=== PATIENT | male | born 1960 | race American Indian/Alaskan Native ===

== ENCOUNTER 2018-01-05 10:42 | Inpatient (IN) | payer OTHER ==
[2018-01-05] MEDS ORDERED: ASPIRIN PO ONE (12:13)
[2018-01-05 12:37] LABS: Hemoglobin 11.8 gm/dl (11.8-15.2); Red Blood Count 3.99 M/mm3 (3.65-5.03)
[2018-01-05 12:38] LABS: Basophils # (Auto) 0.1 K/mm3 (0.0-0.1); Basophils % (Auto) 0.9 % (0.0-1.8); Eosinophils # (Auto) 0.1 K/mm3 (0.0-0.4); Eosinophils % (Auto) 1.1 % (0.0-4.3); Hematocrit 36.2 % (35.5-45.6); Lymphocytes # (Auto) 1.5 K/mm3 (1.2-5.4); Mean Corpuscular HGB Conc 33 % (32-34); Mean Corpuscular Hemoglobin 30 pg (28-32); Mean Corpuscular Volume 91 fl (84-94); Monocytes # (Auto) 0.6 K/mm3 (0.0-0.8); Monocytes % (Auto) 5.8 % (0.0-7.3); Platelet Count 340 K/mm3 (140-440); Red Cell Distribution Width 13.4 % (13.2-15.2)
[2018-01-05 12:49] LABS: BUN/Creatinine Ratio 10; Blood Urea Nitrogen 24 mg/dL (9-20); Calcium 8.4 mg/dL (8.4-10.2); Hemolysis Index 34
[2018-01-05] MEDS ORDERED: LASIX IV ONE (13:01)
--- NOTE | 2018-01-05 13:08 | Emergency Department Report ---
ED Shortness of Breath HPI - General Chief Complaint: Abdominal Pain Stated Complaint: HEART FLUID Time Seen by Provider: 01/05/18 12:52 Source: patient Mode of arrival: Ambulatory Limitations: No Limitations - History of Present Illness Initial Comments: Mr. Gregorio is a 57-year-old male presents with 3 months of abdominal distention and fluid overload. He has history of insulin-dependent diabetes, hypertension and cardiac disease. He explained that earlier this month he had a heart attack or diagnosed with a heart attack at [facility]. His primary physician referred him to Dr. Lei data systems manager. Today he was evaluated by data systems manager as a new patient. He then was referred to the ER. His main concern is that he is "so full of fluid". The swelling in his legs and abdomen improve overnight. However throughout the day the fluid quickly returns. Over the past month, he has noticed a quick thumping sensation in the middle of his chest. This sensation is intermittent but occurs often. MD Complaint: shortness of breath -: Gradual, month(s) (3) Severity: moderate Consistency: constant Improves With: rest Worsens With: exertion Known History Of: congestive heart failure Context: other (recent heart attack earlier this month) Associated Symptoms: abdominal pain (abdominal distention and discomfort) - Related Data Home Medications Medication Instructions Recorded Confirmed Last Taken Famotidine [Pepcid] 20 mg PO BID 01/05/18 01/05/18 Unknown Furosemide [Lasix TAB] 80 mg PO BID 01/05/18 01/05/18 Unknown Metoprolol [Lopressor TAB] 50 mg PO BID 01/05/18 01/05/18 Unknown cloNIDine [Catapres] 0.1 mg PO BID 01/05/18 01/05/18 Unknown glipiZIDE XL [Glucotrol Xl] 4 tab PO DAILY@1100 01/05/18 01/05/18 Unknown Allergies Allergy/AdvReac Type Severity Reaction Status Date / Time No Known Allergies Allergy Verified 11/01/13 07:35 ED Review of Systems ROS: Stated complaint: HEART FLUID Other details as noted in HPI Comment: All other systems reviewed and negative Constitutional: denies: fever, malaise Respiratory: SOB with exertion, SOB at rest. denies: cough Cardiovascular: denies: chest pain Gastrointestinal: abdominal pain. denies: nausea, vomiting ED Past Medical Hx - Past Medical History Previous Medical History?: Yes Hx Diabetes: Yes - Surgical History Past Surgical History?: No - Social History Smoking Status: Never Smoker - Medications Home Medications: Home Medications Medication Instructions Recorded Confirmed Last Taken Type Famotidine [Pepcid] 20 mg PO BID 01/05/18 01/05/18 Unknown History Furosemide [Lasix TAB] 80 mg PO BID 01/05/18 01/05/18 Unknown History Metoprolol [Lopressor TAB] 50 mg PO BID 01/05/18 01/05/18 Unknown History cloNIDine [Catapres] 0.1 mg PO BID 01/05/18 01/05/18 Unknown History glipiZIDE XL [Glucotrol Xl] 4 tab PO DAILY@1100 01/05/18 01/05/18 Unknown History ED Physical Exam - General Limitations: No Limitations General appearance: alert, in no apparent distress - Head Head exam: Present: atraumatic, normocephalic - Eye Eye exam: Present: normal appearance - ENT ENT exam: Present: mucous membranes moist - Neck Neck exam: Present: normal inspection. Absent: tenderness, meningismus - Respiratory Respiratory exam: Present: normal lung sounds bilaterally. Absent: respiratory distress, wheezes, rales, rhonchi - Cardiovascular Cardiovascular Exam: Present: regular rate, normal rhythm, normal heart sounds, JVD (at 90 degrees). Absent: systolic murmur, diastolic murmur, rubs, gallop - GI/Abdominal GI/Abdominal exam: Present: soft, distended (tense). Absent: tenderness, guarding, rebound - Extremities Exam Extremities exam: Present: other (2+ pitting edema from groin to feet bilaterally) - Back Exam Back exam: Present: normal inspection - Neurological Exam Neurological exam: Present: alert, oriented X3 - Psychiatric Psychiatric exam: Present: normal affect, normal mood - Skin Skin exam: Present: warm, dry, intact, normal color. Absent: rash ED Course Vital Signs 01/05/18 01/05/18 12:02 13:13 Temperature 98.4 F 97.9 F Pulse Rate 89 90 Respiratory 20 18 Rate Blood Pressure 167/101 Blood Pressure 207/118 [Right] O2 Sat by Pulse 100 99 Oximetry ED Medical Decision Making - Lab Data Result diagrams: 01/05/18 12:22 01/05/18 13:14 Laboratory Results - last 24 hr 01/05/18 01/05/18 12:19 12:22 WBC 11.0 RBC 3.99 Hgb 11.8 Hct 36.2 MCV 91 MCH 30 MCHC 33 RDW 13.4 Plt Count 340 Lymph % (Auto) 14.0 Bee % (Auto) 5.8 Eos % (Auto) 1.1 Baso % (Auto) 0.9 Lymph # 1.5 Bee # 0.6 Eos # 0.1 Baso # 0.1 Seg Neutrophils % 78.2 H Seg Neutrophils # 8.6 H Sodium 141 Potassium 5.5 H Chloride 103.9 Carbon Dioxide 29 Anion Gap 14 BUN 24 H Creatinine 2.3 H Estimated GFR 36 BUN/Creatinine Ratio 10 Glucose 410 H Calcium 8.4 Troponin T 0.090 H - EKG Data 01/05/18 13:09 EKG obtained 1058 NSR rate 85 bpm nl axis nl intervals No acute ischemic changes no ST elevation no signs of pericarditis anterior Q waves with Poor R wave progression - Medical Decision Making Mr. Gregorio presents with fluid overload presumably to CHF. Admitted to hospitalist with cardiology consultation. Concern for RIGO. Mildly elevated potassium. Will confirm with repeat lab. Insulin administered to address both hyperglycemia and hyperkalemia. Will need gentle diuresis. I have asked our ED area secretary to obtain outside hospital records from [facility]. Critical care attestation.: If time is entered above; I have spent that time in minutes in the direct care of this critically ill patient, excluding procedure time. ED Disposition Clinical Impression: Acute on chronic HFrEF (heart failure with reduced ejection fraction), CKD ( chronic kidney disease) Disposition: OP ADMIT IP TO THIS HOSP Is pt being admited?: Yes Does the pt Need Aspirin: No Condition: Stable
[2018-01-05] MEDS ORDERED: HumuLIN R IV ONE (13:14)
[2018-01-05] MEDS ORDERED: MORPHINE IV ONE (13:28)
[2018-01-05] MEDS ORDERED: NITRO-BID 2% TP ONE (13:28)
[2018-01-05 15:30] LABS: Alanine Aminotransferase 32 units/L (7-56); Albumin 1.9 g/dL (3.9-5)
[2018-01-05 15:31] LABS: Bilirubin,Direct < 0.2 mg/dL (0-0.2)
--- NOTE | 2018-01-05 16:01 | Consultation ---
History of Present Illness Consult date: 01/05/18 Consult reason: elevated troponin, shortness of breath History of present illness: The patient claims that he has been experiencing intermittent precordial chest pressure as well as exertional dyspnea and orthopnea for the past 1.5 months. He claims that he was admitted to [facility] twice since onset of symptoms. He claims that he was diagnosed with a weak heart muscle and heart failure. He also reports undergoing stress testing at [facility]. He presented today with worsening of symptoms to [facility] ER. Past History Past Medical History: diabetes, heart failure, hypertension, hyperlipidemia, renal failure (CKD), other (cardiomyopathy.) Past Surgical History: Other (Leg surgery) Social history: denies: smoking, alcohol abuse Family history: denies: CAD Medications and Allergies Allergies Allergy/AdvReac Type Severity Reaction Status Date / Time No Known Allergies Allergy Verified 11/01/13 07:35 Home Medications Medication Instructions Recorded Confirmed Last Taken Type Famotidine [Pepcid] 20 mg PO BID 01/05/18 01/05/18 Unknown History Furosemide [Lasix TAB] 80 mg PO BID 01/05/18 01/05/18 Unknown History Metoprolol [Lopressor TAB] 50 mg PO BID 01/05/18 01/05/18 Unknown History cloNIDine [Catapres] 0.1 mg PO BID 01/05/18 01/05/18 Unknown History glipiZIDE XL [Glucotrol Xl] 4 tab PO DAILY@1100 01/05/18 01/05/18 Unknown History Review of Systems Constitutional: no fever, no chills Ears, nose, mouth and throat: no ear pain, no ear discharge, no sore throat Cardiovascular: chest pain, orthopnea, dyspnea on exertion, no palpitations, no lightheadedness Respiratory: dyspnea on exertion, no cough, no hemoptysis Gastrointestinal: no abdominal pain, no nausea, no vomiting, no diarrhea, no constipation Genitourinary Male: no dysuria, no urinary frequency Rectal: no pain, no bleeding Musculoskeletal: no neck stiffness, no neck pain, no myalgias Integumentary: no rash, no pruritis Neurological: no weakness, no parathesias, no headaches Endocrine: no cold intolerance, no heat intolerance Hematologic/Lymphatic: no easy bruising, no easy bleeding Allergic/Immunologic: no urticaria, no wheezing Physical Examination Vital Signs Temp Pulse Resp BP Pulse Ox 98.4 F 89 20 167/101 100 01/05/18 12:02 01/05/18 12:02 01/05/18 12:02 01/05/18 12:02 01/05/18 12:02 General appearance: no acute distress HEENT: Positive: EOMI, Normocephaly, Mucus Membranes Moist Neck: Positive: neck supple, trachea midline Cardiac: Positive: Reg Rate and Rhythm, S1/S2 Lungs: Positive: Rhonchi Neuro: Positive: Grossly Intact Abdomen: Positive: Soft, Active Bowel Sounds. Negative: Tender Skin: Positive: Clear. Negative: Rash Musculoskeletal: Normal Range of Motion Extremities: Present: +1 Edema (bilateral leg edema) Results 01/05/18 12:22 01/05/18 13:14 Cardiac Enzymes 01/05/18 Range/Units 12:19 AST 44 H (5-40) units/L CBC 01/05/18 Range/Units 12:22 WBC 11.0 (4.5-11.0) K/mm3 RBC 3.99 (3.65-5.03) M/mm3 Hgb 11.8 (11.8-15.2) gm/dl Hct 36.2 (35.5-45.6) % Plt Count 340 (140-440) K/mm3 Lymph # 1.5 (1.2-5.4) K/mm3 Nance # 0.6 (0.0-0.8) K/mm3 Eos # 0.1 (0.0-0.4) K/mm3 Baso # 0.1 (0.0-0.1) K/mm3 Comprehensive Metabolic Panel 01/05/18 01/05/18 Range/Units 12:19 13:14 Sodium 141 (137-145) mmol/L Potassium 5.5 H 5.3 H (3.6-5.0) mmol/L Chloride 103.9 (98-107) mmol/L Carbon Dioxide 29 (22-30) mmol/L BUN 24 H (9-20) mg/dL Creatinine 2.3 H (0.8-1.5) mg/dL Glucose 410 H (75-100) mg/dL Calcium 8.4 (8.4-10.2) mg/dL Direct Bilirubin < 0.2 (0-0.2) mg/dL Indirect Bilirubin 0.0 mg/dL AST 44 H (5-40) units/L ALT 32 (7-56) units/L Alkaline Phosphatase 124 (35-129) units/L Total Protein 6.0 L (6.3-8.2) g/dL Albumin 1.9 L (3.9-5) g/dL - Imaging and Cardiology EKG: image reviewed EKG interpretations - Telemetry EKG Rhythm: Sinus Rhythm - EKG Sinus rhythms and dysrhythmias: sinus rhythm Assessment and Plan IV diuretics. Optimize antihypertensive regimen. Obtain echocardiogram.. Obtain recent records from [facility]. - Patient Problems (1) Acute on chronic HFrEF (heart failure with reduced ejection fraction) Current Visit: Yes Status: Acute (2) Elevated troponin Current Visit: Yes Status: Acute (3) Cardiomyopathy Current Visit: Yes Status: Chronic (4) CKD (chronic kidney disease) Current Visit: Yes Status: Acute (5) Uncontrolled hypertension Current Visit: Yes Status: Acute (6) Uncontrolled diabetes mellitus Current Visit: Yes Status: Acute Qualifiers: Diabetes mellitus type: type 2
[2018-01-05] MEDS ORDERED: LOPRESSOR ONE ×2 (16:23→16:43)
[2018-01-05] MEDS: LOPRESSOR PO SCH ×2 (16:43→23:29)
[2018-01-05] MEDS ORDERED: APRESOLINE PO STA (16:54)
[2018-01-05] MEDS ORDERED: NORVASC PO STA (16:54)
[2018-01-05] MEDS ORDERED: CATAPRES PO STA (16:54)
[2018-01-05 18:25] LABS: Chol/HDL Ratio 3.36 %; HDL Cholesterol 85 mg/dL (40-59); LDL Cholesterol,Direct 194 mg/dL (50-130)
--- NOTE | 2018-01-05 18:58 | XRay Report ---
FINAL REPORT PROCEDURE: XR CHEST 1V AP TECHNIQUE: A portable AP chest radiograph was obtained at 01/05/2018 17:57 (GMT) . HISTORY: Dyspnea. COMPARISON: No prior studies are available for comparison. FINDINGS: Heart: Mild cardiomegaly. Mediastinum/Vessels: Normal. Lungs/Pleural space: Moderate right lower lobe opacity and small to moderate right pleural effusion. Bony thorax: No acute osseous abnormality. Life support devices: None. IMPRESSION: Mild cardiomegaly. Moderate right lower lobe opacity and small to moderate pleural effusion. Consider atelectasis, cannot exclude pneumonia or even subtle underlying mass lesion. Consider followup PA and lateral chest radiograph to evaluate for resolution and consider chest CT if findings do not resolve.
[2018-01-05] MEDS ORDERED: CATAPRES PO SCH (22:00)
[2018-01-05] MEDS: BIDIL 20/37.5MG PO SCH (22:19)
[2018-01-05] MEDS ORDERED: MORPHINE IV PRN (22:46)
[2018-01-05] MEDS ORDERED: TYLENOL PO PRN (22:46)
[2018-01-05] MEDS ORDERED: ZOFRAN IV PRN (22:46)
[2018-01-05] MEDS ORDERED: SODIUM CHLORIDE FLUSH SYRINGE 10 ML IV PRN (22:46)
[2018-01-05] MEDS ORDERED: PERCOCET 5/325 PO PRN (22:46)
--- NOTE | 2018-01-05 22:46 | History and Physical Report ---
History of Present Illness Date of examination: 01/05/18 Date of admission: 01/05/18 14:39 Chief complaint: Cc CHest pain and SOB 1 week History of present illness: History of present illness: 57 y/o male c/o intermittent precordial chest pressure as well as exertional dyspnea and orthopnea for the past 6 weeks. He claims that he was admitted to [facility] twice since onset of symptoms. He claims that he was diagnosed with CHF.. He also reports undergoing stress testing at [facility]. He presented today with worsening of symptoms to [facility] ER. Past History Past Medical History: diabetes, heart failure, hypertension, hyperlipidemia, renal failure (CKD), other (cardiomyopathy.) Past Surgical History: Other (Leg surgery) Social history: denies: smoking, alcohol abuse Family history: denies: CAD Medications and Allergies Allergies Allergy/AdvReac Type Severity Reaction Status Date / Time No Known Allergies Allergy Verified 11/01/13 07:35 Home Medications Medication Instructions Recorded Confirmed Last Taken Type Famotidine [Pepcid] 20 mg PO BID 01/05/18 01/05/18 Unknown History Furosemide [Lasix TAB] 80 mg PO BID 01/05/18 01/05/18 Unknown History Metoprolol [Lopressor TAB] 50 mg PO BID 01/05/18 01/05/18 Unknown History cloNIDine [Catapres] 0.1 mg PO BID 01/05/18 01/05/18 Unknown History glipiZIDE XL [Glucotrol Xl] 4 tab PO DAILY@1100 01/05/18 01/05/18 Unknown History Review of Systems Constitutional: no fever, no chills Ears, nose, mouth and throat: no ear pain, no ear discharge, no sore throat Cardiovascular: chest pain, orthopnea, dyspnea on exertion, no palpitations, no lightheadedness Respiratory: dyspnea on exertion, no cough, no hemoptysis Gastrointestinal: no abdominal pain, no nausea, no vomiting, no diarrhea, no constipation Genitourinary Male: no dysuria, no urinary frequency Rectal: no pain, no bleeding Musculoskeletal: no neck stiffness, no neck pain, no myalgias Integumentary: no rash, no pruritis Neurological: no weakness, no parathesias, no headaches Endocrine: no cold intolerance, no heat intolerance Hematologic/Lymphatic: no easy bruising, no easy bleeding Allergic/Immunologic: no urticaria, no wheezing Past History Past Medical History: diabetes, heart failure, hypertension, hyperlipidemia, renal failure (CKD), other (cardiomyopathy.) Past Surgical History: Other (Leg surgery) Social history: denies: smoking, alcohol abuse Family history: denies: CAD Medications and Allergies Allergies Allergy/AdvReac Type Severity Reaction Status Date / Time No Known Allergies Allergy Verified 11/01/13 07:35 Home Medications Medication Instructions Recorded Confirmed Last Taken Type Famotidine [Pepcid] 20 mg PO BID 01/05/18 01/05/18 Unknown History Furosemide [Lasix TAB] 80 mg PO BID 01/05/18 01/05/18 Unknown History Metoprolol [Lopressor TAB] 50 mg PO BID 01/05/18 01/05/18 Unknown History cloNIDine [Catapres] 0.1 mg PO BID 01/05/18 01/05/18 Unknown History glipiZIDE XL [Glucotrol Xl] 4 tab PO DAILY@1100 01/05/18 01/05/18 Unknown History Active Meds: Active Medications Clonidine HCl (Catapres) 0.2 mg PO Q12HR [facility] Last Admin: 01/05/18 22:19 Dose: 0.2 mg Isosorbide Dinitrate/Hydralazine (Bidil 20/37.5mg) 1 each PO Q8HR [facility] Last Admin: 01/05/18 22:19 Dose: 1 each Metoprolol Tartrate (Lopressor) 50 mg PO Q6H [facility] Last Admin: 01/05/18 16:43 Dose: 50 mg Exam - Constitutional Vitals: Temp Pulse Resp BP Pulse Ox 98.2 F 80 11 L 159/90 95 01/05/18 18:58 01/05/18 21:07 01/05/18 20:30 01/05/18 20:30 01/05/18 20:30 General appearance: Present: mild distress, well-nourished - EENT Eyes: Present: PERRL ENT: hearing intact, clear oral mucosa - Neck Neck: Present: supple, normal ROM - Respiratory Respiratory effort: normal Respiratory: bilateral: CTA - Cardiovascular Heart rate: 86 Rhythm: regular Heart Sounds: Present: S1 & S2. Absent: rub, click - Extremities Extremities: no ischemia, pulses intact, pulses symmetrical, No edema Peripheral Pulses: within normal limits - Abdominal General gastrointestinal: Present: soft, non-tender, non-distended, normal bowel sounds Male genitourinary: Present: normal - Rectal Rectal Exam: deferred - Integumentary Integumentary: Present: clear, warm, dry - Musculoskeletal Musculoskeletal: gait normal, strength equal bilaterally - Psychiatric Psychiatric: appropriate mood/affect, intact judgment & insight - Neurologic Neurologic: CNII-XII intact, moves all extremities - Allied Health Allied health notes reviewed: nursing, case management Results - Labs CBC & Chem 7: 01/05/18 12:22 01/06/18 05:31 Labs: Laboratory Last Values WBC 11.0 K/mm3 (4.5-11.0) 01/05/18 12:22 RBC 3.99 M/mm3 (3.65-5.03) 01/05/18 12:22 Hgb 11.8 gm/dl (11.8-15.2) 01/05/18 12:22 Hct 36.2 % (35.5-45.6) 01/05/18 12:22 MCV 91 fl (84-94) 01/05/18 12:22 MCH 30 pg (28-32) 01/05/18 12:22 MCHC 33 % (32-34) 01/05/18 12:22 RDW 13.4 % (13.2-15.2) 01/05/18 12:22 Plt Count 340 K/mm3 (140-440) 01/05/18 12:22 Lymph % (Auto) 14.0 % (13.4-35.0) 01/05/18 12:22 Tift % (Auto) 5.8 % (0.0-7.3) 01/05/18 12:22 Eos % (Auto) 1.1 % (0.0-4.3) 01/05/18 12:22 Baso % (Auto) 0.9 % (0.0-1.8) 01/05/18 12:22 Lymph # 1.5 K/mm3 (1.2-5.4) 01/05/18 12:22 Tift # 0.6 K/mm3 (0.0-0.8) 01/05/18 12:22 Eos # 0.1 K/mm3 (0.0-0.4) 01/05/18 12:22 Baso # 0.1 K/mm3 (0.0-0.1) 01/05/18 12:22 Seg Neutrophils % 78.2 % (40.0-70.0) H 01/05/18 12:22 Seg Neutrophils # 8.6 K/mm3 (1.8-7.7) H 01/05/18 12:22 Sodium 141 mmol/L (137-145) 01/05/18 12:19 Potassium 5.3 mmol/L (3.6-5.0) H 01/05/18 13:14 Chloride 103.9 mmol/L (98-107) 01/05/18 12:19 Carbon Dioxide 29 mmol/L (22-30) 01/05/18 12:19 Anion Gap 14 mmol/L 01/05/18 12:19 BUN 24 mg/dL (9-20) H 01/05/18 12:19 Creatinine 2.3 mg/dL (0.8-1.5) H 01/05/18 12:19 Estimated GFR 36 ml/min 01/05/18 12:19 BUN/Creatinine Ratio 10 % 01/05/18 12:19 Glucose 410 mg/dL (75-100) H 01/05/18 12:19 POC Glucose 198 (70-105) H 01/05/18 15:42 Calcium 8.4 mg/dL (8.4-10.2) 01/05/18 12:19 Total Bilirubin < 0.20 mg/dL (0.1-1.2) 01/05/18 12:19 Direct Bilirubin < 0.2 mg/dL (0-0.2) 01/05/18 12:19 Indirect Bilirubin 0.0 mg/dL 01/05/18 12:19 AST 44 units/L (5-40) H 01/05/18 12:19 ALT 32 units/L (7-56) 01/05/18 12:19 Alkaline Phosphatase 124 units/L (35-129) 01/05/18 12:19 Troponin T 0.083 ng/mL (0.00-0.029) H 01/05/18 17:41 NT-Pro-B Natriuret Pep 5935 pg/mL (0-900) H 01/05/18 12:19 Total Protein 6.0 g/dL (6.3-8.2) L 01/05/18 12:19 Albumin 1.9 g/dL (3.9-5) L 01/05/18 12:19 Albumin/Globulin Ratio 0.5 % 01/05/18 12:19 Triglycerides 182 mg/dL (2-149) H 01/05/18 12:19 Cholesterol 286 mg/dL (50-199) H 01/05/18 12:19 LDL Cholesterol Direct 194 mg/dL (50-130) H 01/05/18 12:19 HDL Cholesterol 85 mg/dL (40-59) H 01/05/18 12:19 Cholesterol/HDL Ratio 3.36 % 01/05/18 12:19 Short CBC 01/05/18 Range/Units 12:22 WBC 11.0 (4.5-11.0) K/mm3 Hgb 11.8 (11.8-15.2) gm/dl Hct 36.2 (35.5-45.6) % Plt Count 340 (140-440) K/mm3 BMP 01/05/18 01/05/18 01/06/18 12:19 13:14 05:31 Sodium 141 147 H Potassium 5.5 H 5.3 H 4.4 Chloride 103.9 107.0 Carbon Dioxide 29 29 BUN 24 H 24 H Creatinine 2.3 H 2.4 H Glucose 410 H 199 H Calcium 8.4 8.3 L Cardiac Enzymes 01/05/18 01/05/18 01/05/18 Range/Units 12:19 14:53 17:41 Troponin T 0.090 H 0.091 H 0.083 H (0.00-0.029) ng/mL Liver Function 01/05/18 01/06/18 Range/Units 12:19 05:31 Total Bilirubin < 0.20 < 0.20 (0.1-1.2) mg/dL Direct Bilirubin < 0.2 (0-0.2) mg/dL AST 44 H 27 (5-40) units/L ALT 32 24 (7-56) units/L Alkaline Phosphatase 124 105 (35-129) units/L Albumin 1.9 L 1.8 L (3.9-5) g/dL - Imaging and Cardiology EKG: report reviewed ( old anterior infarct) Imaging and Cardiology: CXR IMPRESSION :1)Mild cardiomegaly. Moderate right lower lobe opacity and small to moderate pleural effusion. Consider atelectasis, cannot exclude pneumonia or even subtle underlying mass lesion. Consider followup PA and lateral chest radiograph to evaluate for resolution and consider chest CT if findings do not resolve. Assessment and Plan Advance Directives: Yes (Full code) VTE prophylaxis?: Chemical Plan of care discussed with patient/family: Yes 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) heart failure Plan to address problem: ECHO ordered Will try to get records from [facility] (2) Elevated troponin Current Visit: Yes Status: Acute Plan to address problem: Will defer to Cardiology reg w/u (3) CKD (chronic kidney disease) Current Visit: Yes Status: Chronic Qualifiers: Chronic kidney disease stage: stage 3 (moderate) Qualified Code(s): N18.3 - Chronic kidney disease, stage 3 (moderate) Plan to address problem: Nephrology consult (4) HTN (hypertension) Current Visit: Yes Status: Chronic Qualifiers: Hypertension type: essential hypertension Qualified Code(s): I10 - Essential (primary) hypertension Plan to address problem: CONT ANTIHYpertensives (5) IDDM (insulin dependent diabetes mellitus) Current Visit: Yes Status: Chronic Plan to address problem: COnt Home insulin and Adjust dosage upwards b/c A1c is high And coverage (6) HLD (hyperlipidemia) Current Visit: Yes Status: Chronic Qualifiers: Hyperlipidemia type: mixed hyperlipidemia Qualified Code(s): E78.2 - Mixed hyperlipidemia Plan to address problem: Cont statins (7) DVT prophylaxis Current Visit: Yes Status: Acute Plan to address problem: On Lovenox
[2018-01-05] MEDS ORDERED: AMBIEN PO ONE (23:20)
[2018-01-05] MEDS: HumaLOG SUB-Q SCH (23:30)
[2018-01-06] MEDS: LOPRESSOR PO SCH ×3 (05:41→23:11)
[2018-01-06] MEDS: BIDIL 20/37.5MG PO SCH ×3 (05:41→23:10)
[2018-01-06] MEDS: LASIX IV SCH ×2 (05:42→17:50)
[2018-01-06 07:18] LABS: Alanine Aminotransferase 24 units/L (7-56); Albumin 1.8 g/dL (3.9-5); BUN/Creatinine Ratio 10; Blood Urea Nitrogen 24 mg/dL (9-20); Calcium 8.3 mg/dL (8.4-10.2); Hemolysis Index 5
[2018-01-06] MEDS: CATAPRES PO SCH ×2 (09:33→23:10)
[2018-01-06] MEDS: HumaLOG SUB-Q SCH ×4 (09:33→22:50)
[2018-01-06] MEDS: K-DUR PO SCH (09:34)
[2018-01-06] MEDS: PEPCID PO SCH ×2 (09:34→23:11)
[2018-01-06] MEDS: SODIUM CHLORIDE FLUSH SYRINGE 10 ML IV SCH ×2 (09:35→23:12)
[2018-01-06] MEDS ORDERED: PEPCID PO SCH ×3 (10:00)
[2018-01-06] MEDS: GLUCOTROL XL PO SCH (11:31)
--- NOTE | 2018-01-06 12:33 | Progress Note ---
Assessment and Plan Assessment and plan: --Acute on chronic congestive heart failure; probably systolic dysfunction Unknown ejection fraction, follow echocardiogram, continue anti-failure medications Low-sodium diet, fluid restriction, cardiology following --Nonspecific elevation of troponins; probably secondary to acute exacerbation of CHF closely monitor, check recent medical records from outside hospital --Acute kidney injury; secondary to ATN Closely monitor renal function, avoid nephrotoxic medicines, nephrology evaluation if needed --Hypertension; moderate control, continue current antihypertensives When necessary medications --Severe malnutrition/hypoalbuminemia; nutrition supplements, supportive care Nutrition consult as needed --Dyslipidemia; continue lipid lowering medications, low-cholesterol diet --Type 2 diabetes mellitus; uncontrolled, A1c 9.8 Accu-Chek sliding scale coverage and ADA diet, oral hypoglycemics Consider long-acting insulin if needed --DVT prophylaxis; Lovenox We'll closely monitor the patient and adjust management as needed Plan of care is reviewed with the patient and his nurse History Interval history: Patient Seen and examined medical records reviewed Patient feels slightly better, no new complaints Vital signs reviewed No new events reported by the nursing Hospitalist Physical - Constitutional Vitals: Temp Pulse Resp BP Pulse Ox 98.2 F 75 11 L 156/91 95 01/05/18 18:58 01/06/18 09:35 01/05/18 20:30 01/06/18 09:35 01/05/18 20:30 General appearance: Present: no acute distress, well-nourished - EENT Eyes: Present: PERRL, EOM intact - Neck Neck: Present: supple, normal ROM - Respiratory Respiratory effort: normal Respiratory: bilateral: diminished, rales, negative: rhonchi, wheezing - Cardiovascular Rhythm: regular Heart Sounds: Present: S1 & S2 - Extremities Extremities: no ischemia, No edema - Abdominal General gastrointestinal: soft, non-tender, non-distended, normal bowel sounds - Integumentary Integumentary: Present: clear, warm - Psychiatric Psychiatric: appropriate mood/affect, cooperative - Neurologic Neurologic: CNII-XII intact, moves all extremities Results - Labs CBC & Chem 7: 01/05/18 12:22 01/06/18 05:31 Labs: Laboratory Last Values WBC 11.0 K/mm3 (4.5-11.0) 01/05/18 12:22 RBC 3.99 M/mm3 (3.65-5.03) 01/05/18 12:22 Hgb 11.8 gm/dl (11.8-15.2) 01/05/18 12:22 Hct 36.2 % (35.5-45.6) 01/05/18 12:22 MCV 91 fl (84-94) 01/05/18 12:22 MCH 30 pg (28-32) 01/05/18 12:22 MCHC 33 % (32-34) 01/05/18 12:22 RDW 13.4 % (13.2-15.2) 01/05/18 12:22 Plt Count 340 K/mm3 (140-440) 01/05/18 12:22 Lymph % (Auto) 14.0 % (13.4-35.0) 01/05/18 12:22 [place] % (Auto) 5.8 % (0.0-7.3) 01/05/18 12:22 Eos % (Auto) 1.1 % (0.0-4.3) 01/05/18 12:22 Baso % (Auto) 0.9 % (0.0-1.8) 01/05/18 12:22 Lymph # 1.5 K/mm3 (1.2-5.4) 01/05/18 12:22 [place] # 0.6 K/mm3 (0.0-0.8) 01/05/18 12:22 Eos # 0.1 K/mm3 (0.0-0.4) 01/05/18 12:22 Baso # 0.1 K/mm3 (0.0-0.1) 01/05/18 12:22 Seg Neutrophils % 78.2 % (40.0-70.0) H 01/05/18 12:22 Seg Neutrophils # 8.6 K/mm3 (1.8-7.7) H 01/05/18 12:22 Sodium 147 mmol/L (137-145) H 01/06/18 05:31 Potassium 4.4 mmol/L (3.6-5.0) 01/06/18 05:31 Chloride 107.0 mmol/L (98-107) 01/06/18 05:31 Carbon Dioxide 29 mmol/L (22-30) 01/06/18 05:31 Anion Gap 15 mmol/L 01/06/18 05:31 BUN 24 mg/dL (9-20) H 01/06/18 05:31 Creatinine 2.4 mg/dL (0.8-1.5) H 01/06/18 05:31 Estimated GFR 34 ml/min 01/06/18 05:31 BUN/Creatinine Ratio 10 % 01/06/18 05:31 Glucose 199 mg/dL (75-100) H 01/06/18 05:31 POC Glucose 233 (70-105) H 01/06/18 06:52 Hemoglobin A1c 9.8 % (4-6) H 01/05/18 23:19 Calcium 8.3 mg/dL (8.4-10.2) L 01/06/18 05:31 Total Bilirubin < 0.20 mg/dL (0.1-1.2) 01/06/18 05:31 Direct Bilirubin < 0.2 mg/dL (0-0.2) 01/05/18 12:19 Indirect Bilirubin 0.0 mg/dL 01/05/18 12:19 AST 27 units/L (5-40) 01/06/18 05:31 ALT 24 units/L (7-56) 01/06/18 05:31 Alkaline Phosphatase 105 units/L (35-129) 01/06/18 05:31 Troponin T 0.083 ng/mL (0.00-0.029) H 01/05/18 17:41 NT-Pro-B Natriuret Pep 5935 pg/mL (0-900) H 01/05/18 12:19 Total Protein 5.1 g/dL (6.3-8.2) L 01/06/18 05:31 Albumin 1.8 g/dL (3.9-5) L 01/06/18 05:31 Albumin/Globulin Ratio 0.5 % 01/06/18 05:31 Triglycerides 182 mg/dL (2-149) H 01/05/18 12:19 Cholesterol 286 mg/dL (50-199) H 01/05/18 12:19 LDL Cholesterol Direct 194 mg/dL (50-130) H 01/05/18 12:19 HDL Cholesterol 85 mg/dL (40-59) H 01/05/18 12:19 Cholesterol/HDL Ratio 3.36 % 01/05/18 12:19
--- NOTE | 2018-01-06 13:56 | Consultation ---
History of Present Illness - Reason for Consult Consult date: 01/06/18 acute renal failure, chronic renal failure, hyperkalemia, other (volume overload ) - History of Present Illness The patient is a 57 YO male with medical history significant for Obesity, DM-2 ( 15+ yrs), HTN (15+ yrs), HLD, Systolic CHF and CKD who came to the hospital with worsening sob and swelling of all 4 extremities. The symptoms started several weeks ago but gotten worse over the past few days. Associated symptoms include Orthopnea, PND and intermittent chest pressure. He claims that he was admitted at [facility] twice since onset of symptoms. For several years he was not taking treatment for DM and HTN. On admission his creatinine was 2.3 and K 5.5. In 2014 his creatinine was 1.4. He is currently not followed by any [employer]. Denies any urinary symptoms, NSIAD intake, recurrent UTI or kidney stone. Past History Past Medical History: diabetes, heart failure, hypertension, hyperlipidemia, renal failure (CKD), other (cardiomyopathy.) Past Surgical History: Other (Leg surgery) Social history: denies: smoking, alcohol abuse Family history: denies: CAD Medications and Allergies Allergies Allergy/AdvReac Type Severity Reaction Status Date / Time No Known Allergies Allergy Verified 11/01/13 07:35 Home Medications Medication Instructions Recorded Confirmed Last Taken Type Famotidine [Pepcid] 20 mg PO BID 01/05/18 01/05/18 Unknown History Furosemide [Lasix TAB] 80 mg PO BID 01/05/18 01/05/18 Unknown History Metoprolol [Lopressor TAB] 50 mg PO BID 01/05/18 01/05/18 Unknown History cloNIDine [Catapres] 0.1 mg PO BID 01/05/18 01/05/18 Unknown History glipiZIDE XL [Glucotrol Xl] 4 tab PO DAILY@1100 01/05/18 01/05/18 Unknown History Active Meds: Active Medications Acetaminophen (Tylenol) 650 mg PO Q4H PRN PRN Reason: Pain MILD(1-3)/Fever >100.5/GARCIA Clonidine HCl (Catapres) 0.1 mg PO BID [facility] Last Admin: 01/06/18 09:33 Dose: 0.1 mg Enoxaparin Sodium (Lovenox) 30 mg SUB-Q QHS [facility] Famotidine (Pepcid) 10 mg PO BID [facility] Last Admin: 01/06/18 09:34 Dose: 10 mg Furosemide (Lasix) 40 mg IV 0600,1800 [facility] Last Admin: 01/06/18 05:42 Dose: 40 mg Glipizide (Glucotrol Xl) 1 mg PO DAILY@1100 [facility] Last Admin: 01/06/18 11:31 Dose: 1 mg Insulin Human Lispro (Humalog) 0 unit SUB-Q ACHS [facility]; Protocol Last Admin: 01/06/18 09:33 Dose: 4 unit Isosorbide Dinitrate/Hydralazine (Bidil 20/37.5mg) 1 each PO Q8HR [facility] Last Admin: 01/06/18 05:41 Dose: 1 each Metoprolol Tartrate (Lopressor) 50 mg PO BID [facility] Last Admin: 01/06/18 09:35 Dose: 50 mg Morphine Sulfate (Morphine) 2 mg IV Q4H PRN PRN Reason: Pain, Moderate (4-6) Ondansetron HCl (Zofran) 4 mg IV Q8H PRN PRN Reason: Nausea And Vomiting Oxycodone/Acetaminophen (Percocet 5/325) 1 tab PO Q6H PRN PRN Reason: Pain, Moderate (4-6) Potassium Chloride (K-Dur) 20 meq PO QDAY [facility] Last Admin: 01/06/18 09:34 Dose: 20 meq Sodium Chloride (Sodium Chloride Flush Syringe 10 Ml) 10 ml IV BID [facility] Last Admin: 01/06/18 09:35 Dose: 10 ml Sodium Chloride (Sodium Chloride Flush Syringe 10 Ml) 10 ml IV PRN PRN PRN Reason: LINE FLUSH Review of Systems Constitutional: weight gain, no weight loss, no fever, no chills, no anorexia, no weakness Cardiovascular: chest pain, orthopnea, edema, shortness of breath, dyspnea on exertion, paroxysmal nocturnal dyspnea, high blood pressure, leg edema, decreased exercise tolerance, no palpitations, no syncope, no lightheadedness Respiratory: shortness of breath, dyspnea on exertion, no cough, no hemoptysis Gastrointestinal: no abdominal pain, no nausea, no vomiting, no diarrhea, no hematemesis, no melena, no jaundice Genitourinary Male: no dysuria, no hematuria Rectal: no bleeding Integumentary: no rash, no sores, no wounds, no jaundice Neurological: no weakness, no tingling, no seizures, no syncope, no tremors Psychiatric: no anxiety, no memory loss Exam - Vital Signs Vital signs: Vital Signs Pulse Ox 100 01/05/18 10:16 - General Appearance General appearance: well-developed, well-nourished, appears stated age, other ( not in distress) EENT: ATNC, PERRL, mucous membranes moist, hearing intact, vision intact Neck: Present: neck supple, trachea midline Respiratory: Clear to Ascultation Heart: regular, S1S2, no murmurs Gastrointestinal: Present: normoactive bowel sounds. Absent: tenderness Integumentary: no rash, warm and dry Neurologic: no focal deficit, no asterixis, alert and oriented x3 Musculoskeletal: Present: other (trace edema of all 4 extremities) Psychiatric: cooperative Results - Lab Results 01/05/18 12:22 01/06/18 05:31 Most recent lab results Calcium 8.3 mg/dL (8.4-10.2) L 01/06/18 05:31 - Image Kidney/bladder ultrasound: pending Assessment and Plan 1. Acute kidney injury: [place] superimposed on CKD in the setting of CHF exacerbation. Likely Cardio-renal syndrome. Urine studies and Renal US. Monitor renal function. CKD likely secondary to diabetic nephropathy. Suspect Nephrotic syndrome. 2. Electrolytes: Hyperkalemia, improved. Hypernatremia, monitor. 3. CHF exaerbation with volume overload: Followed by Cards. On Lasix. 4. DM-2.
--- NOTE | 2018-01-06 15:48 | Ultrasound Report ---
FINAL REPORT EXAM: US RENAL BILAT HISTORY: Acute renal failure. TECHNIQUE: Directed sonography of the retroperitoneum. PRIORS: None. FINDINGS: The right kidney measures 11.8 cm in longest dimension and the left kidney measures 11.8 cm in longest dimension. Renal cortical echotexture within normal limits. No intrarenal calculi, significant hydronephrosis or abnormal perinephric fluid collections. Visualized urinary bladder grossly unremarkable. Right pleural effusion incidentally noted. IMPRESSION: 1. No significant hydronephrosis. 2. Right pleural effusion.
--- NOTE | 2018-01-06 16:00 | Progress Note ---
Assessment and Plan Patient is still complaining about edema. However he appears to be diuresing reasonably well. Blood sugar is not well controlled. Hyperlipidemia is also a significant problem. Continue current management. 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) heart failure (2) Elevated troponin Current Visit: Yes Status: Acute (3) IDDM (insulin dependent diabetes mellitus) Current Visit: Yes Status: Acute (4) CKD (chronic kidney disease) Current Visit: Yes Status: Chronic Qualifiers: Chronic kidney disease stage: stage 3 (moderate) Qualified Code(s): N18.3 - Chronic kidney disease, stage 3 (moderate) (5) Cardiomyopathy Current Visit: Yes Status: Chronic (6) HLD (hyperlipidemia) Current Visit: Yes Status: Chronic Qualifiers: Hyperlipidemia type: mixed hyperlipidemia Qualified Code(s): E78.2 - Mixed hyperlipidemia (7) HTN (hypertension) Current Visit: Yes Status: Chronic Qualifiers: Hypertension type: essential hypertension Qualified Code(s): I10 - Essential (primary) hypertension Subjective Date of service: 01/06/18 Interval history: Patient still has some difficulty in breathing but it is doing better. He continues to complain about edema all over. Appears to be responding to dietary takes reasonably. Objective Vital Signs Temp Pulse Resp BP BP Pulse Ox 01/06/18 09:35 75 156/91 01/06/18 09:33 75 156/91 01/05/18 21:07 80 01/05/18 20:30 80 11 L 159/90 95 01/05/18 20:15 80 13 159/90 91 01/05/18 20:00 79 9 L 142/69 88 01/05/18 19:46 81 12 142/69 92 01/05/18 19:30 77 9 L 147/75 95 01/05/18 19:15 78 11 L 147/75 92 01/05/18 19:00 81 15 146/81 94 01/05/18 18:58 98.2 F 78 13 146/81 96 01/05/18 18:45 78 14 146/81 96 01/05/18 18:30 77 9 L 155/90 96 01/05/18 18:16 77 12 155/90 97 01/05/18 18:00 81 16 185/110 98 01/05/18 17:45 78 13 185/110 96 01/05/18 17:30 79 10 L 191/114 97 01/05/18 17:15 80 11 L 191/114 95 01/05/18 17:00 89 13 182/111 98 01/05/18 16:45 91 H 16 209/118 96 01/05/18 16:43 89 199/112 01/05/18 16:30 90 11 L 181/115 97 01/05/18 16:15 84 8 L 181/115 94 01/05/18 16:00 87 13 166/94 99 - Physical Examination HEENT: Positive: EOMI, Normocephaly, Mucus Membranes Moist Neck: Positive: neck supple, trachea midline Cardiac: Positive: Regular Rhythm Lungs: Positive: clear to auscultation Neuro: Positive: Grossly Intact Abdomen: Positive: Soft, Active Bowel Sounds. Negative: Tender Skin: Positive: Clear. Negative: Rash Musculoskeletal: Normal Range of Motion Extremities: Present: +1 Edema (bilateral leg edema) - Labs and Meds Cardiac Enzymes 01/06/18 Range/Units 05:31 AST 27 (5-40) units/L Lipids 01/05/18 Range/Units 12:19 Triglycerides 182 H (2-149) mg/dL Cholesterol 286 H (50-199) mg/dL HDL Cholesterol 85 H (40-59) mg/dL Cholesterol/HDL Ratio 3.36 % Comprehensive Metabolic Panel 01/06/18 Range/Units 05:31 Sodium 147 H (137-145) mmol/L Potassium 4.4 (3.6-5.0) mmol/L Chloride 107.0 (98-107) mmol/L Carbon Dioxide 29 (22-30) mmol/L BUN 24 H (9-20) mg/dL Creatinine 2.4 H (0.8-1.5) mg/dL Glucose 199 H (75-100) mg/dL Calcium 8.3 L (8.4-10.2) mg/dL AST 27 (5-40) units/L ALT 24 (7-56) units/L Alkaline Phosphatase 105 (35-129) units/L Total Protein 5.1 L (6.3-8.2) g/dL Albumin 1.8 L (3.9-5) g/dL - Imaging and Cardiology EKG: report reviewed ( old anterior infarct) - EKG Sinus rhythms and dysrhythmias: sinus rhythm
[2018-01-06] MEDS ORDERED: LOVENOX SUB-Q SCH (22:00)
[2018-01-07 00:48] LABS: Bilirubin,Urine NEG (Negative); Blood,Urine NEG (Negative); Color,Urine Straw (Yellow); Hyaline Casts,Urine 9 /LPF; Mucus,Urine FEW /HPF; Urobilinogen,Urine < 2.0 mg/dL (<2.0)
[2018-01-07 00:55] LABS: Creatinine,Urine 44.6 mg/dL (0.1-20.0)
[2018-01-07 00:56] LABS: Protein,Urine >500 mg/dL (Negative)
[2018-01-07 01:45] LABS: Protein/Creatinine Ratio,Urine 9.66
[2018-01-07 04:27] LABS: Basophils # (Auto) 0.1 K/mm3 (0.0-0.1); Basophils % (Auto) 0.7 % (0.0-1.8); Eosinophils # (Auto) 0.1 K/mm3 (0.0-0.4); Eosinophils % (Auto) 1.2 % (0.0-4.3); Hematocrit 31.5 % (35.5-45.6); Hemoglobin 10.4 gm/dl (11.8-15.2); Lymphocytes % (Auto) 20.7 % (13.4-35.0); Mean Corpuscular HGB Conc 33 % (32-34); Mean Corpuscular Hemoglobin 30 pg (28-32); Mean Corpuscular Volume 89 fl (84-94); Monocytes # (Auto) 0.6 K/mm3 (0.0-0.8); Monocytes % (Auto) 6.3 % (0.0-7.3); Platelet Count 303 K/mm3 (140-440); Red Blood Count 3.53 M/mm3 (3.65-5.03)
[2018-01-07 04:42] LABS: Calcium 8.3 mg/dL (8.4-10.2)
[2018-01-07] MEDS: BIDIL 20/37.5MG PO SCH ×3 (06:35→21:53)
[2018-01-07] MEDS: LASIX IV SCH ×2 (06:35→17:38)
--- NOTE | 2018-01-07 10:04 | Progress Note ---
Assessment and Plan 1. Acute kidney injury: RIGO superimposed on CKD in the setting of CHF exacerbation. Likely Cardio-renal syndrome. Likely he is at his baseline renal function. Monitor renal function. 2. Nephrotic syndrome. Likely secondary to diabetic nephropathy. Will order Antibodies. 3. Electrolytes: Hyperkalemia, kayexalate ordered. Hypernatremia, improved. 4. CHF exacerbation with volume overload: Followed by Cards. On Lasix. 5. DM-2. Subjective Date of service: 01/07/18 Interval history: Patient is feeling better. Objective - Vital Signs Vital signs: Vital Signs - 12hr 01/07/18 01/07/18 01/07/18 03:28 08:00 08:39 Temperature 98.7 F 98.0 F Pulse Rate 83 76 Respiratory 20 Rate Blood Pressure 149/80 Blood Pressure 146/81 [Right] O2 Sat by Pulse 95 Oximetry 01/07/18 08:40 Temperature Pulse Rate 78 Respiratory Rate Blood Pressure Blood Pressure [Right] O2 Sat by Pulse 98 Oximetry - General Appearance General appearance: well-developed, well-nourished, appears stated age, obese, other (not in distress) EENT: ATNC, PERRL, hearing intact, vision intact Neck: supple Respiratory: Present: Clear to Ascultation Cardiology: regular, S1S2, no murmurs Gastrointestinal: normoactive bowel sounds, no tenderness Integumentary: no rash, warm and dry Neurologic: no focal deficit, no asterixis, alert and oriented x3 Musculoskeletal: other (no edema) Psychiatric: cooperative - Lab 01/07/18 03:58 01/07/18 03:58 Most recent lab results Calcium 8.3 mg/dL (8.4-10.2) L 01/07/18 03:58 Phosphorus 3.90 mg/dL (2.5-4.5) 01/07/18 03:58 Magnesium 2.00 mg/dL (1.7-2.3) 01/07/18 03:58 Urine Creatinine 44.6 mg/dL (0.1-20.0) H 01/06/18 23:00 Urine Sodium 105 mmol/L 01/06/18 23:00 Urine Total Protein 431 mg/dL (5-11.8) H 01/06/18 23:00
[2018-01-07] MEDS ORDERED: KIONEX PO ONE (10:05)
[2018-01-07] MEDS: K-DUR PO SCH (10:07)
[2018-01-07] MEDS: GLUCOTROL XL PO SCH (10:07)
[2018-01-07] MEDS: PEPCID PO SCH ×2 (10:07→21:55)
[2018-01-07] MEDS: CATAPRES PO SCH ×2 (10:08→21:54)
[2018-01-07] MEDS: SODIUM CHLORIDE FLUSH SYRINGE 10 ML IV SCH ×2 (10:09→21:55)
[2018-01-07] MEDS: LOPRESSOR PO SCH ×2 (10:09→21:55)
[2018-01-07] MEDS: HumaLOG SUB-Q SCH ×4 (10:10→21:22)
[2018-01-07] MEDS: LOVENOX SUB-Q SCH (12:02)
--- NOTE | 2018-01-07 14:26 | Progress Note ---
Assessment and Plan Patient is doing better today. I have reviewed the echocardiogram that shows good systolic function and left ventricular hypertrophy. Continue current management. Discussed with Dr. Mcgovern. 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) heart failure (2) Elevated troponin Current Visit: Yes Status: Acute (3) IDDM (insulin dependent diabetes mellitus) Current Visit: Yes Status: Acute (4) CKD (chronic kidney disease) Current Visit: Yes Status: Chronic Qualifiers: Chronic kidney disease stage: stage 3 (moderate) Qualified Code(s): N18.3 - Chronic kidney disease, stage 3 (moderate) (5) Cardiomyopathy Current Visit: Yes Status: Chronic (6) HLD (hyperlipidemia) Current Visit: Yes Status: Chronic Qualifiers: Hyperlipidemia type: mixed hyperlipidemia Qualified Code(s): E78.2 - Mixed hyperlipidemia (7) HTN (hypertension) Current Visit: Yes Status: Chronic Qualifiers: Hypertension type: essential hypertension Qualified Code(s): I10 - Essential (primary) hypertension Subjective Date of service: 01/07/18 Interval history: Patient feels better today. During the night he pulled his monitor and he was apparently somewhat agitated. He is doing better and he is quite cooperative. Denies chest pain difficulty in breathing or palpitations. He claims that the edema is improving also and he is diuresing well. Objective Vital Signs Temp Pulse Resp BP BP Pulse Ox 01/07/18 13:26 78 149/78 01/07/18 11:49 77 18 149/78 92 01/07/18 11:00 98.0 F 01/07/18 10:09 76 149/80 01/07/18 10:08 76 149/80 01/07/18 08:40 78 98 01/07/18 08:39 76 20 149/80 95 01/07/18 08:00 98.0 F 01/07/18 03:28 98.7 F 83 146/81 01/06/18 20:57 98.7 F 83 20 156/80 96 01/06/18 20:33 75 01/06/18 17:51 75 177/92 01/06/18 16:23 98.3 F 75 18 177/92 97 - Physical Examination General: Appears Well HEENT: Positive: EOMI, Normocephaly, Mucus Membranes Moist Neck: Positive: neck supple, trachea midline Cardiac: Positive: Regular Rate Lungs: Positive: clear to auscultation Neuro: Positive: Grossly Intact Abdomen: Positive: Soft, Active Bowel Sounds. Negative: Tender Skin: Positive: Clear. Negative: Rash Musculoskeletal: Normal Range of Motion Extremities: Present: +1 Edema (bilateral leg edema) - Labs and Meds CBC 01/07/18 Range/Units 03:58 WBC 9.9 (4.5-11.0) K/mm3 RBC 3.53 L (3.65-5.03) M/mm3 Hgb 10.4 L (11.8-15.2) gm/dl Hct 31.5 L (35.5-45.6) % Plt Count 303 (140-440) K/mm3 Lymph # 2.0 (1.2-5.4) K/mm3 [place] # 0.6 (0.0-0.8) K/mm3 Eos # 0.1 (0.0-0.4) K/mm3 Baso # 0.1 (0.0-0.1) K/mm3 Comprehensive Metabolic Panel 01/07/18 Range/Units 03:58 Sodium 137 D (137-145) mmol/L Potassium 5.2 H (3.6-5.0) mmol/L Chloride 100.8 (98-107) mmol/L Carbon Dioxide 30 (22-30) mmol/L BUN 26 H (9-20) mg/dL Creatinine 2.3 H (0.8-1.5) mg/dL Glucose 341 H (75-100) mg/dL Calcium 8.3 L (8.4-10.2) mg/dL - Imaging and Cardiology EKG: report reviewed ( old anterior infarct) - EKG Sinus rhythms and dysrhythmias: sinus rhythm
--- NOTE | 2018-01-07 16:39 | Progress Note ---
Assessment and Plan Assessment and plan: --Nonspecific elevation of troponins; probably secondary to acute exacerbation of CHF closely monitor, Cardiology evaluation, continue current management --Acute on chronic diastolic congestive heart failure; EF 55-60% , continue anti-failure medications Low-sodium diet, fluid restriction, cardiology following --Acute kidney injury; secondary to ATN Very minimal improvement, avoid nephrotoxic medicines, nephrology evaluation if needed --Hypertension; moderate control, continue current antihypertensives When necessary medications --Severe malnutrition/hypoalbuminemia; albumin 1.8 nutrition supplements, supportive care, Nutrition consult as needed --Dyslipidemia; continue lipid lowering medications, low-cholesterol diet --Type 2 diabetes mellitus; uncontrolled, A1c 9.8 Accu-Chek sliding scale coverage and ADA diet, oral hypoglycemics Consider long-acting insulin if needed --DVT prophylaxis; Lovenox We'll closely monitor the patient and adjust management as needed Plan of care is reviewed with the patient and his nurse History Interval history: Since seen and examined medical records reviewed Feels slightly better no new complaints Saturating well on room air Vital signs reviewed Hospitalist Physical - Constitutional Vitals: Temp Pulse Resp BP Pulse Ox 98.0 F 78 18 149/78 92 01/07/18 11:00 01/07/18 13:26 01/07/18 11:49 01/07/18 13:26 01/07/18 11:49 General appearance: Present: no acute distress, well-nourished - EENT Eyes: Present: PERRL, EOM intact - Neck Neck: Present: supple, normal ROM - Respiratory Respiratory effort: normal Respiratory: right: diminished, bilateral: rales, negative: rhonchi, wheezing - Cardiovascular Rhythm: regular Heart Sounds: Present: S1 & S2 - Extremities Extremities: no ischemia, No edema - Abdominal General gastrointestinal: soft, non-tender, non-distended, normal bowel sounds - Integumentary Integumentary: Present: clear, warm - Psychiatric Psychiatric: appropriate mood/affect, cooperative - Neurologic Neurologic: CNII-XII intact, moves all extremities Results - Labs CBC & Chem 7: 01/07/18 03:58 01/07/18 03:58 Labs: Laboratory Last Values WBC 9.9 K/mm3 (4.5-11.0) 01/07/18 03:58 RBC 3.53 M/mm3 (3.65-5.03) L 01/07/18 03:58 Hgb 10.4 gm/dl (11.8-15.2) L 01/07/18 03:58 Hct 31.5 % (35.5-45.6) L 01/07/18 03:58 MCV 89 fl (84-94) 01/07/18 03:58 MCH 30 pg (28-32) 01/07/18 03:58 MCHC 33 % (32-34) 01/07/18 03:58 RDW 13.0 % (13.2-15.2) L 01/07/18 03:58 Plt Count 303 K/mm3 (140-440) 01/07/18 03:58 Lymph % (Auto) 20.7 % (13.4-35.0) 01/07/18 03:58 [place] % (Auto) 6.3 % (0.0-7.3) 01/07/18 03:58 Eos % (Auto) 1.2 % (0.0-4.3) 01/07/18 03:58 Baso % (Auto) 0.7 % (0.0-1.8) 01/07/18 03:58 Lymph # 2.0 K/mm3 (1.2-5.4) 01/07/18 03:58 [place] # 0.6 K/mm3 (0.0-0.8) 01/07/18 03:58 Eos # 0.1 K/mm3 (0.0-0.4) 01/07/18 03:58 Baso # 0.1 K/mm3 (0.0-0.1) 01/07/18 03:58 Seg Neutrophils % 71.1 % (40.0-70.0) H 01/07/18 03:58 Seg Neutrophils # 7.0 K/mm3 (1.8-7.7) 01/07/18 03:58 Sodium 137 mmol/L (137-145) D 01/07/18 03:58 Potassium 5.2 mmol/L (3.6-5.0) H 01/07/18 03:58 Chloride 100.8 mmol/L (98-107) 01/07/18 03:58 Carbon Dioxide 30 mmol/L (22-30) 01/07/18 03:58 Anion Gap 11 mmol/L 01/07/18 03:58 BUN 26 mg/dL (9-20) H 01/07/18 03:58 Creatinine 2.3 mg/dL (0.8-1.5) H 01/07/18 03:58 Estimated GFR 36 ml/min 01/07/18 03:58 BUN/Creatinine Ratio 11 % 01/07/18 03:58 Glucose 341 mg/dL (75-100) H 01/07/18 03:58 POC Glucose 285 (70-105) H 01/07/18 11:47 Hemoglobin A1c 9.8 % (4-6) H 01/05/18 23:19 Calcium 8.3 mg/dL (8.4-10.2) L 01/07/18 03:58 Phosphorus 3.90 mg/dL (2.5-4.5) 01/07/18 03:58 Magnesium 2.00 mg/dL (1.7-2.3) 01/07/18 03:58 Total Bilirubin < 0.20 mg/dL (0.1-1.2) 01/06/18 05:31 Direct Bilirubin < 0.2 mg/dL (0-0.2) 01/05/18 12:19 Indirect Bilirubin 0.0 mg/dL 01/05/18 12:19 AST 27 units/L (5-40) 01/06/18 05:31 ALT 24 units/L (7-56) 01/06/18 05:31 Alkaline Phosphatase 105 units/L (35-129) 01/06/18 05:31 Troponin T 0.083 ng/mL (0.00-0.029) H 01/05/18 17:41 NT-Pro-B Natriuret Pep 5935 pg/mL (0-900) H 01/05/18 12:19 Total Protein 5.1 g/dL (6.3-8.2) L 01/06/18 05:31 Albumin 1.8 g/dL (3.9-5) L 01/06/18 05:31 Albumin/Globulin Ratio 0.5 % 01/06/18 05:31 Triglycerides 182 mg/dL (2-149) H 01/05/18 12:19 Cholesterol 286 mg/dL (50-199) H 01/05/18 12:19 LDL Cholesterol Direct 194 mg/dL (50-130) H 01/05/18 12:19 HDL Cholesterol 85 mg/dL (40-59) H 01/05/18 12:19 Cholesterol/HDL Ratio 3.36 % 01/05/18 12:19 Urine Color Straw (Yellow) 01/06/18 23:00 Urine Turbidity Clear (Clear) 01/06/18 23:00 Urine pH 8.0 (5.0-7.0) H 01/06/18 23:00 Ur Specific [place] 1.008 (1.003-1.030) 01/06/18 23:00 Urine Protein >500 mg/dL (Negative) 01/06/18 23:00 Urine Glucose (UA) >=500 mg/dL (Negative) 01/06/18 23:00 Urine Ketones Neg mg/dL (Negative) 01/06/18 23:00 Urine Blood Neg (Negative) 01/06/18 23:00 Urine Nitrite Neg (Negative) 01/06/18 23:00 Urine Bilirubin Neg (Negative) 01/06/18 23:00 Urine Urobilinogen < 2.0 mg/dL (<2.0) 01/06/18 23:00 Ur Leukocyte Esterase Neg (Negative) 01/06/18 23:00 Urine WBC (Auto) 1.0 /HPF (0.0-6.0) 01/06/18 23:00 Urine RBC (Auto) 7.0 /HPF (0.0-6.0) 01/06/18 23:00 Hyaline Casts 9 /LPF 01/06/18 23:00 Urine Mucus Few /HPF 01/06/18 23:00 Urine Creatinine 44.6 mg/dL (0.1-20.0) H 01/06/18 23:00 Protein/Creatinin Ratio 9.66 01/06/18 23:00 Urine Sodium 105 mmol/L 01/06/18 23:00 Urine Total Protein 431 mg/dL (5-11.8) H 01/06/18 23:00
[2018-01-07] MEDS ORDERED: LOVENOX SUB-Q SCH (22:00)
[2018-01-08] MEDS: BIDIL 20/37.5MG PO SCH ×2 (05:34→14:18)
[2018-01-08] MEDS: LASIX IV SCH (05:34)
[2018-01-08] MEDS: HumaLOG SUB-Q SCH ×2 (07:56→12:24)
--- NOTE | 2018-01-08 10:38 | Progress Note ---
Subjective Date of service: 01/08/18 Objective - Vital Signs Vital signs: Vital Signs - 12hr 01/07/18 01/08/18 01/08/18 23:38 05:25 08:00 Temperature 98.4 F 98.1 F 98.2 F Pulse Rate 76 74 73 Respiratory 18 18 20 Rate Blood Pressure 171/89 Blood Pressure 146/75 162/85 [Right] O2 Sat by Pulse 94 100 95 Oximetry 01/08/18 08:08 Temperature Pulse Rate 72 Respiratory Rate Blood Pressure Blood Pressure [Right] O2 Sat by Pulse 98 Oximetry - Lab 01/07/18 03:58 01/08/18 06:29 Most recent lab results Calcium 8.0 mg/dL (8.4-10.2) L 01/08/18 06:29 Phosphorus 3.90 mg/dL (2.5-4.5) 01/07/18 03:58 Magnesium 2.00 mg/dL (1.7-2.3) 01/07/18 03:58 Urine Creatinine 44.6 mg/dL (0.1-20.0) H 01/06/18 23:00 Urine Sodium 105 mmol/L 01/06/18 23:00 Urine Total Protein 431 mg/dL (5-11.8) H 01/06/18 23:00
[2018-01-08] MEDS: LOPRESSOR PO SCH (10:55)
[2018-01-08] MEDS: CATAPRES PO SCH (10:55)
[2018-01-08] MEDS: PEPCID PO SCH (10:55)
[2018-01-08] MEDS: LOVENOX SUB-Q SCH (10:55)
[2018-01-08] MEDS: GLUCOTROL XL PO SCH (10:55)
[2018-01-08] MEDS: SODIUM CHLORIDE FLUSH SYRINGE 10 ML IV SCH (10:56)
--- NOTE | 2018-01-08 12:54 | Progress Note ---
Assessment and Plan Patient is doing better today. I have reviewed the echocardiogram that shows good systolic function and left ventricular hypertrophy. Increase activity. Patient is advised to be on a strict low-sodium diet. Continue current management. 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) heart failure (2) Elevated troponin Current Visit: Yes Status: Acute (3) IDDM (insulin dependent diabetes mellitus) Current Visit: Yes Status: Acute (4) CKD (chronic kidney disease) Current Visit: Yes Status: Chronic Qualifiers: Chronic kidney disease stage: stage 3 (moderate) Qualified Code(s): N18.3 - Chronic kidney disease, stage 3 (moderate) (5) Cardiomyopathy Current Visit: Yes Status: Chronic (6) HLD (hyperlipidemia) Current Visit: Yes Status: Chronic Qualifiers: Hyperlipidemia type: mixed hyperlipidemia Qualified Code(s): E78.2 - Mixed hyperlipidemia (7) HTN (hypertension) Current Visit: Yes Status: Chronic Qualifiers: Hypertension type: essential hypertension Qualified Code(s): I10 - Essential (primary) hypertension Subjective Date of service: 01/08/18 Interval history: Patient is doing better. Overall he is in a better mood and has no significant cardiac symptoms. Monitor shows sinus rhythm at a rate of 75 bpm. Objective Vital Signs Temp Pulse Resp BP BP Pulse Ox 01/08/18 08:08 72 98 01/08/18 08:00 98.2 F 73 20 162/85 95 01/08/18 07:31 74 01/08/18 05:25 98.1 F 74 18 171/89 100 01/07/18 23:38 98.4 F 76 18 146/75 94 01/07/18 20:28 75 01/07/18 19:52 98.1 F 75 18 157/95 94 01/07/18 16:45 77 18 166/85 98 01/07/18 16:00 97.3 F L 01/07/18 13:26 78 149/78 - Physical Examination General: Appears Well HEENT: Positive: EOMI, Normocephaly, Mucus Membranes Moist Neck: Positive: neck supple, trachea midline Cardiac: Positive: Regular Rhythm Neuro: Positive: Grossly Intact Abdomen: Positive: Soft, Active Bowel Sounds. Negative: Tender Skin: Positive: Clear. Negative: Rash Musculoskeletal: Normal Range of Motion Extremities: Present: +1 Edema (bilateral leg edema) - Labs and Meds Comprehensive Metabolic Panel 01/08/18 Range/Units 06:29 Sodium 139 (137-145) mmol/L Potassium 4.5 (3.6-5.0) mmol/L Chloride 100.5 (98-107) mmol/L Carbon Dioxide 32 H (22-30) mmol/L BUN 24 H (9-20) mg/dL Creatinine 2.2 H (0.8-1.5) mg/dL Glucose 329 H (75-100) mg/dL Calcium 8.0 L (8.4-10.2) mg/dL - Imaging and Cardiology EKG: report reviewed ( old anterior infarct) - EKG Sinus rhythms and dysrhythmias: sinus rhythm
[2018-01-08 14:19] VITALS: BP 153/87
--- NOTE | 2018-01-08 14:25 | Discharge Summary ---
Providers - Providers Date of Admission: 01/05/18 14:39 Date of discharge: 01/08/18 Attending physician: JAMAL POOL 01/05/18 Consult to Case Management [CONS] Routine Services Needed at Discharge: Home Health Services Notified:: case management 01/05/18 14:38 Consult to Physician [CONS] Stat Comment: Lisbeth SAUNDERS NOTIFIED Consulting Provider: MEGAN BARROSO Physician Instructions: Reason For Exam: CHF, CAD 01/05/18 22:50 Consult to Physician [CONS] Routine Comment: Consulting Provider: JOSE TRAORE Physician Instructions: Reason For Exam: RIGO 01/06/18 07:47 Consult to Physician [CONS] Routine Comment: Consulting Provider: JOSE TRAORE Physician Instructions: Reason For Exam: CKD Primary care physician: LEARNING SUPPORT AIDE Hospitalization Condition: Stable Disposition: DC-01 TO HOME OR SELFCARE Time spent for discharge: 32 min Core Measure Documentation - Palliative Care Palliative Care/ Comfort Measures: Not Applicable - Core Measures Any of the following diagnoses?: none Exam - Constitutional Vitals: Temp Pulse Resp BP Pulse Ox 98.2 F 72 20 162/85 98 01/08/18 08:00 01/08/18 08:08 01/08/18 08:00 01/08/18 08:00 01/08/18 08:08 General appearance: Present: no acute distress, well-nourished - EENT Eyes: Present: PERRL, EOM intact - Neck Neck: Present: supple, normal ROM - Respiratory Respiratory effort: normal Respiratory: right: diminished, negative: rales, rhonchi, wheezing - Cardiovascular Rhythm: regular Heart Sounds: Present: S1 & S2 - Extremities Extremities: no ischemia, No edema - Abdominal General gastrointestinal: Present: soft, non-tender, non-distended, normal bowel sounds - Integumentary Integumentary: Present: clear, warm - Musculoskeletal Musculoskeletal: strength equal bilaterally - Psychiatric Psychiatric: appropriate mood/affect, cooperative - Neurologic Neurologic: CNII-XII intact, moves all extremities Plan Activity: no restrictions Diet: low salt, diabetic Additional Instructions: Advised to see private pulmonary [lung doctor] in one week. Strongly advised to comply with medications Follow up with: PRIMARY CARE, [Primary Care Provider] - 3-5 Days CORBY ADHIKARI MD [Staff Physician] - 7 Days JOSE TRAORE MD [Staff Physician] - 7 Days Prescriptions: Furosemide [Lasix TAB] 40 mg PO BID #60 tablet Isosorb Dinit/Hydralazine [Bidil 20/37.5MG] 1 each PO Q8HR #90 tablet
== END 2018-01-08 16:00 | disposition home or self-care (01) | DRG 291 ==
LOC: ED 10:42 → 4A 14:39
PROVIDERS: ADMIT Internal Medicine; ATTEND Internal Medicine
DX: I13.0 Hypertensive heart and chronic kidney disease with heart failure and stage 1 through stage 4 chronic kidney disease, or unspecified chronic kidney disease (principal); N17.0 Acute kidney failure with tubular necrosis; E43 Unspecified severe protein-calorie malnutrition; I50.43 Acute on chronic combined systolic (congestive) and diastolic (congestive) heart failure; E87.0 Hyperosmolality and hypernatremia; I42.9 Cardiomyopathy, unspecified; E11.22 Type 2 diabetes mellitus with diabetic chronic kidney disease; Z79.899 Other long term (current) drug therapy; N18.3 Chronic kidney disease, stage 3 (moderate); E78.2 Mixed hyperlipidemia; E87.5 Hyperkalemia; E66.9 Obesity, unspecified; Z68.28 Body mass index [BMI] 28.0-28.9, adult
CPT/HCPCS: 36415; 71045; 76770; 80048; 80053; 80061; 80074; 81001; 82570; 82962; 83036; 83735; 83880; 83970; 84100; 84132; 84156; 84300; 84484; 85025; 86021; 86038; 86160; 93005; 93010; 93306; 96374; 96375; J1650; J1815; J1940; J2270

== ENCOUNTER 2018-01-27 08:12 | Inpatient (IN) | payer OTHER ==
[2018-01-27] MEDS ORDERED: ASPIRIN PO ONE (08:43)
[2018-01-27] MEDS ORDERED: BABY ASPIRIN ONE (08:48)
[2018-01-27 10:10] LABS: Basophils # (Auto) 0.1 K/mm3 (0.0-0.1); Eosinophils # (Auto) 0.1 K/mm3 (0.0-0.4); Eosinophils % (Auto) 1.3 % (0.0-4.3); Hematocrit 38.7 % (35.5-45.6); Hemoglobin 12.5 gm/dl (11.8-15.2); Lymphocytes # (Auto) 1.9 K/mm3 (1.2-5.4); Mean Corpuscular HGB Conc 32 % (32-34); Mean Corpuscular Hemoglobin 29 pg (28-32); Mean Corpuscular Volume 90 fl (84-94); Monocytes # (Auto) 0.6 K/mm3 (0.0-0.8); Monocytes % (Auto) 5.7 % (0.0-7.3); Platelet Count 306 K/mm3 (140-440); Red Blood Count 4.29 M/mm3 (3.65-5.03); Red Cell Distribution Width 13.5 % (13.2-15.2)
[2018-01-27 10:19] LABS: INR 0.78 (0.87-1.13); Partial Thromboplastin Time 25.2 Sec. (24.2-36.6)
[2018-01-27 10:28] LABS: Calcium 8.7 mg/dL (8.4-10.2)
[2018-01-27 11:02] LABS: Chol/HDL Ratio 3.82 %
[2018-01-27] MEDS ORDERED: LASIX IV ONE (12:01)
[2018-01-27] MEDS ORDERED: NITROSTAT SL PRN (12:01)
--- NOTE | 2018-01-27 12:05 | Emergency Department Report ---
ED Chest Pain HPI - General Chief Complaint: Chest Pain Stated Complaint: FLUID/PAIN Time Seen by Provider: 01/27/18 11:35 Source: patient Mode of arrival: Ambulatory Limitations: No Limitations - History of Present Illness Initial Comments: Patient is a 57-year-old -[place] male with a past medical history of diastolic heart failure who was recently admitted to the hospital for fluid overload and chest pain. Patient states he has for most part been taking his Lasix as prescribed. He states he is only missed 1 or 2 doses in the last several weeks. Patient Lasix 40 mg twice a day. Patient states the last 2 days she's had increased shortness of breath with orthopnea as well as bilateral lower extremity swelling. Patient states he also has chest pressure has been constant for the past several days. Patient states symptoms are worse with exertion. Patient denies any fevers chills nausea vomiting diarrhea at this time. - Related Data Home Medications Medication Instructions Recorded Confirmed Last Taken Famotidine [Pepcid] 20 mg PO BID 01/05/18 01/05/18 Unknown Metoprolol [Lopressor TAB] 50 mg PO BID 01/05/18 01/05/18 Unknown cloNIDine [Catapres] 0.1 mg PO BID 01/05/18 01/05/18 Unknown glipiZIDE XL [Glucotrol Xl] 4 tab PO BID 01/05/18 01/08/18 Unknown Insulin NPH Hum/Reg Insulin Hm 10 units SQ BID 01/08/18 01/08/18 01/04/18 08:00 Previous Rx's Medication Instructions Recorded Last Taken Type Furosemide [Lasix TAB] 40 mg PO BID #60 tablet 01/08/18 Unknown Rx Isosorb Dinit/Hydralazine [Bidil 1 each PO Q8HR #90 tablet 01/08/18 Unknown Rx 20/37.5MG] Allergies Allergy/AdvReac Type Severity Reaction Status Date / Time No Known Allergies Allergy Verified 11/01/13 07:35 Heart Score - HEART Score History: Moderately suspicious EKG: Non-specific Age: 45-65 Risk factors: 1-2 risk factors Troponin: 1-3x normal limit HEART Score: 5 ED Review of Systems ROS: Stated complaint: FLUID/PAIN Other details as noted in HPI Comment: All other systems reviewed and negative ED Past Medical Hx - Past Medical History Hx Hypertension: Yes Hx Congestive Heart Failure: Yes Hx Diabetes: Yes - Surgical History Past Surgical History?: No - Social History Smoking Status: Former Smoker Substance Use Type: None - Medications Home Medications: Home Medications Medication Instructions Recorded Confirmed Last Taken Type Famotidine [Pepcid] 20 mg PO BID 01/05/18 01/05/18 Unknown History Metoprolol [Lopressor TAB] 50 mg PO BID 01/05/18 01/05/18 Unknown History cloNIDine [Catapres] 0.1 mg PO BID 01/05/18 01/05/18 Unknown History glipiZIDE XL [Glucotrol Xl] 4 tab PO BID 01/05/18 01/08/18 Unknown History Furosemide [Lasix TAB] 40 mg PO BID #60 tablet 01/08/18 Unknown Rx Insulin NPH Hum/Reg Insulin Hm 10 units SQ BID 01/08/18 01/08/18 01/04/18 08:00 History Isosorb Dinit/Hydralazine [Bidil 1 each PO Q8HR #90 tablet 01/08/18 Unknown Rx 20/37.5MG] ED Physical Exam - General Limitations: No Limitations General appearance: alert, in no apparent distress - Head Head exam: Present: atraumatic, normocephalic - Eye Eye exam: Present: normal appearance - ENT ENT exam: Present: mucous membranes moist - Neck Neck exam: Present: normal inspection - Respiratory Respiratory exam: Present: normal lung sounds bilaterally, rales (bilateral base , mild). Absent: respiratory distress, wheezes, rhonchi - Cardiovascular Cardiovascular Exam: Present: regular rate, normal rhythm. Absent: systolic murmur, diastolic murmur, rubs, gallop - GI/Abdominal GI/Abdominal exam: Present: soft, normal bowel sounds - Rectal Rectal exam: Present: deferred - Extremities Exam Extremities exam: Present: normal inspection, other (2+ bilateral lower extremity edema) - Back Exam Back exam: Present: normal inspection - Neurological Exam Neurological exam: Present: alert, oriented X3 - Psychiatric Psychiatric exam: Present: normal affect, normal mood - Skin Skin exam: Present: warm, dry, intact, normal color. Absent: rash ED Course Vital Signs 01/27/18 01/27/18 01/27/18 08:35 12:15 12:40 Temperature 98.2 F Pulse Rate 89 87 Respiratory 22 18 18 Rate Blood Pressure 174/106 Blood Pressure 194/106 [Left] O2 Sat by Pulse 98 91 91 Oximetry DHRUV score - Dhruv Score Age > 65: (0) No Aspirin use within the Past 7 Days: (1) Yes 3 or more CAD Risk Factors: (1) Yes 2 or more Angina events in past 24 hrs: (1) Yes Known CAD with more than 50% Stenosis: (0) No Elevated Cardiac Markers: (0) No ST Deviation Greater than 0.5mm: (0) No DHRUV Score: 3 ED Medical Decision Making - Lab Data Result diagrams: 01/27/18 09:42 01/27/18 09:42 Labs 01/27/18 01/27/18 01/27/18 08:40 09:42 09:42 WBC 11.2 H RBC 4.29 Hgb 12.5 Hct 38.7 MCV 90 MCH 29 MCHC 32 RDW 13.5 Plt Count 306 Lymph % (Auto) 17.0 [place] % (Auto) 5.7 Eos % (Auto) 1.3 Baso % (Auto) 1.0 Lymph # 1.9 [place] # 0.6 Eos # 0.1 Baso # 0.1 Seg Neutrophils % 75.0 H Seg Neutrophils # 8.4 H PT 11.3 L INR 0.78 L APTT 25.2 Sodium Potassium Chloride Carbon Dioxide Anion Gap BUN Creatinine Estimated GFR BUN/Creatinine Ratio Glucose POC Glucose 213 H Calcium Troponin T NT-Pro-B Natriuret Pep Triglycerides Cholesterol LDL Cholesterol Direct HDL Cholesterol Cholesterol/HDL Ratio 01/27/18 09:42 WBC RBC Hgb Hct MCV MCH MCHC RDW Plt Count Lymph % (Auto) [place] % (Auto) Eos % (Auto) Baso % (Auto) Lymph # [place] # Eos # Baso # Seg Neutrophils % Seg Neutrophils # PT INR APTT Sodium 137 Potassium 4.4 Chloride 100.9 Carbon Dioxide 28 Anion Gap 13 BUN 22 H Creatinine 2.1 H Estimated GFR 40 BUN/Creatinine Ratio 10 Glucose 215 H POC Glucose Calcium 8.7 Troponin T 0.073 H NT-Pro-B Natriuret Pep 5652 H Triglycerides 308 H Cholesterol 298 H LDL Cholesterol Direct 210 H HDL Cholesterol 78 H Cholesterol/HDL Ratio 3.82 - EKG Data -: EKG Interpreted by Me - EKG Data 01/27/18 12:04 EKG shows sinus rhythm rate 81 normal axis normal intervals other no ST segment elevations or depressions. Patient has occasional PVC. Patient does have Q waves in V1. - Radiology Data Patient: HARVEY VARGAS MR#: [id number] : 1960 Acct:[id number] Age/Sex: 57 / M ADM Date: 01/27/18 Loc: ED Attending Dr: Ordering Physician: FEROZ BUSH MD Date of Service: 01/27/18 Procedure(s): XR chest routine 2V Accession Number(s): [id number] cc: FEROZ BUSH MD Fluoro Time In Minutes: FINAL REPORT EXAM: XR CHEST ROUTINE 2V HISTORY: chest pain TECHNIQUE: 2 view examination of the chest PRIORS: 01/05/2018 FINDINGS: Right pleural effusion slightly smaller. Adjacent density again may reflect atelectasis and/or pneumonitis in the right lower lobe. Left lung remains clear. No pneumothorax or left pleural effusion. Normal cardiac silhouette size without vascular congestion. No acute displaced fracture. IMPRESSION: Moderate right pleural effusion is slightly smaller. Adjacent right lower lobe density may again reflect slight atelectasis and/or pneumonitis Transcribed By: BAL Dictated By: ISAAC PALACIOS MD Electronically Authenticated By: ISAAC PALACIOS MD Signed Date/Time: 01/27/18 1225 - Medical Decision Making Patient a 57-year-old male who has a history of diastolic heart failure who is presenting with chest pain shortness of breath and orthopnea. Patient states that he is only missed several doses of his Lasix in the past several weeks. Patient blood pressures elevated and the patient has 3+ edema in his legs as well as very mild Rales bilateral bases. Patient was given 80 Lasix and after an hour of the patient still has not made urine although his renal function is within normal limits. Patient given nitroglycerin for chest pain which has helped the patient is chest pain but he states the pain went from a 8 out of 10 to a 3 out of 10. Patient is still not chest pain-free. Patient be admitted to the hospitalist service for further management. Critical Care Time: Yes (30) Critical care attestation.: If time is entered above; I have spent that time in minutes in the direct care of this critically ill patient, excluding procedure time. ED Disposition Clinical Impression: Uncontrolled hypertension, Elevated troponin Cardiomyopathy Qualifiers: Cardiomyopathy type: other Qualified Code(s): I42.8 - Other cardiomyopathies Acute exacerbation of CHF (congestive heart failure) Qualifiers: Heart failure type: diastolic Qualified Code(s): I50.33 - Acute on chronic diastolic (congestive) heart failure Disposition: OP ADMIT IP TO THIS HOSP Is pt being admited?: Yes Does the pt Need Aspirin: No Condition: Poor Instructions: Hypertension (ED) [facility] - [facility]5 Days Time of Disposition: 13:13
--- NOTE | 2018-01-27 12:26 | XRay Report ---
FINAL REPORT EXAM: XR CHEST ROUTINE 2V HISTORY: chest pain TECHNIQUE: 2 view examination of the chest PRIORS: 01/05/2018 FINDINGS: Right pleural effusion slightly smaller. Adjacent density again may reflect atelectasis and/or pneumonitis in the right lower lobe. Left lung remains clear. No pneumothorax or left pleural effusion. Normal cardiac silhouette size without vascular congestion. No acute displaced fracture. IMPRESSION: Moderate right pleural effusion is slightly smaller. Adjacent right lower lobe density may again reflect slight atelectasis and/or pneumonitis
[2018-01-27] MEDS ORDERED: CATAPRES PO ONE (13:03)
[2018-01-27] MEDS ORDERED: NITRO-BID 2% TP ONE (13:04)
--- NOTE | 2018-01-27 17:22 | Consultation ---
Medications and Allergies Allergies Allergy/AdvReac Type Severity Reaction Status Date / Time No Known Allergies Allergy Verified 11/01/13 07:35 Home Medications Medication Instructions Recorded Confirmed Last Taken Type Famotidine [Pepcid] 20 mg PO BID 01/05/18 01/05/18 Unknown History Metoprolol [Lopressor TAB] 50 mg PO BID 01/05/18 01/05/18 Unknown History cloNIDine [Catapres] 0.1 mg PO BID 01/05/18 01/05/18 Unknown History glipiZIDE XL [Glucotrol Xl] 4 tab PO BID 01/05/18 01/08/18 Unknown History Furosemide [Lasix TAB] 40 mg PO BID #60 tablet 01/08/18 Unknown Rx Insulin NPH Hum/Reg Insulin Hm 10 units SQ BID 01/08/18 01/08/18 01/04/18 08:00 History Isosorb Dinit/Hydralazine [Bidil 1 each PO Q8HR #90 tablet 01/08/18 Unknown Rx 20/37.5MG] Active Meds: Active Medications Nitroglycerin (Nitrostat) 0.4 mg SL .Q5MIN PRN PRN Reason: Chest Pain Exam - Constitutional Vitals: Temp Pulse Resp BP Pulse Ox 98.2 F 97 H 18 193/96 91 01/27/18 08:35 01/27/18 14:13 01/27/18 12:40 01/27/18 14:13 01/27/18 12:40 Results - Labs CBC & Chem 7: 01/27/18 09:42 01/27/18 09:42 Labs: Abnormal lab results 01/27/18 01/27/18 01/27/18 Range/Units 08:40 09:42 09:42 WBC 11.2 H (4.5-11.0) K/mm3 Seg Neutrophils % 75.0 H (40.0-70.0) % Seg Neutrophils # 8.4 H (1.8-7.7) K/mm3 PT 11.3 L (12.2-14.9) Sec. INR 0.78 L (0.87-1.13) D-Dimer (0-234) ng/mlDDU BUN (9-20) mg/dL Creatinine (0.8-1.5) mg/dL Glucose (75-100) mg/dL POC Glucose 213 H (70-105) Troponin T (0.00-0.029) ng/mL NT-Pro-B Natriuret Pep (0-900) pg/mL Triglycerides (2-149) mg/dL Cholesterol (50-199) mg/dL LDL Cholesterol Direct (50-130) mg/dL HDL Cholesterol (40-59) mg/dL 01/27/18 01/27/18 01/27/18 Range/Units 09:42 13:33 13:33 WBC (4.5-11.0) K/mm3 Seg Neutrophils % (40.0-70.0) % Seg Neutrophils # (1.8-7.7) K/mm3 PT (12.2-14.9) Sec. INR (0.87-1.13) D-Dimer 1796.74 H (0-234) ng/mlDDU BUN 22 H (9-20) mg/dL Creatinine 2.1 H (0.8-1.5) mg/dL Glucose 215 H (75-100) mg/dL POC Glucose (70-105) Troponin T 0.073 H 0.064 H (0.00-0.029) ng/mL NT-Pro-B Natriuret Pep 5652 H (0-900) pg/mL Triglycerides 308 H (2-149) mg/dL Cholesterol 298 H (50-199) mg/dL LDL Cholesterol Direct 210 H (50-130) mg/dL HDL Cholesterol 78 H (40-59) mg/dL 01/27/18 Range/Units 14:57 WBC (4.5-11.0) K/mm3 Seg Neutrophils % (40.0-70.0) % Seg Neutrophils # (1.8-7.7) K/mm3 PT (12.2-14.9) Sec. INR (0.87-1.13) D-Dimer (0-234) ng/mlDDU BUN (9-20) mg/dL Creatinine (0.8-1.5) mg/dL Glucose (75-100) mg/dL POC Glucose (70-105) Troponin T 0.059 H (0.00-0.029) ng/mL NT-Pro-B Natriuret Pep (0-900) pg/mL Triglycerides (2-149) mg/dL Cholesterol (50-199) mg/dL LDL Cholesterol Direct (50-130) mg/dL HDL Cholesterol (40-59) mg/dL
[2018-01-27] MEDS ORDERED: ZOFRAN IV PRN (17:25)
[2018-01-27] MEDS ORDERED: TYLENOL PO PRN (17:25)
[2018-01-27] MEDS ORDERED: PROVENTIL IH PRN (17:25)
[2018-01-27] MEDS ORDERED: SODIUM CHLORIDE FLUSH SYRINGE 10 ML IV PRN ×2 (17:25→17:51)
--- NOTE | 2018-01-27 17:45 | History and Physical Report ---
History of Present Illness Date of examination: 01/27/18 Chief complaint: My chest hurts, and i have not been taking my medicine History of present illness: 57 YO Male with CHF, HTN DM presents to ED for evaluation. Pt states that he has experienced pain in his chest over the past 3 days. Pt states that pain is 4/10, constant, substernal, nonradiating, worsened with exertion, not relieved with rest, associated with shortness of breath, bilateral leg swelling, Orthopnea/PND, Decreased exercise tolerance over the past 3 days with worsening symptoms over the past 2 days. Pt acknowledges medication and dietary noncompliance. Pt denies fever, chills, palpitations, Syncope, Trauma, Productive Cough, dizziness, hemoptysis, skin rash, prolonged travel/immobility , individual/family history of DVT/PE, Pt transported to [facility] by family. Pt seen and evaluated in ED and found to have evidence of ACS as well as Systolic CHF. Pt admitted to telemetry. Cardiology team consulted in ED. Past History Past Medical History: diabetes, heart failure, hypertension Past Surgical History: No surgical history, Other (reviewed) Social history: , lives with family. denies: smoking, alcohol abuse, prescription drug abuse Family history: diabetes, hypertension Medications and Allergies Allergies Allergy/AdvReac Type Severity Reaction Status Date / Time No Known Allergies Allergy Verified 11/01/13 07:35 Home Medications Medication Instructions Recorded Confirmed Last Taken Type Famotidine [Pepcid] 20 mg PO BID 01/05/18 01/05/18 Unknown History Metoprolol [Lopressor TAB] 50 mg PO BID 01/05/18 01/05/18 Unknown History cloNIDine [Catapres] 0.1 mg PO BID 01/05/18 01/05/18 Unknown History glipiZIDE XL [Glucotrol Xl] 4 tab PO BID 01/05/18 01/08/18 Unknown History Furosemide [Lasix TAB] 40 mg PO BID #60 tablet 01/08/18 Unknown Rx Insulin NPH Hum/Reg Insulin Hm 10 units SQ BID 01/08/18 01/08/18 01/04/18 08:00 History Isosorb Dinit/Hydralazine [Bidil 1 each PO Q8HR #90 tablet 01/08/18 Unknown Rx 20/37.5MG] Active Meds: Active Medications Acetaminophen (Tylenol) 650 mg PO Q4H PRN PRN Reason: Pain MILD(1-3)/Fever >100.5/GARCIA Albuterol (Proventil) 2.5 mg IH Q4HRT PRN PRN Reason: Shortness Of Breath Hydralazine HCl (Apresoline) 10 mg IV ONCE ONE Stop: 01/27/18 18:01 Sodium Chloride (Nacl 0.45%) 500 mls @ 50 mls/hr IV DIRECT RADHA Nitroglycerin (Nitrostat) 0.4 mg SL .Q5MIN PRN PRN Reason: Chest Pain Ondansetron HCl (Zofran) 4 mg IV Q8H PRN PRN Reason: Nausea And Vomiting Sodium Chloride (Sodium Chloride Flush Syringe 10 Ml) 10 ml IV BID RADHA Sodium Chloride (Sodium Chloride Flush Syringe 10 Ml) 10 ml IV PRN PRN PRN Reason: LINE FLUSH Review of Systems Constitutional: weakness, no weight loss, no weight gain, no fever, no chills Ears, nose, mouth and throat: no ear pain, no ear discharge, no tinnitis, no decreased hearing, no nose pain, no nasal congestion Cardiovascular: chest pain, orthopnea, edema, shortness of breath, dyspnea on exertion, paroxysmal nocturnal dyspnea, decreased exercise tolerance Respiratory: no cough, no cough with sputum, no excessive sputum Gastrointestinal: no abdominal pain, no nausea, no vomiting, no diarrhea, no constipation Genitourinary Male: no hematuria, no flank pain, no discharge, no urinary frequency, no urinary hesitancy Rectal: no pain, no incontinence, no bleeding Musculoskeletal: no neck stiffness, no neck pain, no shooting arm pain, no arm numbness/tingling, no low back pain, no shooting leg pain Integumentary: no rash, no pruritis, no redness, no sores, no wounds Neurological: no transient paralysis, no paralysis, no weakness, no parathesias , no numbness, no tingling, no seizures Psychiatric: no anxiety, no memory loss, no change in sleep habits, no sleep disturbances, no insomnia, no hypersomnia, no change in appetite Endocrine: no cold intolerance, no heat intolerance, no polyphagia, no excessive thirst, no polydipsia, no polyuria, no nocturia Hematologic/Lymphatic: no easy bruising, no easy bleeding, no lymphadenopathy, no lymphedema Allergic/Immunologic: no urticaria, no allergic rhinitis, no wheezing, no persistent infections, no anaphylaxis, no angioedema Exam - Constitutional Vitals: Temp Pulse Resp BP Pulse Ox 98.2 F 97 H 18 193/96 91 01/27/18 08:35 01/27/18 14:13 01/27/18 12:40 01/27/18 14:13 01/27/18 12:40 General appearance: Present: mild distress - EENT Eyes: Present: PERRL ENT: hearing intact, clear oral mucosa - Neck Neck: Present: supple, normal ROM - Respiratory Respiratory effort: normal Respiratory: bilateral: diminished - Cardiovascular Heart Sounds: Present: S1 & S2. Absent: rub, click - Extremities Extremities: pulses symmetrical, No edema Extremity abnormal: edema Peripheral Pulses: within normal limits - Abdominal General gastrointestinal: Present: soft, non-tender, non-distended, normal bowel sounds Male genitourinary: Present: normal - Integumentary Integumentary: Present: clear, warm, dry - Musculoskeletal Musculoskeletal: gait normal, strength equal bilaterally - Psychiatric Psychiatric: appropriate mood/affect, intact judgment & insight - Neurologic Neurologic: CNII-XII intact, moves all extremities Results - Labs CBC & Chem 7: 01/27/18 09:42 01/27/18 09:42 Labs: Abnormal lab results 01/27/18 01/27/18 01/27/18 Range/Units 08:40 09:42 09:42 WBC 11.2 H (4.5-11.0) K/mm3 Seg Neutrophils % 75.0 H (40.0-70.0) % Seg Neutrophils # 8.4 H (1.8-7.7) K/mm3 PT 11.3 L (12.2-14.9) Sec. INR 0.78 L (0.87-1.13) D-Dimer (0-234) ng/mlDDU BUN (9-20) mg/dL Creatinine (0.8-1.5) mg/dL Glucose (75-100) mg/dL POC Glucose 213 H (70-105) Troponin T (0.00-0.029) ng/mL NT-Pro-B Natriuret Pep (0-900) pg/mL Triglycerides (2-149) mg/dL Cholesterol (50-199) mg/dL LDL Cholesterol Direct (50-130) mg/dL HDL Cholesterol (40-59) mg/dL 01/27/18 01/27/18 01/27/18 Range/Units 09:42 13:33 13:33 WBC (4.5-11.0) K/mm3 Seg Neutrophils % (40.0-70.0) % Seg Neutrophils # (1.8-7.7) K/mm3 PT (12.2-14.9) Sec. INR (0.87-1.13) D-Dimer 1796.74 H (0-234) ng/mlDDU BUN 22 H (9-20) mg/dL Creatinine 2.1 H (0.8-1.5) mg/dL Glucose 215 H (75-100) mg/dL POC Glucose (70-105) Troponin T 0.073 H 0.064 H (0.00-0.029) ng/mL NT-Pro-B Natriuret Pep 5652 H (0-900) pg/mL Triglycerides 308 H (2-149) mg/dL Cholesterol 298 H (50-199) mg/dL LDL Cholesterol Direct 210 H (50-130) mg/dL HDL Cholesterol 78 H (40-59) mg/dL 01/27/18 Range/Units 14:57 WBC (4.5-11.0) K/mm3 Seg Neutrophils % (40.0-70.0) % Seg Neutrophils # (1.8-7.7) K/mm3 PT (12.2-14.9) Sec. INR (0.87-1.13) D-Dimer (0-234) ng/mlDDU BUN (9-20) mg/dL Creatinine (0.8-1.5) mg/dL Glucose (75-100) mg/dL POC Glucose (70-105) Troponin T 0.059 H (0.00-0.029) ng/mL NT-Pro-B Natriuret Pep (0-900) pg/mL Triglycerides (2-149) mg/dL Cholesterol (50-199) mg/dL LDL Cholesterol Direct (50-130) mg/dL HDL Cholesterol (40-59) mg/dL Assessment and Plan - Patient Problems (1) ACS (acute coronary syndrome) Current Visit: Yes Status: Acute Plan to address problem: Admit to telemetry, serial cardiac enzymes, ekg, telemetry, cardiology consulted in ED, morphine, supplemental oxygen, nitro, aspirin. (2) CHF (congestive heart failure) Current Visit: Yes Status: Acute Qualifiers: Heart failure type: systolic Heart failure chronicity: acute on chronic Qualified Code(s): I50.23 - Acute on chronic systolic (congestive) heart failure Plan to address problem: Admit to telemetry, cardiology consulted in ED, Review echo from 12/23, strict I/ O, daily weight, monitor uop q shift, bnp, d dimer, VQ scan, supplemental oxygen , pulse oximetry. (3) ARF (acute renal failure) with tubular necrosis Current Visit: Yes Status: Acute Plan to address problem: IVF resuscitation therapy, repeat bmp, (4) Diabetes Current Visit: Yes Status: Acute Plan to address problem: ADA diet, insulin, accu check (5) HTN (hypertension) Current Visit: No Status: Chronic Qualifiers: Hypertension type: essential hypertension Qualified Code(s): I10 - Essential (primary) hypertension Plan to address problem: Monitor bp q shift, Iv hydralazine prn, (6) DVT prophylaxis Current Visit: Yes Status: Acute Plan to address problem: SCD to ble while in bed.
[2018-01-27] MEDS ORDERED: BABY ASPIRIN PO STA (17:51)
[2018-01-27] MEDS ORDERED: APRESOLINE IV ONE (18:00)
[2018-01-27] MEDS ORDERED: NACL 0.45% 500 ML IV SCH (18:00)
--- NOTE | 2018-01-27 19:59 | Nuclear Medicine Report ---
FINAL REPORT PROCEDURE: NM LUNG SCAN PERF/VENT TECHNIQUE: 5.0 mCi Tc-99m MAA was injected IV for pulmonary perfusion imaging in multiple projections. 13.23 mCi xenon 133 gas was inhaled for pulmonary ventilation imaging in multiple projections.. CPT 60542 HISTORY: dypsnea COMPARISON: Prior chest x-ray 01/27/2018 FINDINGS: On the LPO projection there is a large defect obscuring the right lung. I suspect this is artifact as it is not confirmed on any of the other images. Small to moderate size subsegmental defect visualized in the posterior segment of the right upper lobe. No other defects are identified. The ventilation scan shows normal wash-in and washout phases. There appears to be minimal trapping in the right lung base. IMPRESSION: Low probability for pulmonary embolus.
[2018-01-27] MEDS ORDERED: NACL 0.45% 1000 ML 1,000 ML IV ONE (20:50)
[2018-01-27] MEDS ORDERED: NACL 0.45% 1000 ML 1,000 ML IV SCH (21:00)
[2018-01-27] MEDS ORDERED: D50W (25GM) Syringe IV PRN (21:19)
[2018-01-27] MEDS: LASIX PO SCH ×2 (22:00→22:27)
[2018-01-27] MEDS: LASIX IV SCH (22:00)
[2018-01-27] MEDS ORDERED: SODIUM CHLORIDE FLUSH SYRINGE 10 ML IV SCH (22:00)
[2018-01-27] MEDS: PEPCID PO SCH (22:01)
[2018-01-27] MEDS: LOPRESSOR PO SCH (22:01)
[2018-01-27] MEDS: LANTUS SUB-Q SCH (22:02)
[2018-01-28] MEDS: APRESOLINE IV PRN ×2 (00:50→08:40)
[2018-01-28] MEDS: HumaLOG SUB-Q SCH ×5 (00:51→21:14)
[2018-01-28] MEDS: LASIX IV SCH (05:47)
[2018-01-28] MEDS: LASIX PO SCH ×2 (05:48→17:17)
[2018-01-28] MEDS: LOPRESSOR PO SCH ×2 (10:37→21:14)
[2018-01-28] MEDS: NORVASC PO SCH (10:37)
[2018-01-28] MEDS: PEPCID PO SCH (10:37)
--- NOTE | 2018-01-28 14:01 | Consultation ---
CARDIOLOGY CONSULTATION HISTORY OF PRESENT ILLNESS: The patient is a 57-year-old -Greek gentleman who presented to the Emergency Room on 01/27/2018 with complaints of shortness of breath and leg swelling. He was discharged from the hospital a few weeks ago. He says 3 days after he went home he started having increasing leg swelling and increasing shortness of breath. He could not walk much and could not sleep well. He has constant chest pressure. Hence, he presented to the Emergency Room. He says he is taking his medications regularly. The patient was evaluated in the Emergency Room. LABORATORY DATA: Showed BUN of 22, creatinine of 2.1 with potassium of 4.4, hemoglobin of 12.5 g/dL. EKG showed sinus rhythm. Otherwise, nonspecific ST-T changes with occasional PVCs noted. DIAGNOSTIC DATA: Chest x-ray showed moderate sized pleural effusion on the right edges, and right lower lobe density may again reflect slight atelectasis or pneumonitis. Because of his significant symptoms, he was admitted to the telemetry unit. He says he is with IV Lasix. He is diuresing well. He is feeling much better at this point. SOCIAL HISTORY: Denies any history of smoking or alcohol use or drug abuse. PAST MEDICAL HISTORY: Significant for history of diabetes mellitus, essential hypertension and diastolic heart failure. ALLERGIES: None known. MEDICATIONS: At home included clonidine 0.1 mg b.i.d., furosemide 40 mg b.i.d., insulin in addition to BiDil 20/37.5 every 8 hours. REVIEW OF SYSTEMS: His symptoms started a few days after discharge. According to him, increasing leg swelling, shortness of breath, not much of chest pain. Also, he could not sleep well. No coughing, no fever, no chills, no urinary symptoms. No change in the bowel habits. He has leg swelling, but no skin rash. No unusual headaches. No visual symptoms. PHYSICAL EXAMINATION: GENERAL: The patient appears to be comfortable sitting. HEENT: Conjunctivae pink. Sclerae anicteric. NECK: Supple. Markedly elevated JVD noted. HEART: Regular, probable S4 and S3 noted. LUNGS: Decreased breath sounds noted. Few crepitations. ABDOMEN: Benign. EXTREMITIES: Without edema at this point. NEUROLOGIC: Grossly intact. FINAL IMPRESSION: The patient's troponin T was found to be mildly elevated up to 0.059. It is to be noted the patient was discharged from the hospital only recently on 01/10/2018. The patient had echocardiogram done on 01/05/2018, which showed ejection fraction of 55-60% with no significant valvular heart disease. [id number] concentric left ventricular hypertrophy was observed. Left atrium is mildly enlarged. The patient had a perfusion lung imaging study done during this admission, which was found to be low probability for pulmonary embolus. The patient was seen by Dr. López for his chronic kidney disease during last admission. The patient at this time was found to have acute on chronic diastolic heart failure. The patient has underlying hypertension of more than 15 years along with diabetes more than 15 years. The patient has mildly elevated troponins, may be related to his underlying chronic kidney disease. Agree with present medication, namely diuresis. The patient appears to be responding well to diuresis. Continue the same. Thank you very much Dr. Santino Barnes for kindly letting us participate in outpatient care. JOB# [id number] AVERY/ROBERTA
--- NOTE | 2018-01-28 14:38 | Progress Note ---
Assessment and Plan Assessment and plan: --Acute on chronic diastolic congestive heart failure; EF 55-60% Continue current anti-failure medications, cardiology following --Positive cardiac troponins; patient has no chest pain, probably secondary to acute exacerbation of CHF Cardiology following, continue medical management --Acute kidney injury, secondary to ATN; Closely monitor renal function, avoid nephrotoxins, consult nephrology if needed --Type 2 diabetes mellitus; Accu-Chek sliding scale score EGD diet and insulin , adjust dose as needed --Hypertension; moderate control Continue current antihypertensives and when necessary medications --Elevated D dimers; VQ scan negative for PE, check lower extremity venous Doppler to rule out DVT --DVT prophylaxis; Lovenox Closely monitor the patient and adadjust the management as needed Cardiology consult and recommendations noted and appreciated Possible discharge in 1-2 days if stable Plan of care reviewed with the patient and his nurse History Interval history: Patient seen and examined medical records reviewed No new events reported by nursing Admitted with worsening shortness of breath and acute on chronic diastolic dysfunction Feels slightly better Denies chest pain or shortness of breath Vital signs reviewed Hospitalist Physical - Constitutional Vitals: Temp Pulse Resp BP Pulse Ox 97.8 F 80 18 176/101 93 01/28/18 08:35 01/28/18 08:35 01/28/18 08:35 01/28/18 08:35 01/28/18 08:35 General appearance: Present: no acute distress, well-nourished - EENT Eyes: Present: PERRL, EOM intact - Neck Neck: Present: supple, normal ROM - Respiratory Respiratory effort: normal Respiratory: bilateral: diminished, rales, negative: rhonchi, wheezing - Cardiovascular Rhythm: regular Heart Sounds: Present: S1 & S2 - Extremities Extremities: no ischemia Extremity abnormal: edema - Abdominal General gastrointestinal: soft, non-tender, non-distended, normal bowel sounds - Integumentary Integumentary: Present: clear, warm - Psychiatric Psychiatric: appropriate mood/affect, cooperative - Neurologic Neurologic: CNII-XII intact, moves all extremities Results - Labs CBC & Chem 7: 01/27/18 09:42 01/27/18 09:42 Labs: Laboratory Last Values WBC 11.2 K/mm3 (4.5-11.0) H 01/27/18 09:42 RBC 4.29 M/mm3 (3.65-5.03) 01/27/18 09:42 Hgb 12.5 gm/dl (11.8-15.2) 01/27/18 09:42 Hct 38.7 % (35.5-45.6) 01/27/18 09:42 MCV 90 fl (84-94) 01/27/18 09:42 MCH 29 pg (28-32) 01/27/18 09:42 MCHC 32 % (32-34) 01/27/18 09:42 RDW 13.5 % (13.2-15.2) 01/27/18 09:42 Plt Count 306 K/mm3 (140-440) 01/27/18 09:42 Lymph % (Auto) 17.0 % (13.4-35.0) 01/27/18 09:42 [place] % (Auto) 5.7 % (0.0-7.3) 01/27/18 09:42 Eos % (Auto) 1.3 % (0.0-4.3) 01/27/18 09:42 Baso % (Auto) 1.0 % (0.0-1.8) 01/27/18 09:42 Lymph # 1.9 K/mm3 (1.2-5.4) 01/27/18 09:42 [place] # 0.6 K/mm3 (0.0-0.8) 01/27/18 09:42 Eos # 0.1 K/mm3 (0.0-0.4) 01/27/18 09:42 Baso # 0.1 K/mm3 (0.0-0.1) 01/27/18 09:42 Seg Neutrophils % 75.0 % (40.0-70.0) H 01/27/18 09:42 Seg Neutrophils # 8.4 K/mm3 (1.8-7.7) H 01/27/18 09:42 PT 11.3 Sec. (12.2-14.9) L 01/27/18 09:42 INR 0.78 (0.87-1.13) L 01/27/18 09:42 APTT 25.2 Sec. (24.2-36.6) 01/27/18 09:42 D-Dimer 1796.74 ng/mlDDU (0-234) H 01/27/18 13:33 Sodium 137 mmol/L (137-145) 01/27/18 09:42 Potassium 4.4 mmol/L (3.6-5.0) 01/27/18 09:42 Chloride 100.9 mmol/L (98-107) 01/27/18 09:42 Carbon Dioxide 28 mmol/L (22-30) 01/27/18 09:42 Anion Gap 13 mmol/L 01/27/18 09:42 BUN 22 mg/dL (9-20) H 01/27/18 09:42 Creatinine 2.1 mg/dL (0.8-1.5) H 01/27/18 09:42 Estimated GFR 40 ml/min 01/27/18 09:42 BUN/Creatinine Ratio 10 % 01/27/18 09:42 Glucose 215 mg/dL (75-100) H 01/27/18 09:42 POC Glucose 89 (70-105) 01/28/18 05:43 Calcium 8.7 mg/dL (8.4-10.2) 01/27/18 09:42 Troponin T 0.077 ng/mL (0.00-0.029) H 01/28/18 00:16 NT-Pro-B Natriuret Pep 5652 pg/mL (0-900) H 01/27/18 09:42 Triglycerides 308 mg/dL (2-149) H 01/27/18 09:42 Cholesterol 298 mg/dL (50-199) H 01/27/18 09:42 LDL Cholesterol Direct 210 mg/dL (50-130) H 01/27/18 09:42 HDL Cholesterol 78 mg/dL (40-59) H 01/27/18 09:42 Cholesterol/HDL Ratio 3.82 % 01/27/18 09:42
[2018-01-28] MEDS: PERCOCET 5/325 PO PRN (17:17)
[2018-01-28] MEDS: LANTUS SUB-Q SCH (21:13)
[2018-01-29] MEDS: PERCOCET 5/325 PO PRN ×3 (00:56→17:12)
[2018-01-29] MEDS: LASIX PO SCH (05:41)
[2018-01-29 06:05] LABS: Basophils # (Auto) 0.1 K/mm3 (0.0-0.1); Basophils % (Auto) 0.7 % (0.0-1.8); Eosinophils # (Auto) 0.2 K/mm3 (0.0-0.4); Eosinophils % (Auto) 1.9 % (0.0-4.3); Hemoglobin 10.9 gm/dl (11.8-15.2); Lymphocytes # (Auto) 2.3 K/mm3 (1.2-5.4); Lymphocytes % (Auto) 23.9 % (13.4-35.0); Mean Corpuscular HGB Conc 32 % (32-34); Mean Corpuscular Hemoglobin 29 pg (28-32); Mean Corpuscular Volume 90 fl (84-94); Monocytes # (Auto) 0.7 K/mm3 (0.0-0.8); Monocytes % (Auto) 7.4 % (0.0-7.3); Platelet Count 287 K/mm3 (140-440); Red Blood Count 3.78 M/mm3 (3.65-5.03); Red Cell Distribution Width 13.2 % (13.2-15.2)
[2018-01-29] MEDS: HumaLOG SUB-Q SCH ×5 (06:31→21:15)
[2018-01-29 06:39] LABS: Calcium 8.2 mg/dL (8.4-10.2)
[2018-01-29] MEDS ORDERED: LOPRESSOR PO SCH (09:21)
[2018-01-29] MEDS: PEPCID PO SCH (10:35)
[2018-01-29] MEDS: APRESOLINE PO SCH ×3 (10:35→21:15)
[2018-01-29] MEDS: NORVASC PO SCH (10:35)
[2018-01-29] MEDS: LOPRESSOR PO SCH ×2 (10:35→21:15)
--- NOTE | 2018-01-29 11:48 | Progress Note ---
Assessment and Plan Assessment and plan: --Acute on chronic diastolic congestive heart failure; EF 55-60% Symptoms slightly improved , continue anti-failure medications, Possible discharge home tomorrow if stable, cardiology following --Positive cardiac troponins; patient has no chest pain, probably secondary to acute exacerbation of CHF Cardiology evaluated, continue medical management --Acute kidney injury, secondary to ATN; worsening renal function avoid nephrotoxins, reduce Lasix dose to daily ,consult nephrology if needed --Type 2 diabetes mellitus; Accu-Chek sliding scale score EGD diet and insulin , adjust dose as needed --Hypertension; moderate control Continue current antihypertensives and when necessary medications --Elevated D dimers; VQ scan negative for PE, check lower extremity venous Doppler to rule out DVT --DVT prophylaxis; Lovenox Closely monitor the patient and adadjust the management as needed Cardiology consult and recommendations noted and appreciated Increase ambulation as tolerated Possible discharge home tomorrow if stable History Interval history: Seen and examined medical records reviewed Feels slightly better no new complaints Lower extremity edema slight improvement Alert awake oriented 3 Vital signs reviewed Hospitalist Physical - Constitutional Vitals: Temp Pulse Resp BP Pulse Ox 98.2 F 81 20 171/98 96 01/29/18 08:35 01/29/18 08:35 01/29/18 10:00 01/29/18 08:35 01/29/18 08:35 General appearance: Present: no acute distress, well-nourished - EENT Eyes: Present: PERRL, EOM intact - Neck Neck: Present: supple, normal ROM - Respiratory Respiratory effort: normal Respiratory: bilateral: diminished, rales, negative: rhonchi, wheezing - Cardiovascular Rhythm: regular Heart Sounds: Present: S1 & S2 - Extremities Extremities: no ischemia Extremity abnormal: edema - Abdominal General gastrointestinal: soft, non-tender, non-distended, normal bowel sounds - Integumentary Integumentary: Present: clear, warm - Psychiatric Psychiatric: appropriate mood/affect, cooperative - Neurologic Neurologic: CNII-XII intact, moves all extremities Results - Labs CBC & Chem 7: 01/29/18 05:19 01/29/18 05:19 Labs: Laboratory Last Values WBC 9.6 K/mm3 (4.5-11.0) 01/29/18 05:19 RBC 3.78 M/mm3 (3.65-5.03) 01/29/18 05:19 Hgb 10.9 gm/dl (11.8-15.2) L 01/29/18 05:19 Hct 34.0 % (35.5-45.6) L 01/29/18 05:19 MCV 90 fl (84-94) 01/29/18 05:19 MCH 29 pg (28-32) 01/29/18 05:19 MCHC 32 % (32-34) 01/29/18 05:19 RDW 13.2 % (13.2-15.2) 01/29/18 05:19 Plt Count 287 K/mm3 (140-440) 01/29/18 05:19 Lymph % (Auto) 23.9 % (13.4-35.0) 01/29/18 05:19 [place] % (Auto) 7.4 % (0.0-7.3) H 01/29/18 05:19 Eos % (Auto) 1.9 % (0.0-4.3) 01/29/18 05:19 Baso % (Auto) 0.7 % (0.0-1.8) 01/29/18 05:19 Lymph # 2.3 K/mm3 (1.2-5.4) 01/29/18 05:19 [place] # 0.7 K/mm3 (0.0-0.8) 01/29/18 05:19 Eos # 0.2 K/mm3 (0.0-0.4) 01/29/18 05:19 Baso # 0.1 K/mm3 (0.0-0.1) 01/29/18 05:19 Seg Neutrophils % 66.1 % (40.0-70.0) 01/29/18 05:19 Seg Neutrophils # 6.3 K/mm3 (1.8-7.7) 01/29/18 05:19 PT 11.3 Sec. (12.2-14.9) L 01/27/18 09:42 INR 0.78 (0.87-1.13) L 01/27/18 09:42 APTT 25.2 Sec. (24.2-36.6) 01/27/18 09:42 D-Dimer 1796.74 ng/mlDDU (0-234) H 01/27/18 13:33 Sodium 143 mmol/L (137-145) 01/29/18 05:19 Potassium 4.0 mmol/L (3.6-5.0) 01/29/18 05:19 Chloride 103.4 mmol/L (98-107) 01/29/18 05:19 Carbon Dioxide 31 mmol/L (22-30) H 01/29/18 05:19 Anion Gap 13 mmol/L 01/29/18 05:19 BUN 23 mg/dL (9-20) H 01/29/18 05:19 Creatinine 2.3 mg/dL (0.8-1.5) H 01/29/18 05:19 Estimated GFR 36 ml/min 01/29/18 05:19 BUN/Creatinine Ratio 10 % 01/29/18 05:19 Glucose 140 mg/dL (75-100) H 01/29/18 05:19 POC Glucose 138 (70-105) H 01/29/18 06:17 Calcium 8.2 mg/dL (8.4-10.2) L 01/29/18 05:19 Troponin T 0.077 ng/mL (0.00-0.029) H 01/28/18 00:16 NT-Pro-B Natriuret Pep 5652 pg/mL (0-900) H 01/27/18 09:42 Triglycerides 308 mg/dL (2-149) H 01/27/18 09:42 Cholesterol 298 mg/dL (50-199) H 01/27/18 09:42 LDL Cholesterol Direct 210 mg/dL (50-130) H 01/27/18 09:42 HDL Cholesterol 78 mg/dL (40-59) H 01/27/18 09:42 Cholesterol/HDL Ratio 3.82 % 01/27/18 09:42
--- NOTE | 2018-01-29 11:53 | Progress Note ---
Assessment and Plan Optimize anti-hypertensive regimen - increase lopressor to 100mg BID and initiate hydralazine. The patient has been seen in conjunction with Dr. Parks who agrees with the assessment and plan of care. - Patient Problems (1) Heart failure with preserved ejection fraction Current Visit: Yes Status: Acute (2) HTN (hypertension) Current Visit: Yes Status: Chronic Qualifiers: Hypertension type: essential hypertension Qualified Code(s): I10 - Essential (primary) hypertension (3) Diabetes Current Visit: Yes Status: Chronic (4) CKD (chronic kidney disease) Current Visit: Yes Status: Chronic Qualifiers: Chronic kidney disease stage: stage 3 (moderate) Qualified Code(s): N18.3 - Chronic kidney disease, stage 3 (moderate) (5) Elevated troponin Current Visit: Yes Status: Acute (6) NSVT (nonsustained ventricular tachycardia) Current Visit: Yes Status: Acute Subjective Date of service: 01/29/18 Principal diagnosis: HF Interval history: pt sitting up in chair, states he is feeling better. tele reviewed - 5 beat NSVT noted overnight, pt asymptomatic. Objective Last Vital Signs Temp 98.2 F 01/29/18 08:35 Pulse 81 01/29/18 08:35 Resp 20 01/29/18 10:00 BP 171/98 01/29/18 08:35 Pulse Ox 96 01/29/18 08:35 - Physical Examination General: No Apparent Distress HEENT: Positive: PERRL, Normocephaly, Mucus Membranes Moist Neck: Positive: neck supple, trachea midline Cardiac: Positive: Reg Rate and Rhythm, S1/S2 Neuro: Positive: Grossly Intact Abdomen: Positive: Soft. Negative: Tender Skin: Positive: Clear. Negative: Rash, Wound Musculoskeletal: No Pain Extremities: Present: edema (trace BLE) - Labs and Meds CBC 01/29/18 Range/Units 05:19 WBC 9.6 (4.5-11.0) K/mm3 RBC 3.78 (3.65-5.03) M/mm3 Hgb 10.9 L (11.8-15.2) gm/dl Hct 34.0 L (35.5-45.6) % Plt Count 287 (140-440) K/mm3 Lymph # 2.3 (1.2-5.4) K/mm3 [place] # 0.7 (0.0-0.8) K/mm3 Eos # 0.2 (0.0-0.4) K/mm3 Baso # 0.1 (0.0-0.1) K/mm3 Comprehensive Metabolic Panel 01/29/18 Range/Units 05:19 Sodium 143 (137-145) mmol/L Potassium 4.0 (3.6-5.0) mmol/L Chloride 103.4 (98-107) mmol/L Carbon Dioxide 31 H (22-30) mmol/L BUN 23 H (9-20) mg/dL Creatinine 2.3 H (0.8-1.5) mg/dL Glucose 140 H (75-100) mg/dL Calcium 8.2 L (8.4-10.2) mg/dL - Imaging and Cardiology EKG: report reviewed, image reviewed Echo: report reviewed (12/2017: EF 55-60%, mod to severe LVH) - Telemetry EKG Rhythm: Sinus Rhythm
[2018-01-29] MEDS: APRESOLINE IV PRN (13:05)
[2018-01-29] MEDS: LANTUS SUB-Q SCH (21:16)
[2018-01-30] MEDS: APRESOLINE PO SCH ×3 (05:10→13:26)
[2018-01-30] MEDS: PERCOCET 5/325 PO PRN (05:24)
[2018-01-30] MEDS ORDERED: APRESOLINE PO SCH (09:23)
[2018-01-30] MEDS ORDERED: LASIX PO SCH (10:00)
[2018-01-30] MEDS: HumaLOG SUB-Q SCH ×2 (10:01→12:38)
[2018-01-30] MEDS: NORVASC PO SCH (10:02)
[2018-01-30] MEDS: LOPRESSOR PO SCH (10:02)
[2018-01-30] MEDS: PEPCID PO SCH (10:02)
--- NOTE | 2018-01-30 11:47 | Progress Note ---
Assessment and Plan Optimize anti-hypertensive regimen - increase hydralazine. Currently stable cardiac status. Nothing further to add from cardiac perspective at this time. Will sign off. Recommend pt follow up in our office with Dr. Villegas within 3-5 days of hospital discharge ([phone]). The patient has been seen in conjunction with Dr. Parks who agrees with the assessment and plan of care. - Patient Problems (1) Heart failure with preserved ejection fraction Current Visit: Yes Status: Acute (2) HTN (hypertension) Current Visit: Yes Status: Chronic Qualifiers: Hypertension type: essential hypertension Qualified Code(s): I10 - Essential (primary) hypertension (3) Diabetes Current Visit: Yes Status: Chronic (4) CKD (chronic kidney disease) Current Visit: Yes Status: Chronic Qualifiers: Chronic kidney disease stage: stage 3 (moderate) Qualified Code(s): N18.3 - Chronic kidney disease, stage 3 (moderate) (5) Elevated troponin Current Visit: Yes Status: Acute (6) NSVT (nonsustained ventricular tachycardia) Current Visit: Yes Status: Acute Subjective Date of service: 01/30/18 Principal diagnosis: HF Interval history: pt resting in bed, no current cardiac complaints. c/o ifeanyi-umbilical abdominal pain, nausea and vomiting overnight. tele reviewed - SR overnight. Objective Last Vital Signs Temp 97.3 F L 01/30/18 05:14 Pulse 74 01/30/18 10:00 Resp 18 01/30/18 05:14 BP 188/93 01/30/18 05:14 Pulse Ox 98 01/30/18 08:12 - Physical Examination General: No Apparent Distress HEENT: Positive: PERRL, Normocephaly, Mucus Membranes Moist Neck: Positive: neck supple, trachea midline Cardiac: Positive: Reg Rate and Rhythm, S1/S2 Lungs: Positive: clear to auscultation Neuro: Positive: Grossly Intact Abdomen: Positive: Soft. Negative: Tender Skin: Positive: Clear. Negative: Rash, Wound Musculoskeletal: No Pain Extremities: Absent: edema - Imaging and Cardiology EKG: report reviewed, image reviewed Echo: report reviewed (12/2017: EF 55-60%, mod to severe LVH) - Telemetry EKG Rhythm: Sinus Rhythm
[2018-01-30 12:06] VITALS: BP 150/123
--- NOTE | 2018-01-30 14:03 | Discharge Summary ---
Providers - Providers Date of Admission: 01/27/18 17:25 Date of discharge: 01/30/18 Attending physician: JAMAL POOL 01/27/18 Consult to Cardiac Rehabilitation [CONS] Routine Reason For Exam: Phase I 01/27/18 17:25 Consult to Physician [CONS] Routine Comment: A/S NOTIFIED 175 Consulting Provider: FREDI RIDDLE Physician Instructions: Reason For Exam: chf/acs Hospitalization Condition: Fair Disposition: DC-01 TO HOME OR SELFCARE Time spent for discharge: 32 min Core Measure Documentation - Palliative Care Palliative Care/ Comfort Measures: Not Applicable - Core Measures Any of the following diagnoses?: none Exam - Constitutional Vitals: Temp Pulse Resp BP Pulse Ox 98.6 F 72 18 150/123 97 01/30/18 11:58 01/30/18 11:58 01/30/18 11:58 01/30/18 11:58 01/30/18 11:58 General appearance: Present: no acute distress, well-nourished - EENT Eyes: Present: PERRL, EOM intact - Neck Neck: Present: supple, normal ROM - Respiratory Respiratory effort: normal Respiratory: bilateral: diminished, negative: rales, rhonchi, wheezing - Cardiovascular Rhythm: regular Heart Sounds: Present: S1 & S2 - Extremities Extremities: no ischemia Extremity abnormal: edema - Abdominal General gastrointestinal: Present: soft, non-tender, non-distended, normal bowel sounds - Integumentary Integumentary: Present: clear, warm - Musculoskeletal Musculoskeletal: strength equal bilaterally - Psychiatric Psychiatric: appropriate mood/affect, cooperative - Neurologic Neurologic: CNII-XII intact, moves all extremities Plan Activity: no restrictions Diet: low salt Additional Instructions: Strongly advised to comply with medications and diet. If you have chest pain or shortness of breath, contact M.D. or go to the emergency room Follow up with: DR BARROSO,[facility] [Other] - 3-5 Days DREW PHAM MD [Staff Physician] - 3 Days Prescriptions: hydrALAZINE [Apresoline TAB] 100 mg PO Q8HR #90 tab Insulin Glargine [Lantus VIAL] 20 units SUB-Q QHS 30 Days #30 units Metoprolol [Lopressor TAB] 100 mg PO BID #60 tablet
== END 2018-01-30 16:18 | disposition home or self-care (01) | DRG 682 ==
LOC: ED 08:12 → 4A 17:25
PROVIDERS: ADMIT Internal Medicine; ATTEND Internal Medicine
DX: N17.0 Acute kidney failure with tubular necrosis (principal); I50.43 Acute on chronic combined systolic (congestive) and diastolic (congestive) heart failure; I13.0 Hypertensive heart and chronic kidney disease with heart failure and stage 1 through stage 4 chronic kidney disease, or unspecified chronic kidney disease; I42.8 Other cardiomyopathies; I47.2 Ventricular tachycardia; N18.3 Chronic kidney disease, stage 3 (moderate); E11.22 Type 2 diabetes mellitus with diabetic chronic kidney disease; Z82.49 Family history of ischemic heart disease and other diseases of the circulatory system; Z83.3 Family history of diabetes mellitus; Z79.4 Long term (current) use of insulin; Z79.899 Other long term (current) drug therapy
CPT/HCPCS: 36415; 71046; 78582; 80048; 80061; 82962; 83880; 84484; 85025; 85379; 85610; 85730; 93005; 93010; A9540; A9558; J0360; J1815; J1940

== ENCOUNTER 2018-02-23 19:00 | Inpatient (IN) | payer OTHER ==
--- NOTE | 2018-02-23 19:41 | Emergency Department Report ---
HPI - General Chief Complaint: Dyspnea/Respdistress Time Seen by Provider: 02/23/18 19:30 - HPI HPI: 57-year-old -[place] male presents to the emergency department via EMS from home with complaint of shortness of breath that has been going on since last night. He also complains of swelling to the legs and arms, with the right leg worse than the left. He has a past medical history of insulin-dependent diabetes, CHF, hypertension, chronic kidney disease without dialysis. He has a primary care physician who is "across the street" but he cannot currently remember her name. He has not taken anything for his symptoms prior to presentation. No recent travel or sick contacts at home. ED Past Medical Hx - Past Medical History Previous Medical History?: Yes Hx Hypertension: Yes Hx Congestive Heart Failure: Yes Hx Diabetes: Yes - Surgical History Past Surgical History?: Yes Additional Surgical History: 5 Right toes removed surgically in March 2017 - Social History Smoking Status: Former Smoker Substance Use Type: None, Prescribed - Medications Home Medications: Home Medications Medication Instructions Recorded Confirmed Last Taken Type Famotidine [Pepcid] 20 mg PO BID 01/05/18 02/23/18 02/23/18 10:00 History Furosemide [Lasix TAB] 40 mg PO BID #60 tablet 01/08/18 02/23/18 02/23/18 10:00 Rx amLODIPine [Norvasc] 10 mg PO DAILY 01/27/18 02/23/18 02/23/18 10:00 History hydrALAZINE [Apresoline TAB] 100 mg PO Q8HR 01/27/18 02/23/18 02/23/18 10:00 History Insulin Glargine [Lantus VIAL] 20 units SUB-Q QHS 30 Days #30 01/30/18 02/23/18 02/22/18 Rx units Metoprolol [Lopressor TAB] 100 mg PO BID #60 tablet 01/30/18 02/23/18 02/23/18 10:00 Rx ED Review of Systems ROS: Stated complaint: SHORTNESS OF BREATH Other details as noted in HPI Comment: All other systems reviewed and negative Constitutional: denies: chills, fever Eyes: denies: eye pain, eye discharge, vision change ENT: denies: ear pain, throat pain Respiratory: shortness of breath. denies: cough Cardiovascular: edema. denies: chest pain Gastrointestinal: denies: abdominal pain, nausea, diarrhea Genitourinary: denies: urgency, dysuria Musculoskeletal: denies: back pain, joint swelling, arthralgia Skin: denies: rash, lesions Neurological: denies: headache, weakness, paresthesias Physical Exam - Physical Exam Vital Signs: Vital Signs 02/23/18 19:25 Temperature 97.9 F Pulse Rate 98 H Respiratory 21 Rate Blood Pressure 177/91 Blood Pressure 177/91 [Left] O2 Sat by Pulse 98 Oximetry Physical Exam: GENERAL: The patient is well-developed well-nourished. HEENT: Normocephalic. Atraumatic. Patient has moist mucous membranes. EYES: Extraocular motions are intact. Pupils are equal and reactive to light bilaterally. NECK: Supple. Trachea is midline. CHEST/LUNGS: Coarse breath sounds with the chest. No tachypnea or accessory muscle use. There is no respiratory distress noted. HEART/CARDIOVASCULAR: Regular. There is no tachycardia. There is no gallop rub or murmur. ABDOMEN: Abdomen is soft, nontender. Patient has normal bowel sounds. There is no abdominal distention. SKIN: There is some bilateral lower extremity swelling with right greater than left. NEURO: The patient is awake, alert, and oriented. The patient is cooperative. The patient has no focal neurologic deficits. The patient has normal speech. MUSCULOSKELETAL: There is no tenderness or deformity. There is no limitation range of motion. There is no evidence of acute injury. ED Course Vital Signs 02/23/18 19:25 Temperature 97.9 F Pulse Rate 98 H Respiratory 21 Rate Blood Pressure 177/91 Blood Pressure 177/91 [Left] O2 Sat by Pulse 98 Oximetry ED Medical Decision Making - Lab Data Result diagrams: 02/23/18 20:05 02/23/18 20:04 - EKG Data -: EKG Interpreted by Me EKG shows normal: sinus rhythm, axis, intervals, QRS complexes, ST-T waves Rate: normal - EKG Data When compared to previous EKG there are: previous EKG unavailable Interpretation: normal EKG - Radiology Data Radiology results: report reviewed, image reviewed interpreted by me: Chest x-ray does not show any obvious pneumonia, focal consolidation or pneumothorax. Questionable small right basilar pleural effusion. PROCEDURE: NM LUNG SCAN PERF/VENT TECHNIQUE: 3.54 mCi Tc-99m MAA was injected IV for pulmonary perfusion imaging in multiple projections. 14.75 mCi Tc-99m DTPA aerosol was inhaled for pulmonary ventilation imaging in multiple projections. Injection site: RIGHT antecubital fossa. CPT 94067 REGULATORY GUIDELINES: The patient was released based upon guidelines established in [place] State Regulations for Protection Against Radiation, Chapter 6050-49-44-35, Release of Individuals Containing Radioactive Drugs or Implants. HISTORY: SOB, elevated dimer COMPARISON: Chest x-ray 02/23/2018 FINDINGS: Perfusion: No defects . Ventilation: No defects . IMPRESSION: Normal Examination Transcribed By: CO Dictated By: JAMIN EMERSON MD Electronically Authenticated By: JAMIN EMERSON MD Signed Date/Time: 02/23/18 0978 - Medical Decision Making Patient presents with the complaint of breast with worsening shortness of breath and some lower extremity swelling, right greater than left. Patient is a history of chronic kidney disease but the last time he was here it was a creatinine of 2.3 and now it is up to 3.4. The patient has an elevated BNP level and d-dimer. Chest x-ray shows a small right basilar pleural effusion. A VQ scan was done that does not show any signs of any pulmonary embolism. He was given some Lasix to assist in diuresis. Vital signs stable throughout his ED course. The patient will be admitted for further evaluation and probable cardiology and nephrology consultation. The patient was accepted for admission by the hospitalist, Dr. Vásquez. - Differential Diagnosis CHF, pneumonia, PE Critical Care Time: No Critical care attestation.: If time is entered above; I have spent that time in minutes in the direct care of this critically ill patient, excluding procedure time. ED Disposition Clinical Impression: Acute exacerbation of CHF (congestive heart failure) Qualifiers: Heart failure type: diastolic Qualified Code(s): I50.33 - Acute on chronic diastolic (congestive) heart failure Acute on chronic renal failure Qualifiers: Acute renal failure type: unspecified Chronic kidney disease stage: unspecified stage Qualified Code(s): N17.9 - Acute kidney failure, unspecified; N18.9 - Chronic kidney disease, unspecified Dyspnea Qualifiers: Dyspnea type: shortness of breath Qualified Code(s): R06.02 - Shortness of breath; R06.00 - Dyspnea, unspecified; R06.01 - Orthopnea Hypertension Qualifiers: Hypertension type: essential hypertension Qualified Code(s): I10 - Essential ( primary) hypertension Disposition: OP ADMIT IP TO THIS HOSP Is pt being admited?: Yes Condition: Fair Time of Disposition: 00:55
[2018-02-23 20:27] LABS: Basophils # (Auto) 0.1 K/mm3 (0.0-0.1); Basophils % (Auto) 0.9 % (0.0-1.8); Eosinophils # (Auto) 0.1 K/mm3 (0.0-0.4); Eosinophils % (Auto) 1.2 % (0.0-4.3); Hemoglobin 10.6 gm/dl (11.8-15.2); Lymphocytes # (Auto) 1.8 K/mm3 (1.2-5.4); Lymphocytes % (Auto) 15.4 % (13.4-35.0); Mean Corpuscular HGB Conc 34 % (32-34); Mean Corpuscular Hemoglobin 30 pg (28-32); Mean Corpuscular Volume 88 fl (84-94); Monocytes # (Auto) 0.8 K/mm3 (0.0-0.8); Monocytes % (Auto) 7.5 % (0.0-7.3); Platelet Count 292 K/mm3 (140-440); Red Blood Count 3.53 M/mm3 (3.65-5.03); Red Cell Distribution Width 13.9 % (13.2-15.2)
[2018-02-23 20:38] LABS: INR 0.78 (0.87-1.13)
[2018-02-23 21:00] LABS: Calcium 7.9 mg/dL (8.4-10.2)
[2018-02-23] MEDS ORDERED: LASIX IV ONE (21:08)
[2018-02-23] MEDS ORDERED: DUONEB *Not for PRN Use IH ONE (21:08)
[2018-02-23] MEDS ORDERED: PERCOCET 5/325 PO ONE (21:38)
[2018-02-23] MEDS ORDERED: HumuLIN R IV ONE (21:58)
--- NOTE | 2018-02-23 22:47 | XRay Report ---
FINAL REPORT EXAM: XR CHEST ROUTINE 2V HISTORY: Shortness of breath TECHNIQUE: Frontal and lateral chest x-ray. PRIORS: 27 January 2018. FINDINGS: Cardiac and mediastinal silhouette within normal limits. Lungs again show small right pleural effusion mildly increased from comparison, and probable right basilar atelectasis. No focal consolidation, apparent left pleural effusion or pneumothorax. Bony thorax grossly unremarkable. IMPRESSION: 1. Small right pleural effusion mildly increased in the interval, and probable right basilar atelectasis.
--- NOTE | 2018-02-23 23:18 | Nuclear Medicine Report ---
FINAL REPORT PROCEDURE: NM LUNG SCAN PERF/VENT TECHNIQUE: 3.54 mCi Tc-99m MAA was injected IV for pulmonary perfusion imaging in multiple projections. 14.75 mCi Tc-99m DTPA aerosol was inhaled for pulmonary ventilation imaging in multiple projections. Injection site: RIGHT antecubital fossa. CPT 23609 REGULATORY GUIDELINES: The patient was released based upon guidelines established in [place] State Regulations for Protection Against Radiation, Chapter 1199-06-14-35, Release of Individuals Containing Radioactive Drugs or Implants. HISTORY: SOB, elevated dimer COMPARISON: Chest x-ray 02/23/2018 FINDINGS: Perfusion: No defects . Ventilation: No defects . IMPRESSION: Normal Examination
--- NOTE | 2018-02-23 23:55 | History and Physical Report ---
History of Present Illness Date of examination: 02/23/18 History of present illness: 57-year-old man with a history of hypertension, diabetes, CHF, chronic kidney disease comes emergency room with complaints of shortness of breath, PND, orthopnea and increasing lower extremity edema. He stated that he is compliant with his medication, states his Lasix is just not working anymore Review of systems Constitutional: no weight loss, chills, fever Ears, eyes, nose, mouth and throat: no nasal congestion, no nasal discharge, no sinus pressure, no vision change, no red eye. Neck: No neck pain or rigidity. Cardiovascular: no chest pain, palpitations Respiratory: no cough Gastrointestinal: no abdominal pain hematochezia Genitourinary : no frequency , no hematuria Musculoskeletal: no joint swelling or muscle ache Integumentary: no rash, no pruritis Neurological: no parathesias, no numbness, no focal weakness Endocrine: no cold or heat intolerance, no polyuria or polydipsia Hematologic/Lymphatic: no easy bruising, no easy bleeding, no gland swelling Allergic/Immunologic: no urticaria, no angioedema. PAST MEDICAL HISTORY: hypertension, diabetes, CHF, chronic kidney disease PAST SURGICAL HISTORY: Hernia repair, CABG SOCIAL HISTORY: No alcohol, no drugs, tobacco FAMILY HISTORY: Hypertension Medications and Allergies Allergies Allergy/AdvReac Type Severity Reaction Status Date / Time No Known Allergies Allergy Verified 11/01/13 07:35 Home Medications Medication Instructions Recorded Confirmed Last Taken Type Famotidine [Pepcid] 20 mg PO BID 01/05/18 02/23/18 02/23/18 10:00 History Furosemide [Lasix TAB] 40 mg PO BID #60 tablet 01/08/18 02/23/18 02/23/18 10:00 Rx amLODIPine [Norvasc] 10 mg PO DAILY 01/27/18 02/23/18 02/23/18 10:00 History hydrALAZINE [Apresoline TAB] 100 mg PO Q8HR 01/27/18 02/23/18 02/23/18 10:00 History Insulin Glargine [Lantus VIAL] 20 units SUB-Q QHS 30 Days #30 01/30/18 02/23/18 02/22/18 Rx units Metoprolol [Lopressor TAB] 100 mg PO BID #60 tablet 01/30/18 02/23/18 02/23/18 10:00 Rx Exam - Physical Exam Narrative exam: Gen. appearance: Patient lying in bed, no apparent distress HEENT: Normocephalic, atraumatic, pupils equally round and reactive to light, extraocular movement intact, and no sclericterus,. No JVD or thyromegaly or nodule,neck supple, no carotid bruit ,mucous membranes moist, no exudate or erythema Heart: S1, S2, regular rate and rhythm Lungs: Crackles bilaterally, breathing comfortable Abdomen: Positive bowel sounds, non-tender, nondistended, no organomegaly Extremity: Right is always leg larger than left, + edema, no cyanosis, clubbing Skin: no rash, dry, warm Neuro: Oriented 3, cranial nerves II-12 intact, speech is fluent, motor and sensory intact - Constitutional Vitals: Temp Pulse Resp BP Pulse Ox 97.9 F 94 H 14 129/78 100 02/23/18 19:25 02/23/18 23:30 02/23/18 23:30 02/23/18 23:30 02/23/18 23:30 Results - Labs CBC & Chem 7: 02/23/18 20:05 02/23/18 20:04 Labs: Abnormal lab results 02/23/18 02/23/18 02/23/18 Range/Units 20:04 20:04 20:05 WBC 11.4 H (4.5-11.0) K/mm3 RBC 3.53 L (3.65-5.03) M/mm3 Hgb 10.6 L (11.8-15.2) gm/dl Hct 31.0 L (35.5-45.6) % [place] % (Auto) 7.5 H (0.0-7.3) % Seg Neutrophils % 75.0 H (40.0-70.0) % Seg Neutrophils # 8.5 H (1.8-7.7) K/mm3 PT 11.3 L (12.2-14.9) Sec. INR 0.78 L (0.87-1.13) APTT 23.0 L (24.2-36.6) Sec. D-Dimer 2918.32 H (0-234) ng/mlDDU BUN 26 H (9-20) mg/dL Creatinine 3.4 H (0.8-1.5) mg/dL Glucose 369 H (75-100) mg/dL POC Glucose (70-105) Calcium 7.9 L (8.4-10.2) mg/dL NT-Pro-B Natriuret Pep (0-900) pg/mL 02/23/18 02/23/18 Range/Units 20:05 22:04 WBC (4.5-11.0) K/mm3 RBC (3.65-5.03) M/mm3 Hgb (11.8-15.2) gm/dl Hct (35.5-45.6) % [place] % (Auto) (0.0-7.3) % Seg Neutrophils % (40.0-70.0) % Seg Neutrophils # (1.8-7.7) K/mm3 PT (12.2-14.9) Sec. INR (0.87-1.13) APTT (24.2-36.6) Sec. D-Dimer (0-234) ng/mlDDU BUN (9-20) mg/dL Creatinine (0.8-1.5) mg/dL Glucose (75-100) mg/dL POC Glucose 354 H (70-105) Calcium (8.4-10.2) mg/dL NT-Pro-B Natriuret Pep 5322 H (0-900) pg/mL - Imaging and Cardiology EKG: image reviewed Chest x-ray: report reviewed Assessment and Plan v/q reviewed Assessment CHF exacerbation, acute on chronic diastolic Acute on chronic renal failure Elevated troponin Diabetes Hypertension Plan Admit to medicine Diurese with IV Lasix Continue beta rafael, aspirin No JACE inhibitor secondary to worsening renal failure Consult cardiology, renal Check cardiac enzymes, echo, fingersticks, initiated insulin sliding scale DVT prophylaxis
[2018-02-24] MEDS ORDERED: ZOFRAN IV PRN (00:35)
[2018-02-24] MEDS ORDERED: SODIUM CHLORIDE FLUSH SYRINGE 10 ML IV PRN (00:35)
[2018-02-24] MEDS ORDERED: TYLENOL PO PRN (00:35)
[2018-02-24] MEDS ORDERED: D50W (25GM) Syringe IV PRN (00:41)
[2018-02-24] MEDS ORDERED: APRESOLINE IV PRN (00:42)
[2018-02-24 02:51] LABS: Creatine Kinase MB 6.6 ng/mL (0.0-4.0)
[2018-02-24 04:46] LABS: Chol/HDL Ratio 3.5 %
[2018-02-24 06:06] LABS: Creatine Kinase MB 5.6 ng/mL (0.0-4.0)
[2018-02-24] MEDS: LASIX IV SCH ×2 (06:57→17:43)
--- NOTE | 2018-02-24 09:51 | Consultation ---
History of Present Illness Consult date: 02/24/18 Requesting physician: CARLOS DOUGLAS Consult reason: congestive heart failure History of present illness: This is a 57-year-old gentleman with history of hypertension diabetes cholesterol peripheral vascular disease with right partial foot amputation 2016 and chronic renal insufficiencies had multiple admissions for volume overload especially the last 3 months. Patient states compliance with diet and fluid intake and medications states after his last discharge felt well for about a week but had fluid in his legs again. Patient states he has shortness of breath with exertion with palpitations but denies any chest pain denies any syncope. Denies any fever or chills Past History Past Medical History: diabetes, hypertension, hyperlipidemia, PVD Past Surgical History: Other (right partial foot amputation) Social history: denies: smoking, alcohol abuse, prescription drug abuse Family history: denies: no significant family history Medications and Allergies Allergies Allergy/AdvReac Type Severity Reaction Status Date / Time No Known Allergies Allergy Verified 11/01/13 07:35 Home Medications Medication Instructions Recorded Confirmed Last Taken Type Famotidine [Pepcid] 20 mg PO BID 01/05/18 02/23/18 02/23/18 10:00 History Furosemide [Lasix TAB] 40 mg PO BID #60 tablet 01/08/18 02/23/18 02/23/18 10:00 Rx amLODIPine [Norvasc] 10 mg PO DAILY 01/27/18 02/23/18 02/23/18 10:00 History hydrALAZINE [Apresoline TAB] 100 mg PO Q8HR 01/27/18 02/23/18 02/23/18 10:00 History Insulin Glargine [Lantus VIAL] 20 units SUB-Q QHS 30 Days #30 01/30/18 02/23/18 02/22/18 Rx units Metoprolol [Lopressor TAB] 100 mg PO BID #60 tablet 01/30/18 02/23/18 02/23/18 10:00 Rx Active Meds: Active Medications Acetaminophen (Tylenol) 650 mg PO Q4H PRN PRN Reason: Pain MILD(1-3)/Fever >100.5/GARCIA Amlodipine Besylate (Norvasc) 10 mg PO DAILY [facility]HA Aspirin (Aspirin) 325 mg PO QDAY [facility] Dextrose (D50w (25gm) Syringe) 50 ml IV PRN PRN PRN Reason: Hypoglycemia Enoxaparin Sodium (Lovenox) 30 mg SUB-Q QDAY [facility] Famotidine (Pepcid) 20 mg PO QAM [facility] Furosemide (Lasix) 40 mg IV BID@0600,1800 [facility] Last Admin: 02/24/18 06:57 Dose: 40 mg Hydralazine HCl (Apresoline) 5 mg IV Q6H PRN PRN Reason: Hypertension Insulin Human Lispro (Humalog) 0 unit SUB-Q ACHS [facility]; Protocol Metoprolol Tartrate (Lopressor) 100 mg PO BID [facility] Ondansetron HCl (Zofran) 4 mg IV Q8H PRN PRN Reason: Nausea And Vomiting Oxycodone/Acetaminophen (Percocet 5/325) 1 tab PO Q6H PRN PRN Reason: Pain, Moderate (4-6) Sodium Chloride (Sodium Chloride Flush Syringe 10 Ml) 10 ml IV BID RADHA Sodium Chloride (Sodium Chloride Flush Syringe 10 Ml) 10 ml IV PRN PRN PRN Reason: LINE FLUSH Review of Systems All systems: negative (as per the HPI) Physical Examination Vital Signs Temp Pulse Resp BP Pulse Ox 97.9 F 98 H 21 177/91 98 02/23/18 19:25 02/23/18 19:25 02/23/18 19:25 02/23/18 19:25 02/23/18 19:25 General appearance: no acute distress, well-nourished HEENT: Positive: PERRL, Mucus Membranes Moist Neck: Positive: neck supple, trachea midline Cardiac: Positive: Reg Rate and Rhythm, S1/S2. Negative: Audible Murmur Lungs: Positive: clear to auscultation, Normal Breath Sounds Neuro: Positive: Grossly Intact Abdomen: Positive: Soft, Active Bowel Sounds. Negative: Tender, Distended Male genitourinary: Positive: normal Skin: Positive: Clear Incision: Cardiac Cath Site Musculoskeletal: No Pain, Normal Range of Motion Extremities: Present: normal, edema, +1 Edema (right leg left leg mild with right foot partial amputation) Results 02/23/18 20:05 02/23/18 20:04 Cardiac Enzymes 02/24/18 02/24/18 Range/Units 02:21 05:29 CK-MB (CK-2) 6.6 H 5.6 H (0.0-4.0) ng/mL Coagulation 10/19/18 Range/Units 20:04 PT 11.3 L (12.2-14.9) Sec. INR 0.78 L (0.87-1.13) APTT 23.0 L (24.2-36.6) Sec. Lipids 02/24/18 Range/Units 02:21 Triglycerides 107 (2-149) mg/dL Cholesterol 189 (50-199) mg/dL HDL Cholesterol 54 (40-59) mg/dL Cholesterol/HDL Ratio 3.50 % CBC 02/23/18 Range/Units 20:05 WBC 11.4 H (4.5-11.0) K/mm3 RBC 3.53 L (3.65-5.03) M/mm3 Hgb 10.6 L (11.8-15.2) gm/dl Hct 31.0 L (35.5-45.6) % Plt Count 292 (140-440) K/mm3 Lymph # 1.8 (1.2-5.4) K/mm3 [place] # 0.8 (0.0-0.8) K/mm3 Eos # 0.1 (0.0-0.4) K/mm3 Baso # 0.1 (0.0-0.1) K/mm3 Comprehensive Metabolic Panel 02/23/18 Range/Units 20:04 Sodium 138 (137-145) mmol/L Potassium 4.8 (3.6-5.0) mmol/L Chloride 103.4 (98-107) mmol/L Carbon Dioxide 25 (22-30) mmol/L BUN 26 H (9-20) mg/dL Creatinine 3.4 H (0.8-1.5) mg/dL Glucose 369 H (75-100) mg/dL Calcium 7.9 L (8.4-10.2) mg/dL - Imaging and Cardiology Echo: report reviewed (12/2017 normal LV function mild LVH. Relaxation pattern no significant regurgitations) EKG interpretations - Telemetry EKG Rhythm: Sinus Rhythm (nsr non specific st-t) Assessment and Plan nstemi type 2 acute dhf acute on chronic renal failure htn pad dm chol rec: start iv heparin, cont asa, check am trop and followup echo and cont lopressor, no eliana or arb secondary renal failure, added imdur,
[2018-02-24] MEDS ORDERED: HEPARIN 10,000 UNITS/10 ML IV ONE (09:53)
[2018-02-24] MEDS ORDERED: COREG PO SCH (10:00)
[2018-02-24] MEDS ORDERED: LOVENOX SUB-Q SCH (10:00)
[2018-02-24 10:02] LABS: Albumin 1.8 g/dL (3.9-5); Calcium 7.8 mg/dL (8.4-10.2)
[2018-02-24 10:36] LABS: Hematocrit 30.8 % (35.5-45.6); Hemoglobin 10.3 gm/dl (11.8-15.2)
[2018-02-24 10:44] LABS: INR 0.82 (0.87-1.13)
[2018-02-24 10:45] LABS: Partial Thromboplastin Time 25.1 Sec. (24.2-36.6)
[2018-02-24] MEDS: ASPIRIN PO SCH (11:10)
[2018-02-24] MEDS: HumaLOG SUB-Q SCH ×4 (11:10→22:54)
[2018-02-24] MEDS: PEPCID PO SCH (11:11)
[2018-02-24] MEDS: IMDUR PO SCH (11:11)
[2018-02-24] MEDS: LOPRESSOR PO SCH ×2 (11:11→22:53)
[2018-02-24] MEDS: NORVASC PO SCH (11:11)
[2018-02-24] MEDS: SODIUM CHLORIDE FLUSH SYRINGE 10 ML IV SCH ×2 (11:12→23:53)
[2018-02-24] MEDS: PERCOCET 5/325 PO PRN ×2 (11:16→17:48)
--- NOTE | 2018-02-24 12:18 | Consultation ---
History of Present Illness - Reason for Consult Consult date: 02/24/18 acute renal failure, chronic renal failure - History of Present Illness The patient is a 57 YO male with medical history significant for Obesity, DM-2 ( 15+ yrs), HTN (15+ yrs), HLD, Systolic CHF and CKD stage 3 who presented to the hospital with worsening sob and swelling of all 4 extremities. The symptoms were worse for the past few days and associated with Orthopnea and PND. Patient denies any cp, dizziness, cough, hemoptysis, N, V, D, fever, chills, dysuria, hematuria, jaundice, weakness or syncope. On admission his creatinine was 3.4. Patient admitted with CHF exacerbation and Acute kidney injury. Past History Past Medical History: diabetes, hypertension, hyperlipidemia, PVD Past Surgical History: Other (right partial foot amputation) Social history: denies: smoking, alcohol abuse, prescription drug abuse Family history: denies: no significant family history Medications and Allergies Allergies Allergy/AdvReac Type Severity Reaction Status Date / Time No Known Allergies Allergy Verified 11/01/13 07:35 Home Medications Medication Instructions Recorded Confirmed Last Taken Type Famotidine [Pepcid] 20 mg PO BID 01/05/18 02/23/18 02/23/18 10:00 History Furosemide [Lasix TAB] 40 mg PO BID #60 tablet 01/08/18 02/23/18 02/23/18 10:00 Rx amLODIPine [Norvasc] 10 mg PO DAILY 01/27/18 02/23/18 02/23/18 10:00 History hydrALAZINE [Apresoline TAB] 100 mg PO Q8HR 01/27/18 02/23/18 02/23/18 10:00 History Insulin Glargine [Lantus VIAL] 20 units SUB-Q QHS 30 Days #30 01/30/18 02/23/18 02/22/18 Rx units Metoprolol [Lopressor TAB] 100 mg PO BID #60 tablet 01/30/18 02/23/18 02/23/18 10:00 Rx Active Meds: Active Medications Acetaminophen (Tylenol) 650 mg PO Q4H PRN PRN Reason: Pain MILD(1-3)/Fever >100.5/GARCIA Amlodipine Besylate (Norvasc) 10 mg PO DAILY RADHA Last Admin: 02/24/18 11:11 Dose: 10 mg Aspirin (Aspirin) 325 mg PO QDAY [facility] Last Admin: 02/24/18 11:10 Dose: 325 mg Dextrose (D50w (25gm) Syringe) 50 ml IV PRN PRN PRN Reason: Hypoglycemia Famotidine (Pepcid) 20 mg PO QAM [facility] Last Admin: 02/24/18 11:11 Dose: 20 mg Furosemide (Lasix) 40 mg IV BID@0600,1800 [facility] Last Admin: 02/24/18 06:57 Dose: 40 mg Hydralazine HCl (Apresoline) 5 mg IV Q6H PRN PRN Reason: Hypertension Heparin Sodium/Sodium Chloride (Heparin/ 0.45% Nacl-25,000 Unit/500 Ml) 25,000 unit in 500 mls @ 29 mls/hr IV TITR [facility]; Protocol Insulin Human Lispro (Humalog) 0 unit SUB-Q ACHS [facility]; Protocol Last Admin: 02/24/18 11:10 Dose: 4 unit Isosorbide Mononitrate (Imdur) 30 mg PO QDAY [facility] Last Admin: 02/24/18 11:11 Dose: 30 mg Metoprolol Tartrate (Lopressor) 100 mg PO BID [facility] Last Admin: 02/24/18 11:11 Dose: 100 mg Ondansetron HCl (Zofran) 4 mg IV Q8H PRN PRN Reason: Nausea And Vomiting Oxycodone/Acetaminophen (Percocet 5/325) 1 tab PO Q6H PRN PRN Reason: Pain, Moderate (4-6) Last Admin: 02/24/18 11:16 Dose: 1 tab Sodium Chloride (Sodium Chloride Flush Syringe 10 Ml) 10 ml IV BID [facility] Last Admin: 02/24/18 11:12 Dose: 10 ml Sodium Chloride (Sodium Chloride Flush Syringe 10 Ml) 10 ml IV PRN PRN PRN Reason: LINE FLUSH Review of Systems Constitutional: weight gain, no weight loss, no fever, no chills, no anorexia, no weakness Cardiovascular: orthopnea, edema, shortness of breath, high blood pressure, leg edema, no chest pain, no palpitations, no syncope, no lightheadedness Respiratory: shortness of breath, dyspnea on exertion, no cough, no hemoptysis Gastrointestinal: no abdominal pain, no nausea, no vomiting, no diarrhea Genitourinary Male: no dysuria, no hematuria Musculoskeletal: no gait dysfunction Integumentary: no rash, no wounds, no jaundice Neurological: no paralysis, no weakness, no seizures, no syncope, no convulsions , no change in mentation, no confusion Psychiatric: no memory loss Endocrine: weight change, high blood sugars Hematologic/Lymphatic: no easy bleeding Exam - Vital Signs Vital signs: Vital Signs Temp Pulse Resp BP Pulse Ox 97.9 F 98 H 21 177/91 98 02/23/18 19:25 02/23/18 19:25 02/23/18 19:25 02/23/18 19:25 02/23/18 19:25 - General Appearance General appearance: well-developed, well-nourished, appears stated age, obese, other (in distress) EENT: ATNC, PERRL, hearing intact, vision intact Neck: Present: neck supple, trachea midline Respiratory: Clear to Ascultation Heart: regular, S1S2, no murmurs Gastrointestinal: Present: normoactive bowel sounds. Absent: tenderness, distended Integumentary: no rash, warm and dry Neurologic: no focal deficit, no asterixis, alert and oriented x3 Musculoskeletal: Present: other (trace edema of all 4 extremities) Psychiatric: cooperative Results - Lab Results 02/24/18 10:18 02/24/18 09:32 Most recent lab results Calcium 7.8 mg/dL (8.4-10.2) L 02/24/18 09:32 - Image Kidney/bladder ultrasound: pending Assessment and Plan 1. Acute kidney injury: RIGO superimposed on CKD stage 3 in the setting of CHF exacerbation. Urine studies and Renal US. Monitor renal function. Prognosis is guarded. 2. CHF exacerbation. 3. NSTEMI. 4. Rhabdomyolysis. 5. DM-2
[2018-02-24] MEDS ORDERED: HEPARIN 10,000 UNITS/10 ML ONE (12:30)
[2018-02-24] MEDS: HEPARIN/ 0.45% NACL-25,000 UNIT/500 ML 25,000 UNIT/500 ML BAG IV SCH (12:39)
[2018-02-24 14:30] LABS: Creatinine,Urine 65.5 mg/dL (0.1-20.0)
[2018-02-24 14:32] LABS: Bacteria,Urine 1+ /HPF (Negative); Bilirubin,Urine NEG (Negative); Blood,Urine SM (Negative); Color,Urine Yellow (Yellow); Mucus,Urine FEW /HPF; Urobilinogen,Urine < 2.0 mg/dL (<2.0)
[2018-02-24 14:34] LABS: Protein,Urine >500 mg/dL (Negative)
--- NOTE | 2018-02-24 15:17 | Progress Note ---
Assessment and Plan Assessment and plan: Acute on chronic diastolic HF -On CHF protocol -Echo done on 01/05/18 showed EF of 55-60% Elevated troponin -Probably secondary to demand ischemia -Cardiology following Acute on CKD stage III -Slightly improving, will monitor -Nephrology following Uncontrolled hypertension -BP improved, will monitor DM2 with hyperglycemia -Lantus added, will monitor RT LE edema -Venous doppler ultrasound to assess for DVT Elevated d-dimer -VQ scan negative Disposition: For discharge when medically stable History Interval history: Patient complaining of abdominal distention Hospitalist Physical - Constitutional Vitals: Temp Pulse Resp BP Pulse Ox 98.2 F 71 18 136/92 99 02/24/18 12:24 02/24/18 12:24 02/24/18 12:24 02/24/18 12:24 02/24/18 12:24 General appearance: Present: no acute distress, well-nourished - EENT Eyes: Present: PERRL, EOM intact ENT: hearing intact, clear oral mucosa - Neck Neck: Present: supple - Respiratory Respiratory effort: normal Respiratory: bilateral: diminished (bibasilar) - Cardiovascular Rhythm: regular Heart Sounds: Present: S1 & S2 - Extremities Extremity abnormal: edema (RT LE) - Abdominal General gastrointestinal: soft, non-tender, distended, normal bowel sounds - Neurologic Neurologic: CNII-XII intact Results - Labs CBC & Chem 7: 02/24/18 10:18 02/24/18 09:32 Labs: Laboratory Last Values WBC 11.4 K/mm3 (4.5-11.0) H 02/23/18 20:05 RBC 3.53 M/mm3 (3.65-5.03) L 02/23/18 20:05 Hgb 10.3 gm/dl (11.8-15.2) L 02/24/18 10:18 Hct 30.8 % (35.5-45.6) L 02/24/18 10:18 MCV 88 fl (84-94) 02/23/18 20:05 MCH 30 pg (28-32) 02/23/18 20:05 MCHC 34 % (32-34) 02/23/18 20:05 RDW 13.9 % (13.2-15.2) 02/23/18 20:05 Plt Count 311 K/mm3 (140-440) 02/24/18 10:18 Lymph % (Auto) 15.4 % (13.4-35.0) 02/23/18 20:05 [place] % (Auto) 7.5 % (0.0-7.3) H 02/23/18 20:05 Eos % (Auto) 1.2 % (0.0-4.3) 02/23/18 20:05 Baso % (Auto) 0.9 % (0.0-1.8) 02/23/18 20:05 Lymph # 1.8 K/mm3 (1.2-5.4) 02/23/18 20:05 Weld # 0.8 K/mm3 (0.0-0.8) 02/23/18 20:05 Eos # 0.1 K/mm3 (0.0-0.4) 02/23/18 20:05 Baso # 0.1 K/mm3 (0.0-0.1) 02/23/18 20:05 Seg Neutrophils % 75.0 % (40.0-70.0) H 02/23/18 20:05 Seg Neutrophils # 8.5 K/mm3 (1.8-7.7) H 02/23/18 20:05 PT 11.8 Sec. (12.2-14.9) L 02/24/18 10:18 INR 0.82 (0.87-1.13) L 02/24/18 10:18 APTT 25.1 Sec. (24.2-36.6) 02/24/18 10:18 D-Dimer 2918.32 ng/mlDDU (0-234) H 02/23/18 20:04 Sodium 140 mmol/L (137-145) 02/24/18 09:32 Potassium 4.4 mmol/L (3.6-5.0) 02/24/18 09:32 Chloride 103.7 mmol/L (98-107) 02/24/18 09:32 Carbon Dioxide 27 mmol/L (22-30) 02/24/18 09:32 Anion Gap 14 mmol/L 02/24/18 09:32 BUN 26 mg/dL (9-20) H 02/24/18 09:32 Creatinine 3.1 mg/dL (0.8-1.5) H 02/24/18 09:32 Estimated GFR 25 ml/min 02/24/18 09:32 BUN/Creatinine Ratio 8 % 02/24/18 09:32 Glucose 296 mg/dL (75-100) H 02/24/18 09:32 POC Glucose 301 (70-105) H 02/24/18 12:25 Calcium 7.8 mg/dL (8.4-10.2) L 02/24/18 09:32 Total Bilirubin 0.20 mg/dL (0.1-1.2) 02/24/18 09:32 AST 99 units/L (5-40) H 02/24/18 09:32 ALT 49 units/L (7-56) 02/24/18 09:32 Alkaline Phosphatase 98 units/L (35-129) 02/24/18 09:32 Total Creatine Kinase 4030 units/L (55-170) H 02/24/18 05:29 CK-MB (CK-2) 5.6 ng/mL (0.0-4.0) H 02/24/18 05:29 CK-MB (CK-2) Rel Index 0.1 (0-4) 02/24/18 05:29 Troponin T 0.088 ng/mL (0.00-0.029) H 02/24/18 05:29 NT-Pro-B Natriuret Pep 5322 pg/mL (0-900) H 02/23/18 20:05 Total Protein 5.3 g/dL (6.3-8.2) L 02/24/18 09:32 Albumin 1.8 g/dL (3.9-5) L 02/24/18 09:32 Albumin/Globulin Ratio 0.5 % 02/24/18 09:32 Triglycerides 107 mg/dL (2-149) 02/24/18 02:21 Cholesterol 189 mg/dL (50-199) 02/24/18 02:21 LDL Cholesterol Direct 130 mg/dL (50-130) 02/24/18 02:21 HDL Cholesterol 54 mg/dL (40-59) 02/24/18 02:21 Cholesterol/HDL Ratio 3.50 % 02/24/18 02:21 Urine Color Yellow (Yellow) 02/24/18 Unknown Urine Turbidity Clear (Clear) 02/24/18 Unknown Urine pH 6.0 (5.0-7.0) 02/24/18 Unknown Ur Specific [place] 1.010 (1.003-1.030) 02/24/18 Unknown Urine Protein >500 mg/dL (Negative) 02/24/18 Unknown Urine Glucose (UA) >=500 mg/dL (Negative) 02/24/18 Unknown Urine Ketones Neg mg/dL (Negative) 02/24/18 Unknown Urine Blood Sm (Negative) 02/24/18 Unknown Urine Nitrite Neg (Negative) 02/24/18 Unknown Urine Bilirubin Neg (Negative) 02/24/18 Unknown Urine Urobilinogen < 2.0 mg/dL (<2.0) 02/24/18 Unknown Ur Leukocyte Esterase Neg (Negative) 02/24/18 Unknown Urine WBC (Auto) 2.0 /HPF (0.0-6.0) 02/24/18 Unknown Urine RBC (Auto) 6.0 /HPF (0.0-6.0) 02/24/18 Unknown U Epithel Cells (Auto) < 1.0 /HPF (0-13.0) 02/24/18 Unknown Urine Bacteria (Auto) 1+ /HPF (Negative) 02/24/18 Unknown Urine Mucus Few /HPF 02/24/18 Unknown Urine Creatinine 65.5 mg/dL (0.1-20.0) H 02/24/18 Unknown Urine Sodium 75 mmol/L 02/24/18 Unknown
[2018-02-24] MEDS ORDERED: LANTUS SUB-Q SCH (22:00)
[2018-02-25] MEDS: LASIX IV SCH ×2 (05:42→19:42)
[2018-02-25] MEDS: HumaLOG SUB-Q SCH ×4 (08:00→22:45)
--- NOTE | 2018-02-25 10:20 | Progress Note ---
Assessment and Plan nstemi type 2 acute dhf acute on chronic renal failure htn pad dm chol rec: heparin for 48 hours, lexiscan in am , echo resultsl reviewed, add hydralzine 50mg tid for bp and lv function and cont lopressor and statin and norvasc Subjective Date of service: 02/25/18 Principal diagnosis: sob and nstemi Interval history: pt states swelling is better and sob is better Objective Vital Signs Temp Pulse Resp BP Pulse Ox 02/25/18 09:17 97.3 F L 67 17 169/96 100 02/25/18 04:13 97.6 F 78 16 182/88 98 02/25/18 01:03 75 100 02/24/18 23:14 95 02/24/18 23:08 97.9 F 18 173/98 02/24/18 22:53 73 160/93 02/24/18 19:59 75 02/24/18 19:34 18 148/80 02/24/18 19:32 72 17 97 02/24/18 17:18 97.9 F 73 18 160/93 99 02/24/18 12:24 98.2 F 71 18 136/92 99 - Physical Examination HEENT: Positive: PERRL, Mucus Membranes Moist Neck: Positive: neck supple, trachea midline Cardiac: Positive: Reg Rate and Rhythm Lungs: Positive: clear to auscultation Neuro: Positive: Grossly Intact Abdomen: Positive: Soft, Active Bowel Sounds. Negative: Tender, Distended Skin: Positive: Clear Incision: Cardiac Cath Site Musculoskeletal: No Pain, Normal Range of Motion Extremities: Present: normal, edema, Other (right foot partial amputation.) - Labs and Meds Coagulation 02/24/18 Range/Units 10:18 PT 11.8 L (12.2-14.9) Sec. INR 0.82 L (0.87-1.13) APTT 25.1 (24.2-36.6) Sec. CBC 02/24/18 Range/Units 10:18 Hgb 10.3 L (11.8-15.2) gm/dl Hct 30.8 L (35.5-45.6) % Plt Count 311 (140-440) K/mm3 - Imaging and Cardiology EKG: image reviewed Echo: report reviewed (12/2017 normal LV function mild LVH. Relaxation pattern no significant regurgitations), other (02/24/2018 ef 45-50% small pericardial effusion) - Telemetry EKG Rhythm: Sinus Rhythm
[2018-02-25] MEDS: HEPARIN/ 0.45% NACL-25,000 UNIT/500 ML 25,000 UNIT/500 ML BAG IV SCH (10:30)
--- NOTE | 2018-02-25 10:35 | Progress Note ---
Assessment and Plan 1. Acute kidney injury: RIGO superimposed on CKD stage 3 in the setting of CHF exacerbation. Renal function is gradually improving. Monitor renal function. Prognosis is guarded. 2. CHF exacerbation: Volume status is improving. 3. NSTEMI. 4. Rhabdomyolysis: Improving. 5. DM-2 Subjective Date of service: 02/25/18 Principal diagnosis: sob and nstemi Interval history: Patient is doing ok. Objective - Vital Signs Vital signs: Vital Signs - 12hr 02/24/18 02/24/18 02/24/18 22:53 23:08 23:14 Temperature 97.9 F Pulse Rate 73 Respiratory 18 Rate Blood Pressure 160/93 173/98 O2 Sat by Pulse 95 Oximetry 02/25/18 02/25/18 02/25/18 01:03 04:13 09:17 Temperature 97.6 F 97.3 F L Pulse Rate 75 78 67 Respiratory 16 17 Rate Blood Pressure 182/88 169/96 O2 Sat by Pulse 100 98 100 Oximetry - General Appearance General appearance: well-developed, well-nourished, appears stated age, obese, other (not in distress) EENT: ATNC, PERRL, hearing intact, vision intact Neck: supple Respiratory: Present: Clear to Ascultation Cardiology: regular, S1S2, no murmurs Gastrointestinal: normoactive bowel sounds, no tenderness, no distended Integumentary: no rash, warm and dry Neurologic: no focal deficit, no asterixis, alert and oriented x3 Musculoskeletal: other (no edema) Psychiatric: cooperative - Lab 02/26/18 05:15 02/26/18 05:15 Most recent lab results Calcium 7.8 mg/dL (8.4-10.2) L 02/24/18 09:32 Urine Creatinine 65.5 mg/dL (0.1-20.0) H 02/24/18 Unknown Urine Sodium 75 mmol/L 02/24/18 Unknown
--- NOTE | 2018-02-25 11:01 | Progress Note ---
Assessment and Plan Assessment and plan: Acute on chronic diastolic HF -Improving on CHF protocol -Echo done on 01/05/18 showed EF of 55-60% NSTEMI type 2 -On ACS protocol with heparin drip -For stress test in am -Cardiology following Acute on CKD stage III -Slightly improving, will monitor -Renal ultrasound report pending -Nephrology following Uncontrolled hypertension -oral hydralazine added -Continue metoprolol and Norvasc -Adjust meds as needed DM2 with hypoglycemia -Lantus dose decreased -Monitor blood glucose and adjust insulin as needed RT LE edema -Venous doppler ultrasound to assess for DVT Elevated d-dimer -VQ scan negative PAD -Arterial Doppler uss report pending HLD -On statin Disposition: For discharge when medically stable and cleared by cardiology. History Interval history: Patient reports left upper extremity swelling and low blood glucose this morning Hospitalist Physical - Constitutional Vitals: Temp Pulse Resp BP Pulse Ox 97.3 F L 67 17 169/96 97 02/25/18 09:17 02/25/18 09:17 02/25/18 09:17 02/25/18 09:17 02/25/18 10:41 General appearance: Present: no acute distress, well-nourished - EENT Eyes: Present: PERRL ENT: hearing intact, clear oral mucosa - Neck Neck: Present: supple, normal ROM - Cardiovascular Rhythm: regular Heart Sounds: Present: S1 & S2 - Extremities Extremity abnormal: edema (right lower extremity improving. Swelling in the left upper extremity noted) - Abdominal General gastrointestinal: soft, non-tender, normal bowel sounds - Neurologic Neurologic: CNII-XII intact Results - Labs CBC & Chem 7: 02/24/18 10:18 02/24/18 09:32 Labs: Laboratory Last Values WBC 11.4 K/mm3 (4.5-11.0) H 02/23/18 20:05 RBC 3.53 M/mm3 (3.65-5.03) L 02/23/18 20:05 Hgb 10.3 gm/dl (11.8-15.2) L 02/24/18 10:18 Hct 30.8 % (35.5-45.6) L 02/24/18 10:18 MCV 88 fl (84-94) 02/23/18 20:05 MCH 30 pg (28-32) 02/23/18 20:05 MCHC 34 % (32-34) 02/23/18 20:05 RDW 13.9 % (13.2-15.2) 02/23/18 20:05 Plt Count 311 K/mm3 (140-440) 02/24/18 10:18 Lymph % (Auto) 15.4 % (13.4-35.0) 02/23/18 20:05 [place] % (Auto) 7.5 % (0.0-7.3) H 02/23/18 20:05 Eos % (Auto) 1.2 % (0.0-4.3) 02/23/18 20:05 Baso % (Auto) 0.9 % (0.0-1.8) 02/23/18 20:05 Lymph # 1.8 K/mm3 (1.2-5.4) 02/23/18 20:05 [place] # 0.8 K/mm3 (0.0-0.8) 02/23/18 20:05 Eos # 0.1 K/mm3 (0.0-0.4) 02/23/18 20:05 Baso # 0.1 K/mm3 (0.0-0.1) 02/23/18 20:05 Seg Neutrophils % 75.0 % (40.0-70.0) H 02/23/18 20:05 Seg Neutrophils # 8.5 K/mm3 (1.8-7.7) H 02/23/18 20:05 PT 11.8 Sec. (12.2-14.9) L 02/24/18:18 INR 0.82 (0.87-1.13) L 02/24/18 10:18 APTT 25.1 Sec. (24.2-36.6) 02/24/18 10:18 D-Dimer 2918.32 ng/mlDDU (0-234) H 02/23/18 20:04 Heparin Anti-Xa Level 0.16 U.I./ml (0.3-0.7) L 02/24/18 19:28 Sodium 140 mmol/L (137-145) 02/24/18 09:32 Potassium 4.4 mmol/L (3.6-5.0) 02/24/18 09:32 Chloride 103.7 mmol/L (98-107) 02/24/18 09:32 Carbon Dioxide 27 mmol/L (22-30) 02/24/18 09:32 Anion Gap 14 mmol/L 02/24/18 09:32 BUN 26 mg/dL (9-20) H 02/24/18 09:32 Creatinine 3.1 mg/dL (0.8-1.5) H 02/24/18 09:32 Estimated GFR 25 ml/min 02/24/18 09:32 BUN/Creatinine Ratio 8 % 02/24/18 09:32 Glucose 296 mg/dL (75-100) H 02/24/18 09:32 POC Glucose 100 (70-105) 02/25/18 04:18 Calcium 7.8 mg/dL (8.4-10.2) L 02/24/18 09:32 Total Bilirubin 0.20 mg/dL (0.1-1.2) 02/24/18 09:32 AST 99 units/L (5-40) H 02/24/18 09:32 ALT 49 units/L (7-56) 02/24/18 09:32 Alkaline Phosphatase 98 units/L (35-129) 02/24/18 09:32 Total Creatine Kinase 4030 units/L (55-170) H 02/24/18 05:29 CK-MB (CK-2) 5.6 ng/mL (0.0-4.0) H 02/24/18 05:29 CK-MB (CK-2) Rel Index 0.1 (0-4) 02/24/18 05:29 Troponin T 0.088 ng/mL (0.00-0.029) H 02/24/18 05:29 NT-Pro-B Natriuret Pep 5322 pg/mL (0-900) H 02/23/18 20:05 Total Protein 5.3 g/dL (6.3-8.2) L 02/24/18 09:32 Albumin 1.8 g/dL (3.9-5) L 02/24/18 09:32 Albumin/Globulin Ratio 0.5 % 02/24/18 09:32 Triglycerides 107 mg/dL (2-149) 02/24/18 02:21 Cholesterol 189 mg/dL (50-199) 02/24/18 02:21 LDL Cholesterol Direct 130 mg/dL (50-130) 02/24/18 02:21 HDL Cholesterol 54 mg/dL (40-59) 02/24/18 02:21 Cholesterol/HDL Ratio 3.50 % 02/24/18 02:21 Urine Color Yellow (Yellow) 02/24/18 Unknown Urine Turbidity Clear (Clear) 02/24/18 Unknown Urine pH 6.0 (5.0-7.0) 02/24/18 Unknown Ur Specific [place] 1.010 (1.003-1.030) 02/24/18 Unknown Urine Protein >500 mg/dL (Negative) 02/24/18 Unknown Urine Glucose (UA) >=500 mg/dL (Negative) 02/24/18 Unknown Urine Ketones Neg mg/dL (Negative) 02/24/18 Unknown Urine Blood Sm (Negative) 02/24/18 Unknown Urine Nitrite Neg (Negative) 02/24/18 Unknown Urine Bilirubin Neg (Negative) 02/24/18 Unknown Urine Urobilinogen < 2.0 mg/dL (<2.0) 02/24/18 Unknown Ur Leukocyte Esterase Neg (Negative) 02/24/18 Unknown Urine WBC (Auto) 2.0 /HPF (0.0-6.0) 02/24/18 Unknown Urine RBC (Auto) 6.0 /HPF (0.0-6.0) 02/24/18 Unknown U Epithel Cells (Auto) < 1.0 /HPF (0-13.0) 02/24/18 Unknown Urine Bacteria (Auto) 1+ /HPF (Negative) 02/24/18 Unknown Urine Mucus Few /HPF 02/24/18 Unknown Urine Creatinine 65.5 mg/dL (0.1-20.0) H 02/24/18 Unknown Urine Sodium 75 mmol/L 02/24/18 Unknown
[2018-02-25 11:23] LABS: Basophils # (Auto) 0.1 K/mm3 (0.0-0.1); Basophils % (Auto) 0.8 % (0.0-1.8); Eosinophils # (Auto) 0.1 K/mm3 (0.0-0.4); Eosinophils % (Auto) 1.1 % (0.0-4.3); Hematocrit 31.2 % (35.5-45.6); Hemoglobin 10.3 gm/dl (11.8-15.2); Lymphocytes # (Auto) 1.3 K/mm3 (1.2-5.4); Lymphocytes % (Auto) 15.3 % (13.4-35.0); Mean Corpuscular HGB Conc 33 % (32-34); Mean Corpuscular Hemoglobin 29 pg (28-32); Mean Corpuscular Volume 87 fl (84-94); Monocytes # (Auto) 0.4 K/mm3 (0.0-0.8); Monocytes % (Auto) 4.4 % (0.0-7.3); Platelet Count 315 K/mm3 (140-440); Red Blood Count 3.58 M/mm3 (3.65-5.03); Red Cell Distribution Width 13.7 % (13.2-15.2)
[2018-02-25 11:33] LABS: Creatine Kinase MB 4.9 ng/mL (0.0-4.0)
[2018-02-25 11:34] LABS: Calcium 8.1 mg/dL (8.4-10.2)
[2018-02-25] MEDS: NORVASC PO SCH (11:46)
[2018-02-25] MEDS: ASPIRIN PO SCH (11:47)
[2018-02-25] MEDS: PEPCID PO SCH (11:47)
[2018-02-25] MEDS: IMDUR PO SCH (11:48)
[2018-02-25] MEDS: PERCOCET 5/325 PO PRN (11:48)
[2018-02-25] MEDS: LOPRESSOR PO SCH ×2 (11:48→22:45)
[2018-02-25] MEDS: SODIUM CHLORIDE FLUSH SYRINGE 10 ML IV SCH ×2 (11:50→22:45)
--- NOTE | 2018-02-25 14:59 | Ultrasound Report ---
FINAL REPORT EXAM: US RENAL BILAT HISTORY: Acute renal failure. TECHNIQUE: Longitudinal and transverse grayscale sonographic images of the bilateral kidneys were performed Comparison: 01/06/2018 FINDINGS: The right kidney measures 12.3 centimeters. The left kidney measures 11.2 centimeters. Bilateral renal cortical thickness is preserved. Both kidneys are however echogenic with high relatively hypoechoic pyramids. No evidence for hydronephrosis. The left kidney has a patchy echotexture. These findings are similar to the previous in January. There is trace free fluid adjacent to the inferior tip right lobe liver. IMPRESSION: Normal size kidneys with diffusely echogenic but normal thickness renal cortices suggestive of acute medical renal disease. No hydronephrosis. Small amount of free fluid adjacent to the inferior tip right lobe liver. Urinary bladder is moderately distended.
[2018-02-25] MEDS: APRESOLINE PO SCH ×2 (15:34→22:45)
[2018-02-25] MEDS: LANTUS SUB-Q SCH (22:45)
[2018-02-26] MEDS: HEPARIN/ 0.45% NACL-25,000 UNIT/500 ML 25,000 UNIT/500 ML BAG IV SCH (02:38)
[2018-02-26] MEDS: LASIX IV SCH ×2 (06:20→18:28)
[2018-02-26] MEDS: APRESOLINE PO SCH ×3 (06:37→21:58)
[2018-02-26 06:43] LABS: Hematocrit 31.5 % (35.5-45.6); Hemoglobin 10.2 gm/dl (11.8-15.2)
[2018-02-26 07:03] LABS: Calcium 7.7 mg/dL (8.4-10.2)
--- NOTE | 2018-02-26 07:09 | Progress Note ---
Assessment and Plan 1. Acute kidney injury: RIGO superimposed on CKD stage 3 in the setting of CHF exacerbation. Renal function is gradually improving. Monitor renal function. Prognosis is guarded. 2. CHF exacerbation: Volume status is improving. 3. NSTEMI. 4. Rhabdomyolysis: Improving. 5. DM-2 Subjective Date of service: 02/26/18 Principal diagnosis: sob and nstemi Interval history: Patient is doing ok. Objective - Vital Signs Vital signs: Vital Signs - 12hr 02/25/18 02/25/18 02/26/18 19:47 22:45 00:21 Temperature 97.9 F 98.4 F Pulse Rate 78 78 78 Respiratory 17 18 Rate Blood Pressure 159/96 159/96 142/88 O2 Sat by Pulse 100 99 Oximetry 02/26/18 02/26/18 02/26/18 02:00 04:18 06:37 Temperature 98.3 F Pulse Rate 75 92 H 82 Respiratory 17 Rate Blood Pressure 166/98 166/98 O2 Sat by Pulse 94 Oximetry - General Appearance General appearance: well-developed, well-nourished, appears stated age, other ( not in distress) EENT: ATNC, PERRL, mucous membranes moist, hearing intact, vision intact Respiratory: Present: Clear to Ascultation Cardiology: S1S2, no murmurs Gastrointestinal: normoactive bowel sounds, no tenderness Integumentary: no rash, warm and dry Neurologic: no focal deficit, no asterixis, alert and oriented x3 Musculoskeletal: other (no edema) - Lab 02/26/18 05:15 02/26/18 05:15 Most recent lab results Calcium 7.7 mg/dL (8.4-10.2) L 02/26/18 05:15 Urine Creatinine 65.5 mg/dL (0.1-20.0) H 02/24/18 Unknown Urine Sodium 75 mmol/L 02/24/18 Unknown
[2018-02-26] MEDS: HumaLOG SUB-Q SCH ×4 (08:05→22:02)
--- NOTE | 2018-02-26 10:26 | Progress Note ---
Assessment and Plan Assessment and plan: 57-year-old man with a history of hypertension, diabetes, CHF, chronic kidney disease comes emergency room with complaints of shortness of breath, PND, orthopnea and increasing lower extremity edema. He stated that he is compliant with his medication, states his Lasix is just not working anymore Acute on chronic diastolic HF -Improving on CHF protocol -Echo done on 01/05/18 showed EF of 55-60% NSTEMI type 2 -Patient underwent stress test which was unremarkable. We'll discontinue heparin drip at this time. Continue medical management as directed by cardiology -Cardiology following Acute on CKD stage III -Slightly improving, will monitor -Renal ultrasound report noted with moderate distended urinary bladder. We'll do a postvoid scan. We'll also start patient on a trial of tamsulosin -Nephrology following Urinary hesitancy Likely underlying in prostate hypertrophy. Recommend outpatient urology follow- up. The patient on tamsulosin Uncontrolled hypertension -oral hydralazine added -Continue metoprolol and Norvasc -Adjust meds as needed DM2 with hypoglycemia -Lantus dose decreased -Monitor blood glucose and adjust insulin as needed RT LE edema -Venous doppler ultrasound to assess for DVT Elevated d-dimer -VQ scan negative PAD -Arterial Doppler uss report pending HLD -On statin Disposition: Discarded discharge in a.m. if remains stable and urinary hesitancy improves History Interval history: Patient seen and examined resting comfortably Still with mild respiratory distress currently on oxygen therapy. Still complains of abdominal pain. But this has improved since a.m. Hospitalist Physical - Physical exam Narrative exam: VITAL SIGNS: Reviewed. GENERAL: The patient appeared well nourished and normally developed. Vital signs as documented. HEAD: No signs of head trauma. EYES: Pupils are equal. Extraocular motions intact. EARS: Hearing grossly intact. MOUTH: Oropharynx is normal. NECK: No adenopathy, no JVD. CHEST: Chest with clear breath sounds bilaterally. No wheezes, rales, or rhonchi. CARDIAC: Regular rate and rhythm. S1 and S2, without murmurs, gallops, or rubs. VASCULAR: Trace Edema. Peripheral pulses normal and equal in all extremities. ABDOMEN: Soft, distended up from the suprapubic area up to navel.. No sign of distention. No rebound or guarding, and no masses palpated. Bowel Sounds normal. MUSCULOSKELETAL: Good range of motion of all major joints. Extremities without clubbing, cyanosis or edema. NEUROLOGIC EXAM: Alert and oriented x 3. No focal sensory or strength deficits. Speech normal. Follows commands. PSYCHIATRIC: Mood normal. SKIN: No rash or lesions. - Constitutional Vitals: Temp Pulse Resp BP Pulse Ox 98.4 F 76 20 197/103 97 02/26/18 08:46 02/26/18 08:46 02/26/18 08:46 02/26/18 08:46 02/26/18 08:46 General appearance: Present: no acute distress, well-nourished Results - Labs CBC & Chem 7: 02/26/18 05:15 02/26/18 05:15 Labs: Laboratory Last Values WBC 8.7 K/mm3 (4.5-11.0) 02/25/18 10:05 RBC 3.58 M/mm3 (3.65-5.03) L 02/25/18 10:05 Hgb 10.2 gm/dl (11.8-15.2) L 02/26/18 05:15 Hct 31.5 % (35.5-45.6) L 02/26/18 05:15 MCV 87 fl (84-94) 02/25/18 10:05 MCH 29 pg (28-32) 02/25/18 10:05 MCHC 33 % (32-34) 02/25/18 10:05 RDW 13.7 % (13.2-15.2) 02/25/18 10:05 Plt Count 322 K/mm3 (140-440) 02/26/18 05:15 Lymph % (Auto) 15.3 % (13.4-35.0) 02/25/18 10:05 [place] % (Auto) 4.4 % (0.0-7.3) 02/25/18 10:05 Eos % (Auto) 1.1 % (0.0-4.3) 02/25/18 10:05 Baso % (Auto) 0.8 % (0.0-1.8) 02/25/18 10:05 Lymph # 1.3 K/mm3 (1.2-5.4) 02/25/18 10:05 Burke # 0.4 K/mm3 (0.0-0.8) 02/25/18 10:05 Eos # 0.1 K/mm3 (0.0-0.4) 02/25/18 10:05 Baso # 0.1 K/mm3 (0.0-0.1) 02/25/18 10:05 Seg Neutrophils % 78.4 % (40.0-70.0) H 02/25/18 10:05 Seg Neutrophils # 6.8 K/mm3 (1.8-7.7) 02/25/18 10:05 PT 11.8 Sec. (12.2-14.9) L 02/24/18 10:18 INR 0.82 (0.87-1.13) L 02/24/18 10:18 APTT 25.1 Sec. (24.2-36.6) 02/24/18 10:18 D-Dimer 2918.32 ng/mlDDU (0-234) H 02/23/18 20:04 Heparin Anti-Xa Level 0.70 U.I./ml (0.3-0.7) 02/25/18 20:04 Sodium 135 mmol/L (137-145) L 02/26/18 05:15 Potassium 3.9 mmol/L (3.6-5.0) 02/26/18 05:15 Chloride 97.9 mmol/L (98-107) L 02/26/18 05:15 Carbon Dioxide 29 mmol/L (22-30) 02/26/18 05:15 Anion Gap 12 mmol/L 02/26/18 05:15 BUN 25 mg/dL (9-20) H 02/26/18 05:15 Creatinine 2.6 mg/dL (0.8-1.5) H 02/26/18 05:15 Estimated GFR 31 ml/min 02/26/18 05:15 BUN/Creatinine Ratio 10 % 02/26/18 05:15 Glucose 227 mg/dL (75-100) H 02/26/18 05:15 POC Glucose 232 (70-105) H 02/26/18 06:27 Calcium 7.7 mg/dL (8.4-10.2) L 02/26/18 05:15 Total Bilirubin 0.20 mg/dL (0.1-1.2) 02/24/18 09:32 AST 99 units/L (5-40) H 02/24/18 09:32 ALT 49 units/L (7-56) 02/24/18 09:32 Alkaline Phosphatase 98 units/L (35-129) 02/24/18 09:32 Total Creatine Kinase 1003 units/L (55-170) H 02/26/18 05:15 CK-MB (CK-2) 4.9 ng/mL (0.0-4.0) H 02/25/18 10:05 CK-MB (CK-2) Rel Index 0.2 (0-4) 02/25/18 10:05 Troponin T 0.070 ng/mL (0.00-0.029) H D 02/25/18 10:05 NT-Pro-B Natriuret Pep 5322 pg/mL (0-900) H 02/23/18 20:05 Total Protein 5.3 g/dL (6.3-8.2) L 02/24/18 09:32 Albumin 1.8 g/dL (3.9-5) L 02/24/18 09:32 Albumin/Globulin Ratio 0.5 % 02/24/18 09:32 Triglycerides 107 mg/dL (2-149) 02/24/18 02:21 Cholesterol 189 mg/dL (50-199) 02/24/18 02:21 LDL Cholesterol Direct 130 mg/dL (50-130) 02/24/18 02:21 HDL Cholesterol 54 mg/dL (40-59) 02/24/18 02:21 Cholesterol/HDL Ratio 3.50 % 02/24/18 02:21 Urine Color Yellow (Yellow) 02/24/18 Unknown Urine Turbidity Clear (Clear) 02/24/18 Unknown Urine pH 6.0 (5.0-7.0) 02/24/18 Unknown Ur Specific [place] 1.010 (1.003-1.030) 02/24/18 Unknown Urine Protein >500 mg/dL (Negative) 02/24/18 Unknown Urine Glucose (UA) >=500 mg/dL (Negative) 02/24/18 Unknown Urine Ketones Neg mg/dL (Negative) 02/24/18 Unknown Urine Blood Sm (Negative) 02/24/18 Unknown Urine Nitrite Neg (Negative) 02/24/18 Unknown Urine Bilirubin Neg (Negative) 02/24/18 Unknown Urine Urobilinogen < 2.0 mg/dL (<2.0) 02/24/18 Unknown Ur Leukocyte Esterase Neg (Negative) 02/24/18 Unknown Urine WBC (Auto) 2.0 /HPF (0.0-6.0) 02/24/18 Unknown Urine RBC (Auto) 6.0 /HPF (0.0-6.0) 02/24/18 Unknown U Epithel Cells (Auto) < 1.0 /HPF (0-13.0) 02/24/18 Unknown Urine Bacteria (Auto) 1+ /HPF (Negative) 02/24/18 Unknown Urine Mucus Few /HPF 02/24/18 Unknown Urine Creatinine 65.5 mg/dL (0.1-20.0) H 02/24/18 Unknown Urine Sodium 75 mmol/L 02/24/18 Unknown
[2018-02-26] MEDS ORDERED: LEXISCAN IV ONE ×2 (10:38)
--- NOTE | 2018-02-26 11:42 | Progress Note ---
Assessment and Plan Assessment: nstemi type 2 acute dhf acute on chronic renal failure htn pad s/p partial right foot amputation in 2017 dm chol Plan: Proceed with lexiscan MPI stress test. Await findings. The patient has been seen in conjunction with Dr. Lei who agrees with the assessment and plan of care. Subjective Date of service: 02/26/18 Principal diagnosis: sob and nstemi Interval history: for stress test today. BPs elevated. Objective Last Vital Signs Temp 98.4 F 02/26/18 08:46 Pulse 76 02/26/18 08:46 Resp 20 02/26/18 08:46 BP 197/103 02/26/18 08:46 Pulse Ox 97 02/26/18 08:46 - Physical Examination General: No Apparent Distress HEENT: Positive: PERRL, Mucus Membranes Moist Neck: Positive: neck supple, trachea midline Cardiac: Positive: Reg Rate and Rhythm, S1/S2 Lungs: Positive: Decreased Breath Sounds Neuro: Positive: Grossly Intact Abdomen: Positive: Soft, Active Bowel Sounds. Negative: Tender, Distended Skin: Positive: Clear Incision: Cardiac Cath Site Musculoskeletal: No Pain, Normal Range of Motion Extremities: Present: normal, edema, Other (right foot partial amputation.) - Labs and Meds CBC 02/26/18 Range/Units 05:15 Hgb 10.2 L (11.8-15.2) gm/dl Hct 31.5 L (35.5-45.6) % Plt Count 322 (140-440) K/mm3 Comprehensive Metabolic Panel 02/26/18 Range/Units 05:15 Sodium 135 L (137-145) mmol/L Potassium 3.9 (3.6-5.0) mmol/L Chloride 97.9 L (98-107) mmol/L Carbon Dioxide 29 (22-30) mmol/L BUN 25 H (9-20) mg/dL Creatinine 2.6 H (0.8-1.5) mg/dL Glucose 227 H (75-100) mg/dL Calcium 7.7 L (8.4-10.2) mg/dL - Imaging and Cardiology EKG: image reviewed Echo: report reviewed (12/2017 normal LV function mild LVH. Relaxation pattern no significant regurgitations), other (02/24/2018 ef 45-50% small pericardial effusion)
[2018-02-26] MEDS: LOPRESSOR PO SCH ×2 (13:43→22:00)
[2018-02-26] MEDS: PERCOCET 5/325 PO PRN (13:44)
[2018-02-26] MEDS: IMDUR PO SCH (13:44)
[2018-02-26] MEDS: ASPIRIN PO SCH (13:44)
[2018-02-26] MEDS: NORVASC PO SCH (13:44)
[2018-02-26] MEDS: PEPCID PO SCH (13:51)
[2018-02-26] MEDS: SODIUM CHLORIDE FLUSH SYRINGE 10 ML IV SCH ×2 (14:04→22:00)
[2018-02-26] MEDS: FLOMAX PO SCH ×2 (17:33→18:28)
[2018-02-26] MEDS: LANTUS SUB-Q SCH (22:02)
[2018-02-27] MEDS: PERCOCET 5/325 PO PRN (00:05)
--- NOTE | 2018-02-27 00:34 | Ultrasound Report ---
FINAL REPORT EXAM: US BLADDER RESIDUAL HISTORY: urinary bladder obstruction TECHNIQUE: Limited imaging was obtained of the bladder. FINDINGS: Bladder is normal in wall thickness. Pre and postvoiding volumes are 104 cc and 8.5 cc respectively. The surrounding soft tissues reveal ascites along the right-sided pleural effusion. IMPRESSION: 8.5 cc postvoid bladder residual. No evidence of bladder neoplasm. Ascites. Right-sided pleural effusion.
--- NOTE | 2018-02-27 01:30 | Treadmill Report ---
MYOCARDIAL PERFUSION IMAGING STUDIES Resting images revealed homogeneous radioisotope activity throughout the myocardium. On post-Lexiscan scan, there was increased gut uptake making the count less in the inferior wall. On gated scan, systolic ejection fraction was 46%. There is no segmental motion abnormality noted. IMPRESSION: 1. This test is negative for reversible ischemia. 2. Mildly depressed left ventricular systolic function with ejection fraction of 46%. [facility]# [id number] LEAH/NTS
[2018-02-27 05:41] LABS: Hematocrit 29.1 % (35.5-45.6); Hemoglobin 9.6 gm/dl (11.8-15.2); Mean Corpuscular HGB Conc 33 % (32-34); Mean Corpuscular Hemoglobin 29 pg (28-32); Mean Corpuscular Volume 88 fl (84-94); Platelet Count 300 K/mm3 (140-440); Red Blood Count 3.31 M/mm3 (3.65-5.03); Red Cell Distribution Width 13.5 % (13.2-15.2)
[2018-02-27 06:03] LABS: Calcium 7.8 mg/dL (8.4-10.2)
[2018-02-27] MEDS: LASIX IV SCH (06:04)
[2018-02-27] MEDS: APRESOLINE PO SCH (06:04)
[2018-02-27] MEDS: HumaLOG SUB-Q SCH (08:21)
--- NOTE | 2018-02-27 08:58 | Progress Note ---
Assessment and Plan 1. Acute kidney injury: RIGO superimposed on CKD stage 3 in the setting of CHF exacerbation. Renal function is better. Monitor renal function. Prognosis is guarded. 2. CHF exacerbation: Volume status is better. Limit salt and fluid intake. 3. NSTEMI. 4. Rhabdomyolysis: Improving. 5. DM-2. F/u with me in 2 weeks. Subjective Date of service: 02/27/18 Principal diagnosis: sob and nstemi Interval history: Patient is doing ok. Objective - Vital Signs Vital signs: Vital Signs - 12hr 02/26/18 02/26/18 02/26/18 21:58 22:00 23:58 Temperature 98.1 F Pulse Rate 75 75 72 Respiratory 20 Rate Blood Pressure 151/94 151/94 127/70 O2 Sat by Pulse 99 Oximetry 02/27/18 02/27/18 02/27/18 04:12 06:04 08:11 Temperature 97.8 F 98.5 F Pulse Rate 75 73 74 Respiratory 20 20 Rate Blood Pressure 146/83 146/83 158/80 O2 Sat by Pulse 98 99 Oximetry - General Appearance General appearance: well-developed, well-nourished, appears stated age, other ( not in distress) EENT: ATNC, PERRL, hearing intact, vision intact Neck: supple Respiratory: Present: Clear to Ascultation Cardiology: regular, S1S2, no murmurs Gastrointestinal: normoactive bowel sounds, no tenderness Integumentary: no rash, warm and dry Neurologic: no focal deficit, no asterixis, alert and oriented x3 Musculoskeletal: other (no edema) Psychiatric: cooperative - Lab 02/27/18 04:39 02/27/18 04:39 Most recent lab results Calcium 7.8 mg/dL (8.4-10.2) L 02/27/18 04:39 Urine Creatinine 65.5 mg/dL (0.1-20.0) H 02/24/18 Unknown Urine Sodium 75 mmol/L 02/24/18 Unknown
[2018-02-27] MEDS: ASPIRIN PO SCH (09:50)
[2018-02-27] MEDS: NORVASC PO SCH (09:50)
[2018-02-27] MEDS: PEPCID PO SCH (09:50)
[2018-02-27] MEDS: IMDUR PO SCH (09:50)
[2018-02-27] MEDS: FLOMAX PO SCH (09:50)
[2018-02-27] MEDS: LOPRESSOR PO SCH (09:53)
--- NOTE | 2018-02-27 10:26 | Discharge Summary ---
Providers - Providers Date of Admission: 02/23/18 23:55 Attending physician: LALA MORILLO MD 02/24/18 00:35 Consult to Physician [CONS] Routine Comment: Consulting Provider: STEPHANIE OROSCO Physician Instructions: Reason For Exam: chf Consult to Physician [CONS] Routine Comment: Consulting Provider: MARGE HENAO Physician Instructions: Reason For Exam: arf on chr Primary care physician: LEAN SIX SIGMA BLACK BELT Hospitalization Reason for admission: chf Condition: Stable Hospital course: 57-year-old man with a history of hypertension, diabetes, CHF, chronic kidney disease comes emergency room with complaints of shortness of breath, PND, orthopnea and increasing lower extremity edema. He stated that he is compliant with his medication, states his Lasix is just not working anymore. Patient was diagnsosed with NSTEMI type 2, underwent stress test which was negative, seen by cardiology with management of BP. Also was seen by Neprhology, his renal function showed improvement towards his baseline with recommendation to continue outpatient follow with cardiology and nephrology. Also recommended Urology follow up outpatient,. He was started on flomax with a pre and post void showing 104cc and 8.5cc respectively. -Echo done on 01/05/18 showed EF of 55-60% Discharge Diagnosis Acute on chronic diastolic HF NSTEMI type 2 Acute on CKD stage III Urinary hesitancy Uncontrolled hypertension DM2 with hypoglycemia RT LE edema Elevated d-dimer PAD HLD Pad s/p partial right foot amputation in 2017 Disposition: DC-01 TO HOME OR SELFCARE Time spent for discharge: 35 mins Core Measure Documentation - Palliative Care Palliative Care/ Comfort Measures: Not Applicable - Core Measures Any of the following diagnoses?: none - VTE Discharge Requirements Deep Vein Thrombosis/Pulmonary Embolism Present on Admission: No Exam - Physical Exam Narrative exam: VITAL SIGNS: Reviewed. GENERAL: The patient appeared well nourished and normally developed. Vital signs as documented. HEAD: No signs of head trauma. EYES: Pupils are equal. Extraocular motions intact. EARS: Hearing grossly intact. MOUTH: Oropharynx is normal. NECK: No adenopathy, no JVD. CHEST: Chest with clear breath sounds bilaterally. No wheezes, rales, or rhonchi. CARDIAC: Regular rate and rhythm. S1 and S2, without murmurs, gallops, or rubs. VASCULAR: Trace Edema. Peripheral pulses normal and equal in all extremities. ABDOMEN: Soft,non distended. No sign of distention. No rebound or guarding , and no masses palpated. Bowel Sounds normal. MUSCULOSKELETAL: Good range of motion of all major joints. Extremities without clubbing, cyanosis or edema. NEUROLOGIC EXAM: Alert and oriented x 3. No focal sensory or strength deficits. Speech normal. Follows commands. PSYCHIATRIC: Mood normal. SKIN: No rash or lesions. - Constitutional Vitals: Temp Pulse Resp BP Pulse Ox 98.5 F 74 20 158/80 99 02/27/18 08:11 02/27/18 08:11 02/27/18 08:11 02/27/18 08:11 02/27/18 08:11 Plan Activity: advance as tolerated, fall precautions Diet: low salt Special Instructions: record daily BP diary, other (1500cc/day fluid restriction ) Follow up with: PRIMARY CARE, [Primary Care Provider] - 3-5 Days MANUELA LEONARD MD [Staff Physician] - 7 Days MARGE HENAO MD [Staff Physician] - 7 Days Prescriptions: AtorvaSTATin [Lipitor] 40 mg PO QHS #60 tablet Aspirin [Aspirin BABY CHEW TAB] 81 mg PO QDAY #30 tab.chew Furosemide [Lasix TAB] 40 mg PO DAILY #30 tablet hydrALAZINE [Apresoline TAB] 50 mg PO Q8HR #90 tablet ISOSORBIDE MONOnitrate [Imdur ER] 30 mg PO QDAY #30 tablet
--- NOTE | 2018-02-27 11:19 | Progress Note ---
Assessment and Plan Assessment: nstemi type 2 acute dhf acute on chronic renal failure htn pad s/p partial right foot amputation in 2017 dm chol Plan: s/p lexiscan MPI stress test yesterday which was negative for ischemia, EF 46%. Currently stable cardiac status. Pt may discharge home from cardiology standpoint. Recommend pt follow up in our office with Dr. Lei within 3-5 days of hospital discharge ([phone]). The patient has been seen in conjunction with Dr. Lei who agrees with the assessment and plan of care. Subjective Date of service: 02/27/18 Principal diagnosis: sob and nstemi Interval history: pt resting comfortably in bed, no current complaints. states he feels ready to discharge home. Objective Last Vital Signs Temp 98.5 F 02/27/18 08:11 Pulse 74 02/27/18 08:11 Resp 20 02/27/18 08:11 BP 158/80 02/27/18 08:11 Pulse Ox 99 02/27/18 08:11 - Physical Examination General: No Apparent Distress HEENT: Positive: PERRL, Mucus Membranes Moist Neck: Positive: neck supple, trachea midline Cardiac: Positive: Reg Rate and Rhythm, S1/S2 Lungs: Positive: clear to auscultation Neuro: Positive: Grossly Intact Abdomen: Positive: Soft, Active Bowel Sounds. Negative: Tender, Distended Skin: Positive: Clear Incision: Cardiac Cath Site Musculoskeletal: No Pain, Normal Range of Motion Extremities: Present: normal, edema, Other (right foot partial amputation.) - Labs and Meds CBC 02/27/18 Range/Units 04:39 WBC 8.6 (4.5-11.0) K/mm3 RBC 3.31 L (3.65-5.03) M/mm3 Hgb 9.6 L (11.8-15.2) gm/dl Hct 29.1 L (35.5-45.6) % Plt Count 300 (140-440) K/mm3 Comprehensive Metabolic Panel 02/27/18 Range/Units 04:39 Sodium 138 (137-145) mmol/L Potassium 4.3 (3.6-5.0) mmol/L Chloride 100.4 (98-107) mmol/L Carbon Dioxide 30 (22-30) mmol/L BUN 29 H (9-20) mg/dL Creatinine 2.7 H (0.8-1.5) mg/dL Glucose 176 H (75-100) mg/dL Calcium 7.8 L (8.4-10.2) mg/dL - Imaging and Cardiology EKG: image reviewed Echo: report reviewed (12/2017 normal LV function mild LVH. Relaxation pattern no significant regurgitations), other (02/24/2018 ef 45-50% small pericardial effusion)
[2018-02-27 11:52] VITALS: BP 116/71
--- NOTE | 2018-02-27 14:28 | Vascular Lab Report ---
Right Lower Extremity Venous Duplex Study: Reason for Exam: Pain and swelling of the right lower extremity. Comments on the Right: All veins visualized are freely compressible without evidence of internal echogenicity. Flow is spontaneous and phasic throughout. No evidence of acute or chronic thrombus is seen in any of the vessels visualized. A soft tissue change in the right knee area is consistent with a Donald's cyst. Comments on the Left: A limited duplex study was done of the proximal veins of the left lower extremity. All veins visualized are freely compressible without evidence of internal echogenicity. Flow is spontaneous and phasic throughout. No evidence of acute or chronic thrombus is seen in any of the vessels visualized. Impression: No evidence of acute or chronic deep venous thrombosis in the right lower extremity. A soft tissue change in the right knee area is consistent with a Donald's cyst.
== END 2018-02-27 15:00 | disposition home or self-care (01) | DRG 280 ==
LOC: ED 19:00 → 4A 23:55
PROVIDERS: ADMIT Internal Medicine; ATTEND Internal Medicine
DX: I21.A1 Myocardial infarction type 2 (principal); I50.43 Acute on chronic combined systolic (congestive) and diastolic (congestive) heart failure; N17.9 Acute kidney failure, unspecified; I13.0 Hypertensive heart and chronic kidney disease with heart failure and stage 1 through stage 4 chronic kidney disease, or unspecified chronic kidney disease; M62.82 Rhabdomyolysis; E11.51 Type 2 diabetes mellitus with diabetic peripheral angiopathy without gangrene; E11.22 Type 2 diabetes mellitus with diabetic chronic kidney disease; Z89.431 Acquired absence of right foot; N18.3 Chronic kidney disease, stage 3 (moderate); R39.11 Hesitancy of micturition; E78.5 Hyperlipidemia, unspecified; E11.65 Type 2 diabetes mellitus with hyperglycemia; E66.9 Obesity, unspecified; Z68.27 Body mass index [BMI] 27.0-27.9, adult; Z79.4 Long term (current) use of insulin; Z79.899 Other long term (current) drug therapy; Z95.1 Presence of aortocoronary bypass graft; Z82.49 Family history of ischemic heart disease and other diseases of the circulatory system
CPT/HCPCS: 36415; 71046; 76770; 76857; 78452; 78582; 80048; 80053; 80061; 81001; 82550; 82553; 82570; 82962; 83880; 84300; 84484; 85014; 85018; 85025; 85027; 85049; 85379; 85520; 85610; 85730; 93005; 93010; 93017; 93306; 94640; 96374; 96375; A9270-GY; A9502; A9540; A9558; J1644; J1815; J1940; J2785

== ENCOUNTER 2018-04-30 17:13 | Inpatient (IN) | payer OTHER ==
[2018-04-30] MEDS ORDERED: TYLENOL PO ONE (17:46)
--- NOTE | 2018-04-30 17:48 | Emergency Department Report ---
ED General Adult HPI - General Chief complaint: Dyspnea/Respdistress Stated complaint: CHEST PAIN/TABATHA Time Seen by Provider: 04/30/18 17:33 Source: patient, family, EMS (ems notes not available at time of chart dictation), RN notes reviewed, old records reviewed Mode of arrival: Stretcher Limitations: Physical Limitation - History of Present Illness Initial comments: This is a 57-year-old gentleman. I have evaluated the patient in the past. The patient follows at the [facility], and he follows with cardiology, Dr. 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 Past medical history includes congestive heart failure, ejection fraction 50- 55%, renal insufficiency, partial right foot and crepitation, diabetes, high cholesterol, peripheral vascular disease, right-sided pleural effusion. The patient presents to the ER with a complaint of shortness of breath, orthopnea, "I can't sleep." He reports unintentional weight gain of 3-4 pounds, and abdominal distention and fluid overload in his belly and in his lower extremities. The symptoms are similar to his prior presentation. He denies chest pain, fevers, chills, nausea, vomiting. Shortness of breath is constant, worsens with physical exertion. Decreases with rest. Decreases when laying on 3-4 pillows. He endorses new onset 3-4 pillow orthopnea. -: Gradual Consistency: other Improves with: other Worsens with: other Associated Symptoms: cough, loss of appetite, malaise, shortness of breath, weakness. denies: confusion, chest pain, diaphoresis, fever/chills, headaches, nausea/vomiting, rash, seizure, syncope - Related Data Previous Rx's Medication Instructions Recorded Last Taken Type Insulin Glargine [Lantus VIAL] 20 units SUB-Q QHS 30 Days #30 01/30/18 02/22/18 Rx units Aspirin [Aspirin BABY CHEW TAB] 81 mg PO QDAY #30 tab.chew 04/17/18 Unknown Rx AtorvaSTATin [Lipitor] 40 mg PO QHS #60 tablet 04/17/18 Unknown Rx Famotidine [Pepcid] 20 mg PO BID #60 tablet 04/17/18 Unknown Rx Furosemide [Lasix TAB] 40 mg PO BID #60 tablet 04/17/18 Unknown Rx ISOSORBIDE MONOnitrate [Imdur ER] 60 mg PO QDAY #30 tablet 04/17/18 Unknown Rx Metoprolol [Lopressor TAB] 100 mg PO BID #60 tablet 04/17/18 Unknown Rx amLODIPine [Norvasc] 10 mg PO DAILY #30 tablet 04/17/18 Unknown Rx hydrALAZINE [Apresoline TAB] 100 mg PO Q8HR #90 tab 04/17/18 Unknown Rx oxyCODONE /ACETAMINOPHEN [Percocet 1 tab PO Q6H PRN #12 tablet 04/17/18 Unknown Rx 5/325 mg] Allergies Allergy/AdvReac Type Severity Reaction Status Date / Time No Known Allergies Allergy Verified 11/01/13 07:35 ED Review of Systems ROS: Stated complaint: CHEST PAIN/TABATHA Other details as noted in HPI Constitutional: malaise, weakness Eyes: denies: eye discharge ENT: congestion Respiratory: shortness of breath, SOB with exertion, SOB at rest Cardiovascular: edema. denies: chest pain Gastrointestinal: other (abdominal distention). denies: nausea, vomiting Genitourinary: frequency. denies: dysuria Musculoskeletal: arthralgia, myalgia Skin: denies: lesions Neurological: weakness Psychiatric: anxiety ED Past Medical Hx - Past Medical History Previous Medical History?: Yes Hx Hypertension: Yes (2017) Hx Heart Attack/AMI: Yes (2018) Hx Congestive Heart Failure: Yes Hx Diabetes: Yes Hx Asthma: No Hx COPD: No - Surgical History Past Surgical History?: Yes Additional Surgical History: 5 Right toes removed surgically in March 2017 - Social History Smoking Status: Unknown if ever smoked Substance Use Type: None - Medications Home Medications: Home Medications Medication Instructions Recorded Confirmed Last Taken Type Insulin Glargine [Lantus VIAL] 20 units SUB-Q QHS 30 Days #30 01/30/18 04/12/18 02/22/18 Rx units Aspirin [Aspirin BABY CHEW TAB] 81 mg PO QDAY #30 tab.chew 04/17/18 Unknown Rx AtorvaSTATin [Lipitor] 40 mg PO QHS #60 tablet 04/17/18 Unknown Rx Famotidine [Pepcid] 20 mg PO BID #60 tablet 04/17/18 Unknown Rx Furosemide [Lasix TAB] 40 mg PO BID #60 tablet 04/17/18 Unknown Rx ISOSORBIDE MONOnitrate [Imdur ER] 60 mg PO QDAY #30 tablet 04/17/18 Unknown Rx Metoprolol [Lopressor TAB] 100 mg PO BID #60 tablet 04/17/18 Unknown Rx amLODIPine [Norvasc] 10 mg PO DAILY #30 tablet 04/17/18 Unknown Rx hydrALAZINE [Apresoline TAB] 100 mg PO Q8HR #90 tab 04/17/18 Unknown Rx oxyCODONE /ACETAMINOPHEN [Percocet 1 tab PO Q6H PRN #12 tablet 04/17/18 Unknown Rx 5/325 mg] ED Physical Exam - General Limitations: Physical Limitation General appearance: alert, in no apparent distress, in distress - Head Head exam: Present: atraumatic, normocephalic - Eye Eye exam: Present: normal appearance, EOMI. Absent: nystagmus - ENT ENT exam: Present: normal exam, normal orophraynx, mucous membranes moist, normal external ear exam - Neck Neck exam: Present: normal inspection, full ROM. Absent: tenderness, meningismus - Respiratory Respiratory exam: Present: respiratory distress, decreased breath sounds, other (normal breath sounds in the left hemithorax. Decreased breath sounds in the right hemithorax). Absent: wheezes, rales, rhonchi - Cardiovascular Cardiovascular Exam: Present: regular rate, normal rhythm, normal heart sounds. Absent: bradycardia, tachycardia, irregular rhythm, systolic murmur, diastolic murmur, rubs, gallop - GI/Abdominal GI/Abdominal exam: Present: soft, distended, other (abdominal distention, positive fluid wave noted). Absent: tenderness, guarding, rebound, rigid, pulsatile mass - Rectal Rectal exam: Present: deferred - Extremities Exam Extremities exam: Present: normal inspection, full ROM, pedal edema, other (right lower extremity distant history right transmetatarsal amputation.). Absent: tenderness, calf tenderness - Back Exam Back exam: Present: normal inspection, full ROM. Absent: tenderness, CVA tenderness (R), paraspinal tenderness, vertebral tenderness - Neurological Exam Neurological exam: Present: alert, other (Extraocular movements intact. Tongue midline. No facial droop. Facial sensation intact to light touch in the V1, V 2, V3 distribution bilaterally. 5 and 5 strength in 4 extremities.. Sensation is intact to light touch in 4 extremities.). Absent: motor sensory deficit - Psychiatric Psychiatric exam: Present: anxious - Skin Skin exam: Present: warm, dry, intact, normal color. Absent: rash ED Course Vital Signs 04/30/18 04/30/18 04/30/18 17:18 17:24 17:30 Temperature 99.6 F Pulse Rate 84 82 84 Respiratory 18 16 20 Rate Blood Pressure 144/81 144/81 O2 Sat by Pulse 95 96 94 Oximetry 04/30/18 04/30/18 04/30/18 17:46 18:00 18:16 Temperature Pulse Rate 82 82 82 Respiratory 20 18 13 Rate Blood Pressure 140/112 137/84 137/84 O2 Sat by Pulse 98 92 98 Oximetry 04/30/18 04/30/18 04/30/18 18:30 18:45 18:46 Temperature 99 F Pulse Rate 80 80 Respiratory 23 18 Rate Blood Pressure 145/76 145/76 O2 Sat by Pulse 93 96 Oximetry 04/30/18 19:00 Temperature Pulse Rate 82 Respiratory 11 L Rate Blood Pressure 148/74 O2 Sat by Pulse 94 Oximetry - Reevaluation(s) Reevaluation #1: 04/30/18 18:41 Differential diagnosis, including but not limited to: Cardio renal syndrome, congestive heart failure, fluid overload, pneumonia, pericarditis, card iomyopathy Assessment and plan: 57-year-old gentleman with abdominal distention, shortness of breath, orthopnea, decreased breath sounds in the right hemithorax, x-ray of the chest suggest recurrent pleural effusion. We will treat the patient supportively and symptomatically, had a low-grade temperature, but refuses rectal temp. Screening laboratory studies pending. Plan to admit the patient for presumed fluid overload, recurrent symptomatic right-sided pleural effusion. Saturating at 95% on a nasal cannula. Discussed admission with patient and family, are amenable to this. Reevaluation #2: 04/30/18 20:11 Dr Ley to admit ED Medical Decision Making - Lab Data Result diagrams: 04/30/18 18:02 04/30/18 18:02 Vital Signs 04/30/18 17:24 Temperature 99.6 F Pulse Rate 82 Respiratory 16 Rate Blood Pressure 144/81 O2 Sat by Pulse 96 Oximetry Lab Results 04/30/18 04/30/18 04/30/18 Range/Units 18:02 18:02 18:02 WBC 9.5 (4.5-11.0) K/mm3 RBC 3.49 L (3.65-5.03) M/mm3 Hgb 9.9 L (11.8-15.2) gm/dl Hct 31.1 L (35.5-45.6) % MCV 89 (84-94) fl MCH 28 (28-32) pg MCHC 32 (32-34) % RDW 14.5 (13.2-15.2) % Plt Count 262 (140-440) K/mm3 Lymph % (Auto) 10.8 L (13.4-35.0) % Perkins % (Auto) 7.6 H (0.0-7.3) % Eos % (Auto) 1.2 (0.0-4.3) % Baso % (Auto) 0.9 (0.0-1.8) % Lymph # 1.0 L (1.2-5.4) K/mm3 Perkins # 0.7 (0.0-0.8) K/mm3 Eos # 0.1 (0.0-0.4) K/mm3 Baso # 0.1 (0.0-0.1) K/mm3 Seg Neutrophils % 79.5 H (40.0-70.0) % Seg Neutrophils # 7.6 (1.8-7.7) K/mm3 PT 12.7 (12.2-14.9) Sec. INR 0.91 (0.87-1.13) APTT 24.6 (24.2-36.6) Sec. Sodium 144 (137-145) mmol/L Potassium 4.3 (3.6-5.0) mmol/L Chloride 107.0 (98-107) mmol/L Carbon Dioxide 28 (22-30) mmol/L Anion Gap 13 mmol/L BUN 33 H (9-20) mg/dL Creatinine 3.8 H (0.8-1.5) mg/dL Estimated GFR 20 ml/min BUN/Creatinine Ratio 9 % Glucose 185 H (75-100) mg/dL Calcium 8.2 L (8.4-10.2) mg/dL NT-Pro-B Natriuret Pep (0-900) pg/mL 04/30/18 Range/Units 18:02 WBC (4.5-11.0) K/mm3 RBC (3.65-5.03) M/mm3 Hgb (11.8-15.2) gm/dl Hct (35.5-45.6) % MCV (84-94) fl MCH (28-32) pg MCHC (32-34) % RDW (13.2-15.2) % Plt Count (140-440) K/mm3 Lymph % (Auto) (13.4-35.0) % Perkins % (Auto) (0.0-7.3) % Eos % (Auto) (0.0-4.3) % Baso % (Auto) (0.0-1.8) % Lymph # (1.2-5.4) K/mm3 Perkins # (0.0-0.8) K/mm3 Eos # (0.0-0.4) K/mm3 Baso # (0.0-0.1) K/mm3 Seg Neutrophils % (40.0-70.0) % Seg Neutrophils # (1.8-7.7) K/mm3 PT (12.2-14.9) Sec. INR (0.87-1.13) APTT (24.2-36.6) Sec. Sodium (137-145) mmol/L Potassium (3.6-5.0) mmol/L Chloride (98-107) mmol/L Carbon Dioxide (22-30) mmol/L Anion Gap mmol/L BUN (9-20) mg/dL Creatinine (0.8-1.5) mg/dL Estimated GFR ml/min BUN/Creatinine Ratio % Glucose (75-100) mg/dL Calcium (8.4-10.2) mg/dL NT-Pro-B Natriuret Pep 30421 H (0-900) pg/mL - EKG Data -: EKG Interpreted by Me - EKG Data 04/30/18 18:42 EKG shows normal sinus, 82 bpm, normal axis, normal intervals, left ventricular hypertrophy, poor R wave progression, abnormal EKG, mostly unchanged from prior from April 2018, with the exception of more prominent QRS complexes in the lateral leads. - Radiology Data Radiology results: pending, image reviewed interpreted by me: X-ray of the chest suggests large right-sided pleural effusion. Critical care attestation.: If time is entered above; I have spent that time in minutes in the direct care of this critically ill patient, excluding procedure time. ED Disposition Clinical Impression: Cardiorenal syndrome with renal failure, Pleural effusion Disposition: OP ADMIT IP TO THIS HOSP Is pt being admited?: Yes Does the pt Need Aspirin: Yes Condition: Fair Referrals: PRIMARY CARE, [Primary Care Provider] - 3-5 Days
[2018-04-30 18:25] LABS: Basophils # (Auto) 0.1 K/mm3 (0.0-0.1); Basophils % (Auto) 0.9 % (0.0-1.8); Eosinophils # (Auto) 0.1 K/mm3 (0.0-0.4); Eosinophils % (Auto) 1.2 % (0.0-4.3); Hematocrit 31.1 % (35.5-45.6); Hemoglobin 9.9 gm/dl (11.8-15.2); Lymphocytes % (Auto) 10.8 % (13.4-35.0); Mean Corpuscular HGB Conc 32 % (32-34); Mean Corpuscular Hemoglobin 28 pg (28-32); Mean Corpuscular Volume 89 fl (84-94); Monocytes # (Auto) 0.7 K/mm3 (0.0-0.8); Monocytes % (Auto) 7.6 % (0.0-7.3); Platelet Count 262 K/mm3 (140-440); Red Blood Count 3.49 M/mm3 (3.65-5.03); Red Cell Distribution Width 14.5 % (13.2-15.2)
[2018-04-30 18:36] LABS: INR 0.91 (0.87-1.13)
[2018-04-30 18:37] LABS: Partial Thromboplastin Time 24.6 Sec. (24.2-36.6)
--- NOTE | 2018-04-30 18:39 | XRay Report ---
FINAL REPORT EXAM: XR CHEST 1V AP HISTORY: dyspnea TECHNIQUE: Chest portable upright PRIORS: Comparison is April 17, 2018 FINDINGS: There is increased confluent opacity within the right lower lobe distribution. Right hemidiaphragm is partially obscured. Cardiac and mediastinal contours are unchanged. Pulmonary vasculature is unremar kable. IMPRESSION: Worsening right lower lobe infiltrate/effusion
[2018-04-30 18:41] LABS: Calcium 8.2 mg/dL (8.4-10.2)
[2018-04-30 18:42] LABS: Alanine Aminotransferase 28 units/L (7-56); Albumin 2.2 g/dL (3.9-5)
[2018-04-30] MEDS ORDERED: BABY ASPIRIN PO ONE (18:43)
[2018-04-30] MEDS ORDERED: LASIX 100 MG in NACL 0.9% 50 ML IV ONE (18:43)
[2018-04-30 18:44] LABS: Bilirubin,Direct < 0.2 mg/dL (0-0.2)
[2018-04-30] MEDS ORDERED: ROCEPHIN/NS 1 GM/50 ML 1 GM/50 ML BAG IV ONE (18:45)
[2018-04-30] MEDS ORDERED: ZITHROMAX PO ONE (18:45)
[2018-04-30] MEDS ORDERED: SUBLIMAZE IV ONE (18:55)
[2018-04-30 19:11] LABS: Chol/HDL Ratio 3.5 %
[2018-04-30] MEDS ORDERED: ROCEPHIN IM ONE (20:27)
[2018-04-30] MEDS ORDERED: NACL 0.9% 100 ML ONE (20:29)
[2018-04-30] MEDS ORDERED: PROVENTIL IH PRN (22:10)
[2018-04-30] MEDS ORDERED: ZOFRAN IV PRN (22:10)
[2018-04-30] MEDS ORDERED: D50W (25GM) Syringe IV PRN (22:10)
--- NOTE | 2018-04-30 22:33 | History and Physical Report ---
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 Pt states that he has not been able to get rid of his symptoms. He states that he is in and out of the hospital because of constant lower extremities swelling and SOB due to fluid accumulation and his chest. Pt reports constant trip to the bathroom for urination due to daily lasix. Pt reports severe dyspnea and inability to ambulates at time due to lower extremities swelling, pt states that the symptoms relieved sometimes with lasix, but the lasix works mostly at night time and he is unable to remain in bed and get enough sleep. He denies chest pain, denies fevers, denies chills, denies nausea, denies vomiting. Shortness of breath is constant, worsens with physical exertion. Decreases with rest. Pt is admitted for further evaluation of his CHF, was counselled about fluid and salt restriction and weight monitoring. Past History Past Medical History: CAD, diabetes, hypertension, hyperlipidemia Medications and Allergies Allergies Allergy/AdvReac Type Severity Reaction Status Date / Time No Known Allergies Allergy Verified 11/01/13 07:35 Home Medications Medication Instructions Recorded Confirmed Last Taken Type Insulin Glargine [Lantus VIAL] 20 units SUB-Q QHS 30 Days #30 01/30/18 04/12/18 02/22/18 Rx units Aspirin [Aspirin BABY CHEW TAB] 81 mg PO QDAY #30 tab.chew 04/17/18 Unknown Rx AtorvaSTATin [Lipitor] 40 mg PO QHS #60 tablet 04/17/18 Unknown Rx Famotidine [Pepcid] 20 mg PO BID #60 tablet 04/17/18 Unknown Rx Furosemide [Lasix TAB] 40 mg PO BID #60 tablet 04/17/18 Unknown Rx ISOSORBIDE MONOnitrate [Imdur ER] 60 mg PO QDAY #30 tablet 04/17/18 Unknown Rx Metoprolol [Lopressor TAB] 100 mg PO BID #60 tablet 04/17/18 Unknown Rx amLODIPine [Norvasc] 10 mg PO DAILY #30 tablet 04/17/18 Unknown Rx hydrALAZINE [Apresoline TAB] 100 mg PO Q8HR #90 tab 04/17/18 Unknown Rx oxyCODONE /ACETAMINOPHEN [Percocet 1 tab PO Q6H PRN #12 tablet 04/17/18 Unknown Rx 5/325 mg] Active Meds: Active Medications Albuterol (Proventil) 2.5 mg IH Q4HRT PRN PRN Reason: Shortness Of Breath Alprazolam (Xanax) 0.125 mg PO Q8H PRN PRN Reason: Agitation Aspirin (Aspirin) 325 mg PO QDAY RADHA Dextrose (D50w (25gm) Syringe) 50 ml IV PRN PRN PRN Reason: Hypoglycemia Famotidine (Pepcid) 10 mg IV BID RADHA Furosemide (Lasix) 40 mg IV QDAY RADHA Insulin Human Regular (Humulin R) 0 units SUB-Q ACHS RADHA; Protocol Lisinopril (Zestril) 2.5 mg PO BID RADHA Metoprolol Tartrate (Lopressor) 25 mg PO BID RADHA Morphine Sulfate (Morphine) 2 mg IV Q4H PRN PRN Reason: Pain, Moderate (4-6) Ondansetron HCl (Zofran) 4 mg IV Q8H PRN PRN Reason: Nausea And Vomiting Sodium Chloride (Sodium Chloride Flush Syringe 10 Ml) 10 ml IV BID RADHA Sodium Chloride (Sodium Chloride Flush Syringe 10 Ml) 10 ml IV PRN PRN PRN Reason: LINE FLUSH Review of Systems Cardiovascular: orthopnea, shortness of breath, dyspnea on exertion, leg edema Respiratory: dyspnea on exertion Musculoskeletal: limitation of motion Integumentary: darkening of skin, dryness Neurological: head injury Psychiatric: anxiety Exam - Constitutional Vitals: Temp Pulse Resp BP Pulse Ox 97.9 F 77 16 143/81 100 04/30/18 22:04 04/30/18 22:04 04/30/18 22:04 04/30/18 22:04 04/30/18 22:04 General appearance: Present: mild distress - EENT Eyes: Present: PERRL, EOM intact ENT: hearing intact - Neck Neck: Present: supple - Respiratory Respiratory effort: accessory muscle use - Extremities Extremity abnormal: other (trace edema) - Abdominal General gastrointestinal: Present: deferred - Rectal Rectal Exam: deferred - Integumentary Integumentary: Present: clear, warm, dry - Musculoskeletal Musculoskeletal: strength equal bilaterally - Psychiatric Psychiatric: appropriate mood/affect, intact judgment & insight Results - Labs CBC & Chem 7: 04/30/18 18:02 12 02:25 Labs: Laboratory Last Values WBC 9.5 K/mm3 (4.5-11.0) 04/30/18 18: RBC 3.49 M/mm3 (3.65-5.03) L 04/30/18 18:02 Hgb 9.9 gm/dl (11.8-15.2) L 04/30/18 18: Hct 31.1 % (35.5-45.6) L 04/30/18 18: MCV 89 fl (84-94) 04/30/18 18: MCH 28 pg (28-32) 04/30/18 18: MCHC 32 % (32-34) 04/30/18 18: RDW 14.5 % (13.2-15.2) 04/30/18 18:02 Plt Count 262 K/mm3 (140-440) 04/30/18 18:02 Lymph % (Auto) 10.8 % (13.4-35.0) L 04/30/18 18:02 Andrew % (Auto) 7.6 % (0.0-7.3) H 04/30/18 18:02 Eos % (Auto) 1.2 % (0.0-4.3) 04/30/18 18: Baso % (Auto) 0.9 % (0.0-1.8) 04/30/18 18:02 Lymph # 1.0 K/mm3 (1.2-5.4) L 04/30/18 18:02 Andrew # 0.7 K/mm3 (0.0-0.8) 04/30/18 18: Eos # 0.1 K/mm3 (0.0-0.4) 04/30/18 18:02 Baso # 0.1 K/mm3 (0.0-0.1) 04/30/18 18: Seg Neutrophils % 79.5 % (40.0-70.0) H 04/30/18 18:02 Seg Neutrophils # 7.6 K/mm3 (1.8-7.7) 04/30/18 18:02 PT 12.7 Sec. (12.2-14.9) 04/30/18 18:02 INR 0.91 (0.87-1.13) 04/30/18 18:02 APTT 24.6 Sec. (24.2-36.6) 04/30/18 18:02 Sodium 144 mmol/L (137-145) 04/30/18 18:02 Potassium 4.3 mmol/L (3.6-5.0) 04/30/18 18:02 Chloride 107.0 mmol/L (98-107) 04/30/18 18:02 Carbon Dioxide 28 mmol/L (22-30) 04/30/18 18:02 Anion Gap 13 mmol/L 04/30/18 18:02 BUN 33 mg/dL (9-20) H 04/30/18 18:02 Creatinine 3.8 mg/dL (0.8-1.5) H 04/30/18 18:02 Estimated GFR 20 ml/min 04/30/18 18:02 BUN/Creatinine Ratio 9 % 04/30/18 18:02 Glucose 185 mg/dL (75-100) H 04/30/18 18:02 POC Glucose 115 (70-105) H 04/30/18 20:34 Calcium 8.2 mg/dL (8.4-10.2) L 04/30/18 18:02 Magnesium 1.90 mg/dL (1.7-2.3) 04/30/18 18:02 Total Bilirubin 0.20 mg/dL (0.1-1.2) 04/30/18 18:02 Direct Bilirubin < 0.2 mg/dL (0-0.2) 04/30/18 18:02 Indirect Bilirubin 0.0 mg/dL 04/30/18 18:02 AST 35 units/L (5-40) 04/30/18 18:02 ALT 28 units/L (7-56) 04/30/18 18:02 Alkaline Phosphatase 100 units/L (35-129) 04/30/18 18:02 Total Creatine Kinase 676 units/L (55-170) H 04/30/18 18:02 Troponin T 0.112 ng/mL (0.00-0.029) H* 04/30/18 19:18 NT-Pro-B Natriuret Pep 86977 pg/mL (0-900) H 04/30/18 18:02 Total Protein 5.3 g/dL (6.3-8.2) L 04/30/18 18:02 Albumin 2.2 g/dL (3.9-5) L 04/30/18 18:02 Albumin/Globulin Ratio 0.7 % 04/30/18 18:02 Triglycerides 165 mg/dL (2-149) H 04/30/18 18:02 Cholesterol 168 mg/dL (50-199) 04/30/18 18:02 LDL Cholesterol Direct 100 mg/dL (50-130) 04/30/18 18:02 HDL Cholesterol 48 mg/dL (40-59) 04/30/18 18:02 Cholesterol/HDL Ratio 3.50 % 04/30/18 18:02 Assessment and Plan Assessment and plan: 1. CHF with acute exacerbation (50-55%,) 2. Acute dyspnea/orthopnea 3. recurrent right pleura effusion 4. 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 Partial right foot/toes amputation 6. DM type 2 7. Hypertension 8. Hyperlipidemia 9. PVD / s/p right foot/toes amputation Plan Pt is admitted to [facility] O2 to keep sat >92% Cardiology consult for CHF exacerbation Fluid restriction Daily weight Resume home meds Glycemic management per Medium dose sliding scare Advance Directives: Yes VTE prophylaxis?: Chemical Plan of care discussed with patient/family: Yes
[2018-04-30] MEDS ORDERED: PEPCID IV SCH (23:00)
[2018-04-30] MEDS: SODIUM CHLORIDE FLUSH SYRINGE 10 ML IV PRN (23:45)
[2018-05-01 03:47] LABS: Calcium 8.3 mg/dL (8.4-10.2)
[2018-05-01] MEDS: APRESOLINE PO SCH ×3 (05:54→22:40)
[2018-05-01] MEDS: HumuLIN R SUB-Q SCH ×4 (07:47→22:43)
[2018-05-01] MEDS: LASIX PO SCH ×2 (09:12→22:42)
[2018-05-01] MEDS: NORVASC PO SCH (09:13)
[2018-05-01] MEDS: IMDUR PO SCH (09:13)
[2018-05-01] MEDS: BABY ASPIRIN PO SCH (09:13)
[2018-05-01] MEDS: PEPCID PO SCH ×2 (09:13→22:53)
[2018-05-01] MEDS: LOPRESSOR PO SCH ×2 (09:13→22:41)
[2018-05-01] MEDS: SODIUM CHLORIDE FLUSH SYRINGE 10 ML IV SCH ×2 (09:14→22:46)
[2018-05-01] MEDS: XANAX PO PRN ×2 (09:51→22:38)
[2018-05-01] MEDS: PERCOCET 5/325 PO PRN ×2 (09:51→22:38)
[2018-05-01] MEDS ORDERED: LASIX IV SCH (10:00)
[2018-05-01] MEDS ORDERED: ASPIRIN PO SCH (10:00)
[2018-05-01] MEDS ORDERED: ZESTRIL PO SCH (10:00)
[2018-05-01] MEDS ORDERED: LOPRESSOR PO SCH (10:00)
[2018-05-01] MEDS ORDERED: PEPCID PO SCH (10:00)
--- NOTE | 2018-05-01 10:49 | Progress Note ---
Assessment and Plan / Acute hypoxic respiratory failure - chris from right pleural effusion, will order thoracentesis / Acute on chronic Diastolic CHF exacerbation - Patient is on IV Lasix, strict I/O - Continue beta rafael - Cardiology consulted /Elevated troponin - chronically elevated - will follow cardiology recommendation - conr aspirin, statin for now / Right recurrent Pleural effusion - order thoracentesis /HLD (hyperlipidemia) - Continue statin / Hypertension - Cont antihypertensives / IDDM (insulin dependent diabetes mellitus) - Uncontrolled, adjust his insulin regimen -ADA diet, Accu-Chek /RIGO on CKD - Nephrology consult - Creatinine is 3.2 DVT prophylaxis - on heparin Disposition; continue inpatient care Brief History: The pt is a 57 YO male with a past medical history of HFpEF, CKD, HTN, DM, HLP, PAD s/p partial right foot amputation in 2017 who presented with complaints of SOB, CLEMENTS, orthopnea, PND, abdominal swelling and BLE swelling. Radiological data: CXR: Worsening right lower lobe infiltrate/effusion Hospitalist Physical exam: GENERAL: well-developed and well-nourished lying on bed appeared to be in no discomfort. HEENT: Normocephalic. Atraumatic. No conjunctival congestion or icterus. Patient has moist mucous membranes. NECK: Supple. Trachea midline. CHEST/LUNGS: Clear to auscultated bilaterally, breathing nonlabored. No wheezes crackles or rhonchi. HEART/CARDIOVASCULAR: Regular in rate and rhythm. S1 and S2 positive. ABDOMEN: Abdomen is soft, nontender. Patient has normal bowel sounds. SKIN: There is no rash. Warm and dry. NEURO: No focal motor deficit. Follows command. MUSCULOSKELETAL: No joint effusion or tenderness. EXTRIMITY: No edema, no cyanosis or clubbing. PSYCH: Cooperative. Subjective Date of service: 05/01/18 Interval history: Patient seen and examined. Medical records and medication list reviewed. No acute event overnight noted by the RN. Patient complains of difficulty breathing. Patient is tolerating diet. Discussed plan of care at bedside with patient. Objective - Constitutional Vitals: Vital Signs - 12hr 05/01/18 05/01/18 02:52 05:45 Temperature 98.9 F 97.9 F Pulse Rate 79 81 Respiratory 20 16 Rate Blood Pressure 150/75 158/79 O2 Sat by Pulse 97 97 Oximetry - Labs CBC & Chem 7: 04/30/18 18:02 05/01/18 02:25 Labs: Abnormal lab results 04/30/18 04/30/18 04/30/18 Range/Units 18:02 18:02 18:02 RBC 3.49 L (3.65-5.03) M/mm3 Hgb 9.9 L (11.8-15.2) gm/dl Hct 31.1 L (35.5-45.6) % Lymph % (Auto) 10.8 L (13.4-35.0) % Lassen % (Auto) 7.6 H (0.0-7.3) % Lymph # 1.0 L (1.2-5.4) K/mm3 Seg Neutrophils % 79.5 H (40.0-70.0) % BUN 33 H (9-20) mg/dL Creatinine 3.8 H (0.8-1.5) mg/dL Glucose 185 H (75-100) mg/dL POC Glucose (70-105) Calcium 8.2 L (8.4-10.2) mg/dL Total Creatine Kinase 676 H (55-170) units/L Troponin T 0.114 H* (0.00-0.029) ng/mL NT-Pro-B Natriuret Pep 40934 H (0-900) pg/mL Total Protein 5.3 L (6.3-8.2) g/dL Albumin 2.2 L (3.9-5) g/dL Triglycerides 165 H (2-149) mg/dL 04/30/18 04/30/18 04/30/18 Range/Units 19:18 20:34 23:23 RBC (3.65-5.03) M/mm3 Hgb (11.8-15.2) gm/dl Hct (35.5-45.6) % Lymph % (Auto) (13.4-35.0) % Lassen % (Auto) (0.0-7.3) % Lymph # (1.2-5.4) K/mm3 Seg Neutrophils % (40.0-70.0) % BUN (9-20) mg/dL Creatinine (0.8-1.5) mg/dL Glucose (75-100) mg/dL POC Glucose 115 H 106 H (70-105) Calcium (8.4-10.2) mg/dL Total Creatine Kinase (55-170) units/L Troponin T 0.112 H* (0.00-0.029) ng/mL NT-Pro-B Natriuret Pep (0-900) pg/mL Total Protein (6.3-8.2) g/dL Albumin (3.9-5) g/dL Triglycerides (2-149) mg/dL 04/30/18 05/01/18 05/01/18 Range/Units 23:29 02:25 07:42 RBC (3.65-5.03) M/mm3 Hgb (11.8-15.2) gm/dl Hct (35.5-45.6) % Lymph % (Auto) (13.4-35.0) % Lassen % (Auto) (0.0-7.3) % Lymph # (1.2-5.4) K/mm3 Seg Neutrophils % (40.0-70.0) % BUN 33 H (9-20) mg/dL Creatinine 3.3 H (0.8-1.5) mg/dL Glucose 106 H (75-100) mg/dL POC Glucose 142 H (70-105) Calcium 8.3 L (8.4-10.2) mg/dL Total Creatine Kinase (55-170) units/L Troponin T 0.121 H* (0.00-0.029) ng/mL NT-Pro-B Natriuret Pep (0-900) pg/mL Total Protein (6.3-8.2) g/dL Albumin (3.9-5) g/dL Triglycerides (2-149) mg/dL
--- NOTE | 2018-05-01 11:09 | Consultation ---
History of Present Illness - Reason for Consult Consult date: 05/01/18 acute renal failure, chronic renal failure - History of Present Illness The patient is a 57 YO male with history significant for Obesity, DM-2 (15+ yrs), HTN (15+ yrs), HLD, Diastolic CHF, CKD stage 4 and PAD s/p right TMA who presented to the ER with sob, orthopnea and swelling of all 4 extremities. Patient had multiple similar admissions in the past and recently he was discharged from the hospital on 04/17/2018. The symptoms are worse for the past few days. He also reports increase in the abd girth and inability to ambulates due to lower extremities swelling. Patient denies any cp, dizziness, cough, hemoptysis, N, V, D, fever, chills, hematuria, jaundice, weakness or syncope. On admission his creatinine was 3.8. Patient admitted with CHF exacerbation and Acute kidney injury. Nephrology was consulted for further evaluation. Past History Past Medical History: CAD, diabetes, hypertension, hyperlipidemia Medications and Allergies Allergies Allergy/AdvReac Type Severity Reaction Status Date / Time No Known Allergies Allergy Verified 11/01/13 07:35 Home Medications Medication Instructions Recorded Confirmed Last Taken Type Insulin Glargine [Lantus VIAL] 20 units SUB-Q QHS 30 Days #30 01/30/18 05/01/18 04/30/18 Rx units Aspirin [Aspirin BABY CHEW TAB] 81 mg PO QDAY #30 tab.chew 04/17/18 05/01/18 04/30/18 Rx AtorvaSTATin [Lipitor] 40 mg PO QHS #60 tablet 04/17/18 05/01/18 04/30/18 Rx Famotidine [Pepcid] 20 mg PO BID #60 tablet 04/17/18 05/01/18 04/30/18 Rx Furosemide [Lasix TAB] 40 mg PO BID #60 tablet 04/17/18 05/01/18 04/30/18 Rx ISOSORBIDE MONOnitrate [Imdur ER] 60 mg PO QDAY #30 tablet 04/17/18 05/01/18 04/30/18 Rx Metoprolol [Lopressor TAB] 100 mg PO BID #60 tablet 04/17/18 05/01/18 04/30/18 Rx amLODIPine [Norvasc] 10 mg PO DAILY #30 tablet 12/03/2505/01/18 04/30/18 Rx hydrALAZINE [Apresoline TAB] 100 mg PO Q8HR #90 tab 04/17/18 05/01/18 04/30/18 Rx oxyCODONE /ACETAMINOPHEN [Percocet 1 tab PO Q6H PRN #12 tablet 04/17/18 05/01/18 04/30/18 Rx 5/325 mg] Active Meds: Active Medications Albuterol (Proventil) 2.5 mg IH Q4HRT PRN PRN Reason: Shortness Of Breath Alprazolam (Xanax) 0.125 mg PO Q8H PRN PRN Reason: Agitation Last Admin: 05/01/18 09:51 Dose: 0.125 mg Documented by: Amlodipine Besylate (Norvasc) 10 mg PO DAILY [facility] Last Admin: 05/01/18 09:13 Dose: 10 mg Documented by: Aspirin (Baby Aspirin) 81 mg PO QDAY [facility] Last Admin: 05/01/18 09:13 Dose: 81 mg Documented by: Atorvastatin Calcium (Lipitor) 40 mg PO QHS [facility] Dextrose (D50w (25gm) Syringe) 50 ml IV PRN PRN PRN Reason: Hypoglycemia Famotidine (Pepcid) 10 mg PO BID [facility] Last Admin: 05/01/18 09:13 Dose: 10 mg Documented by: Furosemide (Lasix) 40 mg PO BID [facility] Last Admin: 05/01/18 09:12 Dose: 40 mg Documented by: Heparin Sodium (Porcine) (Heparin) 5,000 unit SUB-Q Q12HR [facility] Hydralazine HCl (Apresoline) 100 mg PO Q8HR [facility] Last Admin: 05/01/18 05:54 Dose: 100 mg Documented by: Insulin Glargine (Lantus) 20 units SUB-Q QHS [facility] Insulin Human Regular (Humulin R) 0 units SUB-Q [facility]; Protocol Last Admin: 05/01/18 07:47 Dose: Not Given Documented by: Isosorbide Mononitrate (Imdur) 60 mg PO QDAY [facility] Last Admin: 05/01/18 09:13 Dose: 60 mg Documented by: Lisinopril (Zestril) 2.5 mg PO BID [facility] Last Admin: 05/01/18 09:11 Dose: 2.5 mg Documented by: Metoprolol Tartrate (Lopressor) 100 mg PO BID [facility] Last Admin: 05/01/18 09:13 Dose: 100 mg Documented by: Morphine Sulfate (Morphine) 2 mg IV Q4H PRN PRN Reason: Pain, Moderate (4-6) Ondansetron HCl (Zofran) 4 mg IV Q8H PRN PRN Reason: Nausea And Vomiting Oxycodone/Acetaminophen (Percocet 5/325) 1 tab PO Q6H PRN PRN Reason: Pain, Moderate (4-6) Last Admin: 05/01/18 09:51 Dose: 1 tab Documented by: Sodium Chloride (Sodium Chloride Flush Syringe 10 Ml) 10 ml IV BID [facility] Last Admin: 05/01/18 09:14 Dose: 10 ml Documented by: Sodium Chloride (Sodium Chloride Flush Syringe 10 Ml) 10 ml IV PRN PRN PRN Reason: LINE FLUSH Last Admin: 04/30/18 23:45 Dose: 10 ml Documented by: Review of Systems Constitutional: weight gain, no weight loss, no fever, no chills, no anorexia, no fatigue, no weakness, no poor appetite Cardiovascular: orthopnea, edema, shortness of breath, dyspnea on exertion, paroxysmal nocturnal dyspnea, high blood pressure, leg edema, decreased exercise tolerance, no chest pain, no palpitations, no rapid/irregular heart beat, no syncope, no lightheadedness Respiratory: shortness of breath, dyspnea on exertion, no cough, no home oxygen Gastrointestinal: no abdominal pain, no nausea, no vomiting, no diarrhea, no melena Genitourinary Male: no dysuria, no hematuria Rectal: no bleeding Musculoskeletal: prior amputations Integumentary: no rash, no redness, no sores, no wounds, no jaundice Neurological: no seizures, no convulsions, no aphasia, no change in speech, no change in mentation, no confusion, no memory loss, no sensory deficit, no double vision, no loss of vision Endocrine: polyuria (nocturnal), excessive sweating (related to eating), high blood sugars Exam - Vital Signs Vital signs: Vital Signs Pulse Resp Pulse Ox 84 18 95 04/30/18 17:18 04/30/18 17:18 04/30/18 17:18 - General Appearance General appearance: well-developed, well-nourished, appears stated age, other (not in distress) EENT: ATNC, PERRL, mucous membranes moist, hearing intact, vision intact Neck: Present: neck supple, trachea midline Respiratory: Rales Heart: regular, S1S2, no murmurs Gastrointestinal: Present: normoactive bowel sounds. Absent: tenderness, distended Integumentary: no rash, warm and dry Neurologic: no focal deficit, no asterixis, alert and oriented x3 Musculoskeletal: Present: other (trace edema of all 4 extremities, righ TMA) Psychiatric: cooperative Results - Lab Results 04/30/18 18:02 05/01/18 02:25 Most recent lab results Calcium 8.3 mg/dL (8.4-10.2) L 05/01/18 02:25 Magnesium 1.90 mg/dL (1.7-2.3) 04/30/18 18:02 Assessment and Plan 1. Acute kidney injury: RIGO superimposed on CKD stage 4 in the setting of CHF exacerbation. Urine studies. Monitor renal function. Renal prognosis is guarded. 2. FEN: Volume overload, improving. Continue Lasix. counseled limit fluid and salt intake. Questionable compliance. 3. CHF exacerbation. 4. DM-2 5. Proteinuria: Diabetic nephropathy.
--- NOTE | 2018-05-01 12:57 | Consultation ---
History of Present Illness Consult date: 05/01/18 Past History Past Medical History: CAD, diabetes, hypertension, hyperlipidemia Medications and Allergies Allergies Allergy/AdvReac Type Severity Reaction Status Date / Time No Known Allergies Allergy Verified 11/01/13 07:35 Home Medications Medication Instructions Recorded Confirmed Last Taken Type Insulin Glargine [Lantus VIAL] 20 units SUB-Q QHS 30 Days #30 01/30/18 05/01/18 04/30/18 Rx units Aspirin [Aspirin BABY CHEW TAB] 81 mg PO QDAY #30 tab.chew 04/17/18 05/01/18 04/30/18 Rx AtorvaSTATin [Lipitor] 40 mg PO QHS #60 tablet 04/17/18 05/01/18 04/30/18 Rx Famotidine [Pepcid] 20 mg PO BID #60 tablet 04/17/18 05/01/18 04/30/18 Rx Furosemide [Lasix TAB] 40 mg PO BID #60 tablet 04/17/18 05/01/18 04/30/18 Rx ISOSORBIDE MONOnitrate [Imdur ER] 60 mg PO QDAY #30 tablet 04/17/18 05/01/18 04/30/18 Rx Metoprolol [Lopressor TAB] 100 mg PO BID #60 tablet 04/17/18 05/01/18 04/30/18 Rx amLODIPine [Norvasc] 10 mg PO DAILY #30 tablet 04/17/18 05/01/18 04/30/18 Rx hydrALAZINE [Apresoline TAB] 100 mg PO Q8HR #90 tab 04/17/18 05/01/18 04/30/18 Rx oxyCODONE /ACETAMINOPHEN [Percocet 1 tab PO Q6H PRN #12 tablet 04/17/18 05/01/18 04/30/18 Rx 5/325 mg] Active Meds: Active Medications Albuterol (Proventil) 2.5 mg IH Q4HRT PRN PRN Reason: Shortness Of Breath Alprazolam (Xanax) 0.125 mg PO Q8H PRN PRN Reason: Agitation Last Admin: 05/01/18 09:51 Dose: 0.125 mg Documented by: Amlodipine Besylate (Norvasc) 10 mg PO DAILY [facility] Last Admin: 05/01/18 09:13 Dose: 10 mg Documented by: Aspirin (Baby Aspirin) 81 mg PO QDAY [facility] Last Admin: 05/01/18 09:13 Dose: 81 mg Documented by: Atorvastatin Calcium (Lipitor) 40 mg PO QHS [facility] Dextrose (D50w (25gm) Syringe) 50 ml IV PRN PRN PRN Reason: Hypoglycemia Famotidine (Pepcid) 10 mg PO BID [facility] Last Admin: 05/01/18 09:13 Dose: 10 mg Documented by: Furosemide (Lasix) 40 mg PO BID [facility] Last Admin: 05/01/18 09:12 Dose: 40 mg Documented by: Heparin Sodium (Porcine) (Heparin) 5,000 unit SUB-Q Q12HR [facility] Hydralazine HCl (Apresoline) 100 mg PO Q8HR [facility] Last Admin: 05/01/18 05:54 Dose: 100 mg Documented by: Insulin Glargine (Lantus) 20 units SUB-Q QHS [facility] Insulin Human Regular (Humulin R) 0 units SUB-Q ACHS [facility]; Protocol Last Admin: 05/01/18 12:44 Dose: 2 units Documented by: Isosorbide Mononitrate (Imdur) 60 mg PO QDAY [facility] Last Admin: 05/01/18 09:13 Dose: 60 mg Documented by: Lisinopril (Zestril) 2.5 mg PO BID [facility] Last Admin: 05/01/18 09:11 Dose: 2.5 mg Documented by: Lisinopril (Zestril) 10 mg PO QDAY [facility] Metoprolol Tartrate (Lopressor) 100 mg PO BID [facility] Last Admin: 05/01/18 09:13 Dose: 100 mg Documented by: Morphine Sulfate (Morphine) 2 mg IV Q4H PRN PRN Reason: Pain, Moderate (4-6) Ondansetron HCl (Zofran) 4 mg IV Q8H PRN PRN Reason: Nausea And Vomiting Oxycodone/Acetaminophen (Percocet 5/325) 1 tab PO Q6H PRN PRN Reason: Pain, Moderate (4-6) Last Admin: 05/01/18 09:51 Dose: 1 tab Documented by: Sodium Chloride (Sodium Chloride Flush Syringe 10 Ml) 10 ml IV BID [facility] Last Admin: 05/01/18 09:14 Dose: 10 ml Documented by: Sodium Chloride (Sodium Chloride Flush Syringe 10 Ml) 10 ml IV PRN PRN PRN Reason: LINE FLUSH Last Admin: 04/30/18 23:45 Dose: 10 ml Documented by: Physical Examination Vital Signs Pulse Resp Pulse Ox 84 18 95 04/30/18 17:18 04/30/18 17:18 04/30/18 17:18 Results 04/30/18 18:02 05/01/18 02:25 Cardiac Enzymes 04/30/18 Range/Units 18:02 AST 35 (5-40) units/L Coagulation 04/30/18 Range/Units 18:02 PT 12.7 (12.2-14.9) Sec. INR 0.91 (0.87-1.13) APTT 24.6 (24.2-36.6) Sec. Lipids 04/30/18 Range/Units 18:02 Triglycerides 165 H (2-149) mg/dL Cholesterol 168 (50-199) mg/dL HDL Cholesterol 48 (40-59) mg/dL Cholesterol/HDL Ratio 3.50 % CBC 04/30/18 Range/Units 18:02 WBC 9.5 (4.5-11.0) K/mm3 RBC 3.49 L (3.65-5.03) M/mm3 Hgb 9.9 L (11.8-15.2) gm/dl Hct 31.1 L (35.5-45.6) % Plt Count 262 (140-440) K/mm3 Lymph # 1.0 L (1.2-5.4) K/mm3 Walsh # 0.7 (0.0-0.8) K/mm3 Eos # 0.1 (0.0-0.4) K/mm3 Baso # 0.1 (0.0-0.1) K/mm3 Comprehensive Metabolic Panel 04/30/18 04/30/18 05/01/18 Range/Units 18:02 18:02 02:25 Sodium 144 141 (137-145) mmol/L Potassium 4.3 3.8 (3.6-5.0) mmol/L Chloride 107.0 103.7 (98-107) mmol/L Carbon Dioxide 28 27 (22-30) mmol/L BUN 33 H 33 H (9-20) mg/dL Creatinine 3.8 H 3.3 H (0.8-1.5) mg/dL Glucose 185 H 106 H (75-100) mg/dL Calcium 8.2 L 8.3 L (8.4-10.2) mg/dL Direct Bilirubin < 0.2 (0-0.2) mg/dL Indirect Bilirubin 0.0 mg/dL AST 35 (5-40) units/L ALT 28 (7-56) units/L Alkaline Phosphatase 100 (35-129) units/L Total Protein 5.3 L (6.3-8.2) g/dL Albumin 2.2 L (3.9-5) g/dL Assessment and Plan Detailed Cardiology consult dictated.
--- NOTE | 2018-05-01 13:37 | Consultation ---
REFERRING PHYSICIAN: Dr. Teresa Zuñiga, hospitalist. HISTORY OF PRESENT ILLNESS: The patient is a 57-year-old pleasant, gentleman with history of multiple medical problems -- hypertension, hyperlipidemia, type 2 diabetes mellitus, chronic kidney disease, chronic diastolic heart failure, who was admitted with progressive shortness of breath 2 days before admission. He also gives history of paroxysmal nocturnal dyspnea and orthopnea. He is being treated with intravenous diuretics and other maintenance medications including beta blockers. The patient gives history of palpitations occasionally. He is anemic with a hemoglobin of 9.9. Troponins were mildly increased (0.112 and 0.121), which is most likely secondary to chronic kidney disease and chronic congestive heart failure. Acute myocardial infarction is unlikely. Clinically, he feels better. PAST MEDICAL HISTORY: History of multiple medical problems as described above. He had a Lexiscan stress nuclear scan on 02/23/2018, which did not reveal any perfusion abnormality; however, LVEF was mildly decreased to 46%. Echocardiogram done at that time revealed mild concentric left ventricular hypertrophy, LVEF around 50-55%, grade 1 diastolic left ventricular dysfunction, mild tricuspid regurgitation with upper normal right-sided pressures and small pericardial effusion. The patient also gives history of right foot partial amputation during 03/2017. Apparently, he stepped on a nail and foot got infected and ended up with an amputation. SOCIAL HISTORY: Not a smoker, not an alcoholic, no history of drug abuse. FAMILY HISTORY: Negative for premature coronary artery disease. REVIEW OF SYSTEMS: CARDIOVASCULAR: As described in the history. METABOLISM AND ENDOCRINOLOGY: As described in the history. BONE AND JOINTS: As described in the history. RENAL: As described in the history. HEMATOPOIETIC SYSTEM: As described in the history. Review of rest of the 10 systems is negative. MEDICATIONS: Albuterol inhalation p.r.n., amlodipine 10 mg p.o. daily, aspirin 81 mg p.o. daily, atorvastatin 40 mg p.o. daily, Pepcid 10 mg p.o. b.i.d., Lasix 40 mg p.o. b.i.d., heparin 5000 units subq q. 12 hours, hydralazine 100 mg p.o. 3 times daily, insulin, Imdur 60 mg p.o. daily, lisinopril 2.5 mg p.o. b.i.d., and metoprolol 100 mg p.o. b.i.d. The patient also received IV ceftriaxone and p.o. Zithromax 500 mg in the Emergency Room. PHYSICAL EXAMINATION: GENERAL: A 57-year-old pleasant gentleman. VITAL SIGNS: He is afebrile, pulse 81 per minute regular, blood pressure 158/79 mmHg, and respirations 18 per minute. NEUROLOGIC: He is alert and oriented x 3. HEENT: Pallor of the mucous membranes present. HEART: Point of maximum impulse shifted slightly laterally and is forcible in nature, no palpable thrills. Auscultation of heart reveals S1, S2 heard. S2 is loud, S4 is heard. No S3. No murmur or rub is appreciated. EXTREMITIES: Peripheral pulses felt. The right foot status post partial amputation. No edema. LUNGS: Bilateral air entry, decreased over the right base. No bronchial breathing, no wheezing. ABDOMEN: Soft and benign. No organomegaly. SKIN: As described above. BONE: Bone and joint as described above. LABORATORY DATA: Troponins as described in the history. ProBNP increased to 10,705. WBC, platelet count within normal limits. Hemoglobin and hematocrit were 9.9 and 31.1 respectively. Potassium 3.8. Initial creatinine was 3.8, which has come down to 3.3. RADIOLOGICAL DATA: Chest x-ray, worsening right lower lobe infiltrate versus effusion. DIAGNOSTIC DATA: EKG, normal sinus rhythm, left ventricular hypertrophy and J-point elevation in V2-V4. No significant changes when compared to the previous EKG of 04/12/2018. The patient has had a pleural effusion and a right thoracentesis on 04/16/2018. ASSESSMENT AND PLAN: 1. Acute on chronic diastolic heart failure, complicated by chronic kidney disease and anemia. 2. Chronic kidney disease. 3. History of multiple medical problems -- hypertension, hyperlipidemia and type 2 diabetes mellitus. 4. Increased troponins, most likely secondary to chronic kidney disease and congestive heart failure -- acute myocardial infarction is unlikely. 5. History of pleural effusion and right thoracentesis a few weeks ago. RECOMMENDATIONS: 1. To continue current management including IV diuretics. 2. Salt and fluid restriction. 3. We will discontinue lisinopril 2.[address] him on 10 mg p.o. daily for better control of his blood pressure. Thanking you again, we will follow. Yours Sincerely, JOB# [id number] [facility]
[2018-05-01 19:03] LABS: Bilirubin,Urine NEG (Negative); Blood,Urine NEG (Negative); Color,Urine Yellow (Yellow); Urobilinogen,Urine < 2.0 mg/dL (<2.0)
[2018-05-01 19:04] LABS: Protein,Urine >500 mg/dL (Negative)
[2018-05-01 19:05] LABS: Creatinine,Urine 84.6 mg/dL (0.1-20.0)
[2018-05-01 19:56] LABS: Protein/Creatinine Ratio,Urine 10.31
[2018-05-01] MEDS: LANTUS SUB-Q SCH (22:44)
[2018-05-01] MEDS: HEPARIN SUB-Q SCH (22:45)
[2018-05-02 06:13] LABS: Calcium 7.8 mg/dL (8.4-10.2)
[2018-05-02] MEDS: APRESOLINE PO SCH ×3 (06:14→22:52)
--- NOTE | 2018-05-02 08:47 | Progress Note ---
Assessment and Plan 1. Acute kidney injury: RIGO superimposed on CKD stage 4 in the setting of CHF exacerbation. Creatinine level is better around his baseline. Monitor renal function. 2. FEN: Volume overload, improving. Continue Lasix. Counseled limit fluid and salt intake. 3. CHF exacerbation. 4. DM-2 5. Proteinuria: Diabetic nephropathy. Subjective Date of service: 05/02/18 Interval history: Patient is feeling better. Objective - Vital Signs Vital signs: Vital Signs - 12hr 05/01/18 05/01/18 05/01/18 22:00 22:15 22:41 Temperature 98.1 F Pulse Rate 78 77 Pulse Rate [ 78 Left Radial] Respiratory 16 16 Rate Blood Pressure 165/89 146/86 Blood Pressure [Right] O2 Sat by Pulse 95 95 Oximetry 05/02/18 05/02/18 05/02/18 05:54 06:16 08:31 Temperature 98.1 F Pulse Rate 70 70 Pulse Rate [ Left Radial] Respiratory 16 Rate Blood Pressure 147/80 Blood Pressure 139/72 [Right] O2 Sat by Pulse 94 94 Oximetry - General Appearance General appearance: well-developed, well-nourished, appears stated age, other (not in distress) EENT: ATNC, PERRL, mucous membranes moist, hearing intact, vision intact Neck: supple Respiratory: Present: Clear to Ascultation Cardiology: regular, S1S2, no murmurs Gastrointestinal: normoactive bowel sounds, no tenderness, no distended Integumentary: no rash, warm and dry Neurologic: no focal deficit, no asterixis, alert and oriented x3 Musculoskeletal: other (no edema) - Lab 04/30/18 18:02 05/02/18 05:18 Most recent lab results Calcium 7.8 mg/dL (8.4-10.2) L 05/02/18 05:18 Magnesium 1.90 mg/dL (1.7-2.3) 04/30/18 18:02 Urine Creatinine 84.6 mg/dL (0.1-20.0) H 05/01/18 18:21 Urine Sodium 64 mmol/L 05/01/18 18:21 Urine Total Protein 872 mg/dL (5-11.8) H 05/01/18 18:21 Medications & Allergies - Medications Allergies/Adverse Reactions: Allergies No Known Allergies Allergy (Verified 11/01/13 07:35) Home Medications: Home Medications Medication Instructions Recorded Confirmed Last Taken Type Insulin Glargine [Lantus VIAL] 20 units SUB-Q QHS 30 Days #30 01/30/18 05/01/18 04/30/18 Rx units Aspirin [Aspirin BABY CHEW TAB] 81 mg PO QDAY #30 tab.chew 04/17/18 05/01/18 04/30/18 Rx AtorvaSTATin [Lipitor] 40 mg PO QHS #60 tablet 04/17/18 05/01/18 04/30/18 Rx Famotidine [Pepcid] 20 mg PO BID #60 tablet 04/17/18 05/01/18 04/30/18 Rx Furosemide [Lasix TAB] 40 mg PO BID #60 tablet 04/17/18 05/01/18 04/30/18 Rx ISOSORBIDE MONOnitrate [Imdur ER] 60 mg PO QDAY #30 tablet 04/17/18 05/01/18 04/30/18 Rx Metoprolol [Lopressor TAB] 100 mg PO BID #60 tablet 04/17/18 05/01/18 04/30/18 Rx amLODIPine [Norvasc] 10 mg PO DAILY #30 tablet 04/17/18 05/01/18 04/30/18 Rx hydrALAZINE [Apresoline TAB] 100 mg PO Q8HR #90 tab 04/17/18 05/01/18 04/30/18 Rx oxyCODONE /ACETAMINOPHEN [Percocet 1 tab PO Q6H PRN #12 tablet 04/17/18 05/01/18 04/30/18 Rx 5/325 mg] Active Medications: Generic Name Dose Route Start Last Admin Trade Name Freq PRN Reason Stop Dose Admin Albuterol 2.5 mg 04/30/18 22:10 Proventil IH Q4HRT PRN Shortness Of Breath Alprazolam 0.125 mg 04/30/18 22:10 05/01/18 22:38 Xanax PO 0.125 mg Q8H PRN Administration Agitation Amlodipine Besylate 10 mg 05/01/18 10:00 05/01/18 09:13 Norvasc PO 10 mg DAILY [facility] Administration Aspirin 81 mg 05/01/18 10:00 05/01/18 09:13 Baby Aspirin PO 81 mg QDAY [facility] Administration Atorvastatin Calcium 80 mg 05/01/18 22:00 05/01/18 22:43 Lipitor PO 80 mg QHS [facility] Administration Dextrose 50 ml 04/30/18 22:10 D50w (25gm) Syringe IV PRN PRN Hypoglycemia Famotidine 10 mg 05/01/18 10:00 05/01/18 22:53 Pepcid PO 10 mg BID [facility] Administration Furosemide 40 mg 05/01/18 10:00 05/01/18 22:42 Lasix PO 40 mg BID [facility] Administration Heparin Sodium (Porcine) 5,000 unit 05/01/18 22:00 05/01/18 22:45 Heparin SUB-Q 5,000 unit Q12HR [facility] Administration Hydralazine HCl 100 mg 05/01/18 06:00 05/02/18 06:14 Apresoline PO 100 mg Q8HR [facility] Administration Insulin Glargine 20 units 05/01/18 22:00 05/01/18 22:44 Lantus SUB-Q 20 units QHS [facility] Administration Insulin Human Regular 0 units 05/01/18 07:30 05/01/18 22:43 Humulin R SUB-Q 3 units ACHS [facility] Administration Protocol Isosorbide Mononitrate 60 mg 05/01/18 10:00 05/01/18 09:13 Imdur PO 60 mg QDAY [facility] Administration Lisinopril 2.5 mg 05/01/18 10:00 05/01/18 09:11 Zestril PO 2.5 mg BID [facility] Administration Lisinopril 10 mg 05/02/18 10:00 Zestril PO QDAY [facility] Metoprolol Tartrate 100 mg 05/01/18 10:00 05/01/18 22:41 Lopressor PO 100 mg BID [facility] Administration Morphine Sulfate 2 mg 04/30/18 22:10 Morphine IV Q4H PRN Pain, Moderate (4-6) Ondansetron HCl 4 mg 04/30/18 22:10 Zofran IV Q8H PRN Nausea And Vomiting Oxycodone/Acetaminophen 1 tab 05/01/18 02:03 05/01/18 22:38 Percocet 5/325 PO 1 tab Q6H PRN Administration Pain, Moderate (4-6) Sodium Chloride 10 ml 05/01/18 10:00 05/01/18 22:46 Sodium Chloride Flush Syringe 10 Ml IV 10 ml BID [facility] Administration Sodium Chloride 10 ml 04/30/18 22:10 04/30/18 23:45 Sodium Chloride Flush Syringe 10 Ml IV 10 ml PRN PRN Administration LINE FLUSH
[2018-05-02] MEDS: HumuLIN R SUB-Q SCH ×4 (09:54→22:49)
[2018-05-02] MEDS: ZESTRIL PO SCH (10:37)
[2018-05-02] MEDS: LASIX PO SCH ×2 (10:38→22:53)
[2018-05-02] MEDS: LOPRESSOR PO SCH ×2 (10:39→22:51)
[2018-05-02] MEDS: BABY ASPIRIN PO SCH (10:39)
[2018-05-02] MEDS: PEPCID PO SCH ×2 (10:39→22:51)
[2018-05-02] MEDS: IMDUR PO SCH (10:39)
[2018-05-02] MEDS: HEPARIN SUB-Q SCH ×2 (10:42→22:52)
[2018-05-02] MEDS: NORVASC PO SCH (10:42)
[2018-05-02] MEDS: SODIUM CHLORIDE FLUSH SYRINGE 10 ML IV SCH ×2 (10:43→22:54)
--- NOTE | 2018-05-02 10:50 | Progress Note ---
Assessment and Plan Cont diuresis as renal indices permit. For possible thoracentesis. The patient has been seen in conjunction with Dr. MARITA Blake who agrees with the assessment and plan of care. - Patient Problems (1) Acute heart failure with preserved ejection fraction Current Visit: Yes Status: Acute (2) Pleural effusion Current Visit: Yes Status: Acute (3) Acute kidney injury superimposed on chronic kidney disease Current Visit: Yes Status: Acute (4) Elevated troponin Current Visit: Yes Status: Acute (5) Hypertension Current Visit: Yes Status: Chronic Qualifiers: Hypertension type: essential hypertension Qualified Code(s): I10 - Essential (primary) hypertension (6) IDDM (insulin dependent diabetes mellitus) Current Visit: Yes Status: Chronic (7) HLD (hyperlipidemia) Current Visit: Yes Status: Chronic Qualifiers: Hyperlipidemia type: mixed hyperlipidemia Qualified Code(s): E78.2 - Mixed hyperlipidemia (8) PVD (peripheral vascular disease) Current Visit: Yes Status: Chronic Subjective Date of service: 05/02/18 Principal diagnosis: HF Interval history: pt resting in bed, SOB improving. Objective Last Vital Signs Temp 98.1 F 05/02/18 05:54 Pulse 70 05/02/18 10:42 Resp 16 05/02/18 05:54 BP 147/80 05/02/18 10:42 Pulse Ox 94 05/02/18 08:31 - Physical Examination General: No Apparent Distress HEENT: Positive: PERRL, Normocephaly, Mucus Membranes Moist Neck: Positive: neck supple, trachea midline Cardiac: Positive: Reg Rate and Rhythm, S1/S2 Lungs: Positive: Decreased Breath Sounds Neuro: Positive: Grossly Intact Abdomen: Positive: Soft. Negative: Tender Extremities: Absent: edema - Labs and Meds Comprehensive Metabolic Panel 05/02/18 Range/Units 05:18 Sodium 144 (137-145) mmol/L Potassium 3.9 (3.6-5.0) mmol/L Chloride 106.0 (98-107) mmol/L Carbon Dioxide 28 (22-30) mmol/L BUN 33 H (9-20) mg/dL Creatinine 3.4 H (0.8-1.5) mg/dL Glucose 180 H (75-100) mg/dL Calcium 7.8 L (8.4-10.2) mg/dL
[2018-05-02] MEDS: PERCOCET 5/325 PO PRN (14:16)
--- NOTE | 2018-05-02 15:47 | Progress Note ---
Assessment and Plan / Acute hypoxic respiratory failure - likley from right pleural effusion, For thoracentesis Pulmonology consult / Acute on chronic Diastolic CHF exacerbation - Patient is on IV Lasix, strict I/O - Continue beta rafael, ACEI - Cardiology consulted /Elevated troponin - chronically elevated - will follow cardiology recommendation - conr aspirin, statin for now / Right recurrent Pleural effusion - order thoracentesis /HLD (hyperlipidemia) - Continue statin / Hypertension - Cont antihypertensives / IDDM (insulin dependent diabetes mellitus) - Uncontrolled, - SSI -ADA diet, Accu-Chek /RIGO on CKD - Nephrology consult - Creatinine is 3.2 DVT prophylaxis - on heparin Disposition: continue present MX and inpatient care Subjective Date of service: 05/02/18 Principal diagnosis: acute on chronic diastolic HF, acute respr failure, recurrent Rt Pl. Effus Interval history: Labile embedded. Shallow breath. Denies any chest pain. Objective - Exam Narrative Exam: Constitutional: Well-nourished well-developed. In no distress Head: Normocephalic atraumatic Eyes: Pupils are equal round and reactive to light Nose: No enlarged turbinates, no septal deviation. Mouth: Moist mucous membranes. Neck: Supple no thyromegaly. No bruit. No JVD Heart: Regular rate and rhythm, S1-S2 normal. No rubs murmurs or gallop Lungs: Decreased breath sounds bilaterally. Few rales or rhonchi Abdomen: Soft, nontender. Bowel sound are present. Extremities: No edema, no cyanosis, no clubbing. Neuro: Alert oriented Oriented x3. No focal sensory or motor deficit. Skin: No rashes or hyperpigmented spots Musculoskeletal system: No joint pain or swelling Hematological: No petechia or subcutanous hemorrhages. Immunological: No multiple septic spots on the skin Lymphatic: No generalized lymphadenopathy Psychiatry: Euthymic. Calm. - Constitutional Vitals: Vital Signs - 12hr 05/02/18 05/02/18 05/02/18 05:54 06:16 08:31 Temperature 98.1 F Pulse Rate 70 70 Respiratory 16 Rate Blood Pressure 147/80 Blood Pressure 139/72 [Right] O2 Sat by Pulse 94 94 Oximetry 05/02/18 05/02/18 05/02/18 10:37 10:39 10:42 Temperature Pulse Rate 70 70 70 Respiratory Rate Blood Pressure 147/80 147/80 147/80 Blood Pressure [Right] O2 Sat by Pulse Oximetry 05/02/18 11:22 Temperature 98.5 F Pulse Rate 73 Respiratory 18 Rate Blood Pressure 140/73 Blood Pressure [Right] O2 Sat by Pulse 95 Oximetry - Labs CBC & Chem 7: 04/30/18 18:02 05/02/18 05:18 Labs: Abnormal lab results 05/01/18 05/01/18 05/01/18 Range/Units 16:40 18:21 21:05 BUN (9-20) mg/dL Creatinine (0.8-1.5) mg/dL Glucose (75-100) mg/dL POC Glucose 197 H 270 H (70-105) Calcium (8.4-10.2) mg/dL Urine Creatinine 84.6 H (0.1-20.0) mg/dL Urine Total Protein 872 H (5-11.8) mg/dL 05/02/18 05/02/18 05/02/18 Range/Units 05:18 05:49 07:31 BUN 33 H (9-20) mg/dL Creatinine 3.4 H (0.8-1.5) mg/dL Glucose 180 H (75-100) mg/dL POC Glucose 169 H 118 H (70-105) Calcium 7.8 L (8.4-10.2) mg/dL Urine Creatinine (0.1-20.0) mg/dL Urine Total Protein (5-11.8) mg/dL 05/02/18 Range/Units 11:06 BUN (9-20) mg/dL Creatinine (0.8-1.5) mg/dL Glucose (75-100) mg/dL POC Glucose 257 H (70-105) Calcium (8.4-10.2) mg/dL Urine Creatinine (0.1-20.0) mg/dL Urine Total Protein (5-11.8) mg/dL
[2018-05-02] MEDS: LANTUS SUB-Q SCH (22:50)
[2018-05-02] MEDS: MORPHINE IV PRN (23:04)
[2018-05-03] MEDS: APRESOLINE PO SCH ×3 (06:15→21:49)
[2018-05-03 06:37] LABS: Alanine Aminotransferase 26 units/L (7-56); BUN/Creatinine Ratio 12; Blood Urea Nitrogen 36 mg/dL (9-20); Calcium 8.1 mg/dL (8.4-10.2); Hemolysis Index 3
[2018-05-03] MEDS: HumuLIN R SUB-Q SCH ×4 (08:00→22:48)
--- NOTE | 2018-05-03 08:07 | Progress Note ---
Assessment and Plan 1. Acute kidney injury: RIGO superimposed on CKD stage 4 in the setting of CHF exacerbation. Creatinine level is better, around his baseline. Monitor renal function. 2. FEN: Volume overload, improving. Continue Lasix. Counseled to limit fluid and salt intake. 3. CHF exacerbation. 4. DM-2 5. Proteinuria: Diabetic nephropathy. Subjective Date of service: 05/03/18 Principal diagnosis: acute on chronic diastolic HF, acute respr failure, recurrent Rt Pl. Effus Interval history: Patient is feeling better. Objective - Vital Signs Vital signs: Vital Signs - 12hr 05/02/18 05/03/18 05/03/18 22:51 01:37 04:57 Temperature 97.8 F 98.3 F Pulse Rate 76 70 Respiratory 20 20 Rate Blood Pressure 152/88 143/83 O2 Sat by Pulse 94 95 95 Oximetry - General Appearance General appearance: well-developed, well-nourished, appears stated age, other (not in distress) EENT: ATNC, PERRL, mucous membranes moist, hearing intact, vision intact Neck: supple Respiratory: Present: Clear to Ascultation Cardiology: regular, S1S2, no murmurs Gastrointestinal: normoactive bowel sounds, no tenderness, no distended Integumentary: no rash, warm and dry Neurologic: no focal deficit, no asterixis, alert and oriented x3 Musculoskeletal: other (no edema) Psychiatric: cooperative - Lab 04/30/18 18:02 05/03/18 05:46 Most recent lab results Calcium 8.1 mg/dL (8.4-10.2) L 05/03/18 05:46 Magnesium 1.90 mg/dL (1.7-2.3) 04/30/18 18:02 Urine Creatinine 84.6 mg/dL (0.1-20.0) H 05/01/18 18:21 Urine Sodium 64 mmol/L 05/01/18 18:21 Urine Total Protein 872 mg/dL (5-11.8) H 05/01/18 18:21 Medications & Allergies - Medications Allergies/Adverse Reactions: Allergies No Known Allergies Allergy (Verified 11/01/13 07:35) Home Medications: Home Medications Medication Instructions Recorded Confirmed Last Taken Type Insulin Glargine [Lantus VIAL] 20 units SUB-Q QHS 30 Days #30 01/30/18 05/01/1804/30/18 Rx units Aspirin [Aspirin BABY CHEW TAB] 81 mg PO QDAY #30 tab.chew 04/17/18 05/01/18 04/30/18 Rx AtorvaSTATin [Lipitor] 40 mg PO QHS #60 tablet 04/17/18 05/01/18 04/30/18 Rx Famotidine [Pepcid] 20 mg PO BID #60 tablet 04/17/18 05/01/18 04/30/18 Rx Furosemide [Lasix TAB] 40 mg PO BID #60 tablet 04/17/18 05/01/18 04/30/18 Rx ISOSORBIDE MONOnitrate [Imdur ER] 60 mg PO QDAY #30 tablet 04/17/18 05/01/18 04/30/18 Rx Metoprolol [Lopressor TAB] 100 mg PO BID #60 tablet 04/17/18 05/01/18 04/30/18 R x amLODIPine [Norvasc] 10 mg PO DAILY #30 tablet 04/17/18 05/01/18 04/30/18 Rx hydrALAZINE [Apresoline TAB] 100 mg PO Q8HR #90 tab 04/17/18 05/01/18 04/30/18 Rx oxyCODONE /ACETAMINOPHEN [Percocet 1 tab PO Q6H PRN #12 tablet 04/17/18 05/01/18 04/30/18 Rx 5/325 mg] Active Medications: Generic Name Dose Route Start Last Admin Trade Name Freq PRN Reason Stop Dose Admin Albuterol 2.5 mg 04/30/18 22:10 Proventil IH Q4HRT PRN Shortness Of Breath Alprazolam 0.125 mg 04/30/18 22:10 05/01/18 22:38 Xanax PO 0.125 mg Q8H PRN Administration Agitation Amlodipine Besylate 10 mg 05/01/18 10:00 05/02/18 10:42 Norvasc PO 10 mg DAILY RADHA Administration Aspirin 81 mg 05/01/18 10:00 05/02/18 10:39 Baby Aspirin PO 81 mg QDAY RADHA Administration Atorvastatin Calcium 80 mg 05/01/18 22:00 05/02/18 22:51 Lipitor PO 80 mg QHS RADHA Administration Dextrose 50 ml 04/30/18 22:10 D50w (25gm) Syringe IV PRN PRN Hypoglycemia Famotidine 10 mg 05/01/18 10:00 05/02/18 22:51 Pepcid PO 10 mg BID RADHA Administration Furosemide 40 mg 05/01/18 10:00 05/02/18 22:53 Lasix PO 40 mg BID RADHA Administration Heparin Sodium (Porcine) 5,000 unit 05/01/18 22:00 05/02/18 22:52 Heparin SUB-Q 5,000 unit Q12HR RADHA Administration Hydralazine HCl 100 mg 05/01/18 06:00 05/03/18 06:15 Apresoline PO 100 mg Q8HR RADHA Administration Insulin Glargine 20 units 05/01/18 22:00 05/02/18 22:50 Lantus SUB-Q 20 units QHS RADHA Administration Insulin Human Regular 0 units 05/01/18 07:30 05/02/18 22:49 Humulin R SUB-Q 1 units ACHS RADHA Administration Protocol Isosorbide Mononitrate 60 mg 05/01/18 10:00 05/02/18 10:39 Imdur PO 60 mg QDAY RADHA Administration Lisinopril 2.5 mg 05/01/18 10:00 05/01/18 09:11 Zestril PO 2.5 mg BID RADHA Administration Lisinopril 10 mg 05/02/18 10:00 05/02/18 10:37 Zestril PO 10 mg QDAY RADHA Administration Metoprolol Tartrate 100 mg 05/01/18 10:00 05/02/18 22:51 Lopressor PO 100 mg BID RADHA Administration Morphine Sulfate 2 mg 04/30/18 22:10 05/02/18 23:04 Morphine IV 2 mg Q4H PRN Administration Pain, Moderate (4-6) Ondansetron HCl 4 mg 04/30/18 22:10 Zofran IV Q8H PRN Nausea And Vomiting Oxycodone/Acetaminophen 1 tab 05/01/18 02:03 05/02/18 14:16 Percocet 5/325 PO 1 tab Q6H PRN Administration Pain, Moderate (4-6) Sodium Chloride 10 ml 05/01/18 10:00 05/02/18 22:54 Sodium Chloride Flush Syringe 10 Ml IV 10 ml BID RADHA Administration Sodium Chloride 10 ml 04/30/18 22:10 04/30/18 23:45 Sodium Chloride Flush Syringe 10 Ml IV 10 ml PRN PRN Administration LINE FLUSH
--- NOTE | 2018-05-03 09:09 | XRay Report ---
AP CHEST: HISTORY: Short of breath, pleural effusion No significant change is appreciated in the small to medium right pleural effusion and infiltrate at the right lung base. The right upper lobe and left lung remain generally clear. Heart size and pulmonary vascularity appear borderline and unchanged. IMPRESSION: No significant change since 04/30/18.
--- NOTE | 2018-05-03 09:54 | Progress Note ---
Assessment and Plan F/u CXR. Cont diuresis as renal indices permit. Await pulmonary consultation. For possible thoracentesis. The patient has been seen in conjunction with Dr. MARITA Blake who agrees with the assessment and plan of care. - Patient Problems (1) Acute heart failure with preserved ejection fraction Current Visit: Yes Status: Acute (2) Pleural effusion Current Visit: Yes Status: Acute (3) Acute kidney injury superimposed on chronic kidney disease Current Visit: Yes Status: Acute (4) Elevated troponin Current Visit: Yes Status: Acute (5) Hypertension Current Visit: Yes Status: Chronic Qualifiers: Hypertension type: essential hypertension Qualified Code(s): I10 - Essential (primary) hypertension (6) IDDM (insulin dependent diabetes mellitus) Current Visit: Yes Status: Chronic (7) HLD (hyperlipidemia) Current Visit: Yes Status: Chronic Qualifiers: Hyperlipidemia type: mixed hyperlipidemia Qualified Code(s): E78.2 - Mixed hyperlipidemia (8) PVD (peripheral vascular disease) Current Visit: Yes Status: Chronic Subjective Date of service: 05/03/18 Principal diagnosis: acute on chronic diastolic HF, acute respr failure, recurrent Rt Pl. Effus Interval history: pt resting in bed, SOB improving. Objective Last Vital Signs Temp 98.3 F 05/03/18 04:57 Pulse 70 05/03/18 04:57 Resp 20 05/03/18 04:57 BP 143/83 05/03/18 04:57 Pulse Ox 95 05/03/18 04:57 - Physical Examination General: No Apparent Distress HEENT: Positive: PERRL, Normocephaly, Mucus Membranes Moist Neck: Positive: neck supple, trachea midline Cardiac: Positive: Reg Rate and Rhythm, S1/S2 Lungs: Positive: Decreased Breath Sounds Neuro: Positive: Grossly Intact Abdomen: Positive: Soft. Negative: Tender Extremities: Absent: edema - Labs and Meds Cardiac Enzymes 05/03/18 Range/Units 05:46 AST 33 (5-40) units/L Comprehensive Metabolic Panel 05/03/18 Range/Units 05:46 Sodium 142 (137-145) mmol/L Potassium 3.7 (3.6-5.0) mmol/L Chloride 105.3 (98-107) mmol/L Carbon Dioxide 28 (22-30) mmol/L BUN 36 H (9-20) mg/dL Creatinine 3.1 H (0.8-1.5) mg/dL Glucose 79 (75-100) mg/dL Calcium 8.1 L (8.4-10.2) mg/dL AST 33 (5-40) units/L ALT 26 (7-56) units/L Alkaline Phosphatase 83 (35-129) units/L Total Protein 5.0 L (6.3-8.2) g/dL Albumin 2.0 L (3.9-5) g/dL
[2018-05-03] MEDS: PEPCID PO SCH ×2 (10:19→21:49)
[2018-05-03] MEDS: ZESTRIL PO SCH (10:20)
[2018-05-03] MEDS: NORVASC PO SCH (10:20)
[2018-05-03] MEDS: LASIX PO SCH ×2 (10:20→21:50)
[2018-05-03] MEDS: IMDUR PO SCH (10:20)
[2018-05-03] MEDS: BABY ASPIRIN PO SCH (10:20)
[2018-05-03] MEDS: LOPRESSOR PO SCH ×2 (10:20→21:49)
[2018-05-03] MEDS: SODIUM CHLORIDE FLUSH SYRINGE 10 ML IV SCH ×2 (10:21→21:49)
[2018-05-03] MEDS: HEPARIN SUB-Q SCH ×2 (10:21→21:50)
--- NOTE | 2018-05-03 14:44 | Consultation ---
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 Pt states that he has not been able to get rid of his symptoms. He states that he is in and out of the hospital because of constant lower extremities swelling and SOB due to fluid accumulation and his chest. Pt reports constant trip to the bathroom for urination due to daily lasix. Pt reports severe dyspnea and inability to ambulates at time due to lower extremities swelling, pt states that the symptoms relieved sometimes with lasix, but the lasix works mostly at night time and he is unable to remain in bed and get enough sleep. He denies chest pain, denies fevers, denies chills, denies nausea, denies vomiting. Shortness of breath is constant, worsens with physical exertion. Decreases with rest. Pt is admitted for further evaluation of his CHF. A right pleural effusion was seen on CXR and I have been consulted for management. Patient was seen and examined. Vitals, labs, medications, chart and imaging reviewed. He quit smoking but does have a 40 year pack history. He does use marijuana on a daily basis. States he has lost 30lbs of weight in the last 3 months.He denies any hemoptysis, no night sweats Past History Past Medical History: CAD, diabetes, hypertension, hyperlipidemia Medications and Allergies Allergies Allergy/AdvReac Type Severity Reaction Status Date / Time No Known Allergies Allergy Verified 11/01/13 07:35 Home Medications Medication Instructions Recorded Confirmed Last Taken Type Insulin Glargine [Lantus VIAL] 20 units SUB-Q QHS 30 Days #30 01/30/18 05/01/18 04/30/18 Rx units Aspirin [Aspirin BABY CHEW TAB] 81 mg PO QDAY #30 tab.chew 04/17/18 05/01/18 04/30/18 Rx AtorvaSTATin [Lipitor] 40 mg PO QHS #60 tablet 04/17/18 05/01/18 04/30/18 Rx Famotidine [Pepcid] 20 mg PO BID #60 tablet 04/17/18 05/01/18 04/30/18 Rx Furosemide [Lasix TAB] 40 mg PO BID #60 tablet 04/17/18 05/01/18 04/30/18 Rx ISOSORBIDE MONOnitrate [Imdur ER] 60 mg PO QDAY #30 tablet 04/17/18 05/01/18 04/30/18 Rx Metoprolol [Lopressor TAB] 100 mg PO BID #60 tablet 04/17/18 05/01/18 04/30/18 Rx amLODIPine [Norvasc] 10 mg PO DAILY #30 tablet 04/17/18 05/01/18 04/30/18 Rx hydrALAZINE [Apresoline TAB] 100 mg PO Q8HR #90 tab 04/17/18 05/01/18 04/30/18 Rx oxyCODONE /ACETAMINOPHEN [Percocet 1 tab PO Q6H PRN #12 tablet 04/17/18 05/01/18 04/30/18 Rx 5/325 mg] Active Meds: Active Medications Albuterol (Proventil) 2.5 mg IH Q4HRT PRN PRN Reason: Shortness Of Breath Alprazolam (Xanax) 0.125 mg PO Q8H PRN PRN Reason: Agitation Last Admin: 05/01/18 22:38 Dose: 0.125 mg Documented by: Amlodipine Besylate (Norvasc) 10 mg PO DAILY [facility] Last Admin: 05/03/18 10:20 Dose: 10 mg Documented by: Aspirin (Baby Aspirin) 81 mg PO QDAY [facility] Last Admin: 05/03/18 10:20 Dose: 81 mg Documented by: Atorvastatin Calcium (Lipitor) 80 mg PO QHS [facility] Last Admin: 05/02/18 22:51 Dose: 80 mg Documented by: Dextrose (D50w (25gm) Syringe) 50 ml IV PRN PRN PRN Reason: Hypoglycemia Famotidine (Pepcid) 10 mg PO BID [facility] Last Admin: 05/03/18 10:19 Dose: 10 mg Documented by: Furosemide (Lasix) 40 mg PO BID [facility] Last Admin: 05/03/18 10:20 Dose: 40 mg Documented by: Heparin Sodium (Porcine) (Heparin) 5,000 unit SUB-Q Q12HR [facility] Last Admin: 05/03/18 10:21 Dose: 5,000 unit Documented by: Hydralazine HCl (Apresoline) 100 mg PO Q8HR [facility] Last Admin: 05/03/18 06:15 Dose: 100 mg Documented by: Insulin Glargine (Lantus) 20 units SUB-Q QHS [facility] Last Admin: 05/02/18 22:50 Dose: 20 units Documented by: Insulin Human Regular (Humulin R) 0 units SUB-Q ACHS [facility]; Protocol Last Admin: 05/03/18 12:31 Dose: Not Given Documented by: Isosorbide Mononitrate (Imdur) 60 mg PO QDAY [facility] Last Admin: 05/03/18 10:20 Dose: 60 mg Documented by: Lisinopril (Zestril) 2.5 mg PO BID [facility] Last Admin: 05/01/18 09:11 Dose: 2.5 mg Documented by: Lisinopril (Zestril) 10 mg PO QDAY [facility] Last Admin: 05/03/18 10:20 Dose: 10 mg Documented by: Metoprolol Tartrate (Lopressor) 100 mg PO BID [facility] Last Admin: 05/03/18 10:20 Dose: 100 mg Documented by: Morphine Sulfate (Morphine) 2 mg IV Q4H PRN PRN Reason: Pain, Moderate (4-6) Last Admin: 05/02/18 23:04 Dose: 2 mg Documented by: Ondansetron HCl (Zofran) 4 mg IV Q8H PRN PRN Reason: Nausea And Vomiting Oxycodone/Acetaminophen (Percocet 5/325) 1 tab PO Q6H PRN PRN Reason: Pain, Moderate (4-6) Last Admin: 05/02/18 14:16 Dose: 1 tab Documented by: Sodium Chloride (Sodium Chloride Flush Syringe 10 Ml) 10 ml IV BID [facility] Last Admin: 05/03/18 10:21 Dose: 10 ml Documented by: Sodium Chloride (Sodium Chloride Flush Syringe 10 Ml) 10 ml IV PRN PRN PRN Reason: LINE FLUSH Last Admin: 04/30/18 23:45 Dose: 10 ml Documented by: Review of Systems Constitutional: weight loss, weakness, no fever, no chills, no sweats, no night sweats Cardiovascular: orthopnea, shortness of breath, dyspnea on exertion, paroxysmal nocturnal dyspnea, no chest pain, no palpitations, no rapid/irregular heart beat, no edema, no syncope, no lightheadedness Respiratory: shortness of breath, dyspnea on exertion, no cough, no cough with sputum, no excessive sputum, no hemoptysis, no wheezing, no pleurisy, no pain on inspiration Gastrointestinal: no abdominal pain, no nausea, no vomiting, no diarrhea, no constipation, no coffee ground emesis Neurological: no paralysis, no weakness, no parathesias, no tingling, no seizures, no tremors, no ataxia Physical Examination Vital signs: Vital Signs Pulse Resp Pulse Ox 84 18 95 04/30/18 17:18 04/30/18 17:18 04/30/18 17:18 GENERAL: well-developed and chronically ill looking lying on bed appeared to be in no discomfort. HEENT: Normocephalic. Atraumatic. No conjunctival congestion or icterus. Patient has moist mucous membranes. NECK: Supple. Trachea midline. CHEST/LUNGS: Decreased AE right lung field, posteriorly. No wheeze, no crackles, no rhonchi HEART/CARDIOVASCULAR: Regular in rate and rhythm. S1 and S2 positive. ABDOMEN: Abdomen is protuberant, non tender. Patient has normal bowel sounds. SKIN: There is no rash. Warm and dry. NEURO: No focal motor deficit. Follows commands. MUSCULOSKELETAL: No joint effusion or tenderness, s/p amputation trans- metartarsal right lower extremity Right forearm appears swollen PSYCH: Cooperative. Results - Laboratory Findings CBC and BMP: 04/30/18 18:02 05/03/18 05:46 PT/INR, D-dimer PT 12.7 Sec. (12.2-14.9) 04/30/18 18:02 INR 0.91 (0.87-1.13) 04/30/18 18:02 Abnormal lab findings: Abnormal Labs 04/30/18 04/30/18 04/30/18 18:02 18:02 18:02 RBC 3.49 L Hgb 9.9 L Hct 31.1 L Lymph % (Auto) 10.8 L [place] % (Auto) 7.6 H Lymph # 1.0 L Seg Neutrophils % 79.5 H BUN 33 H Creatinine 3.8 H Glucose 185 H POC Glucose Calcium 8.2 L Total Creatine Kinase 676 H Troponin T 0.114 H* NT-Pro-B Natriuret Pep 39042 H Total Protein 5.3 L Albumin 2.2 L Triglycerides 165 H Urine Creatinine Urine Total Protein 04/30/18 04/30/18 04/30/18 19:18 20:34 23:23 RBC Hgb Hct Lymph % (Auto) [place] % (Auto) Lymph # Seg Neutrophils % BUN Creatinine Glucose POC Glucose 115 H 106 H Calcium Total Creatine Kinase Troponin T 0.112 H* NT-Pro-B Natriuret Pep Total Protein Albumin Triglycerides Urine Creatinine Urine Total Protein 04/30/18 05/01/18 05/01/18 23:29 02:25 07:42 RBC Hgb Hct Lymph % (Auto) [place] % (Auto) Lymph # Seg Neutrophils % BUN 33 H Creatinine 3.3 H Glucose 106 H POC Glucose 142 H Calcium 8.3 L Total Creatine Kinase Troponin T 0.121 H* NT-Pro-B Natriuret Pep Total Protein Albumin Triglycerides Urine Creatinine Urine Total Protein 05/01/18 05/01/18 05/01/18 11:38 16:40 18:21 RBC Hgb Hct Lymph % (Auto) [place] % (Auto) Lymph # Seg Neutrophils % BUN Creatinine Glucose POC Glucose 225 H 197 H Calcium Total Creatine Kinase Troponin T NT-Pro-B Natriuret Pep Total Protein Albumin Triglycerides Urine Creatinine 84.6 H Urine Total Protein 872 H 05/01/18 05/02/18 05/02/18 21:05 05:18 05:49 RBC Hgb Hct Lymph % (Auto) [place] % (Auto) Lymph # Seg Neutrophils % BUN 33 H Creatinine 3.4 H Glucose 180 H POC Glucose 270 H 169 H Calcium 7.8 L Total Creatine Kinase Troponin T NT-Pro-B Natriuret Pep Total Protein Albumin Triglycerides Urine Creatinine Urine Total Protein 05/02/18 05/02/18 05/02/18 07:31 11:06 16:17 RBC Hgb Hct Lymph % (Auto) [place] % (Auto) Lymph # Seg Neutrophils % BUN Creatinine Glucose POC Glucose 118 H 257 H 164 H Calcium Total Creatine Kinase Troponin T NT-Pro-B Natriuret Pep Total Protein Albumin Triglycerides Urine Creatinine Urine Total Protein 05/02/18 05/02/18 05/03/18 21:07 22:43 05:46 RBC Hgb Hct Lymph % (Auto) [place] % (Auto) Lymph # Seg Neutrophils % BUN 36 H Creatinine 3.1 H Glucose POC Glucose 149 H 157 H Calcium 8.1 L Total Creatine Kinase Troponin T NT-Pro-B Natriuret Pep Total Protein 5.0 L Albumin 2.0 L Triglycerides Urine Creatinine Urine Total Protein 05/03/18 11:22 RBC Hgb Hct Lymph % (Auto) [place] % (Auto) Lymph # Seg Neutrophils % BUN Creatinine Glucose POC Glucose 143 H Calcium Total Creatine Kinase Troponin T NT-Pro-B Natriuret Pep Total Protein Albumin Triglycerides Urine Creatinine Urine Total Protein - Diagnostic Findings Chest x-ray: image reviewed (Right pleural effusion) Assessment and Plan 1. Recurrent right pleura effusion 2. Acute dyspnea/orthopnea 3. h/o Tobacco abuse disorder 40py history 4. CHF with acute exacerbation (50-55%,) 5. 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 DM type 2 7. Hypertension 8. Hyperlipidemia 9. PVD / s/p right foot/toes amputation - Supplemental oxygen as needed to keep O2 sats>90% -Diagnostic and therapeutic thoracentesis -Pleural fluid analysis including cytology. With his 40 year pack history, weight loss and recurrent pleural effusion evaluate for possible malignancy. Need for CT chest, without contrast to evaluate lung parenchyma post thoracentesis -Optimize heart failure therapies -VTE prophylaxis, hold for procedure Thank you for the consult. Discussed care plan extensively with the patient and answered all his questions at the bedside
--- NOTE | 2018-05-03 15:31 | Progress Note ---
Assessment and Plan Assessment and plan: --Acute hypoxic respiratory failure:Pulmonology following arnelley from right pleural effusion, , CT-guided thoracentesis tomorrow --Acute on chronic Diastolic CHF exacerbation Continue antiseizure medication, cardiology following --Chronic Elevated troponin; Continue current cardiac medications --HLD (hyperlipidemia); on statin --Hypertension; well controlled continue antihypertensives and when necessary medications --IDDM (insulin dependent diabetes mellitus); Uncontrolled/SSI/ADA diet/insulin --RIGO on CKD; nephrology following Creatinine trending down, avoid nephrotoxins --DVT prophylaxis :continue heparin Follow thoracentesis and fluid analysis Possible discharge in 1-2 days if stable History Interval history: Assessment seen and examined medical records reviewed No new events reported by the nursing Patient feels better Chest x-ray consistent with right pleural effusion Pulmonary following Scheduled for thoracentesis Hospitalist Physical - Constitutional Vitals: Temp Pulse Resp BP Pulse Ox 98.6 F 74 20 141/67 92 05/03/18 11:19 05/03/18 11:19 05/03/18 11:19 05/03/18 11:18 05/03/18 11:19 General appearance: Present: mild distress, well-nourished - EENT Eyes: Present: PERRL, EOM intact - Neck Neck: Present: supple, normal ROM - Respiratory Respiratory effort: normal Respiratory: bilateral: diminished (right more than left), rales, negative: rhonchi, wheezing - Cardiovascular Rhythm: regular Heart Sounds: Present: S1 & S2 - Extremities Extremities: no ischemia, No edema - Abdominal General gastrointestinal: soft, non-tender, non-distended, normal bowel sounds - Integumentary Integumentary: Present: clear, warm - Psychiatric Psychiatric: appropriate mood/affect, cooperative - Neurologic Neurologic: CNII-XII intact, moves all extremities Results - Labs CBC & Chem 7: 04/30/18 18:02 05/03/18 05:46 Labs: Laboratory Last Values WBC 9.5 K/mm3 (4.5-11.0) 04/30/18 18:02 RBC 3.49 M/mm3 (3.65-5.03) L 04/30/18 18:02 Hgb 9.9 gm/dl (11.8-15.2) L 04/30/18 18:02 Hct 31.1 % (35.5-45.6) L 04/30/18 18:02 MCV 89 fl (84-94) 04/30/18 18:02 MCH 28 pg (28-32) 04/30/18 18:02 MCHC 32 % (32-34) 04/30/18 18:02 RDW 14.5 % (13.2-15.2) 04/30/18 18:02 Plt Count 262 K/mm3 (140-440) 04/30/18 18:02 Lymph % (Auto) 10.8 % (13.4-35.0) L 04/30/18 18:02 [place] % (Auto) 7.6 % (0.0-7.3) H 04/30/18 18:02 Eos % (Auto) 1.2 % (0.0-4.3) 04/30/18 18:02 Baso % (Auto) 0.9 % (0.0-1.8) 04/30/18 18:02 Lymph # 1.0 K/mm3 (1.2-5.4) L 04/30/18 18:02 [place] # 0.7 K/mm3 (0.0-0.8) 04/30/18 18:02 Eos # 0.1 K/mm3 (0.0-0.4) 04/30/18 18:02 Baso # 0.1 K/mm3 (0.0-0.1) 04/30/18 18:02 Seg Neutrophils % 79.5 % (40.0-70.0) H 04/30/18 18:02 Seg Neutrophils # 7.6 K/mm3 (1.8-7.7) 04/30/18 18:02 PT 12.7 Sec. (12.2-14.9) 04/30/18 18:02 INR 0.91 (0.87-1.13) 04/30/18 18:02 APTT 24.6 Sec. (24.2-36.6) 04/30/18 18:02 Sodium 142 mmol/L (137-145) 05/03/18 05:46 Potassium 3.7 mmol/L (3.6-5.0) 05/03/18 05:46 Chloride 105.3 mmol/L (98-107) 05/03/18 05:46 Carbon Dioxide 28 mmol/L (22-30) 05/03/18 05:46 Anion Gap 12 mmol/L 05/03/18 05:46 BUN 36 mg/dL (9-20) H 05/03/18 05:46 Creatinine 3.1 mg/dL (0.8-1.5) H 05/03/18 05:46 Estimated GFR 25 ml/min 05/03/18 05:46 BUN/Creatinine Ratio 12 % 05/03/18 05:46 Glucose 79 mg/dL (75-100) 05/03/18 05:46 POC Glucose 143 (70-105) H 05/03/18 11:22 Calcium 8.1 mg/dL (8.4-10.2) L 05/03/18 05:46 Magnesium 1.90 mg/dL (1.7-2.3) 04/30/18 18:02 Total Bilirubin < 0.20 mg/dL (0.1-1.2) 05/03/18 05:46 Direct Bilirubin < 0.2 mg/dL (0-0.2) 04/30/18 18:02 Indirect Bilirubin 0.0 mg/dL 04/30/18 18:02 AST 33 units/L (5-40) 05/03/18 05:46 ALT 26 units/L (7-56) 05/03/18 05:46 Alkaline Phosphatase 83 units/L (35-129) 05/03/18 05:46 Total Creatine Kinase 676 units/L (55-170) H 04/30/18 18:02 Troponin T 0.121 ng/mL (0.00-0.029) H* 04/30/18 23:29 NT-Pro-B Natriuret Pep 95029 pg/mL (0-900) H 04/30/18 18:02 Total Protein 5.0 g/dL (6.3-8.2) L 05/03/18 05:46 Albumin 2.0 g/dL (3.9-5) L 05/03/18 05:46 Albumin/Globulin Ratio 0.7 % 05/03/18 05:46 Triglycerides 165 mg/dL (2-149) H 04/30/18 18:02 Cholesterol 168 mg/dL (50-199) 04/30/18 18:02 LDL Cholesterol Direct 100 mg/dL (50-130) 04/30/18 18:02 HDL Cholesterol 48 mg/dL (40-59) 04/30/18 18:02 Cholesterol/HDL Ratio 3.50 % 04/30/18 18:02 Urine Color Yellow (Yellow) 05/01/18 18:21 Urine Turbidity Clear (Clear) 05/01/18 18:21 Urine pH 7.0 (5.0-7.0) 05/01/18 18:21 Ur Specific [place] 1.015 (1.003-1.030) 05/01/18 18:21 Urine Protein >500 mg/dL (Negative) 05/01/18 18:21 Urine Glucose (UA) 150 mg/dL (Negative) 05/01/18 18:21 Urine Ketones Neg mg/dL (Negative) 05/01/18 18:21 Urine Blood Neg (Negative) 05/01/18 18:21 Urine Nitrite Neg (Negative) 05/01/18 18:21 Urine Bilirubin Neg (Negative) 05/01/18 18:21 Urine Urobilinogen < 2.0 mg/dL (<2.0) 05/01/18 18:21 Ur Leukocyte Esterase Neg (Negative) 05/01/18 18:21 Urine WBC (Auto) 2.0 /HPF (0.0-6.0) 05/01/18 18:21 Urine RBC (Auto) 5.0 /HPF (0.0-6.0) 05/01/18 18:21 Urine Creatinine 84.6 mg/dL (0.1-20.0) H 05/01/18 18:21 Protein/Creatinin Ratio 10.31 05/01/18 18:21 Urine Sodium 64 mmol/L 05/01/18 18:21 Urine Total Protein 872 mg/dL (5-11.8) H 05/01/18 18:21 Nutrition/Malnutrition Assess - Dietary Evaluation Nutrition/Malnutrition Findings: Nutrition Notes Start: 05/01/18 12:33 Freq: Status: Active Protocol: Document 05/01/18 12:33 RM (Rec: 05/01/18 12:34 RM [id number]) Nutrition Notes 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 Pt already familiar with diet. Nutrition Intervention Revisit per MD consult or patient Sign Off request:
[2018-05-03] MEDS: MORPHINE IV PRN (22:19)
[2018-05-03] MEDS: LANTUS SUB-Q SCH (22:20)
[2018-05-03] MEDS: SODIUM CHLORIDE FLUSH SYRINGE 10 ML IV PRN (22:21)
[2018-05-04 05:38] LABS: Alanine Aminotransferase 22 units/L (7-56); Albumin 1.8 g/dL (3.9-5); BUN/Creatinine Ratio 10; Blood Urea Nitrogen 33 mg/dL (9-20); Hemolysis Index 6
[2018-05-04] MEDS: APRESOLINE PO SCH ×3 (05:43→23:40)
--- NOTE | 2018-05-04 06:04 | Progress Note ---
Assessment and Plan 1. Recurrent right pleura effusion 2. Acute dyspnea/orthopnea 3. h/o Tobacco abuse disorder 40py history 4. CHF with acute exacerbation (50-55%,) 5. 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 DM type 2 7. Hypertension 8. Hyperlipidemia 9. PVD / s/p right foot/toes amputation - Supplemental oxygen as needed to keep O2 sats>90% -Diagnostic and therapeutic thoracentesis -Pleural fluid analysis including cytology. With his 40 year pack history, weight loss and recurrent pleural effusion evaluate for possible malignancy. Need for CT chest, without contrast to evaluate lung parenchyma post thoracentesis -Optimize heart failure therapies -VTE prophylaxis, hold for procedure Thank you for the consult. Discussed care plan extensively with the patient and answered all his questions at the bedside Subjective Date of service: 05/04/18 Principal diagnosis: acute on chronic diastolic HF, acute respr failure, recurrent Rt Pl. Effus Objective Vital Signs - 12hr 05/03/18 05/03/18 05/03/18 21:49 21:52 23:34 Temperature 98.6 F Pulse Rate 73 76 Respiratory 18 Rate Blood Pressure 168/95 155/77 O2 Sat by Pulse 95 91 Oximetry 05/04/18 05:28 Temperature 98.6 F Pulse Rate 74 Respiratory 18 Rate Blood Pressure 153/76 O2 Sat by Pulse 89 Oximetry CBC and BMP: 04/30/18 18:02 05/04/18 04:50 ABG, PT/INR, D-dimer: PT/INR, D-dimer PT 12.7 Sec. (12.2-14.9) 04/30/18 18:02 INR 0.91 (0.87-1.13) 04/30/18 18:02 Abnormal lab findings: Abnormal Labs 04/30/18 04/30/18 04/30/18 18:02 18:02 18:02 RBC 3.49 L Hgb 9.9 L Hct 31.1 L Lymph % (Auto) 10.8 L [place] % (Auto) 7.6 H Lymph # 1.0 L Seg Neutrophils % 79.5 H Chloride BUN 33 H Creatinine 3.8 H Glucose 185 H POC Glucose Calcium 8.2 L Total Creatine Kinase 676 H Troponin T 0.114 H* NT-Pro-B Natriuret Pep 41838 H Total Protein 5.3 L Albumin 2.2 L Triglycerides 165 H Urine Creatinine Urine Total Protein 12/24/18 12/24/18 12/24/18 19:18 20:34 23:23 RBC Hgb Hct Lymph % (Auto) [place] % (Auto) Lymph # Seg Neutrophils % Chloride BUN Creatinine Glucose POC Glucose 115 H 106 H Calcium Total Creatine Kinase Troponin T 0.112 H* NT-Pro-B Natriuret Pep Total Protein Albumin Triglycerides Urine Creatinine Urine Total Protein 04/30/18 05/01/18 05/01/18 23:29 02:25 07:42 RBC Hgb Hct Lymph % (Auto) [place] % (Auto) Lymph # Seg Neutrophils % Chloride BUN 33 H Creatinine 3.3 H Glucose 106 H POC Glucose 142 H Calcium 8.3 L Total Creatine Kinase Troponin T 0.121 H* NT-Pro-B Natriuret Pep Total Protein Albumin Triglycerides Urine Creatinine Urine Total Protein 05/01/18 05/01/18 05/01/18 11:38 16:40 18:21 RBC Hgb Hct Lymph % (Auto) [place] % (Auto) Lymph # Seg Neutrophils % Chloride BUN Creatinine Glucose POC Glucose 225 H 197 H Calcium Total Creatine Kinase Troponin T NT-Pro-B Natriuret Pep Total Protein Albumin Triglycerides Urine Creatinine 84.6 H Urine Total Protein 872 H 05/01/18 05/02/18 05/02/18 21:05 05:18 05:49 RBC Hgb Hct Lymph % (Auto) [place] % (Auto) Lymph # Seg Neutrophils % Chloride BUN 33 H Creatinine 3.4 H Glucose 180 H POC Glucose 270 H 169 H Calcium 7.8 L Total Creatine Kinase Troponin T NT-Pro-B Natriuret Pep Total Protein Albumin Triglycerides Urine Creatinine Urine Total Protein 05/02/18 05/02/18 05/02/18 07:31 11:06 16:17 RBC Hgb Hct Lymph % (Auto) [place] % (Auto) Lymph # Seg Neutrophils % Chloride BUN Creatinine Glucose POC Glucose 118 H 257 H 164 H Calcium Total Creatine Kinase Troponin T NT-Pro-B Natriuret Pep Total Protein Albumin Triglycerides Urine Creatinine Urine Total Protein 05/02/18 05/02/18 05/03/18 21:07 22:43 05:46 RBC Hgb Hct Lymph % (Auto) [place] % (Auto) Lymph # Seg Neutrophils % Chloride BUN 36 H Creatinine 3.1 H Glucose POC Glucose 149 H 157 H Calcium 8.1 L Total Creatine Kinase Troponin T NT-Pro-B Natriuret Pep Total Protein 5.0 L Albumin 2.0 L Triglycerides Urine Creatinine Urine Total Protein 05/03/18 05/03/18 05/04/18 11:22 20:49 04:50 RBC Hgb Hct Lymph % (Auto) [place] % (Auto) Lymph # Seg Neutrophils % Chloride 107.4 H BUN 33 H Creatinine 3.3 H Glucose POC Glucose 143 H 147 H Calcium 8.0 L Total Creatine Kinase Troponin T NT-Pro-B Natriuret Pep Total Protein 5.3 L Albumin 1.8 L Triglycerides Urine Creatinine Urine Total Protein
--- NOTE | 2018-05-04 08:11 | Progress Note ---
Assessment and Plan 1. Acute kidney injury: RIGO superimposed on CKD stage 4 in the setting of CHF exacerbation. Creatinine level is better, around his baseline. Monitor renal function. 2. FEN: Volume overload, improving. Continue Lasix. Counseled to limit fluid and salt intake. 3. CHF exacerbation. 4. DM-2 5. Proteinuria: Diabetic nephropathy. 6. Pleural effusion: Thoracentesis. Subjective Date of service: 05/04/18 Principal diagnosis: acute on chronic diastolic HF, acute respr failure, recurrent Rt Pl. Effus Interval history: Patient is feeling better. Objective - Vital Signs Vital signs: Vital Signs - 12hr 05/03/18 05/03/18 05/03/18 21:49 21:52 23:34 Temperature 98.6 F Pulse Rate 73 76 Respiratory 18 Rate Blood Pressure 168/95 155/77 Blood Pressure [Right] O2 Sat by Pulse 95 91 Oximetry 05/04/18 05/04/18 05:00 05:28 Temperature 98.6 F Pulse Rate 73 74 Respiratory 18 Rate Blood Pressure 153/76 Blood Pressure 147/75 [Right] O2 Sat by Pulse 89 Oximetry - General Appearance General appearance: well-developed, well-nourished, appears stated age, other (not in distress) EENT: ATNC, PERRL, mucous membranes moist, hearing intact, vision intact Neck: supple Respiratory: Present: Clear to Ascultation Cardiology: regular, S1S2, no murmurs Gastrointestinal: normoactive bowel sounds, no tenderness, no distended Integumentary: no rash, warm and dry Neurologic: no focal deficit, no asterixis, alert and oriented x3 Musculoskeletal: other (trace edema noted) Psychiatric: cooperative - Lab 04/30/18 18:02 05/04/18 04:50 Most recent lab results Calcium 8.0 mg/dL (8.4-10.2) L 05/04/18 04:50 Magnesium 1.90 mg/dL (1.7-2.3) 04/30/18 18:02 Urine Creatinine 84.6 mg/dL (0.1-20.0) H 05/01/18 18:21 Urine Sodium 64 mmol/L 05/01/18 18:21 Urine Total Protein 872 mg/dL (5-11.8) H 05/01/18 18:21 Medications & Allergies - Medications Allergies/Adverse Reactions: Allergies No Known Allergies Allergy (Verified 11/01/13 07:35) Home Medications: Home Medications Medication Instructions Recorded Confirmed Last Taken Type Insulin Glargine [Lantus VIAL] 20 units SUB-Q QHS 30 Days #30 01/30/18 05/01/18 04/30/18 Rx units Aspirin [Aspirin BABY CHEW TAB] 81 mg PO QDAY #30 tab.chew 04/17/18 05/01/18 04/30/18 Rx AtorvaSTATin [Lipitor] 40 mg PO QHS #60 tablet 04/17/18 05/01/18 04/30/18 Rx Famotidine [Pepcid] 20 mg PO BID #60 tablet 04/17/18 05/01/18 04/30/18 Rx Furosemide [Lasix TAB] 40 mg PO BID #60 tablet 04/17/18 05/01/18 04/30/18 Rx ISOSORBIDE MONOnitrate [Imdur ER] 60 mg PO QDAY #30 tablet 04/17/18 05/01/18 04/30/18 Rx Metoprolol [Lopressor TAB] 100 mg PO BID #60 tablet 04/17/18 05/01/18 04/30/18 Rx amLODIPine [Norvasc] 10 mg PO DAILY #30 tablet 04/17/18 05/01/18 04/30/18 Rx hydrALAZINE [Apresoline TAB] 100 mg PO Q8HR #90 tab 04/17/18 05/01/18 04/30/18 Rx oxyCODONE /ACETAMINOPHEN [Percocet 1 tab PO Q6H PRN #12 tablet 04/17/18 05/01/18 04/30/18 Rx 5/325 mg] Active Medications: Generic Name Dose Route Start Last Admin Trade Name Freq PRN Reason Stop Dose Admin Albuterol 2.5 mg 04/30/18 22:10 Proventil IH Q4HRT PRN Shortness Of Breath Alprazolam 0.125 mg 04/30/18 22:10 05/01/18 22:38 Xanax PO 0.125 mg Q8H PRN Administration Agitation Amlodipine Besylate 10 mg 05/01/18 10:00 05/03/18 10:20 Norvasc PO 10 mg DAILY RADHA Administration Aspirin 81 mg 05/01/18 10:00 05/03/18 10:20 Baby Aspirin PO 81 mg QDAY RADHA Administration Atorvastatin Calcium 80 mg 05/01/18 22:00 05/03/18 21:49 Lipitor PO 80 mg QHS [facility] Administration Dextrose 50 ml 04/30/18 22:10 D50w (25gm) Syringe IV PRN PRN Hypoglycemia Famotidine 10 mg 05/01/18 10:00 05/03/18 21:49 Pepcid PO 10 mg BID RADHA Administration Furosemide 40 mg 05/01/18 10:00 05/03/18 21:50 Lasix PO 40 mg BID RADHA Administration Heparin Sodium (Porcine) 5,000 unit 05/01/18 22:00 05/03/18 21:50 Heparin SUB-Q 5,000 unit Q12HR RADHA Administration Hydralazine HCl 100 mg 05/01/18 06:00 05/04/18 05:43 Apresoline PO 100 mg Q8HR RADHA Administration Insulin Glargine 20 units 05/01/18 22:00 05/03/18 22:20 Lantus SUB-Q 20 units QHS [facility] Administration Insulin Human Regular 0 units 05/01/18 07:30 05/03/18 22:48 Humulin R SUB-Q Not Given ACHS [facility] Protocol Isosorbide Mononitrate 60 mg 05/01/18 10:00 05/03/18 10:20 Imdur PO 60 mg QDAY [facility] Administration Lisinopril 2.5 mg 05/01/18 10:00 05/01/18 09:11 Zestril PO 2.5 mg BID RADHA Administration Lisinopril 10 mg 05/02/18 10:00 05/03/18 10:20 Zestril PO 10 mg QDAY [facility] Administration Metoprolol Tartrate 100 mg 05/01/18 10:00 05/03/18 21:49 Lopressor PO 100 mg BID [facility] Administration Morphine Sulfate 2 mg 04/30/18 22:10 05/03/18 22:19 Morphine IV 2 mg Q4H PRN Administration Pain, Moderate (4-6) Ondansetron HCl 4 mg 04/30/18 22:10 Zofran IV Q8H PRN Nausea And Vomiting Oxycodone/Acetaminophen 1 tab 05/01/18 02:03 05/02/18 14:16 Percocet 5/325 PO 1 tab Q6H PRN Administration Pain, Moderate (4-6) Sodium Chloride 10 ml 05/01/18 10:00 05/03/18 21:49 Sodium Chloride Flush Syringe 10 Ml IV 10 ml BID RADHA Administration Sodium Chloride 10 ml 04/30/18 22:10 05/03/18 22:21 Sodium Chloride Flush Syringe 10 Ml IV 10 ml PRN PRN Administration LINE FLUSH
[2018-05-04] MEDS: HumuLIN R SUB-Q SCH ×4 (08:55→23:35)
[2018-05-04] MEDS ORDERED: XYLOCAINE 1% 20 mL ONE (09:51)
--- NOTE | 2018-05-04 10:20 | Progress Note ---
Assessment and Plan Assessment and plan: --Acute hypoxic respiratory failure:Pulmonology following chris from right pleural effusion, , CT-guided thoracentesis today --Acute on chronic Diastolic CHF exacerbation Continue antiseizure medication, cardiology following --Chronic Elevated troponin; Continue current cardiac medications --HLD (hyperlipidemia); on statin --Hypertension; well controlled continue antihypertensives and when necessary medications --IDDM (insulin dependent diabetes mellitus); Uncontrolled/SSI/ADA diet/insulin --RIGO on CKD; nephrology following Creatinine trending down, avoid nephrotoxins --DVT prophylaxis :continue heparin Follow thoracentesis and fluid analysis Possible discharge in 1-2 days if stable History Interval history: Patient seen and examined medical records reviewed Schedule for thoracentesis today Mild shortness of breath Vital signs noted Hospitalist Physical - Constitutional Vitals: Temp Pulse Resp BP Pulse Ox 98.6 F 74 18 153/76 89 05/04/18 05:28 05/04/18 05:28 05/04/18 05:28 05/04/18 05:28 05/04/18 05:28 General appearance: Present: mild distress, well-nourished - EENT Eyes: Present: PERRL, EOM intact - Neck Neck: Present: supple, normal ROM - Respiratory Respiratory effort: normal Respiratory: bilateral: diminished (right more than left), rales, negative: rhonchi, wheezing - Cardiovascular Rhythm: regular Heart Sounds: Present: S1 & S2 - Extremities Extremities: no ischemia, No edema Peripheral Pulses: within normal limits - Abdominal General gastrointestinal: soft, non-tender, non-distended, normal bowel sounds - Integumentary Integumentary: Present: clear, warm - Psychiatric Psychiatric: appropriate mood/affect, cooperative - Neurologic Neurologic: CNII-XII intact, moves all extremities Results - Labs CBC & Chem 7: 04/30/18 18:02 05/04/18 04:50 Labs: Laboratory Last Values WBC 9.5 K/mm3 (4.5-11.0) 04/30/18 18:02 RBC 3.49 M/mm3 (3.65-5.03) L 04/30/18 18:02 Hgb 9.9 gm/dl (11.8-15.2) L 04/30/18 18:02 Hct 31.1 % (35.5-45.6) L 04/30/18 18:02 MCV 89 fl (84-94) 04/30/18 18:02 MCH 28 pg (28-32) 04/30/18 18:02 MCHC 32 % (32-34) 04/30/18 18:02 RDW 14.5 % (13.2-15.2) 04/30/18 18:02 Plt Count 262 K/mm3 (140-440) 04/30/18 18:02 Lymph % (Auto) 10.8 % (13.4-35.0) L 04/30/18 18:02 [place] % (Auto) 7.6 % (0.0-7.3) H 04/30/18 18:02 Eos % (Auto) 1.2 % (0.0-4.3) 04/30/18 18:02 Baso % (Auto) 0.9 % (0.0-1.8) 04/30/18 18:02 Lymph # 1.0 K/mm3 (1.2-5.4) L 04/30/18 18:02 [place] # 0.7 K/mm3 (0.0-0.8) 04/30/18 18:02 Eos # 0.1 K/mm3 (0.0-0.4) 04/30/18 18:02 Baso # 0.1 K/mm3 (0.0-0.1) 04/30/18 18:02 Seg Neutrophils % 79.5 % (40.0-70.0) H 04/30/18 18:02 Seg Neutrophils # 7.6 K/mm3 (1.8-7.7) 04/30/18 18:02 PT 12.7 Sec. (12.2-14.9) 04/30/18 18:02 INR 0.91 (0.87-1.13) 04/30/18 18:02 APTT 24.6 Sec. (24.2-36.6) 04/30/18 18:02 Sodium 145 mmol/L (137-145) 05/04/18 04:50 Potassium 4.0 mmol/L (3.6-5.0) 05/04/18 04:50 Chloride 107.4 mmol/L (98-107) H 05/04/18 04:50 Carbon Dioxide 30 mmol/L (22-30) 05/04/18 04:50 Anion Gap 12 mmol/L 05/04/18 04:50 BUN 33 mg/dL (9-20) H 05/04/18 04:50 Creatinine 3.3 mg/dL (0.8-1.5) H 05/04/18 04:50 Estimated GFR 24 ml/min 05/04/18 04:50 BUN/Creatinine Ratio 10 % 05/04/18 04:50 Glucose 86 mg/dL (75-100) 05/04/18 04:50 POC Glucose 79 (70-105) 05/04/18 07:44 Calcium 8.0 mg/dL (8.4-10.2) L 05/04/18 04:50 Magnesium 1.90 mg/dL (1.7-2.3) 04/30/18 18:02 Total Bilirubin < 0.20 mg/dL (0.1-1.2) 05/04/18 04:50 Direct Bilirubin < 0.2 mg/dL (0-0.2) 04/30/18 18:02 Indirect Bilirubin 0.0 mg/dL 04/30/18 18:02 AST 34 units/L (5-40) 05/04/18 04:50 ALT 22 units/L (7-56) 05/04/18 04:50 Alkaline Phosphatase 81 units/L (35-129) 05/04/18 04:50 Total Creatine Kinase 676 units/L (55-170) H 04/30/18 18:02 Troponin T 0.121 ng/mL (0.00-0.029) H* 04/30/18 23:29 NT-Pro-B Natriuret Pep 41368 pg/mL (0-900) H 04/30/18 18:02 Total Protein 5.3 g/dL (6.3-8.2) L 05/04/18 04:50 Albumin 1.8 g/dL (3.9-5) L 05/04/18 04:50 Albumin/Globulin Ratio 0.5 % 05/04/18 04:50 Triglycerides 165 mg/dL (2-149) H 04/30/18 18:02 Cholesterol 168 mg/dL (50-199) 04/30/18 18:02 LDL Cholesterol Direct 100 mg/dL (50-130) 04/30/18 18:02 HDL Cholesterol 48 mg/dL (40-59) 04/30/18 18:02 Cholesterol/HDL Ratio 3.50 % 04/30/18 18:02 Urine Color Yellow (Yellow) 05/01/18 18:21 Urine Turbidity Clear (Clear) 05/01/18 18:21 Urine pH 7.0 (5.0-7.0) 05/01/18 18:21 Ur Specific [place] 1.015 (1.003-1.030) 05/01/18 18:21 Urine Protein >500 mg/dL (Negative) 05/01/18 18:21 Urine Glucose (UA) 150 mg/dL (Negative) 05/01/18 18:21 Urine Ketones Neg mg/dL (Negative) 05/01/18 18:21 Urine Blood Neg (Negative) 05/01/18 18:21 Urine Nitrite Neg (Negative) 05/01/18 18:21 Urine Bilirubin Neg (Negative) 05/01/18 18:21 Urine Urobilinogen < 2.0 mg/dL (<2.0) 05/01/18 18:21 Ur Leukocyte Esterase Neg (Negative) 05/01/18 18:21 Urine WBC (Auto) 2.0 /HPF (0.0-6.0) 05/01/18 18:21 Urine RBC (Auto) 5.0 /HPF (0.0-6.0) 05/01/18 18:21 Urine Creatinine 84.6 mg/dL (0.1-20.0) H 05/01/18 18:21 Protein/Creatinin Ratio 10.31 05/01/18 18:21 Urine Sodium 64 mmol/L 05/01/18 18:21 Urine Total Protein 872 mg/dL (5-11.8) H 05/01/18 18:21 Nutrition/Malnutrition Assess - Dietary Evaluation Nutrition/Malnutrition Findings: Nutrition Notes Start: 05/01/18 12:33 Freq: Status: Active Protocol: Document 05/01/18 12:33 RM (Rec: 05/01/18 12:34 RM [id number]) 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 Pt already familiar with diet. Nutrition Intervention Revisit per MD consult or patient Sign Off request:
--- NOTE | 2018-05-04 10:40 | Procedure Note ---
Date of procedure: 05/04/18 Pre-op diagnosis: pleural effusion Post-op diagnosis: same Procedure: US thoracentesis Findings: mod to large pleural fluid Anesthesia: local Surgeon: CAROLYN LEWIS Estimated blood loss: none Pathology: list (120cc) Specimen disposition: to lab Condition: stable Disposition: floor
--- NOTE | 2018-05-04 11:25 | Ultrasound Report ---
ULTRASOUND THORACENTESIS History: Right pleural effusion Description of procedure: Informed consent was obtained. Sterile technique was utilized. 1% lidocaine for skin anesthesia. Using ultrasound guidance, a 5 [place] centesis needle was advanced into the right pleural space. There was spontaneous return of clear fluid. 1.6 L of fluid was aspirated. 120 cc of fluid was sent to lab for analysis. No complications. Impression: Successful ultrasound-guided right thoracentesis.
[2018-05-04 11:28] LABS: Total Cells Counted 100 /mm3
--- NOTE | 2018-05-04 11:29 | Progress Note ---
Assessment and Plan Overall patient appears to be doing better today. He had the thoracentesis. Currently cardiac status is stable. Continue current management. He is probably close to baseline and discharge plans according to Dr. Mcgovern. - Patient Problems (1) Acute exacerbation of CHF (congestive heart failure) Current Visit: No Status: Acute Qualifiers: Heart failure type: diastolic Qualified Code(s): I50.33 - Acute on chronic diastolic (congestive) heart failure (2) Acute kidney injury superimposed on chronic kidney disease Current Visit: No Status: Acute (3) Acute on chronic HFrEF (heart failure with reduced ejection fraction) Current Visit: No Status: Acute (4) Elevated troponin Current Visit: No Status: Acute (5) Uncontrolled hypertension Current Visit: No Status: Acute (6) Diabetes Current Visit: No Status: Chronic (7) HLD (hyperlipidemia) Current Visit: No Status: Chronic Qualifiers: Hyperlipidemia type: mixed hyperlipidemia Qualified Code(s): E78.2 - Mixed hyperlipidemia Subjective Date of service: 05/04/18 Principal diagnosis: acute on chronic diastolic HF, acute respr failure, recurrent Rt Pl. Effus Interval history: Patient is feeling much better today. He just returned from having thoracentesis for his large pleural effusion. Does not appear to have had any complications from the procedure. Family in the room today. Objective Vital Signs Temp Pulse Pulse Resp BP BP Pulse Ox 05/04/18 10:52 96 05/04/18 05:28 98.6 F 74 18 153/76 89 05/04/18 05:00 73 147/75 05/03/18 23:34 98.6 F 76 18 155/77 91 05/03/18 21:52 95 05/03/18 21:49 73 168/95 05/03/18 20:00 76 18 91 05/03/18 17:26 98.2 F 71 20 166/91 98 - Physical Examination General: No Apparent Distress HEENT: Positive: PERRL, Normocephaly, Mucus Membranes Moist Neck: Positive: neck supple, trachea midline Cardiac: Positive: Reg Rate and Rhythm Lungs: Positive: Decreased Breath Sounds (both bases) Neuro: Positive: Grossly Intact Abdomen: Positive: Soft. Negative: Tender Extremities: Absent: edema - Labs and Meds Cardiac Enzymes 05/04/18 Range/Units 04:50 AST 34 (5-40) units/L Comprehensive Metabolic Panel 05/04/18 Range/Units 04:50 Sodium 145 (137-145) mmol/L Potassium 4.0 (3.6-5.0) mmol/L Chloride 107.4 H (98-107) mmol/L Carbon Dioxide 30 (22-30) mmol/L BUN 33 H (9-20) mg/dL Creatinine 3.3 H (0.8-1.5) mg/dL Glucose 86 (75-100) mg/dL Calcium 8.0 L (8.4-10.2) mg/dL AST 34 (5-40) units/L ALT 22 (7-56) units/L Alkaline Phosphatase 81 (35-129) units/L Total Protein 5.3 L (6.3-8.2) g/dL Albumin 1.8 L (3.9-5) g/dL
[2018-05-04] MEDS: NORVASC PO SCH (11:56)
[2018-05-04] MEDS: PEPCID PO SCH ×2 (11:56→23:40)
[2018-05-04] MEDS: LOPRESSOR PO SCH ×2 (11:57→23:40)
[2018-05-04] MEDS: ZESTRIL PO SCH (11:57)
[2018-05-04] MEDS: BABY ASPIRIN PO SCH (11:58)
[2018-05-04] MEDS: LASIX PO SCH ×2 (11:58→23:41)
[2018-05-04] MEDS: IMDUR PO SCH (11:59)
[2018-05-04] MEDS: HEPARIN SUB-Q SCH ×2 (11:59→23:37)
[2018-05-04] MEDS: SODIUM CHLORIDE FLUSH SYRINGE 10 ML IV SCH ×2 (12:00→23:39)
--- NOTE | 2018-05-04 12:51 | XRay Report ---
AP CHEST: HISTORY: Short of breath, recent thoracentesis Reason ultrasound guided right thoracentesis was performed. Near-complete evacuation of the right pleural fluid is demonstrated. There is mild residual infiltrate at the right lung base. The left lung is clear. No pneumothorax is visualized. Heart size is within normal limits. IMPRESSION: No evidence for pneumothorax.
[2018-05-04] MEDS: PERCOCET 5/325 PO PRN (14:57)
[2018-05-04] MEDS: LANTUS SUB-Q SCH (23:36)
[2018-05-05 06:00] LABS: Basophils # (Auto) 0.1 K/mm3 (0.0-0.1); Basophils % (Auto) 0.9 % (0.0-1.8); Eosinophils # (Auto) 0.2 K/mm3 (0.0-0.4); Hematocrit 28.9 % (35.5-45.6); Hemoglobin 9.4 gm/dl (11.8-15.2); Lymphocytes # (Auto) 2.2 K/mm3 (1.2-5.4); Mean Corpuscular HGB Conc 32 % (32-34); Mean Corpuscular Hemoglobin 29 pg (28-32); Mean Corpuscular Volume 89 fl (84-94); Monocytes # (Auto) 0.6 K/mm3 (0.0-0.8); Platelet Count 239 K/mm3 (140-440); Red Blood Count 3.27 M/mm3 (3.65-5.03); Red Cell Distribution Width 14.4 % (13.2-15.2)
[2018-05-05 06:29] LABS: Alanine Aminotransferase 20 units/L (7-56); Albumin 1.9 g/dL (3.9-5); BUN/Creatinine Ratio 12; Blood Urea Nitrogen 36 mg/dL (9-20); Calcium 7.9 mg/dL (8.4-10.2); Hemolysis Index 17
[2018-05-05] MEDS: APRESOLINE PO SCH (06:46)
[2018-05-05 06:50] VITALS: BP 145/81
--- NOTE | 2018-05-05 10:03 | Progress Note ---
Assessment and Plan Acute on chronic diastolic heart failure Acute respiratory failure Non-ST elevation MS type II Acute on chronic renal failure Hypertension Pleural effusion Hyperlipidemia Recommend patient feels better after thoracentesis sob has resolved continue diuretics as per renal continue BP control beta rafael and hydralazine may be discharged from [facility] point of view and urge patient compliance with medications and follow-up Subjective Date of service: 05/05/18 Principal diagnosis: acute on chronic diastolic HF, acute respr failure, recurrent Rt Pl. Effus Interval history: Patient lying in bed no chest pain shortness of breath Objective Vital Signs Temp Pulse Pulse Resp BP BP Pulse Ox 05/05/18 06:49 69 145/81 05/05/18 05:07 98.1 F 71 16 144/67 96 05/04/18 23:40 69 137/83 05/04/18 23:12 98.1 F 76 16 149/84 93 05/04/18 23:07 97 05/04/18 20:00 76 16 93 05/04/18 16:42 98.5 F 74 20 130/66 96 05/04/18 14:55 98.0 F 76 18 127/65 90 05/04/18 11:59 78 156/86 05/04/18 11:57 78 156/86 05/04/18 11:56 78 156/86 05/04/18 11:53 98.2 F 77 20 156/86 96 05/04/18 10:52 96 - Physical Examination General: No Apparent Distress HEENT: Positive: PERRL, Normocephaly, Mucus Membranes Moist Neck: Positive: neck supple, trachea midline Cardiac: Positive: Reg Rate and Rhythm Lungs: Positive: Decreased Breath Sounds (left side) Neuro: Positive: Grossly Intact Abdomen: Positive: Soft. Negative: Tender Extremities: Absent: edema - Labs and Meds Cardiac Enzymes 05/05/18 Range/Units 05:25 AST 29 (5-40) units/L CBC 05/05/18 Range/Units 05:25 WBC 8.0 (4.5-11.0) K/mm3 RBC 3.27 L (3.65-5.03) M/mm3 Hgb 9.4 L (11.8-15.2) gm/dl Hct 28.9 L (35.5-45.6) % Plt Count 239 (140-440) K/mm3 Lymph # 2.2 (1.2-5.4) K/mm3 [place] # 0.6 (0.0-0.8) K/mm3 Eos # 0.2 (0.0-0.4) K/mm3 Baso # 0.1 (0.0-0.1) K/mm3 Comprehensive Metabolic Panel 05/05/18 Range/Units 05:25 Sodium 143 (137-145) mmol/L Potassium 3.7 (3.6-5.0) mmol/L Chloride 105.3 (98-107) mmol/L Carbon Dioxide 29 (22-30) mmol/L BUN 36 H (9-20) mg/dL Creatinine 3.1 H (0.8-1.5) mg/dL Glucose 97 (75-100) mg/dL Calcium 7.9 L (8.4-10.2) mg/dL AST 29 (5-40) units/L ALT 20 (7-56) units/L Alkaline Phosphatase 79 (35-129) units/L Total Protein 4.7 L (6.3-8.2) g/dL Albumin 1.9 L (3.9-5) g/dL - Imaging and Cardiology Pharmacologic stress test: report reviewed (02/2018 no significant ischemia) Echo: report reviewed (02/2018 normal LV function mild mitral rotation mild tricuspid regurgitation normal RVSP impaired relaxation pattern) - Telemetry EKG Rhythm: Sinus Rhythm
[2018-05-05] MEDS: NORVASC PO SCH (10:04)
[2018-05-05] MEDS: LOPRESSOR PO SCH (10:06)
--- NOTE | 2018-05-05 10:15 | Progress Note ---
Assessment and Plan 1. Acute kidney injury: RIGO superimposed on CKD stage 4 in the setting of CHF exacerbation. Creatinine level is better, around his baseline. Monitor renal function. 2. FEN: Volume overload, improved. Continue Lasix. Counseled to limit fluid and salt intake. 3. CHF exacerbation. 4. DM-2 5. Proteinuria: Diabetic nephropathy. 6. Pleural effusion: S/p Thoracentesis. F/u with me in 1-2 weeks. Subjective Date of service: 05/05/18 Principal diagnosis: acute on chronic diastolic HF, acute respr failure, recurrent Rt Pl. Effus Interval history: Patient is feeling better. Objective - Vital Signs Vital signs: Vital Signs - 12hr 05/04/18 05/04/18 05/04/18 23:07 23:12 23:40 Temperature 98.1 F Pulse Rate 76 69 Respiratory 16 Rate Blood Pressure 149/84 137/83 Blood Pressure [Right] O2 Sat by Pulse 97 93 Oximetry 05/05/18 05/05/18 05:07 06:49 Temperature 98.1 F Pulse Rate 71 69 Respiratory 16 Rate Blood Pressure 144/67 Blood Pressure 145/81 [Right] O2 Sat by Pulse 96 Oximetry - General Appearance General appearance: well-developed, well-nourished, appears stated age, other (not in distress) EENT: ATNC, PERRL, mucous membranes moist, hearing intact, vision intact Neck: supple Respiratory: Present: Clear to Ascultation Cardiology: regular, S1S2, no murmurs Gastrointestinal: normoactive bowel sounds, no tenderness, no distended Integumentary: no rash, warm and dry Neurologic: no focal deficit, no asterixis, alert and oriented x3 Musculoskeletal: other (no edema) - Lab 05/05/18 05:25 05/05/18 05:25 Most recent lab results Calcium 7.9 mg/dL (8.4-10.2) L 05/05/18 05:25 Magnesium 1.90 mg/dL (1.7-2.3) 04/30/18 18:02 Urine Creatinine 84.6 mg/dL (0.1-20.0) H 05/01/18 18:21 Urine Sodium 64 mmol/L 05/01/18 18:21 Urine Total Protein 872 mg/dL (5-11.8) H 05/01/18 18:21 Medications & Allergies - Medications Allergies/Adverse Reactions: Allergies No Known Allergies Allergy (Verified 11/01/13 07:35) Home Medications: Home Medications Medication Instructions Recorded Confirmed Last Taken Type Insulin Glargine [Lantus VIAL] 20 units SUB-Q QHS 30 Days #30 01/30/18 05/01/18 04/30/18 Rx units Aspirin [Aspirin BABY CHEW TAB] 81 mg PO QDAY #30 tab.chew 04/17/18 05/01/18 04/30/18 Rx AtorvaSTATin [Lipitor] 40 mg PO QHS #60 tablet 04/17/18 05/01/18 04/30/18 Rx Famotidine [Pepcid] 20 mg PO BID #60 tablet 04/17/18 05/01/18 04/30/18 Rx Furosemide [Lasix TAB] 40 mg PO BID #60 tablet 04/17/18 05/01/18 04/30/18 Rx ISOSORBIDE MONOnitrate [Imdur ER] 60 mg PO QDAY #30 tablet 04/17/18 05/01/18 04/30/18 Rx Metoprolol [Lopressor TAB] 100 mg PO BID #60 tablet 04/17/18 05/01/18 04/30/18 Rx amLODIPine [Norvasc] 10 mg PO DAILY #30 tablet 04/17/18 05/01/18 04/30/18 Rx hydrALAZINE [Apresoline TAB] 100 mg PO Q8HR #90 tab 04/17/18 05/01/18 04/30/18 Rx ALBUTEROL Inhaler(NF) [VENTOLIN 2 puff IH Q1D PRN #1 inha 05/05/18 Unknown Rx Inhaler(NF)] Lisinopril [Zestril TAB] 10 mg PO QDAY #30 tablet 05/05/18 Unknown Rx oxyCODONE /ACETAMINOPHEN [Percocet 1 tab PO Q6H PRN #12 tablet 05/05/18 Unknown Rx 5/325 mg] Active Medications: Generic Name Dose Route Start Last Admin Trade Name Freq PRN Reason Stop Dose Admin Albuterol 2.5 mg 04/30/18 22:10 Proventil IH Q4HRT PRN Shortness Of Breath Alprazolam 0.125 mg 04/30/18 22:10 05/01/18 22:38 Xanax PO 0.125 mg Q8H PRN Administration Agitation Amlodipine Besylate 10 mg 05/01/18 10:00 05/04/18 11:56 Norvasc PO 10 mg DAILY RADHA Administration Aspirin 81 mg 05/01/18 10:00 05/04/18 11:58 Baby Aspirin PO 81 mg QDAY RADHA Administration Atorvastatin Calcium 80 mg 05/01/18 22:00 05/04/18 23:39 Lipitor PO 80 mg QHS RADHA Administration Dextrose 50 ml 04/30/18 22:10 D50w (25gm) Syringe IV PRN PRN Hypoglycemia Famotidine 10 mg 05/01/18 10:00 05/04/18 23:40 Pepcid PO 10 mg BID RADHA Administration Furosemide 40 mg 05/01/18 10:00 05/04/18 23:41 Lasix PO 40 mg BID RADHA Administration Heparin Sodium (Porcine) 5,000 unit 05/01/18 22:00 05/04/18 23:37 Heparin SUB-Q 5,000 unit Q12HR RADHA Administration Hydralazine HCl 100 mg 05/01/18 06:00 05/05/18 06:46 Apresoline PO 100 mg Q8HR RADHA Administration Insulin Glargine 20 units 05/01/18 22:00 05/04/18 23:36 Lantus SUB-Q 20 units QHS RADHA Administration Insulin Human Regular 0 units 05/01/18 07:30 05/04/18 23:35 Humulin R SUB-Q 2 units ACHS RADHA Administration Protocol Isosorbide Mononitrate 60 mg 05/01/18 10:00 05/04/18 11:59 Imdur PO 60 mg QDAY RADHA Administration Lisinopril 10 mg 05/02/18 10:00 05/04/18 11:57 Zestril PO 10 mg QDAY RADHA Administration Metoprolol Tartrate 100 mg 05/01/18 10:00 05/04/18 23:40 Lopressor PO 100 mg BID RADHA Administration Morphine Sulfate 2 mg 04/30/18 22:10 05/03/18 22:19 Morphine IV 2 mg Q4H PRN Administration Pain, Moderate (4-6) Ondansetron HCl 4 mg 04/30/18 22:10 Zofran IV Q8H PRN Nausea And Vomiting Oxycodone/Acetaminophen 1 tab 05/01/18 02:03 05/04/18 14:57 Percocet 5/325 PO 1 tab Q6H PRN Administration Pain, Moderate (4-6) Sodium Chloride 10 ml 05/01/18 10:00 05/04/18 23:39 Sodium Chloride Flush Syringe 10 Ml IV 10 ml BID RADHA Administration Sodium Chloride 10 ml 04/30/18 22:10 05/03/18 22:21 Sodium Chloride Flush Syringe 10 Ml IV 10 ml PRN PRN Administration LINE FLUSH
[2018-05-05] MEDS: BABY ASPIRIN PO SCH (11:03)
[2018-05-05] MEDS: HEPARIN SUB-Q SCH (11:03)
[2018-05-05] MEDS: PEPCID PO SCH (11:03)
[2018-05-05] MEDS: LASIX PO SCH (11:03)
[2018-05-05] MEDS: IMDUR PO SCH (11:04)
[2018-05-05] MEDS: ZESTRIL PO SCH (11:04)
[2018-05-05] MEDS: HumuLIN R SUB-Q SCH (15:06)
--- NOTE | 2018-05-05 15:18 | Discharge Summary ---
Providers - Providers Date of Admission: 04/30/18 20:11 Date of discharge: 05/05/18 Attending physician: JAMAL POOL 05/01/18 02:00 Consult to Cardiology [CONS] Routine Consulting Provider: MEGAN BARROSO Reason For Exam: elevated troponin 05/01/18 10:53 Consult to Physician [CONS] Routine Comment: Consulting Provider: MARGE HENAO Physician Instructions: Reason For Exam: mihai on ckd 05/02/18 18:26 Consult to Physician [CONS] Routine Comment: Consulting Provider: JASON RAY Physician Instructions: Reason For Exam: acute Hypoxic respr failure, rec. rt pl Effusion 05/04/18 10:19 Consult to Dietitian/Nutrition [CONS] Routine Physician Instructions: Reason For Exam: Reason for Consult: Malnutrition Primary care physician: BIOLOGIST AIDE Hospitalization Condition: Fair Disposition: DC-01 TO HOME OR SELFCARE Time spent for discharge: 32 min Core Measure Documentation - Palliative Care Palliative Care/ Comfort Measures: Not Applicable - Core Measures Any of the following diagnoses?: none Exam - Constitutional Vitals: Temp Pulse Resp BP Pulse Ox 98.1 F 69 16 145/81 96 05/05/18 05:07 05/05/18 06:49 05/05/18 05:07 05/05/18 06:49 05/05/18 05:07 General appearance: Present: no acute distress, well-nourished - EENT Eyes: Present: PERRL, EOM intact - Neck Neck: Present: supple, normal ROM - Respiratory Respiratory effort: normal Respiratory: bilateral: diminished, negative: rales, rhonchi, wheezing - Cardiovascular Rhythm: regular Heart Sounds: Present: S1 & S2 - Extremities Extremities: no ischemia, No edema - Abdominal General gastrointestinal: Present: soft, non-tender, non-distended, normal bowel sounds - Integumentary Integumentary: Present: clear, warm - Musculoskeletal Musculoskeletal: strength equal bilaterally - Psychiatric Psychiatric: appropriate mood/affect, cooperative - Neurologic Neurologic: CNII-XII intact, moves all extremities Plan Activity: no restrictions Diet: diabetic, other (cardiac diet) Follow up with: HUDSON WOOD MD [Primary Care Provider] - 3-5 Days ANTHONY COX MD [Staff Physician] - 7 Days MARGE HENAO MD [Staff Physician] - 7 Days JASON RAY MD [Staff Physician] - 7 Days Prescriptions: ALBUTEROL Inhaler(NF) [VENTOLIN Inhaler(NF)] 2 puff IH Q1D PRN #1 inha PRN Reason: Shortness Of Breath Lisinopril [Zestril TAB] 10 mg PO QDAY #30 tablet oxyCODONE /ACETAMINOPHEN [Percocet 5/325 mg] 1 tab PO Q6H PRN #12 tablet PRN Reason: Pain, Moderate (4-6)
[2018-05-07 08:51] LABS: Cholesterol,Body Fluid 17; LDH,Body Fluid 105
== END 2018-05-05 16:48 | disposition home or self-care (01) | DRG 280 ==
LOC: ED 17:13 → 3A 20:11
PROVIDERS: ADMIT Internal Medicine; ATTEND Internal Medicine
PROC: 0W993ZZ Drainage of Right Pleural Cavity, Percutaneous Approach (ICD-10-PCS; principal; 2018-05-04)
DX: I21.A1 Myocardial infarction type 2 (principal); I50.33 Acute on chronic diastolic (congestive) heart failure; J96.01 Acute respiratory failure with hypoxia; J90 Pleural effusion, not elsewhere classified; N17.9 Acute kidney failure, unspecified; N18.4 Chronic kidney disease, stage 4 (severe); I13.0 Hypertensive heart and chronic kidney disease with heart failure and stage 1 through stage 4 chronic kidney disease, or unspecified chronic kidney disease; E87.70 Fluid overload, unspecified; R80.9 Proteinuria, unspecified; E11.22 Type 2 diabetes mellitus with diabetic chronic kidney disease; I25.10 Atherosclerotic heart disease of native coronary artery without angina pectoris; F41.9 Anxiety disorder, unspecified; E78.2 Mixed hyperlipidemia; E11.21 Type 2 diabetes mellitus with diabetic nephropathy; E11.51 Type 2 diabetes mellitus with diabetic peripheral angiopathy without gangrene; Z79.82 Long term (current) use of aspirin; Z79.899 Other long term (current) drug therapy; I25.2 Old myocardial infarction; Z89.421 Acquired absence of other right toe(s); Z79.4 Long term (current) use of insulin
CPT/HCPCS: 32555; 36415; 71045; 80048; 80053; 80061; 80076; 81001; 82465; 82550; 82570; 82947; 82962; 83605; 83735; 83880; 84156; 84300; 84484; 85025; 85610; 85730; 87040; 87116; 88112; 88305; 89051; 93005; 93010; 94760; 96374; 96375; G0378; A9270-GY; J0696; J1644; J1815; J1940; J2270; J3010

== ENCOUNTER 2018-07-13 07:56 | Inpatient (IN) | payer OTHER ==
[2018-07-13 09:02] LABS: Basophils # (Auto) 0.1 K/mm3 (0.0-0.1); Basophils % (Auto) 0.9 % (0.0-1.8); Eosinophils # (Auto) 0.1 K/mm3 (0.0-0.4); Eosinophils % (Auto) 1.2 % (0.0-4.3); Hematocrit 32.5 % (35.5-45.6); Hemoglobin 10.7 gm/dl (11.8-15.2); Lymphocytes # (Auto) 1.5 K/mm3 (1.2-5.4); Lymphocytes % (Auto) 15.8 % (13.4-35.0); Mean Corpuscular HGB Conc 33 % (32-34); Mean Corpuscular Volume 87 fl (84-94); Monocytes # (Auto) 0.8 K/mm3 (0.0-0.8); Monocytes % (Auto) 8.2 % (0.0-7.3); Platelet Count 342 K/mm3 (140-440); Red Blood Count 3.74 M/mm3 (3.65-5.03); Red Cell Distribution Width 14.3 % (13.2-15.2)
[2018-07-13 09:17] LABS: Calcium 8.6 mg/dL (8.4-10.2)
--- NOTE | 2018-07-13 09:45 | Emergency Department Report ---
HPI - General Chief Complaint: Dyspnea/Respdistress Time Seen by Provider: 07/13/18 09:23 - HPI HPI: Room 2 The patient is a 60-year-old male presenting with chief complaint of shortness of "I think there is fluid on my lungs." The patient states for the past 2 days he's had shortness of breath as well as 4-5 pillow orthopnea. Patient states yesterday he developed a constant R sided chest pain that was stabbing in nature. Patient admits to nausea/vomiting and diaphoresis associated with this chest pain. Patient currently is his chest pain a score of 5/10. Patient states he had a normal stress test in 2018 but has never had a cardiac catheter ization Location: Chest, lungs Duration: [See above] Quality: Stabbing Severity: 5/10 Modifying factors: [see above] Context: [see above] Mode of transportation: [not driving] ED Past Medical Hx - Past Medical History Hx Hypertension: Yes Hx Heart Attack/AMI: Yes Hx Congestive Heart Failure: Yes Hx Diabetes: Yes - Surgical History Additional Surgical History: 5 Right toes removed surgically in March 2017 - Family History Family history: no significant - Social History Smoking Status: Former Smoker Substance Use Type: Alcohol (occasional), Marijuana - Medications Home Medications: Home Medications Medication Instructions Recorded Confirmed Last Taken Type Insulin Glargine [Lantus VIAL] 20 units SUB-Q QHS 30 Days #30 01/30/18 05/01/18 04/30/18 Rx units Aspirin [Aspirin BABY CHEW TAB] 81 mg PO QDAY #30 tab.chew 04/17/18 05/01/18 04/30/18 Rx AtorvaSTATin [Lipitor] 40 mg PO QHS #60 tablet 04/17/18 05/01/18 04/30/18 Rx Famotidine [Pepcid] 20 mg PO BID #60 tablet 04/17/18 05/01/18 04/30/18 Rx Furosemide [Lasix TAB] 40 mg PO BID #60 tablet 04/17/18 05/01/18 04/30/18 Rx ISOSORBIDE MONOnitrate [Imdur ER] 60 mg PO QDAY #30 tablet 04/17/18 05/01/18 04/30/18 Rx Metoprolol [Lopressor TAB] 100 mg PO BID #60 tablet 04/17/18 05/01/1818 Rx amLODIPine [Norvasc] 10 mg PO DAILY #30 tablet 04/17/18 05/01/18 04/30/18 Rx hydrALAZINE [Apresoline TAB] 100 mg PO Q8HR #90 tab 04/17/18 05/01/18 04/30/18 Rx ALBUTEROL Inhaler(NF) [VENTOLIN 2 puff IH Q1D PRN #1 inha 05/05/18 Unknown Rx Inhaler(NF)] Lisinopril [Zestril TAB] 10 mg PO QDAY #30 tablet 05/05/18 Unknown Rx oxyCODONE /ACETAMINOPHEN [Percocet 1 tab PO Q6H PRN #12 tablet 05/05/18 Unknown Rx 5/325 mg] ED Review of Systems ROS: Stated complaint: TABATHA Other details as noted in HPI Constitutional: diaphoresis Eyes: denies: eye pain ENT: denies: throat pain Respiratory: orthopnea, shortness of breath Cardiovascular: chest pain, orthopnea Endocrine: no symptoms reported Gastrointestinal: nausea, vomiting Genitourinary: denies: dysuria Musculoskeletal: denies: back pain Neurological: denies: headache Physical Exam - Physical Exam Vital Signs: Vital Signs 07/13/18 08:27 Temperature 97.2 F L Pulse Rate 107 H Respiratory 16 Rate Blood Pressure 163/85 O2 Sat by Pulse 97 Oximetry Physical Exam: GENERAL: The patient is well-developed well-nourished male lying on stretcher not appearing to be in acute distress. [] HEENT: Normocephalic. Atraumatic. Extraocular motions are intact. Patient has moist mucous membranes. NECK: Supple. Trachea midline CHEST/LUNGS: Faint occasional end expiratory wheeze in the right lung. Left lung CTA. There is no respiratory distress noted. HEART/CARDIOVASCULAR: Regular. There is no tachycardia. There is no gallop rub or murmur. ABDOMEN: Abdomen is soft, nontender. Patient has normal bowel sounds. There is no abdominal distention. SKIN: There is no rash. There is 1+ bilateral lower extremity pitting edema. There is no diaphoresis. NEURO: The patient is awake, alert, and oriented. The patient is cooperative. The patient has normal speech MUSCULOSKELETAL: There is no evidence of acute injury. ED Course Vital Signs 07/13/18 08:27 Temperature 97.2 F L Pulse Rate 107 H Respiratory 16 Rate Blood Pressure 163/85 O2 Sat by Pulse 97 Oximetry ED Medical Decision Making - Lab Data Result diagrams: 07/13/18 08:54 07/13/18 08:54 - EKG Data -: EKG Interpreted by Me EKG shows normal: sinus rhythm Rate: normal - EKG Data When compared to previous EKG there are: previous EKG unavailable Interpretation: other (no ischemic changes seen) - Radiology Data Radiology results: image reviewed (chest x-ray) interpreted by me: Chest [id number] pleural effusion. No pneumothorax - Differential Diagnosis CHF exacerbation, acute on chronic renal insufficiency, pneumonia, pericard Critical care attestation.: If time is entered above; I have spent that time in minutes in the direct care of this critically ill patient, excluding procedure time. ED Disposition Clinical Impression: Chest pain, Pleural effusion, right, Shortness of breath, CHF exacerbation Disposition: OP ADMIT IP TO THIS HOSP Is pt being admited?: Yes Does the pt Need Aspirin: No Condition: Fair Instructions: Chest Pain (ED) Referrals: TAYLOR SAM MD [Primary Care Provider] - 3-5 Days Time of Disposition: 10:12 (hospitalist notified)
--- NOTE | 2018-07-13 09:56 | XRay Report ---
ROUTINE CHEST, TWO VIEWS: HISTORY: Shortness of breath. Compared to 05/04/18. Trace to small bilateral pleural effusions are identified. Normal heart size and pulmonary vessels. The lungs are clear. The bony structures are grossly intact. IMPRESSION: Trace to small bilateral pleural effusions.
[2018-07-13 10:12] LABS: Chol/HDL Ratio 4.24 %
[2018-07-13] MEDS ORDERED: PROAIR IH PRN (12:18)
--- NOTE | 2018-07-13 12:20 | History and Physical Report ---
History of Present Illness Date of examination: 07/13/18 Date of admission: 07/13/18 10:46 Chief complaint: Worsening shortness of breath and chest pain History of present illness: 60-year-old male patient with significant past medical history of hypertension and diabetes mellitus pleural effusion status post thoracentesis in the past chronic kidney disease, diastolic congestive heart failure presented to the emergency room with worsening shortness of breath and chest pain, reports 3-4 pillow orthopnea denies paroxysmal nocturnal dyspnea Patient grades his chest pain between 4-5/10 pressure to squeezing type. Extensive negative workup in the past Denies nausea or vomiting, denies headache dizziness, complains of generalized weakness Past History Past Medical History: CAD, diabetes, heart failure, hypertension, hyperlipidemia Past Surgical History: Other (removal 5 th rt toe in 2017) Social history: lives with family, full code. denies: smoking, alcohol abuse, prescription drug abuse Family history: hypertension Medications and Allergies Allergies Allergy/AdvReac Type Severity Reaction Status Date / Time No Known Allergies Allergy Verified 11/01/13 07:35 Home Medications Medication Instructions Recorded Confirmed Last Taken Type Insulin Glargine [Lantus VIAL] 20 units SUB-Q QHS 30 Days #30 01/30/18 07/13/18 04/30/18 Rx units Aspirin [Aspirin BABY CHEW TAB] 81 mg PO QDAY #30 tab.chew 04/17/18 07/13/18 04/30/18 Rx AtorvaSTATin [Lipitor] 40 mg PO QHS #60 tablet 04/17/18 07/13/18 04/30/18 Rx Famotidine [Pepcid] 20 mg PO BID #60 tablet 04/17/18 07/13/18 04/30/18 Rx Furosemide [Lasix TAB] 40 mg PO BID #60 tablet 04/17/18 07/13/18 04/30/18 Rx ISOSORBIDE MONOnitrate [Imdur ER] 60 mg PO QDAY #30 tablet 04/17/18 07/13/18 04/30/18 Rx Metoprolol [Lopressor TAB] 100 mg PO BID #60 tablet 04/17/18 07/13/18 04/30/18 Rx amLODIPine [Norvasc] 10 mg PO DAILY #30 tablet 04/17/18 07/13/18 04/30/18 Rx hydrALAZINE [Apresoline TAB] 100 mg PO Q8HR #90 tab 04/17/18 07/13/18 04/30/18 Rx ALBUTEROL Inhaler(NF) [VENTOLIN 2 puff IH Q1D PRN #1 inha 05/05/18 07/13/18 Unknown Rx Inhaler(NF)] Lisinopril [Zestril TAB] 10 mg PO QDAY #30 tablet 05/05/18 07/13/18 Unknown Rx Active Meds: Active Medications Albuterol (Proair) 2 puff IH Q1D PRN PRN Reason: Shortness Of Breath Amlodipine Besylate (Norvasc) 10 mg PO DAILY [facility] Aspirin (Baby Aspirin) 81 mg PO QDAY [facility] Atorvastatin Calcium (Lipitor) 40 mg PO QHS [facility] Famotidine (Pepcid) 20 mg PO BID [facility] Hydralazine HCl (Apresoline) 100 mg PO Q8HR [facility] Insulin Glargine (Lantus) 20 units SUB-Q QHS [facility] Review of Systems Constitutional: weakness, no weight loss, no weight gain, no fever, no chills Ears, nose, mouth and throat: no nasal congestion, no nasal discharge Cardiovascular: chest pain, orthopnea, edema, lightheadedness, no palpitations Respiratory: cough, shortness of breath Gastrointestinal: no abdominal pain, no nausea, no vomiting Genitourinary Male: no dysuria, no hematuria Musculoskeletal: no neck pain, no myalgias, no arthritis Integumentary: no rash, no lesions Neurological: no numbness, no tingling, no seizures Psychiatric: no anxiety, no depression Endocrine: no cold intolerance, no heat intolerance, no polydipsia, no polyuria Hematologic/Lymphatic: no easy bruising, no easy bleeding Allergic/Immunologic: no urticaria, no allergic rhinitis Exam - Constitutional Vitals: Temp Pulse Resp BP Pulse Ox 97.2 F L 107 H 16 163/85 97 07/13/18 08:27 07/13/18 08:27 07/13/18 08:27 07/13/18 08:27 07/13/18 08:27 General appearance: Present: no acute distress, well-nourished - EENT Eyes: Present: PERRL, EOM intact - Neck Neck: Present: supple, normal ROM - Respiratory Respiratory effort: normal Respiratory: bilateral: diminished, rales - Cardiovascular Rhythm: regular Heart Sounds: Present: S1 & S2 - Extremities Extremities: no ischemia, No edema - Abdominal General gastrointestinal: Present: soft, non-tender, non-distended, normal bowel sounds - Integumentary Integumentary: Present: clear, warm - Musculoskeletal Musculoskeletal: strength equal bilaterally - Psychiatric Psychiatric: appropriate mood/affect, cooperative - Neurologic Neurologic: CNII-XII intact, moves all extremities Results - Labs CBC & Chem 7: 07/13/18 08:54 07/13/18 08:54 Labs: Abnormal lab results 07/13/18 07/13/18 07/13/18 Range/Units 08:54 08:54 08:54 Hgb 10.7 L (11.8-15.2) gm/dl Hct 32.5 L (35.5-45.6) % [place] % (Auto) 8.2 H (0.0-7.3) % Seg Neutrophils % 73.9 H (40.0-70.0) % Sodium 135 L (137-145) mmol/L Potassium 5.1 H (3.6-5.0) mmol/L BUN 32 H (9-20) mg/dL Creatinine 3.6 H (0.8-1.5) mg/dL Glucose 413 H (75-100) mg/dL Troponin T 0.127 H* (0.00-0.029) ng/mL Triglycerides 195 H (2-149) mg/dL Cholesterol 242 H (50-199) mg/dL LDL Cholesterol Direct 171 H (50-130) mg/dL Assessment and Plan --Chest pain; rule out acute coronary syndrome --Chronic elevation of troponins; patient was extensively evaluated in the past and closely monitor serial EKGs cardiac enzymes --Acute on chronic diastolic congestive heart failure; EF 50-55% Continue anti-failure medications input output monitoring --Acute on chronic hypoxic respiratory failure; secondary to CHF exacerbation as well as pleural effusion, oxygen titrated O2 sats to more than 90%,Pulmonary consult if needed Nebulizers and antibiotics and inhalation steroids and supportive care --Bilateral pleural effusions; patient had thoracentesis in the past Continue supportive care thoracentesis if needed Pulmonary consultation if needed --Type 2 diabetes mellitus; Accu-Chek sliding scale coverage and ADA diet insulin as needed --History of coronary artery disease; continue current cardiac medications --Dyslipidemia; continue statin --Acute on chronic kidney disease stage III Secondary to ATN, gentle hydration, avoid nephrotoxins Nephrology consultation --DVT prophylaxis; heparin renal dose Closely monitor patient and adjust management as needed
[2018-07-13] MEDS ORDERED: APRESOLINE ONE ×2 (14:04→21:22)
[2018-07-13] MEDS: APRESOLINE PO SCH ×3 (14:05→22:44)
[2018-07-13] MEDS ORDERED: LASIX IV ONE (16:13)
[2018-07-13 20:57] LABS: Creatine Kinase MB 3.6 ng/mL (0.0-4.0)
[2018-07-13] MEDS ORDERED: LOPRESSOR ONE (21:22)
[2018-07-13] MEDS ORDERED: HEPARIN 10,000 UNITS/10 ML IV ONE (21:42)
[2018-07-13] MEDS ORDERED: MORPHINE IV PRN (21:42)
[2018-07-13] MEDS ORDERED: KIONEX PO ONE (22:13)
[2018-07-13] MEDS: LOPRESSOR PO SCH (22:45)
[2018-07-13] MEDS: HEPARIN/ 0.45% NACL-25,000 UNIT/500 ML 25,000 UNIT/500 ML BAG IV SCH (22:49)
[2018-07-13] MEDS: PEPCID PO SCH (22:56)
[2018-07-13 23:04] LABS: INR 0.8 (0.87-1.13)
[2018-07-13 23:05] LABS: Partial Thromboplastin Time 24.9 Sec. (24.2-36.6)
[2018-07-13 23:10] LABS: Hematocrit 30.6 % (35.5-45.6); Hemoglobin 10.4 gm/dl (11.8-15.2)
[2018-07-13] MEDS: LANTUS SUB-Q SCH (23:54)
[2018-07-14 01:02] LABS: Creatine Kinase MB 3.6 ng/mL (0.0-4.0)
[2018-07-14 06:00] LABS: Basophils # (Auto) 0.1 K/mm3 (0.0-0.1); Basophils % (Auto) 0.7 % (0.0-1.8); Eosinophils # (Auto) 0.1 K/mm3 (0.0-0.4); Eosinophils % (Auto) 1.1 % (0.0-4.3); Hematocrit 31.6 % (35.5-45.6); Hemoglobin 10.1 gm/dl (11.8-15.2); Lymphocytes # (Auto) 1.7 K/mm3 (1.2-5.4); Lymphocytes % (Auto) 15.2 % (13.4-35.0); Mean Corpuscular HGB Conc 32 % (32-34); Mean Corpuscular Volume 87 fl (84-94); Monocytes # (Auto) 0.8 K/mm3 (0.0-0.8); Platelet Count 362 K/mm3 (140-440); Red Blood Count 3.64 M/mm3 (3.65-5.03); Red Cell Distribution Width 14.3 % (13.2-15.2)
[2018-07-14 06:12] LABS: Alanine Aminotransferase 19 units/L (7-56); Albumin 1.9 g/dL (3.9-5); BUN/Creatinine Ratio 8; Blood Urea Nitrogen 33 mg/dL (9-20); Calcium 8.5 mg/dL (8.4-10.2); Hemolysis Index 5
[2018-07-14] MEDS: APRESOLINE PO SCH (06:28)
[2018-07-14] MEDS: ZESTRIL PO SCH ×2 (08:42→12:04)
[2018-07-14] MEDS: LASIX IV SCH ×2 (08:43→12:03)
[2018-07-14] MEDS: LOPRESSOR PO SCH ×2 (08:43→12:04)
[2018-07-14] MEDS: PEPCID PO SCH ×2 (08:43→12:04)
[2018-07-14] MEDS: IMDUR PO SCH ×2 (08:43→12:03)
[2018-07-14] MEDS: BABY ASPIRIN PO SCH ×2 (08:43→12:02)
[2018-07-14] MEDS: NORVASC PO SCH ×2 (08:43→12:03)
--- NOTE | 2018-07-14 11:32 | Progress Note ---
Assessment and Plan Assessment and plan: --Chest pain; rule out acute coronary syndrome --Chronic elevation of troponins; patient was extensively evaluated in the past and closely monitor serial EKGs cardiac enzymes, cardiology consult --Acute on chronic diastolic congestive heart failure; EF 50-55% Continue anti-failure medications input output monitoring --Acute on chronic hypoxic respiratory failure; secondary to CHF exacerbation as well as pleural effusion, oxygen titrated O2 sats to more than 90%,Pulmonary consult if needed Nebulizers and antibiotics and inhalation steroids and supportive care --Bilateral pleural effusions; patient had thoracentesis in the past Continue supportive care thoracentesis if needed Pulmonary consultation if needed --Type 2 diabetes mellitus; Accu-Chek sliding scale coverage and ADA diet insulin as needed --History of coronary artery disease; continue current cardiac medications --Dyslipidemia; continue statin --Severe malnutrition/hypoalbuminemia; nutrition supplements and nutrition con sult --Acute on chronic kidney disease stage III Secondary to ATN, gentle hydration, avoid nephrotoxins Nephrology consultation --DVT prophylaxis; heparin renal dose Closely monitor patient and adjust management as needed History Interval history: Patient seen and examined medical records reviewed Patient feels slightly better continues to have some chest pain Alert awake oriented 3, Vital signs noted Patient has chronic elevation of troponins , chronic kidney disease Hospitalist Physical - Constitutional Vitals: Temp Pulse Resp BP Pulse Ox 98.3 F 80 18 169/93 99 07/14/18 11:31 07/14/18 08:39 07/14/18 08:39 07/14/18 08:39 07/14/18 08:39 General appearance: Present: no acute distress, well-nourished - EENT Eyes: Present: PERRL, EOM intact - Neck Neck: Present: supple, normal ROM - Respiratory Respiratory effort: normal Respiratory: bilateral: diminished, negative: rales, rhonchi, wheezing - Cardiovascular Rhythm: regular Heart Sounds: Present: S1 & S2 - Extremities Extremities: no ischemia, No edema - Abdominal General gastrointestinal: soft, non-tender, non-distended, normal bowel sounds - Integumentary Integumentary: Present: clear, warm - Psychiatric Psychiatric: appropriate mood/affect, cooperative - Neurologic Neurologic: CNII-XII intact, moves all extremities Results - Labs CBC & Chem 7: 07/14/18 04:25 07/14/18 04:25 Labs: Laboratory Last Values WBC 11.0 K/mm3 (4.5-11.0) 07/14/18 04:25 RBC 3.64 M/mm3 (3.65-5.03) L 07/14/18 04:25 Hgb 10.1 gm/dl (11.8-15.2) L 07/14/18 04:25 Hct 31.6 % (35.5-45.6) L 07/14/18 04:25 MCV 87 fl (84-94) 07/14/18 04:25 MCH 28 pg (28-32) 07/14/18 04:25 MCHC 32 % (32-34) 07/14/18 04:25 RDW 14.3 % (13.2-15.2) 07/14/18 04:25 Plt Count 362 K/mm3 (140-440) 07/14/18 04:25 Lymph % (Auto) 15.2 % (13.4-35.0) 07/14/18 04:25 [place] % (Auto) 7.0 % (0.0-7.3) 07/14/18 04:25 Eos % (Auto) 1.1 % (0.0-4.3) 07/14/18 04:25 Baso % (Auto) 0.7 % (0.0-1.8) 07/14/18 04:25 Lymph # 1.7 K/mm3 (1.2-5.4) 07/14/18 04:25 [place] # 0.8 K/mm3 (0.0-0.8) 07/14/18 04:25 Eos # 0.1 K/mm3 (0.0-0.4) 07/14/18 04:25 Baso # 0.1 K/mm3 (0.0-0.1) 07/14/18 04:25 Seg Neutrophils % 76.0 % (40.0-70.0) H 07/14/18 04:25 Seg Neutrophils # 8.4 K/mm3 (1.8-7.7) H 07/14/18 04:25 PT 11.6 Sec. (12.2-14.9) L 07/13/18 22:33 INR 0.80 (0.87-1.13) L 07/13/18 22:33 APTT 24.9 Sec. (24.2-36.6) 07/13/18 22:33 Heparin Anti-Xa Level 0.14 U.I./ml (0.3-0.7) L 07/14/18 04:25 Sodium 142 mmol/L (137-145) D 07/14/18 04:25 Potassium 4.1 mmol/L (3.6-5.0) 07/14/18 04:25 Chloride 103.5 mmol/L (98-107) 07/14/18 04:25 Carbon Dioxide 28 mmol/L (22-30) 07/14/18 04:25 Anion Gap 15 mmol/L 07/14/18 04:25 BUN 33 mg/dL (9-20) H 07/14/18 04:25 Creatinine 3.9 mg/dL (0.8-1.5) H 07/14/18 04:25 Estimated GFR 19 ml/min 07/14/18 04:25 BUN/Creatinine Ratio 8 % 07/14/18 04:25 Glucose 193 mg/dL (75-100) H 07/14/18 04:25 POC Glucose 110 (70-105) H 07/14/18 07:50 Calcium 8.5 mg/dL (8.4-10.2) 07/14/18 04:25 Total Bilirubin < 0.20 mg/dL (0.1-1.2) 07/14/18 04:25 AST 24 units/L (5-40) 07/14/18 04:25 ALT 19 units/L (7-56) 07/14/18 04:25 Alkaline Phosphatase 112 units/L (35-129) 07/14/18 04:25 Total Creatine Kinase 539 units/L (55-170) H 07/14/18 00:13 CK-MB (CK-2) 3.6 ng/mL (0.0-4.0) 07/14/18 00:13 CK-MB (CK-2) Rel Index 0.6 (0-4) 07/14/18 00:13 Troponin T 0.135 ng/mL (0.00-0.029) H* 07/14/18 00:13 Total Protein 5.5 g/dL (6.3-8.2) L 07/14/18 04:25 Albumin 1.9 g/dL (3.9-5) L 07/14/18 04:25 Albumin/Globulin Ratio 0.5 % 07/14/18 04:25 Triglycerides 195 mg/dL (2-149) H 07/13/18 08:54 Cholesterol 242 mg/dL (50-199) H 07/13/18 08:54 LDL Cholesterol Direct 171 mg/dL (50-130) H 07/13/18 08:54 HDL Cholesterol 57 mg/dL (40-59) 07/13/18 08:54 Cholesterol/HDL Ratio 4.24 % 07/13/18 08:54 Nutrition/Malnutrition Assess - Dietary Evaluation Nutrition/Malnutrition Findings: Nutrition Notes Start: 07/14/18 11:25 Freq: Status: Active Protocol: Document 07/14/18 11:25 ADELFO (Rec: 07/14/18 11:26 ADELFO [email or web address]) 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 Nutrition Intervention Follow-Up By: 07/18/18 Additional Comments F/U: intakes, need for assessment
[2018-07-14] MEDS: COREG PO SCH ×2 (11:58→22:12)
--- NOTE | 2018-07-14 13:13 | Consultation ---
History of Present Illness Consult date: 07/14/18 Requesting physician: JAMAL POOL Consult reason: congestive heart failure, elevated troponin History of present illness: The patient has a history of chronic HFpEF, EF: 50-55% on echo 02/22, negative stress MPI 02/22. although he has had elevated troponin in the range of NSTEMI on previous hospitalizations, he has not undergone coronary angiography in the past, probably due to CKD. He presents this time with a one-week history of progressive dyspnea. He has chronic orthopnea. He claims that he had a brief episode of chest pain yesterday after presenting to the hospital. Past History Past Medical History: acute [place] (NSTEMI), diabetes, heart failure (Chronic HFpEF), hypertension, hyperlipidemia, renal failure (CKD) Past Surgical History: Other (removal 5 th rt toe in 2016) Social history: lives with family, full code. denies: smoking, alcohol abuse, prescription drug abuse Family history: hypertension. denies: CAD Medications and Allergies Allergies Allergy/AdvReac Type Severity Reaction Status Date / Time No Known Allergies Allergy Verified 11/01/13 07:35 Home Medications Medication Instructions Recorded Confirmed Last Taken Type Insulin Glargine [Lantus VIAL] 20 units SUB-Q QHS 30 Days #30 01/30/18 07/13/18 04/30/18 Rx units Aspirin [Aspirin BABY CHEW TAB] 81 mg PO QDAY #30 tab.chew 04/17/18 07/13/18 04/30/18 Rx AtorvaSTATin [Lipitor] 40 mg PO QHS #60 tablet 04/17/18 07/13/18 04/30/18 Rx Famotidine [Pepcid] 20 mg PO BID #60 tablet 04/17/18 07/13/18 04/30/18 Rx Furosemide [Lasix TAB] 40 mg PO BID #60 tablet 04/17/18 07/13/18 04/30/18 Rx ISOSORBIDE MONOnitrate [Imdur ER] 60 mg PO QDAY #30 tablet 04/17/18 07/13/18 04/30/18 Rx Metoprolol [Lopressor TAB] 100 mg PO BID #60 tablet 04/17/18 07/13/18 04/30/18 Rx amLODIPine [Norvasc] 10 mg PO DAILY #30 tablet 04/17/18 07/13/18 04/30/18 Rx hydrALAZINE [Apresoline TAB] 100 mg PO Q8HR #90 tab 04/17/18 07/13/18 04/30/18 Rx ALBUTEROL Inhaler(NF) [VENTOLIN 2 puff IH Q1D PRN #1 inha 05/05/18 07/13/18 Unknown Rx Inhaler(NF)] Lisinopril [Zestril TAB] 10 mg PO QDAY #30 tablet 05/05/18 07/13/18 Unknown Rx Active Meds: Active Medications Albuterol (Proventil) 2.5 mg IH QIDRT PRN PRN Reason: Shortness Of Breath Amlodipine Besylate (Norvasc) 10 mg PO DAILY [facility] Last Admin: 07/14/18 12:03 Dose: Not Given Documented by: Aspirin (Baby Aspirin) 81 mg PO QDAY [facility] Last Admin: 07/14/18 12:02 Dose: Not Given Documented by: Atorvastatin Calcium (Lipitor) 40 mg PO QHS [facility] Last Admin: 07/13/18 22:45 Dose: 40 mg Documented by: Carvedilol (Coreg) 25 mg PO BID [facility] Last Admin: 07/14/18 11:58 Dose: 25 mg Documented by: Famotidine (Pepcid) 20 mg PO DAILY [facility] Last Admin: 07/14/18 12:04 Dose: Not Given Documented by: Furosemide (Lasix) 40 mg IV QDAY [facility] Last Admin: 07/14/18 12:03 Dose: Not Given Documented by: Guaifenesin (Robitussin) 200 mg PO Q6H PRN PRN Reason: Cough Heparin Sodium/Sodium Chloride (Heparin/ 0.45% Nacl-25,000 Unit/500 Ml) 25,000 unit in 500 mls @ 20 mls/hr IV TITRATE [facility]; Protocol Last Titration: 07/14/18 07:13 Dose: 1,100 units/hr, 22 mls/hr Documented by: Insulin Glargine (Lantus) 20 units SUB-Q QHS [facility] Last Admin: 07/13/18 23:54 Dose: 20 units Documented by: Isosorbide Mononitrate (Imdur) 60 mg PO QDAY [facility] Last Admin: 07/14/18 12:03 Dose: Not Given Documented by: Lisinopril (Zestril) 10 mg PO QDAY [facility] Last Admin: 07/14/18 12:04 Dose: Not Given Documented by: Review of Systems Constitutional: no fever, no chills Ears, nose, mouth and throat: no ear pain, no ear discharge, no sore throat Cardiovascular: chest pain, orthopnea, shortness of breath Respiratory: shortness of breath, dyspnea on exertion, no cough, no hemoptysis Gastrointestinal: no abdominal pain, no nausea, no vomiting, no diarrhea, no constipation Genitourinary Male: no dysuria, no urinary frequency Rectal: no pain, no bleeding Musculoskeletal: no neck stiffness, no neck pain, no myalgias Integumentary: no rash, no pruritis Neurological: no weakness, no parathesias, no headaches Endocrine: no cold intolerance, no heat intolerance Hematologic/Lymphatic: no easy bruising, no easy bleeding Allergic/Immunologic: no urticaria, no wheezing Physical Examination Vital Signs Last Vital Signs Temp 98.3 F 07/14/18 11:31 Pulse 71 07/14/18 11:31 Resp 18 07/14/18 11:31 BP 114/70 07/14/18 11:31 Pulse Ox 96 07/14/18 11:31 General appearance: no acute distress HEENT: Positive: EOMI, Normocephaly, Mucus Membranes Moist Neck: Positive: neck supple, trachea midline Cardiac: Positive: Reg Rate and Rhythm, S1/S2 Lungs: Positive: clear to auscultation Neuro: Positive: Grossly Intact Abdomen: Positive: Soft, Active Bowel Sounds. Negative: Tender Skin: Positive: Clear. Negative: Rash Musculoskeletal: Normal Range of Motion Extremities: Present: edema (trace pitting bilateral leg edema) Results 07/14/18 04:25 07/14/18 04:25 Cardiac Enzymes 07/13/18 07/14/18 07/14/18 Range/Units 20:12 00:13 04:25 AST 24 (5-40) units/L CK-MB (CK-2) 3.6 3.6 (0.0-4.0) ng/mL Coagulation 07/13/18 Range/Units 22:33 PT 11.6 L (12.2-14.9) Sec. INR 0.80 L (0.87-1.13) APTT 24.9 (24.2-36.6) Sec. CBC 07/13/18 07/14/18 Range/Units 22:33 04:25 WBC 11.0 (4.5-11.0) K/mm3 RBC 3.64 L (3.65-5.03) M/mm3 Hgb 10.4 L 10.1 L (11.8-15.2) gm/dl Hct 30.6 L 31.6 L (35.5-45.6) % Plt Count 371 362 (140-440) K/mm3 Lymph # 1.7 (1.2-5.4) K/mm3 [place] # 0.8 (0.0-0.8) K/mm3 Eos # 0.1 (0.0-0.4) K/mm3 Baso # 0.1 (0.0-0.1) K/mm3 Comprehensive Metabolic Panel 07/14/18 Range/Units 04:25 Sodium 142 D (137-145) mmol/L Potassium 4.1 (3.6-5.0) mmol/L Chloride 103.5 (98-107) mmol/L Carbon Dioxide 28 (22-30) mmol/L BUN 33 H (9-20) mg/dL Creatinine 3.9 H (0.8-1.5) mg/dL Glucose 193 H (75-100) mg/dL Calcium 8.5 (8.4-10.2) mg/dL AST 24 (5-40) units/L ALT 19 (7-56) units/L Alkaline Phosphatase 112 (35-129) units/L Total Protein 5.5 L (6.3-8.2) g/dL Albumin 1.9 L (3.9-5) g/dL - Imaging and Cardiology EKG: image reviewed EKG interpretations - Telemetry EKG Rhythm: Sinus Rhythm - EKG Sinus rhythms and dysrhythmias: sinus rhythm Assessment and Plan I agree with his current regimen. Intravenous diuretics and I will optimize his anti-ischemic regimen. Although his troponin elevation pattern is suggestive of non-STEMI, he seems to have a chronic elevation of troponin levels with all his admissions. He certainly will benefit from coronary angiography. However, with his CKD, he will likely require dialysis. Will continue medical mgt except for uncontrolled angina. - Patient Problems (1) Acute on chronic heart failure with preserved ejection fraction Current Visit: Yes Status: Acute (2) Elevated troponin Current Visit: No Status: Acute (3) CKD (chronic kidney disease) Current Visit: Yes Status: Acute Qualifiers: Chronic kidney disease stage: stage 4 (severe) Qualified Code(s): N18.4 - Chronic kidney disease, stage 4 (severe) (4) Chest pain Current Visit: Yes Status: Acute (5) HTN (hypertension) Current Visit: No Status: Chronic Qualifiers: Hypertension type: essential hypertension Qualified Code(s): I10 - Essential (primary) hypertension (6) Diabetes mellitus Current Visit: Yes Status: Chronic
[2018-07-14] MEDS: ROBITUSSIN PO PRN (16:53)
[2018-07-14] MEDS: HEPARIN/ 0.45% NACL-25,000 UNIT/500 ML 25,000 UNIT/500 ML BAG IV SCH (22:16)
[2018-07-14] MEDS: LANTUS SUB-Q SCH (22:17)
[2018-07-15] MEDS: COREG PO SCH ×3 (00:21→21:25)
[2018-07-15] MEDS: BENADRYL PO PRN ×2 (01:17→21:28)
[2018-07-15 05:03] LABS: Hematocrit 26.8 % (35.5-45.6); Hemoglobin 8.8 gm/dl (11.8-15.2)
[2018-07-15 05:27] LABS: Calcium 7.8 mg/dL (8.4-10.2)
[2018-07-15] MEDS: BABY ASPIRIN PO SCH (09:36)
[2018-07-15] MEDS: ZESTRIL PO SCH (09:36)
[2018-07-15] MEDS: NORVASC PO SCH (09:37)
[2018-07-15] MEDS: PEPCID PO SCH (09:37)
[2018-07-15] MEDS: IMDUR PO SCH (09:37)
[2018-07-15] MEDS: LASIX IV SCH (09:37)
[2018-07-15] MEDS: ROBITUSSIN PO PRN ×2 (09:44→21:25)
--- NOTE | 2018-07-15 10:15 | Progress Note ---
Assessment and Plan Assessment and plan: --Chest pain; rule out acute coronary syndrome --Non-ST elevation [place]; with chronic elevation of troponins The patient has multiple risk factors, cardiology consult --Acute on chronic diastolic congestive heart failure; EF 50-55% Continue anti-failure medications input output monitoring --Acute on chronic hypoxic respiratory failure; secondary to CHF exacerbation as well as pleural effusion, oxygen titrated O2 sats to more than 90%,Pulmonary consult if needed Nebulizers and antibiotics and inhalation steroids and supportive care --Acute on chronic kidney disease stage IV Secondary to ATN, gentle hydration, avoid nephrotoxins Nephrology consultation --Bilateral pleural effusions; patient had thoracentesis in the past Continue supportive care thoracentesis if needed Pulmonary consultation if needed --Type 2 diabetes mellitus; Accu-Chek sliding scale coverage and ADA diet insulin as needed --History of coronary artery disease; continue current cardiac medications --Dyslipidemia; continue statin --Severe malnutrition/hypoalbuminemia; nutrition supplements and nutrition consult --DVT prophylaxis; heparin renal dose Closely monitor patient and adjust management as needed History Interval history: Patient seen and examined medical records reviewed Physical aspect and no new complaints Alert awake oriented 3 Vital signs reviewed Hospitalist Physical - Constitutional Vitals: Temp Pulse Resp BP Pulse Ox 98.6 F 79 18 135/80 94 07/15/18 08:49 07/15/18 08:50 07/15/18 08:50 07/15/18 08:50 07/15/18 08:50 General appearance: Present: no acute distress, well-nourished - EENT Eyes: Present: PERRL, EOM intact - Neck Neck: Present: supple, normal ROM - Respiratory Respiratory effort: normal Respiratory: bilateral: diminished, negative: rales, rhonchi, wheezing - Cardiovascular Rhythm: regular Heart Sounds: Present: S1 & S2 - Extremities Extremities: no ischemia, No edema - Abdominal General gastrointestinal: soft, non-tender - Integumentary Integumentary: Present: clear, warm - Psychiatric Psychiatric: appropriate mood/affect, memory intact - Neurologic Neurologic: moves all extremities Results - Labs CBC & Chem 7: 07/15/18 04:24 07/15/18 04:24 Labs: Laboratory Last Values WBC 11.0 K/mm3 (4.5-11.0) 07/14/18 04:25 RBC 3.64 M/mm3 (3.65-5.03) L 07/14/18 04:25 Hgb 8.8 gm/dl (11.8-15.2) L 07/15/18 04:24 Hct 26.8 % (35.5-45.6) L 07/15/18 04:24 MCV 87 fl (84-94) 07/14/18 04:25 MCH 28 pg (28-32) 07/14/18 04:25 MCHC 32 % (32-34) 07/14/18 04:25 RDW 14.3 % (13.2-15.2) 07/14/18 04:25 Plt Count 298 K/mm3 (140-440) 07/15/18 04:24 Lymph % (Auto) 15.2 % (13.4-35.0) 07/14/18 04:25 [place] % (Auto) 7.0 % (0.0-7.3) 07/14/18 04:25 Eos % (Auto) 1.1 % (0.0-4.3) 07/14/18 04:25 Baso % (Auto) 0.7 % (0.0-1.8) 07/14/18 04:25 Lymph # 1.7 K/mm3 (1.2-5.4) 07/14/18 04:25 [place] # 0.8 K/mm3 (0.0-0.8) 07/14/18 04:25 Eos # 0.1 K/mm3 (0.0-0.4) 07/14/18 04:25 Baso # 0.1 K/mm3 (0.0-0.1) 07/14/18 04:25 Seg Neutrophils % 76.0 % (40.0-70.0) H 07/14/18 04:25 Seg Neutrophils # 8.4 K/mm3 (1.8-7.7) H 07/14/18 04:25 PT 11.6 Sec. (12.2-14.9) L 07/13/18 22:33 INR 0.80 (0.87-1.13) L 07/13/18 22:33 APTT 24.9 Sec. (24.2-36.6) 07/13/18 22:33 Heparin Anti-Xa Level 0.34 U.I./ml (0.3-0.7) 07/14/18 16:02 Sodium 141 mmol/L (137-145) 07/15/18 04:24 Potassium 4.1 mmol/L (3.6-5.0) 07/15/18 04:24 Chloride 104.9 mmol/L (98-107) 07/15/18 04:24 Carbon Dioxide 26 mmol/L (22-30) 07/15/18 04:24 Anion Gap 14 mmol/L 07/15/18 04:24 BUN 35 mg/dL (9-20) H 07/15/18 04:24 Creatinine 4.1 mg/dL (0.8-1.5) H 07/15/18 04:24 Estimated GFR 18 ml/min 07/15/18 04:24 BUN/Creatinine Ratio 9 % 07/15/18 04:24 Glucose 218 mg/dL (75-100) H 07/15/18 04:24 POC Glucose 225 (70-105) H 07/15/18 08:17 Calcium 7.8 mg/dL (8.4-10.2) L 07/15/18 04:24 Total Bilirubin < 0.20 mg/dL (0.1-1.2) 07/14/18 04:25 AST 24 units/L (5-40) 07/14/18 04:25 ALT 19 units/L (7-56) 07/14/18 04:25 Alkaline Phosphatase 112 units/L (35-129) 07/14/18 04:25 Total Creatine Kinase 539 units/L (55-170) H 07/14/18 00:13 CK-MB (CK-2) 3.6 ng/mL (0.0-4.0) 07/14/18 00:13 CK-MB (CK-2) Rel Index 0.6 (0-4) 07/14/18 00:13 Troponin T 0.135 ng/mL (0.00-0.029) H* 07/14/18 00:13 Total Protein 5.5 g/dL (6.3-8.2) L 07/14/18 04:25 Albumin 1.9 g/dL (3.9-5) L 07/14/18 04:25 Albumin/Globulin Ratio 0.5 % 07/14/18 04:25 Triglycerides 195 mg/dL (2-149) H 07/13/18 08:54 Cholesterol 242 mg/dL (50-199) H 07/13/18 08:54 LDL Cholesterol Direct 171 mg/dL (50-130) H 07/13/18 08:54 HDL Cholesterol 57 mg/dL (40-59) 07/13/18 08:54 Cholesterol/HDL Ratio 4.24 % 07/13/18 08:54 Nutrition/Malnutrition Assess - Dietary Evaluation Nutrition/Malnutrition Findings: Nutrition Notes Start: 07/14/18 11:25 Freq: Status: Active Protocol: Document 07/14/18 11:25 ADELFO (Rec: 07/14/18 11:26 ADELFO [id number] [email or web address]) 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 Nutrition Intervention Follow-Up By: 07/18/18 Additional Comments F/U: intakes, need for assessment
--- NOTE | 2018-07-15 13:13 | Progress Note ---
Assessment and Plan , Clinically, heart failure appears better. Consider nephrology evaluation with his worsening renal indices. F/u H&H. - Patient Problems (1) Acute on chronic heart failure with preserved ejection fraction Current Visit: Yes Status: Acute (2) Elevated troponin Current Visit: No Status: Acute (3) CKD (chronic kidney disease) Current Visit: Yes Status: Acute Qualifiers: Chronic kidney disease stage: stage 4 (severe) Qualified Code(s): N18.4 - Chronic kidney disease, stage 4 (severe) (4) Chest pain Current Visit: Yes Status: Acute (5) HTN (hypertension) Current Visit: No Status: Chronic Qualifiers: Hypertension type: essential hypertension Qualified Code(s): I10 - Essential (primary) hypertension (6) Diabetes mellitus Current Visit: Yes Status: Chronic Subjective Date of service: 07/15/18 Principal diagnosis: Acute on chronic HFpEF, Elevated Tn, CKD, HTN, DM, Anemia Interval history: No complaint. His renal indices are increasing and he is more anemic today. Objective Vital Signs Temp Pulse Resp BP Pulse Ox 07/15/18 12:00 77 18 120/71 96 07/15/18 11:59 97.7 F 07/15/18 08:50 79 18 135/80 94 07/15/18 08:49 98.6 F 07/15/18 03:58 98.6 F 77 16 122/67 93 07/14/18 23:15 98.0 F 80 16 151/86 93 07/14/18 20:06 71 07/14/18 19:49 98.2 F 74 16 98/67 97 07/14/18 17:25 97.7 F 71 18 119/68 94 - Physical Examination HEENT: Positive: EOMI, Normocephaly, Mucus Membranes Moist Neck: Positive: neck supple, trachea midline Cardiac: Positive: Reg Rate and Rhythm, S1/S2 Lungs: Positive: clear to auscultation Neuro: Positive: Grossly Intact Abdomen: Positive: Soft, Active Bowel Sounds. Negative: Tender Skin: Positive: Clear. Negative: Rash Musculoskeletal: Normal Range of Motion, other (status post partial amputation of the right foot.) Extremities: Present: edema (trace pitting bilateral leg edema) - Labs and Meds CBC 07/15/18 Range/Units 04:24 Hgb 8.8 L (11.8-15.2) gm/dl Hct 26.8 L (35.5-45.6) % Plt Count 298 (140-440) K/mm3 Comprehensive Metabolic Panel 07/15/18 Range/Units 04:24 Sodium 141 (137-145) mmol/L Potassium 4.1 (3.6-5.0) mmol/L Chloride 104.9 (98-107) mmol/L Carbon Dioxide 26 (22-30) mmol/L BUN 35 H (9-20) mg/dL Creatinine 4.1 H (0.8-1.5) mg/dL Glucose 218 H (75-100) mg/dL Calcium 7.8 L (8.4-10.2) mg/dL - Imaging and Cardiology EKG: image reviewed - Telemetry EKG Rhythm: Sinus Rhythm - EKG Sinus rhythms and dysrhythmias: sinus rhythm
[2018-07-15] MEDS: HumaLOG SUB-Q SCH ×3 (13:37→21:26)
[2018-07-15] MEDS: HEPARIN/ 0.45% NACL-25,000 UNIT/500 ML 25,000 UNIT/500 ML BAG IV SCH (19:26)
[2018-07-15] MEDS: LANTUS SUB-Q SCH (21:25)
[2018-07-16 05:01] LABS: Calcium 7.7 mg/dL (8.4-10.2)
--- NOTE | 2018-07-16 09:40 | Consultation ---
History of Present Illness - Reason for Consult Consult date: 07/16/18 acute renal failure, chronic renal failure - History of Present Illness The patient is a 57 YO male with history significant for Obesity, DM-2 (15+ yrs), HTN (15+ yrs), HLD, Diastolic CHF, CKD stage 4 and PAD s/p right TMA who presented to the ER with sob for the past week. Patient has sob both at rest and exertion. Sob was associated with orthopnea, PND and bilateral leg swelling. He had brief episode of chest pain prior to presentation. Most of the symptoms are better now. Patient had multiple similar admissions in the past and recently he was discharged from the hospital on 05/05/2018. He also reports having respiratory manager vomiting for the past few weeks. Patient denies any dizziness, cough, hemoptysis, D, fever, chills, hematuria, jaundice, weakness or syncope. On admission his creatinine was 3.6. Patient admitted with CHF exacerbation and Acute coronary syndrome. Nephrology was consulted for further evaluation of CKD and RIGO. Past History Past Medical History: CAD, diabetes, heart failure, hypertension, hyperlipidemia Past Surgical History: Other (removal 5 th rt toe in 2017) Social history: lives with family, full code. denies: smoking, alcohol abuse, prescription drug abuse Family history: hypertension Medications and Allergies Allergies Allergy/AdvReac Type Severity Reaction Status Date / Time No Known Allergies Allergy Verified 11/01/13 07:35 Home Medications Medication Instructions Recorded Confirmed Last Taken Type Insulin Glargine [Lantus VIAL] 20 units SUB-Q QHS 30 Days #30 01/30/18 07/13/18 04/30/18 Rx units Aspirin [Aspirin BABY CHEW TAB] 81 mg PO QDAY #30 tab.chew 04/17/18 07/13/18 04/30/18 Rx AtorvaSTATin [Lipitor] 40 mg PO QHS #60 tablet 04/17/18 07/13/18 04/30/18 Rx Famotidine [Pepcid] 20 mg PO BID #60 tablet 04/17/18 07/13/18 04/30/18 Rx Furosemide [Lasix TAB] 40 mg PO BID #60 tablet 04/17/18 07/13/18 04/30/18 Rx ISOSORBIDE MONOnitrate [Imdur ER] 60 mg PO QDAY #30 tablet 04/17/18 07/13/1818 Rx Metoprolol [Lopressor TAB] 100 mg PO BID #60 tablet 04/17/18 07/13/18 04/30/18 Rx amLODIPine [Norvasc] 10 mg PO DAILY #30 tablet 04/17/18 07/13/18 04/30/18 Rx hydrALAZINE [Apresoline TAB] 100 mg PO Q8HR #90 tab 04/17/18 07/13/18 04/30/18 Rx ALBUTEROL Inhaler(NF) [VENTOLIN 2 puff IH Q1D PRN #1 inha 05/05/18 07/13/18 Unknown Rx Inhaler(NF)] Lisinopril [Zestril TAB] 10 mg PO QDAY #30 tablet 05/05/18 07/13/18 Unknown Rx Active Meds: Active Medications Albuterol (Proventil) 2.5 mg IH QIDRT PRN PRN Reason: Shortness Of Breath Amlodipine Besylate (Norvasc) 10 mg PO DAILY [facility] Last Admin: 07/15/18 09:37 Dose: 10 mg Documented by: Aspirin (Baby Aspirin) 81 mg PO QDAY [facility] Last Admin: 07/15/18 09:36 Dose: 81 mg Documented by: Atorvastatin Calcium (Lipitor) 40 mg PO QHS [facility] Last Admin: 07/15/18 21:25 Dose: 40 mg Documented by: Carvedilol (Coreg) 25 mg PO BID [facility] Last Admin: 07/15/18 21:25 Dose: 25 mg Documented by: Diphenhydramine HCl (Benadryl) 25 mg PO QHS PRN PRN Reason: Sleep Last Admin: 07/15/18 21:28 Dose: 25 mg Documented by: Famotidine (Pepcid) 20 mg PO DAILY [facility] Last Admin: 07/15/18 09:37 Dose: 20 mg Documented by: Furosemide (Lasix) 40 mg IV QDAY [facility] Last Admin: 07/15/18 09:37 Dose: 40 mg Documented by: Guaifenesin (Robitussin) 200 mg PO Q6H PRN PRN Reason: Cough Last Admin: 07/15/18 21:25 Dose: 200 mg Documented by: Insulin Glargine (Lantus) 20 units SUB-Q QHS [facility] Last Admin: 07/15/18 21:25 Dose: 20 units Documented by: Insulin Human Lispro (Humalog) 0 unit SUB-Q ACHS [facility]; Protocol Last Admin: 07/15/18 21:26 Dose: 3 unit Documented by: Isosorbide Mononitrate (Imdur) 60 mg PO QDAY [facility] Last Admin: 07/15/18 09:37 Dose: 60 mg Documented by: Exam - Vital Signs Vital signs: Vital Signs Temp Pulse Resp BP Pulse Ox 97.2 F L 107 H 16 163/85 97 07/13/18 08:27 07/13/18 08:27 07/13/18 08:27 07/13/18 08:27 07/13/18 08:27 - General Appearance General appearance: well-developed, well-nourished, appears stated age, other (not in distress) EENT: ATNC, PERRL, mucous membranes moist, hearing intact, vision intact Neck: Present: neck supple, trachea midline Respiratory: Rales Heart: regular, S1S2, no murmurs Gastrointestinal: Present: normoactive bowel sounds. Absent: tenderness, distended Integumentary: chronic venous stasis Neurologic: no focal deficit, no asterixis, alert and oriented x3 Musculoskeletal: Present: other (trace LE edema noted) Psychiatric: cooperative Results - Lab Results 07/15/18 04:24 07/16/18 03:26 Most recent lab results Calcium 7.7 mg/dL (8.4-10.2) L 07/16/18 03:26 Assessment and Plan 1. Acute kidney injury: RIGO superimposed on CKD stage 4 in the setting of CHF exacerbation. Urine studies. Monitor renal function. Creatinine level is better today. Renal prognosis is guarded to poor. Explained patient that he may need dialysis soon. 2. FEN: Volume overload, improving. Continue Lasix. Counseled limit fluid and salt intake. Questionable compliance. 3. CHF exacerbation: Followed by cards. 4. DM-2. 5. Proteinuria: Diabetic nephropathy. 6. CHest pain with elevated Troponin.
[2018-07-16] MEDS: HumaLOG SUB-Q SCH ×4 (09:50→22:01)
[2018-07-16] MEDS: COREG PO SCH ×2 (10:04→21:59)
[2018-07-16] MEDS: LASIX IV SCH (10:04)
[2018-07-16] MEDS: IMDUR PO SCH (10:05)
[2018-07-16] MEDS: NORVASC PO SCH (10:05)
[2018-07-16] MEDS: BABY ASPIRIN PO SCH (10:05)
[2018-07-16] MEDS: PEPCID PO SCH (10:05)
--- NOTE | 2018-07-16 10:52 | Progress Note ---
Assessment and Plan Clinically, heart failure appears better. D/c heparin gtt and hold lisinopril, cont all other present cardiac management. Follow nephrology recs. The patient has been seen in conjunction with Dr. Parks who agrees with the assessment and plan of care. - Patient Problems (1) Acute on chronic heart failure with preserved ejection fraction Current Visit: Yes Status: Acute (2) Elevated troponin Current Visit: No Status: Acute (3) CKD (chronic kidney disease) Current Visit: Yes Status: Acute Qualifiers: Chronic kidney disease stage: stage 4 (severe) Qualified Code(s): N18.4 - Chronic kidney disease, stage 4 (severe) (4) Chest pain Current Visit: Yes Status: Acute (5) HTN (hypertension) Current Visit: No Status: Chronic Qualifiers: Hypertension type: essential hypertension Qualified Code(s): I10 - Essential (primary) hypertension (6) Diabetes mellitus Current Visit: Yes Status: Chronic Subjective Date of service: 07/16/18 Principal diagnosis: Acute on chronic HFpEF, Elevated Tn, CKD, HTN, DM, Anemia Interval history: Pt resting in bed, states he is feeling better today. Objective Last Vital Signs Temp 98.4 F 07/16/18 07:53 Pulse 79 07/16/18 07:53 Resp 20 07/16/18 07:53 BP 162/94 07/16/18 07:53 Pulse Ox 98 07/16/18 07:53 - Physical Examination General: No Apparent Distress HEENT: Positive: EOMI, Normocephaly, Mucus Membranes Moist Neck: Positive: neck supple, trachea midline Cardiac: Positive: Reg Rate and Rhythm, S1/S2 Lungs: Positive: Decreased Breath Sounds Neuro: Positive: Grossly Intact Abdomen: Positive: Soft, Active Bowel Sounds. Negative: Tender Skin: Positive: Clear. Negative: Rash Musculoskeletal: Normal Range of Motion, other (status post partial amputation of the right foot.) Extremities: Present: edema (trace pitting bilateral leg edema) - Labs and Meds Comprehensive Metabolic Panel 07/16/18 Range/Units 03:26 Sodium 140 (137-145) mmol/L Potassium 4.1 (3.6-5.0) mmol/L Chloride 103.6 (98-107) mmol/L Carbon Dioxide 26 (22-30) mmol/L BUN 38 H (9-20) mg/dL Creatinine 3.8 H (0.8-1.5) mg/dL Glucose 107 H (75-100) mg/dL Calcium 7.7 L (8.4-10.2) mg/dL - Imaging and Cardiology EKG: image reviewed - EKG Sinus rhythms and dysrhythmias: sinus rhythm
--- NOTE | 2018-07-16 11:46 | Progress Note ---
Assessment and Plan Assessment and plan: 57-year-old patient with multiple medical problems was admitted through emergency room with worsening shortness of breath and chest pain, patient was evaluated by cardiology and pulmonary, Medications optimized, worsening renal function seen by nephrology --Acute on chronic kidney disease stage IV Secondary to ATN, gentle hydration, avoid nephrotoxins Nephrology consultation --Non-ST elevation MT/chest pain; with chronic elevation of troponins The patient has multiple risk factors, cardiology following --History of coronary artery disease; continue current cardiac medications --Acute on chronic diastolic congestive heart failure; EF 50-55% Continue anti-failure medications input output monitoring --Acute on chronic hypoxic respiratory failure; secondary to CHF exacerbation as well as pleural effusion, oxygen titrated O2 sats to more than 90%,Pulmonary consult if needed Nebulizers and antibiotics and inhalation steroids and supportive care --Bilateral pleural effusions; patient had thoracentesis in the past Continue supportive care thoracentesis if needed, pulm following --Type 2 diabetes mellitus; Accu-Chek sliding scale coverage and ADA diet insulin as needed --Dyslipidemia; continue statin --Severe malnutrition/hypoalbuminemia; nutrition supplements and nutrition consult --DVT prophylaxis; heparin renal dose Closely monitor patient and adjust management as needed Consults and recommendations noted and appreciated Disposition; follow nephrology, cardiology, pulmonary recommendations Possible discharge in 1-2 days if stable History Interval history: Patient seen and examined medical records reviewed Patient feels slightly better no new complaints Mild worsening renal function Cardiology nephrology following Alert awake oriented 3 Vital signs noted Hospitalist Physical - Constitutional Vitals: Temp Pulse Resp BP Pulse Ox 98.5 F 81 20 157/86 100 07/16/18 11:21 07/16/18 11:21 07/16/18 11:21 07/16/18 11:21 07/16/18 11:21 General appearance: Present: no acute distress, well-nourished - EENT Eyes: Present: PERRL, EOM intact - Neck Neck: Present: supple, normal ROM - Respiratory Respiratory effort: normal Respiratory: bilateral: diminished, negative: rales, rhonchi, wheezing - Cardiovascular Rhythm: regular Heart Sounds: Present: S1 & S2 - Extremities Extremities: no ischemia, No edema - Abdominal General gastrointestinal: soft, non-tender, non-distended, normal bowel sounds - Integumentary Integumentary: Present: clear, warm - Psychiatric Psychiatric: appropriate mood/affect, cooperative - Neurologic Neurologic: CNII-XII intact, moves all extremities Results - Labs CBC & Chem 7: 07/15/18 04:24 07/16/18 03:26 Labs: Laboratory Last Values WBC 11.0 K/mm3 (4.5-11.0) 07/14/18 04:25 RBC 3.64 M/mm3 (3.65-5.03) L 07/14/18 04:25 Hgb 8.8 gm/dl (11.8-15.2) L 07/15/18 04:24 Hct 26.8 % (35.5-45.6) L 07/15/18 04:24 MCV 87 fl (84-94) 07/14/18 04:25 MCH 28 pg (28-32) 07/14/18 04:25 MCHC 32 % (32-34) 07/14/18 04:25 RDW 14.3 % (13.2-15.2) 07/14/18 04:25 Plt Count 298 K/mm3 (140-440) 07/15/18 04:24 Lymph % (Auto) 15.2 % (13.4-35.0) 07/14/18 04:25 [place] % (Auto) 7.0 % (0.0-7.3) 07/14/18 04:25 Eos % (Auto) 1.1 % (0.0-4.3) 07/14/18 04:25 Baso % (Auto) 0.7 % (0.0-1.8) 07/14/18 04:25 Lymph # 1.7 K/mm3 (1.2-5.4) 07/14/18 04:25 [place] # 0.8 K/mm3 (0.0-0.8) 07/14/18 04:25 Eos # 0.1 K/mm3 (0.0-0.4) 07/14/18 04:25 Baso # 0.1 K/mm3 (0.0-0.1) 07/14/18 04:25 Seg Neutrophils % 76.0 % (40.0-70.0) H 07/14/18 04:25 Seg Neutrophils # 8.4 K/mm3 (1.8-7.7) H 07/14/18 04:25 PT 11.6 Sec. (12.2-14.9) L 07/13/18 22:33 INR 0.80 (0.87-1.13) L 07/13/18 22:33 APTT 24.9 Sec. (24.2-36.6) 07/13/18 22:33 Heparin Anti-Xa Level 0.23 U.I./ml (0.3-0.7) L 07/16/18 03:26 Sodium 140 mmol/L (137-145) 07/16/18 03:26 Potassium 4.1 mmol/L (3.6-5.0) 07/16/18 03:26 Chloride 103.6 mmol/L (98-107) 07/16/18 03:26 Carbon Dioxide 26 mmol/L (22-30) 07/16/18 03:26 Anion Gap 15 mmol/L 07/16/18 03:26 BUN 38 mg/dL (9-20) H 07/16/18 03:26 Creatinine 3.8 mg/dL (0.8-1.5) H 07/16/18 03:26 Estimated GFR 20 ml/min 07/16/18 03:26 BUN/Creatinine Ratio 10 % 07/16/18 03:26 Glucose 107 mg/dL (75-100) H 07/16/18 03:26 POC Glucose 185 (70-105) H 07/15/18 20:34 Calcium 7.7 mg/dL (8.4-10.2) L 07/16/18 03:26 Total Bilirubin < 0.20 mg/dL (0.1-1.2) 07/14/18 04:25 AST 24 units/L (5-40) 07/14/18 04:25 ALT 19 units/L (7-56) 07/14/18 04:25 Alkaline Phosphatase 112 units/L (35-129) 07/14/18 04:25 Total Creatine Kinase 539 units/L (55-170) H 07/14/18 00:13 CK-MB (CK-2) 3.6 ng/mL (0.0-4.0) 07/14/18 00:13 CK-MB (CK-2) Rel Index 0.6 (0-4) 07/14/18 00:13 Troponin T 0.135 ng/mL (0.00-0.029) H* 07/14/18 00:13 Total Protein 5.5 g/dL (6.3-8.2) L 07/14/18 04:25 Albumin 1.9 g/dL (3.9-5) L 07/14/18 04:25 Albumin/Globulin Ratio 0.5 % 07/14/18 04:25 Triglycerides 195 mg/dL (2-149) H 07/13/18 08:54 Cholesterol 242 mg/dL (50-199) H 07/13/18 08:54 LDL Cholesterol Direct 171 mg/dL (50-130) H 07/13/18 08:54 HDL Cholesterol 57 mg/dL (40-59) 07/13/18 08:54 Cholesterol/HDL Ratio 4.24 % 07/13/18 08:54 Nutrition/Malnutrition Assess - Dietary Evaluation Nutrition/Malnutrition Findings: Nutrition Notes Start: 07/14/18 11:2 5 Freq: Status: Active Protocol: Document 07/14/18 11:25 ADELFO (Rec: 07/14/18 11:26 ADELFO [email or web address]) Nutrition Notes Need for Assessment generated from: vice president of procurement Initial or Follow up Brief Note Subjective/Other Information Pt screened for new onset DM, however, pt with hx of DM. Nutrition Intervention Follow-Up By: 07/18/18 Additional Comments F/U: intakes, need for assessment
[2018-07-16 17:13] LABS: Bacteria,Urine 2+ /HPF (Negative); Bilirubin,Urine NEG (Negative); Blood,Urine NEG (Negative); Color,Urine Yellow (Yellow); Hyaline Casts,Urine 6 /LPF; Mucus,Urine FEW /HPF; Urobilinogen,Urine < 2.0 mg/dL (<2.0)
[2018-07-16 17:16] LABS: Creatinine,Urine 67.9 mg/dL (0.1-20.0)
[2018-07-16 17:22] LABS: Protein,Urine >500 mg/dL (Negative)
[2018-07-16] MEDS: LANTUS SUB-Q SCH (21:59)
[2018-07-16] MEDS: BENADRYL PO PRN (22:48)
--- NOTE | 2018-07-16 23:12 | Cat Scan Report ---
PROCEDURE: CT ABDOMEN PELVIS WO CON TECHNIQUE: Computerized axial tomography of the abdomen and pelvis was performed without intravenous contrast. This study is performed without intravascular contrast material and its sensitivity for ab dominal and pelvic pathology, including neoplasms, inflammation, abscess, free fluid, thrombosis, art erial dissection and infarction, is reduced compared with a contrast enhanced study. CT DOSE LENGTH PRODUCT: mGycm HISTORY: Kidney pain COMPARISONS: 04/12/2018 . FINDINGS: Moderate degree of right-sided and mild left-sided pleural effusions are noted. A large cluster of ti ny nodules is noted in the left lower lobe. Coronary artery calcification is noted. The liver, spleen , pancreas and adrenal glands are within normal limits. Bilateral kidneys are normal in density witho ut calculi or hydronephrosis. Aorta is of normal caliber. Mild degree of free fluid is noted in the p elvic cavity. There is no free air. Gallbladder is partially distended. Large amount of residual food material is noted in the stomach. Small bowel loops are within normal limits. There is moderate degr ee of residual stool. Appendix is normal. Moderate degenerative changes are noted at L5-S1. Vertebral height is normal. IMPRESSION: Bilateral pleural effusions Cluster of tiny nodules in the left lower lobe may represent early infiltrates. Coronary arterial calcification Mild degree of ascites This document is electronically signed by Kenrick Godfrey MD., July 16 2018 11:10:40 PM ET
[2018-07-17 06:03] LABS: Basophils % (Auto) 0.5 % (0.0-1.8); Eosinophils # (Auto) 0.1 K/mm3 (0.0-0.4); Eosinophils % (Auto) 1.5 % (0.0-4.3); Hematocrit 26.1 % (35.5-45.6); Hemoglobin 8.5 gm/dl (11.8-15.2); Lymphocytes # (Auto) 1.9 K/mm3 (1.2-5.4); Lymphocytes % (Auto) 20.5 % (13.4-35.0); Mean Corpuscular HGB Conc 33 % (32-34); Mean Corpuscular Volume 87 fl (84-94); Monocytes # (Auto) 0.8 K/mm3 (0.0-0.8); Monocytes % (Auto) 8.8 % (0.0-7.3); Platelet Count 320 K/mm3 (140-440); Red Cell Distribution Width 14.1 % (13.2-15.2)
[2018-07-17 06:48] LABS: Calcium 7.8 mg/dL (8.4-10.2)
--- NOTE | 2018-07-17 09:44 | Progress Note ---
Assessment and Plan 1. Acute kidney injury: RIGO superimposed on CKD stage 4 in the setting of CHF exacerbation. Likely patient is at his new baseline. Monitor renal function. Renal prognosis is guarded to poor. Patient is aware that he may need dialysis soon. D/w patient and his at the bedside that he would require hemodialysis during this admission. They are agreeable. 2. FEN: Volume overload, improving. Continue Lasix. Counseled limit fluid and salt intake. Questionable compliance. 3. CHF exacerbation: Followed by cards. Patient had 6 admissions in the past 7 months with CHF exacerbation. His EF was normal. Cards also wants to do Cath, but unable to do due to elevated creatinine. Per Cards the volume overload is from advanced CKD. 4. DM-2. 5. Proteinuria: Diabetic nephropathy. 6. Chest pain with elevated Troponin. Subjective Date of service: 07/17/18 Principal diagnosis: Acute on chronic HFpEF, Elevated Tn, CKD, HTN, DM, Anemia Interval history: Patient was seen and examined at the bedside. Objective - Vital Signs Vital signs: Vital Signs - 12hr 07/17/18 07/17/18 07/17/18 00:34 03:00 04:45 Temperature 98.0 F 98.0 F Pulse Rate 81 80 78 Respiratory 18 20 Rate Blood Pressure 151/73 137/72 O2 Sat by Pulse 94 93 Oximetry 07/17/18 08:08 Temperature 98.0 F Pulse Rate 83 Respiratory 20 Rate Blood Pressure 165/88 O2 Sat by Pulse 96 Oximetry - General Appearance General appearance: well-developed, well-nourished, appears stated age, other (not in distress) EENT: ATNC, PERRL, mucous membranes moist, hearing intact, vision intact Neck: supple Respiratory: Present: Rales Cardiology: regular, S1S2, no murmurs Gastrointestinal: normoactive bowel sounds, no tenderness, no distended Integumentary: no rash, warm and dry Neurologic: no focal deficit, no asterixis, alert and oriented x3 Musculoskeletal: other (trace LE edema noted) Psychiatric: cooperative - Lab 07/17/18 04:18 07/17/18 04:18 Most recent lab results Calcium 7.8 mg/dL (8.4-10.2) L 07/17/18 04:18 Urine Creatinine 67.9 mg/dL (0.1-20.0) H 07/16/18 16:40 Urine Sodium 60 mmol/L 07/16/18 16:40 Medications & Allergies - Medications Allergies/Adverse Reactions: Allergies No Known Allergies Allergy (Verified 11/01/13 07:35) Home Medications: Home Medications Medication Instructions Recorded Confirmed Last Taken Type Insulin Glargine [Lantus VIAL] 20 units SUB-Q QHS 30 Days #30 01/30/18 07/13/18 04/30/18 Rx units Aspirin [Aspirin BABY CHEW TAB] 81 mg PO QDAY #30 tab.chew 04/17/18 07/13/18 04/30/18 Rx AtorvaSTATin [Lipitor] 40 mg PO QHS #60 tablet 04/17/18 07/13/18 04/30/18 Rx Famotidine [Pepcid] 20 mg PO BID #60 tablet 04/17/18 07/13/18 04/30/18 Rx Furosemide [Lasix TAB] 40 mg PO BID #60 tablet 04/17/18 07/13/18 04/30/18 Rx ISOSORBIDE MONOnitrate [Imdur ER] 60 mg PO QDAY #30 tablet 04/17/18 07/13/18 04/30/18 Rx Metoprolol [Lopressor TAB] 100 mg PO BID #60 tablet 04/17/18 07/13/18 04/30/18 Rx amLODIPine [Norvasc] 10 mg PO DAILY #30 tablet 04/17/18 07/13/18 04/30/18 Rx hydrALAZINE [Apresoline TAB] 100 mg PO Q8HR #90 tab 04/17/18 07/13/18 04/30/18 Rx ALBUTEROL Inhaler(NF) [VENTOLIN 2 puff IH Q1D PRN #1 inha 05/05/18 07/13/18 Unknown Rx Inhaler(NF)] Lisinopril [Zestril TAB] 10 mg PO QDAY #30 tablet 05/05/18 07/13/18 Unknown Rx Active Medications: Generic Name Dose Route Start Last Admin Trade Name Freq PRN Reason Stop Dose Admin Albuterol 2.5 mg 07/13/18 12:56 Proventil IH QIDRT PRN Shortness Of Breath Amlodipine Besylate 10 mg 07/14/18 10:00 07/16/18 10:05 Norvasc PO 10 mg DAILY [facility] Administration Aspirin 81 mg 07/14/18 10:00 07/16/18 10:05 Baby Aspirin PO 81 mg QDAY [facility] Administration Atorvastatin Calcium 40 mg 07/13/18 22:00 07/16/18 21:59 Lipitor PO 40 mg QHS [facility] Administration Carvedilol 25 mg 07/14/18 10:00 07/16/18 21:59 Coreg PO 25 mg BID [facility] Administration Diphenhydramine HCl 25 mg 07/15/18 01:02 07/16/18 22:48 Benadryl PO 25 mg QHS PRN Administration Sleep Famotidine 20 mg 07/13/18 22:00 07/16/18 10:05 Pepcid PO 20 mg DAILY [facility] Administration Furosemide 40 mg 07/14/18 10:00 07/16/18 10:04 Lasix IV 40 mg QDAY [facility] Administration Guaifenesin 200 mg 07/13/18 23:31 07/15/18 21:25 Robitussin PO 200 mg Q6H PRN Administration Cough Insulin Glargine 20 units 07/13/18 22:00 07/16/18 21:59 Lantus SUB-Q 20 units QHS [facility] Administration Insulin Human Lispro 0 unit 07/15/18 12:41 07/16/18 22:01 Humalog SUB-Q 4 unit ACHS [facility] Administration Protocol Isosorbide Mononitrate 60 mg 07/14/18 10:00 07/16/18 10:05 Imdur PO 60 mg QDAY [facility] Administration
[2018-07-17] MEDS: COREG PO SCH ×2 (09:50→21:54)
[2018-07-17] MEDS: LASIX IV SCH (09:51)
[2018-07-17] MEDS: HumaLOG SUB-Q SCH ×4 (09:51→22:07)
[2018-07-17] MEDS: IMDUR PO SCH (09:51)
[2018-07-17] MEDS: NORVASC PO SCH (09:51)
[2018-07-17] MEDS: PEPCID PO SCH (09:51)
[2018-07-17] MEDS: BABY ASPIRIN PO SCH (09:51)
--- NOTE | 2018-07-17 11:07 | Progress Note ---
Assessment and Plan Assessment and plan: 57-year-old patient with multiple medical problems was admitted through emergency room with worsening shortness of breath and chest pain, patient was evaluated by cardiology and pulmonary, Medications optimized, worsening renal function seen by nephrology --Acute on chronic kidney disease stage IV Secondary to ATN, gentle hydration, avoid nephrotoxins Nephrology following --Non-ST elevation AR/chest pain; with chronic elevation of troponins The patient has multiple risk factors, cardiology following --History of coronary artery disease; continue current cardiac medications --Acute on chronic diastolic congestive heart failure; EF 50-55% Continue anti-failure medications input output monitoring --Acute on chronic hypoxic respiratory failure; secondary to CHF exacerbation as well as pleural effusion, oxygen titrated O2 sats to more than 90%,Pulmonary consult if needed Nebulizers and antibiotics and inhalation steroids and supportive care --Bilateral pleural effusions; patient had thoracentesis in the past Continue supportive care thoracentesis if needed, pulm following --Type 2 diabetes mellitus; Accu-Chek sliding scale coverage and ADA diet insulin as needed --Dyslipidemia; continue statin --Severe malnutrition/hypoalbuminemia; nutrition supplements and nutrition consult --DVT prophylaxis; heparin renal dose Closely monitor patient and adjust management as needed Consults and recommendations noted and appreciated cardiology contemplating cardiac cath History Interval history: Feels better. No chest pain currently Hospitalist Physical - Physical exam Narrative exam: GEN: Not in acute distress, lying in bed HEENT: Normocephalic, atraumatic, Neck: supple, No JVD Lungs: Clear to auscultation bilat, no crackles, no wheeze Abd:soft, non tender, non distended, normal bowel sounds Ext: Trace bilat edema, no clubbing, no cyanosis Neuro:Awake,alert,oriented X 3, no focal signs Skin:No rash Psych: normal mood - Constitutional Vitals: Temp Pulse Resp BP Pulse Ox 98.0 F 83 20 165/88 96 07/17/18 08:08 07/17/18 08:08 07/17/18 08:08 07/17/18 09:51 07/17/18 08:08 General appearance: Present: no acute distress, well-nourished Results - Labs CBC & Chem 7: 07/17/18 04:18 07/17/18 04:18 Labs: Laboratory Last Values WBC 9.3 K/mm3 (4.5-11.0) 07/17/18 04:18 RBC 3.00 M/mm3 (3.65-5.03) L 07/17/18 04:18 Hgb 8.5 gm/dl (11.8-15.2) L 07/17/18 04:18 Hct 26.1 % (35.5-45.6) L 07/17/18 04:18 MCV 87 fl (84-94) 07/17/18 04:18 MCH 29 pg (28-32) 07/17/18 04:18 MCHC 33 % (32-34) 07/17/18 04:18 RDW 14.1 % (13.2-15.2) 07/17/18 04:18 Plt Count 320 K/mm3 (140-440) 07/17/18 04:18 Lymph % (Auto) 20.5 % (13.4-35.0) 07/17/18 04:18 [place] % (Auto) 8.8 % (0.0-7.3) H 07/17/18 04:18 Eos % (Auto) 1.5 % (0.0-4.3) 07/17/18 04:18 Baso % (Auto) 0.5 % (0.0-1.8) 07/17/18 04:18 Lymph # 1.9 K/mm3 (1.2-5.4) 07/17/18 04:18 [place] # 0.8 K/mm3 (0.0-0.8) 07/17/18 04:18 Eos # 0.1 K/mm3 (0.0-0.4) 07/17/18 04:18 Baso # 0.0 K/mm3 (0.0-0.1) 07/17/18 04:18 Seg Neutrophils % 68.7 % (40.0-70.0) 07/17/18 04:18 Seg Neutrophils # 6.4 K/mm3 (1.8-7.7) 07/17/18 04:18 PT 11.6 Sec. (12.2-14.9) L 07/13/18 22:33 INR 0.80 (0.87-1.13) L 07/13/18 22:33 APTT 24.9 Sec. (24.2-36.6) 07/13/18 22:33 Heparin Anti-Xa Level 0.14 U.I./ml (0.3-0.7) L 07/16/18 11:07 Sodium 142 mmol/L (137-145) 07/17/18 04:18 Potassium 4.0 mmol/L (3.6-5.0) 07/17/18 04:18 Chloride 106.0 mmol/L (98-107) 07/17/18 04:18 Carbon Dioxide 24 mmol/L (22-30) 07/17/18 04:18 Anion Gap 16 mmol/L 07/17/18 04:18 BUN 40 mg/dL (9-20) H 07/17/18 04:18 Creatinine 4.1 mg/dL (0.8-1.5) H 07/17/18 04:18 Estimated GFR 18 ml/min 07/17/18 04:18 BUN/Creatinine Ratio 10 % 07/17/18 04:18 Glucose 110 mg/dL (75-100) H 07/17/18 04:18 POC Glucose 185 (70-105) H 07/15/18 20:34 Calcium 7.8 mg/dL (8.4-10.2) L 07/17/18 04:18 Total Bilirubin < 0.20 mg/dL (0.1-1.2) 07/14/18 04:25 AST 24 units/L (5-40) 07/14/18 04:25 ALT 19 units/L (7-56) 07/14/18 04:25 Alkaline Phosphatase 112 units/L (35-129) 07/14/18 04:25 Total Creatine Kinase 539 units/L (55-170) H 07/14/18 00:13 CK-MB (CK-2) 3.6 ng/mL (0.0-4.0) 07/14/18 00:13 CK-MB (CK-2) Rel Index 0.6 (0-4) 07/14/18 00:13 Troponin T 0.135 ng/mL (0.00-0.029) H* 07/14/18 00:13 Total Protein 5.5 g/dL (6.3-8.2) L 07/14/18 04:25 Albumin 1.9 g/dL (3.9-5) L 07/14/18 04:25 Albumin/Globulin Ratio 0.5 % 07/14/18 04:25 Triglycerides 195 mg/dL (2-149) H 07/13/18 08:54 Cholesterol 242 mg/dL (50-199) H 07/13/18 08:54 LDL Cholesterol Direct 171 mg/dL (50-130) H 07/13/18 08:54 HDL Cholesterol 57 mg/dL (40-59) 07/13/18 08:54 Cholesterol/HDL Ratio 4.24 % 07/13/18 08:54 Urine Color Yellow (Yellow) 07/16/18 16:40 Urine Turbidity Clear (Clear) 07/16/18 16:40 Urine pH 7.0 (5.0-7.0) 07/16/18 16:40 Ur Specific [place] 1.014 (1.003-1.030) 07/16/18 16:40 Urine Protein >500 mg/dL (Negative) 07/16/18 16:40 Urine Glucose (UA) 150 mg/dL (Negative) 07/16/18 16:40 Urine Ketones Neg mg/dL (Negative) 07/16/18 16:40 Urine Blood Neg (Negative) 07/16/18 16:40 Urine Nitrite Neg (Negative) 07/16/18 16:40 Urine Bilirubin Neg (Negative) 07/16/18 16:40 Urine Urobilinogen < 2.0 mg/dL (<2.0) 07/16/18 16:40 Ur Leukocyte Esterase Neg (Negative) 07/16/18 16:40 Urine WBC (Auto) 1.0 /HPF (0.0-6.0) 07/16/18 16:40 Urine RBC (Auto) 5.0 /HPF (0.0-6.0) 07/16/18 16:40 U Epithel Cells (Auto) < 1.0 /HPF (0-13.0) 07/16/18 16:40 Urine Bacteria (Auto) 2+ /HPF (Negative) 07/16/18 16:40 Hyaline Casts 6 /LPF 07/16/18 16:40 Urine Mucus Few /HPF 07/16/18 16:40 Urine Creatinine 67.9 mg/dL (0.1-20.0) H 07/16/18 16:40 Urine Sodium 60 mmol/L 07/16/18 16:40 Nutrition/Malnutrition Assess - Dietary Evaluation Nutrition/Malnutrition Findings: Nutrition Notes Start: 07/14/18 11:25 Freq: Status: Active Protocol: Document 07/16/18 14:11 RM (Rec: 07/16/18 14:15 RM [id number]) Nutrition Notes Initial or Follow up Brief Note Current Diagnosis Acute Kidney Injury,CKD(stage I-IV),Coronary Artery Disease, Diabetes,Heart Failure, Hyperlipidemia Current Diet Cardiac Labs/Tests Reviewed Pertinent Medications Reviewed Height 6 ft Weight 84.4 kg [place] Body Weight (kg) 80.90 BMI 25.2 Subjective/Other Information Consulted for malnutrition. Pt stated that [employer] his appetite was good and he ate 3 meals daily. Stated that his appetite is good now and that he eats all of his meals. Unsure of UBW. No temporal or orbital wasting . Burn Absent Trauma Absent Nutrition Intervention Change Diet Order: Cardiac/Consistent CHO Revisit per MD consult or patient Sign Off request:
--- NOTE | 2018-07-17 11:37 | Progress Note ---
Assessment and Plan Clinically, heart failure appears better. Renal indices trending upwards, nephrology considering initiation of HD. If HD were to be initiated, we would be able to proceed with coronary angiography as indicated in setting of elevated troponins and chest pain. The patient has been seen in conjunction with Dr. Parks who agrees with the assessment and plan of care. - Patient Problems (1) Acute on chronic heart failure with preserved ejection fraction Current Visit: Yes Status: Acute (2) Elevated troponin Current Visit: No Status: Acute (3) CKD (chronic kidney disease) Current Visit: Yes Status: Acute Qualifiers: Chronic kidney disease stage: stage 4 (severe) Qualified Code(s): N18.4 - Chronic kidney disease, stage 4 (severe) (4) Chest pain Current Visit: Yes Status: Acute (5) HTN (hypertension) Current Visit: No Status: Chronic Qualifiers: Hypertension type: essential hypertension Qualified Code(s): I10 - Essential (primary) hypertension (6) Diabetes mellitus Current Visit: Yes Status: Chronic Subjective Date of service: 07/17/18 Principal diagnosis: Acute on chronic HFpEF, Elevated Tn, CKD, HTN, DM, Anemia Interval history: Pt resting in bed, states he is feeling better today. Objective Last Vital Signs Temp 98.0 F 07/17/18 08:08 Pulse 83 07/17/18 08:08 Resp 20 07/17/18 08:08 BP 165/88 07/17/18 09:51 Pulse Ox 96 07/17/18 08:08 - Physical Examination General: No Apparent Distress HEENT: Positive: EOMI, Normocephaly, Mucus Membranes Moist Neck: Positive: neck supple, trachea midline Cardiac: Positive: Reg Rate and Rhythm, S1/S2 Lungs: Positive: Decreased Breath Sounds Neuro: Positive: Grossly Intact Abdomen: Positive: Soft, Active Bowel Sounds. Negative: Tender Skin: Positive: Clear. Negative: Rash Musculoskeletal: Normal Range of Motion, other (status post partial amputation of the right foot.) Extremities: Present: edema (trace pitting bilateral leg edema) - Labs and Meds CBC 07/17/18 Range/Units 04:18 WBC 9.3 (4.5-11.0) K/mm3 RBC 3.00 L (3.65-5.03) M/mm3 Hgb 8.5 L (11.8-15.2) gm/dl Hct 26.1 L (35.5-45.6) % Plt Count 320 (140-440) K/mm3 Lymph # 1.9 (1.2-5.4) K/mm3 [place] # 0.8 (0.0-0.8) K/mm3 Eos # 0.1 (0.0-0.4) K/mm3 Baso # 0.0 (0.0-0.1) K/mm3 Comprehensive Metabolic Panel 07/17/18 Range/Units 04:18 Sodium 142 (137-145) mmol/L Potassium 4.0 (3.6-5.0) mmol/L Chloride 106.0 (98-107) mmol/L Carbon Dioxide 24 (22-30) mmol/L BUN 40 H (9-20) mg/dL Creatinine 4.1 H (0.8-1.5) mg/dL Glucose 110 H (75-100) mg/dL Calcium 7.8 L (8.4-10.2) mg/dL - Imaging and Cardiology EKG: image reviewed - EKG Sinus rhythms and dysrhythmias: sinus rhythm
[2018-07-17] MEDS: LANTUS SUB-Q SCH (21:55)
[2018-07-17] MEDS: BENADRYL PO PRN (22:01)
[2018-07-18] MEDS ORDERED: ALUM-MAG HYDROX-SIMETH 200-200-20MG/5ML PO ONE (06:00)
[2018-07-18 06:04] LABS: Calcium 7.9 mg/dL (8.4-10.2)
[2018-07-18] MEDS: ZOFRAN IV PRN (07:01)
[2018-07-18] MEDS: HumaLOG SUB-Q SCH ×3 (08:54→21:54)
--- NOTE | 2018-07-18 10:40 | Progress Note ---
Assessment and Plan 1. ESRD: CKD stage 4 has likley has progressed to ESRD. Patient had multiple admissions over the past 7 months due to volume overload. His EF was normal. Renal prognosis is poor. Patient required hemodialysis / [employer] due to advanced CKD and associated recurrent admissions with volume overload and respiratory distress. Patient was explained the indications, benefits and risks involved in hemodialysis. Verbalized understanding. His mother was on hemodialysis. Patient gave verbal consent for hemodialysis. S/p Tunnel dialysis catheter. HD today. CM informed about outpatient HD chair. 2. FEN: Volume overload, UF with HD. Continue Lasix. Counseled limit fluid and salt intake. 3. CHF exacerbation: Followed by cards. Patient had 6 admissions in the past 7 months with CHF exacerbation. 4. DM-2. 5. Proteinuria: Diabetic nephropathy. 6. Chest pain with elevated Troponin. Subjective Date of service: 07/18/18 Principal diagnosis: Acute on chronic HFpEF, Elevated Tn, CKD, HTN, DM, Anemia Interval history: Patient was seen and examined at the bedside. Doing ok. Objective - Vital Signs Vital signs: Vital Signs - 12hr 07/17/18 07/18/18 07/18/18 23:34 03:20 04:07 Temperature 98.7 F 98.6 F 99.0 F Pulse Rate 88 86 85 Respiratory 12 16 12 Rate Blood Pressure 140/75 157/86 154/75 O2 Sat by Pulse 93 95 91 Oximetry 07/18/18 08:11 Temperature 98.2 F Pulse Rate 86 Respiratory 20 Rate Blood Pressure 150/75 O2 Sat by Pulse 86 Oximetry - General Appearance General appearance: well-developed, well-nourished, appears stated age, other (not in distress, right IJ tunnel catheter) EENT: ATNC, PERRL, mucous membranes moist, hearing intact, vision intact Neck: supple Respiratory: Present: [place] Cardiology: regular, S1S2, no murmurs Gastrointestinal: normoactive bowel sounds, no tenderness, no distended Integumentary: no rash, warm and dry Neurologic: no focal deficit, no asterixis, alert and oriented x3 Musculoskeletal: other (right TMA, no edema) Psychiatric: cooperative - Lab 07/17/18 04:18 07/18/18 04:42 Most recent lab results Calcium 7.9 mg/dL (8.4-10.2) L 07/18/18 04:42 Phosphorus 4.00 mg/dL (2.5-4.5) 07/18/18 04:42 Magnesium 2.10 mg/dL (1.7-2.3) 07/18/18 04:42 Urine Creatinine 67.9 mg/dL (0.1-20.0) H 07/16/18 16:40 Urine Sodium 60 mmol/L 07/16/18 16:40 Medications & Allergies - Medications Allergies/Adverse Reactions: Allergies No Known Allergies Allergy (Verified 11/01/13 07:35) Home Medications: Home Medications Medication Instructions Recorded Confirmed Last Taken Type Insulin Glargine [Lantus VIAL] 20 units SUB-Q QHS 30 Days #30 01/30/18 07/13/18 04/30/18 Rx units Aspirin [Aspirin BABY CHEW TAB] 81 mg PO QDAY #30 tab.chew 04/17/18 07/13/18 04/30/18 Rx AtorvaSTATin [Lipitor] 40 mg PO QHS #60 tablet 04/17/18 07/13/18 04/30/18 Rx Famotidine [Pepcid] 20 mg PO BID #60 tablet 04/17/18 07/13/18 04/30/18 Rx Furosemide [Lasix TAB] 40 mg PO BID #60 tablet 04/17/18 07/13/18 04/30/18 Rx ISOSORBIDE MONOnitrate [Imdur ER] 60 mg PO QDAY #30 tablet 04/17/18 07/13/18 04/30/18 Rx Metoprolol [Lopressor TAB] 100 mg PO BID #60 tablet 04/17/18 07/13/18 04/30/18 Rx amLODIPine [Norvasc] 10 mg PO DAILY #30 tablet 04/17/18 07/13/18 04/30/18 Rx hydrALAZINE [Apresoline TAB] 100 mg PO Q8HR #90 tab 04/17/18 07/13/18 04/30/18 Rx ALBUTEROL Inhaler(NF) [VENTOLIN 2 puff IH Q1D PRN #1 inha 05/05/18 07/13/18 Unknown Rx Inhaler(NF)] Lisinopril [Zestril TAB] 10 mg PO QDAY #30 tablet 05/05/18 07/13/18 Unknown Rx Active Medications: Generic Name Dose Route Start Last Admin Trade Name Freq PRN Reason Stop Dose Admin Albuterol 2.5 mg 07/13/18 12:56 Proventil IH QIDRT PRN Shortness Of Breath Amlodipine Besylate 10 mg 07/14/18 10:00 07/17/18 09:51 Norvasc PO 10 mg DAILY RADHA Administration Aspirin 81 mg 07/14/18 10:00 07/17/18 09:51 Baby Aspirin PO 81 mg QDAY [facility] Administration Atorvastatin Calcium 40 mg 07/13/18 22:00 07/17/18 21:54 Lipitor PO 40 mg QHS RADHA Administration Carvedilol 25 mg 07/14/18 10:00 07/17/18 21:54 Coreg PO 25 mg BID RADHA Administration Diphenhydramine HCl 25 mg 07/15/18 01:02 07/17/18 22:01 Benadryl PO 25 mg QHS PRN Administration Sleep Famotidine 20 mg 07/13/18 22:00 07/17/18 09:51 Pepcid PO 20 mg DAILY [facility] Administration Furosemide 40 mg 07/14/18 10:00 07/17/18 09:51 Lasix IV 40 mg QDAY [facility] Administration Guaifenesin 200 mg 07/13/18 23:31 07/15/18 21:25 Robitussin PO 200 mg Q6H PRN Administration Cough Insulin Glargine 20 units 07/13/18 22:00 07/17/18 21:55 Lantus SUB-Q 20 units QHS [facility] Administration Insulin Human Lispro 0 unit 07/15/18 12:41 07/18/18 08:54 Humalog SUB-Q Not Given [facility] Protocol Isosorbide Mononitrate 60 mg 07/14/18 10:00 07/17/18 09:51 Imdur PO 60 mg QDAY [facility] Administration Ondansetron HCl 4 mg 07/18/18 06:43 07/18/18 07:01 Zofran IV 4 mg Q4H PRN Administration Nausea And Vomiting
[2018-07-18] MEDS ORDERED: XYLOCAINE 2% INFILTRATI ONE (10:46)
[2018-07-18] MEDS ORDERED: HEPARIN/NS 5000 UNIT/500ML(CATH LAB) 500 ML IR ONE (10:46)
[2018-07-18] MEDS ORDERED: HEPARIN 10,000 UNITS/10 ML ONE (10:46)
[2018-07-18] MEDS ORDERED: ANCEF/STERILE WATER 2 GM/20 ML 0 GM/0 ML SYRINGE IV ONE (10:47)
[2018-07-18] MEDS ORDERED: SUBLIMAZE ONE (10:56)
[2018-07-18] MEDS ORDERED: VERSED ONE (10:56)
--- NOTE | 2018-07-18 11:27 | Progress Note ---
Assessment and Plan Assessment and plan: 57-year-old patient with multiple medical problems was admitted through emergency room with worsening shortness of breath and chest pain, patient was evaluated by cardiology and pulmonary, Medications optimized, worsening renal function seen by nephrology --Acute on chronic kidney disease stage IV Worsening. Cr 4.4 today Secondary to ATN, gentle hydration, avoid nephrotoxins Nephrology following --Non-ST elevation IN/chest pain; with chronic elevation of troponins The patient has multiple risk factors, cardiology following --History of coronary artery disease; continue current cardiac medications --Acute on chronic diastolic congestive heart failure; EF 50-55% Continue anti-failure medications input output monitoring --Acute on chronic hypoxic respiratory failure; secondary to CHF exacerbation as well as pleural effusion, oxygen titrated O2 sats to more than 90%,Pulmonary consult if needed Nebulizers and antibiotics and inhalation steroids and supportive care --Bilateral pleural effusions; patient had thoracentesis in the past Continue supportive care thoracentesis if needed, pulm following --Type 2 diabetes mellitus; Accu-Chek sliding scale coverage and ADA diet insulin as needed --Dyslipidemia; continue statin --Severe malnutrition/hypoalbuminemia; nutrition supplements and nutrition consult --DVT prophylaxis; heparin renal dose Closely monitor patient and adjust management as needed Consults and recommendations noted and appreciated cardiology contemplating cardiac cath but renal function poor History Interval history: Feels better. No chest pain currently shortness of breath Hospitalist Physical - Physical exam Narrative exam: GEN: Not in acute distress, lying in bed HEENT: Normocephalic, atraumatic, Neck: supple, No JVD Lungs: Clear to auscultation bilat, no crackles, no wheeze Abd:soft, non tender, non distended, normal bowel sounds Ext: Trace bilat edema, no clubbing, no cyanosis Neuro:Awake,alert,oriented X 3, no focal signs Skin:No rash Psych: normal mood - Constitutional Vitals: Temp Pulse Resp BP Pulse Ox 98.2 F 86 20 150/75 86 07/18/18 08:11 07/18/18 08:11 07/18/18 08:11 07/18/18 08:11 07/18/18 08:11 General appearance: Present: no acute distress, well-nourished Results - Labs CBC & Chem 7: 07/17/18 04:18 07/18/18 04:42 Labs: Laboratory Last Values WBC 9.3 K/mm3 (4.5-11.0) 07/17/18 04:18 RBC 3.00 M/mm3 (3.65-5.03) L 07/17/18 04:18 Hgb 8.5 gm/dl (11.8-15.2) L 07/17/18 04:18 Hct 26.1 % (35.5-45.6) L 07/17/18 04:18 MCV 87 fl (84-94) 07/17/18 04:18 MCH 29 pg (28-32) 07/17/18 04:18 MCHC 33 % (32-34) 07/17/18 04:18 RDW 14.1 % (13.2-15.2) 07/17/18 04:18 Plt Count 320 K/mm3 (140-440) 07/17/18 04:18 Lymph % (Auto) 20.5 % (13.4-35.0) 07/17/18 04:18 [place] % (Auto) 8.8 % (0.0-7.3) H 07/17/18 04:18 Eos % (Auto) 1.5 % (0.0-4.3) 07/17/18 04:18 Baso % (Auto) 0.5 % (0.0-1.8) 07/17/18 04:18 Lymph # 1.9 K/mm3 (1.2-5.4) 07/17/18 04:18 [place] # 0.8 K/mm3 (0.0-0.8) 07/17/18 04:18 Eos # 0.1 K/mm3 (0.0-0.4) 07/17/18 04:18 Baso # 0.0 K/mm3 (0.0-0.1) 07/17/18 04:18 Seg Neutrophils % 68.7 % (40.0-70.0) 07/17/18 04:18 Seg Neutrophils # 6.4 K/mm3 (1.8-7.7) 07/17/18 04:18 PT 11.6 Sec. (12.2-14.9) L 07/13/18 22:33 INR 0.80 (0.87-1.13) L 07/13/18 22:33 APTT 24.9 Sec. (24.2-36.6) 07/13/18 22:33 Heparin Anti-Xa Level 0.14 U.I./ml (0.3-0.7) L 07/16/18 11:07 Sodium 141 mmol/L (137-145) 07/18/18 04:42 Potassium 4.3 mmol/L (3.6-5.0) 07/18/18 04:42 Chloride 105.5 mmol/L (98-107) 07/18/18 04:42 Carbon Dioxide 27 mmol/L (22-30) 07/18/18 04:42 Anion Gap 13 mmol/L 07/18/18 04:42 BUN 44 mg/dL (9-20) H 07/18/18 04:42 Creatinine 4.4 mg/dL (0.8-1.5) H 07/18/18 04:42 Estimated GFR 17 ml/min 07/18/18 04:42 BUN/Creatinine Ratio 10 % 07/18/18 04:42 Glucose 108 mg/dL (75-100) H 07/18/18 04:42 POC Glucose 185 (70-105) H 07/15/18 20:34 Calcium 7.9 mg/dL (8.4-10.2) L 07/18/18 04:42 Phosphorus 4.00 mg/dL (2.5-4.5) 07/18/18 04:42 Magnesium 2.10 mg/dL (1.7-2.3) 07/18/18 04:42 Total Bilirubin < 0.20 mg/dL (0.1-1.2) 07/14/18 04:25 AST 24 units/L (5-40) 07/14/18 04:25 ALT 19 units/L (7-56) 07/14/18 04:25 Alkaline Phosphatase 112 units/L (35-129) 07/14/18 04:25 Total Creatine Kinase 539 units/L (55-170) H 07/14/18 00:13 CK-MB (CK-2) 3.6 ng/mL (0.0-4.0) 07/14/18 00:13 CK-MB (CK-2) Rel Index 0.6 (0-4) 07/14/18 00:13 Troponin T 0.135 ng/mL (0.00-0.029) H* 07/14/18 00:13 Total Protein 5.5 g/dL (6.3-8.2) L 07/14/18 04:25 Albumin 1.9 g/dL (3.9-5) L 07/14/18 04:25 Albumin/Globulin Ratio 0.5 % 07/14/18 04:25 Triglycerides 195 mg/dL (2-149) H 07/13/18 08:54 Cholesterol 242 mg/dL (50-199) H 07/13/18 08:54 LDL Cholesterol Direct 171 mg/dL (50-130) H 07/13/18 08:54 HDL Cholesterol 57 mg/dL (40-59) 07/13/18 08:54 Cholesterol/HDL Ratio 4.24 % 07/13/18 08:54 Urine Color Yellow (Yellow) 07/16/18 16:40 Urine Turbidity Clear (Clear) 07/16/18 16:40 Urine pH 7.0 (5.0-7.0) 07/16/18 16:40 Ur Specific [place] 1.014 (1.003-1.030) 07/16/18 16:40 Urine Protein >500 mg/dL (Negative) 07/16/18 16:40 Urine Glucose (UA) 150 mg/dL (Negative) 07/16/18 16:40 Urine Ketones Neg mg/dL (Negative) 07/16/18 16:40 Urine Blood Neg (Negative) 07/16/18 16:40 Urine Nitrite Neg (Negative) 07/16/18 16:40 Urine Bilirubin Neg (Negative) 07/16/18 16:40 Urine Urobilinogen < 2.0 mg/dL (<2.0) 07/16/18 16:40 Ur Leukocyte Esterase Neg (Negative) 07/16/18 16:40 Urine WBC (Auto) 1.0 /HPF (0.0-6.0) 07/16/18 16:40 Urine RBC (Auto) 5.0 /HPF (0.0-6.0) 07/16/18 16:40 U Epithel Cells (Auto) < 1.0 /HPF (0-13.0) 07/16/18 16:40 Urine Bacteria (Auto) 2+ /HPF (Negative) 07/16/18 16:40 Hyaline Casts 6 /LPF 07/16/18 16:40 Urine Mucus Few /HPF 07/16/18 16:40 Urine Creatinine 67.9 mg/dL (0.1-20.0) H 07/16/18 16:40 Urine Sodium 60 mmol/L 07/16/18 16:40 Nutrition/Malnutrition Assess - Dietary Evaluation Nutrition/Malnutrition Findings: Nutrition Notes Start: 07/14/18 11:25 Freq: Status: Active Protocol: Document 07/16/18 14:11 RM (Rec: 07/16/18 14:15 RM [id number]) Nutrition Notes Initial or Follow up Brief Note Current Diagnosis Acute Kidney Injury,CKD(stage I-IV),Coronary Artery Disease, Diabetes,Heart Failure, Hyperlipidemia Current Diet Cardiac Labs/Tests Reviewed Pertinent Medications Reviewed Height 6 ft Weight 84.4 kg [place] Body Weight (kg) 80.90 BMI 25.2 Subjective/Other Information Consulted for malnutrition. Pt stated that [employer] his appetite was good and he ate 3 meals daily. Stated that his appetite is good now and that he eats all of his meals. Unsure of UBW. No temporal or orbital wasting . Burn Absent Trauma Absent Nutrition Intervention Change Diet Order: Cardiac/Consistent CHO Revisit per MD consult or patient Sign Off request:
--- NOTE | 2018-07-18 11:48 | Consultation ---
History of Present Illness - Reason for Consult Consult date: 07/18/18 end-stage renal disease - History of Present Illness Patient presents to the emergency room with shortness of breath. He has chronic renal insufficiency however, has not yet initiated dialysis. On examination, the patient is resting comfortably. Past History Past Medical History: CAD, diabetes, ESRD, heart failure, hypertension, hyperlipidemia Past Surgical History: Other (removal 5 th rt toe in 2017) Social history: lives with family, full code. denies: smoking, alcohol abuse, prescription drug abuse Family history: hypertension Medications and Allergies Allergies Allergy/AdvReac Type Severity Reaction Status Date / Time No Known Allergies Allergy Verified 11/01/13 07:35 Home Medications Medication Instructions Recorded Confirmed Last Taken Type Insulin Glargine [Lantus VIAL] 20 units SUB-Q QHS 30 Days #30 01/30/18 07/13/18 04/30/18 Rx units Aspirin [Aspirin BABY CHEW TAB] 81 mg PO QDAY #30 tab.chew 04/17/18 07/13/18 04/30/18 Rx AtorvaSTATin [Lipitor] 40 mg PO QHS #60 tablet 04/17/18 07/13/18 04/30/18 Rx Famotidine [Pepcid] 20 mg PO BID #60 tablet 04/17/18 07/13/18 04/30/18 Rx Furosemide [Lasix TAB] 40 mg PO BID #60 tablet 04/17/18 07/13/18 04/30/18 Rx ISOSORBIDE MONOnitrate [Imdur ER] 60 mg PO QDAY #30 tablet 04/17/18 07/13/18 04/30/18 Rx Metoprolol [Lopressor TAB] 100 mg PO BID #60 tablet 04/17/18 07/13/18 04/30/18 Rx amLODIPine [Norvasc] 10 mg PO DAILY #30 tablet 04/17/18 07/13/18 04/30/18 Rx hydrALAZINE [Apresoline TAB] 100 mg PO Q8HR #90 tab 04/17/18 07/13/18 04/30/18 Rx ALBUTEROL Inhaler(NF) [VENTOLIN 2 puff IH Q1D PRN #1 inha 05/05/18 07/13/18 Unknown Rx Inhaler(NF)] Lisinopril [Zestril TAB] 10 mg PO QDAY #30 tablet 05/05/18 07/13/18 Unknown Rx Active Meds: Active Medications Albuterol (Proventil) 2.5 mg IH QIDRT PRN PRN Reason: Shortness Of Breath Amlodipine Besylate (Norvasc) 10 mg PO DAILY [facility] Last Admin: 07/17/18 09:51 Dose: 10 mg Documented by: Aspirin (Baby Aspirin) 81 mg PO QDAY [facility] Last Admin: 07/17/18 09:51 Dose: 81 mg Documented by: Atorvastatin Calcium (Lipitor) 40 mg PO QHS [facility] Last Admin: 07/17/18 21:54 Dose: 40 mg Documented by: Carvedilol (Coreg) 25 mg PO BID [facility] Last Admin: 07/17/18 21:54 Dose: 25 mg Documented by: Diphenhydramine HCl (Benadryl) 25 mg PO QHS PRN PRN Reason: Sleep Last Admin: 07/17/18 22:01 Dose: 25 mg Documented by: Famotidine (Pepcid) 20 mg PO DAILY [facility] Last Admin: 07/17/18 09:51 Dose: 20 mg Documented by: Furosemide (Lasix) 40 mg IV QDAY [facility] Last Admin: 07/17/18 09:51 Dose: 40 mg Documented by: Guaifenesin (Robitussin) 200 mg PO Q6H PRN PRN Reason: Cough Last Admin: 07/15/18 21:25 Dose: 200 mg Documented by: [facility] Admin: 07/17/18 21:55 Dose: 20 units Documented by: Insulin Human Lispro (Humalog) 0 unit SUB-Q [facility]; Protocol Last Admin: 07/18/18 08:54 Dose: Not Given Documented by: Isosorbide Mononitrate (Imdur) 60 mg PO QDAY [facility] Last Admin: 07/17/18 09:51 Dose: 60 mg Documented by: Ondansetron HCl (Zofran) 4 mg IV Q4H PRN PRN Reason: Nausea And Vomiting Last Admin: 07/18/18 07:01 Dose: 4 mg Documented by: Review of Systems All systems: negative Exam - Constitutional Vitals: Temp Pulse Resp BP Pulse Ox 98.2 F 86 20 150/75 86 07/18/18 08:11 07/18/18 08:11 07/18/18 08:11 07/18/18 08:11 07/18/18 08:11 General appearance: Present: no acute distress - EENT Eyes: Present: EOM intact ENT: hearing intact - Neck Neck: Present: supple, normal ROM - Respiratory Respiratory effort: normal - Cardiovascular Rhythm: regular - Extremities Extremity abnormal: edema - Abdominal General gastrointestinal: Present: deferred Male genitourinary: Present: deferred - Rectal Rectal Exam: deferred - Psychiatric Psychiatric: appropriate mood/affect, cooperative - Neurologic Neurologic: no focal deficits, moves all extremities Results - Labs CBC & Chem 7: 07/17/18 04:18 07/18/18 04:42 Labs: Abnormal lab results 07/18/18 Range/Units 04:42 BUN 44 H (9-20) mg/dL Creatinine 4.4 H (0.8-1.5) mg/dL Glucose 108 H (75-100) mg/dL Calcium 7.9 L (8.4-10.2) mg/dL Assessment and Plan Patient will need tunneled hemodialysis catheter for the initiation of dialysis. Currently, the patient will car long-term dialysis access. This can be done as an outpatient.
--- NOTE | 2018-07-18 11:51 | Operative Report ---
Operative Report Operative Report: Exam: Ultrasound and fluoroscopic guided placement of tunneled hemodialysis catheter Clinical indication: Patient with a history of end-stage renal disease requiring dialysis access Date: 07/18/2018 Procedure: Following an explanation of the risks, benefits and alternatives; written informed consent was obtained. The patient was brought angiographuic suite and placed in supine position on the examination table. Initial ultrasound evaluation of the neck demonstrated a patent right internal jugular vein. The patient's right neck and chest wall were prepped and draped in usual sterile fashion. 1% lidocaine was used for anesthesia. Under ultrasound guidance, the right internal during the vein was cannulated with a 7 cm 18-gauge needle. A 0.035 guidewire was advanced into the IVC to document intravenous positioning and for anchoring. The needle was removed. An appropriate catheter exit site was chosen along the lateral right chest wall. 1% lidocaine was used for anesthesia at the catheter exit site along the tunnel tract. A Bard 23 cm glide path tunneled hemodialysis catheter was then tunneled antegrade from the catheter exit site to the venotomy site. Following serial dilation over the guidewire under fluoroscopy, a 15 Pashto peel-away sheath was placed over the guidewire under fluoroscopy and advanced centrally. The trocar and guidewire were removed. The catheter was placed to the peel-away sheath in the peel-away sheath removed. The catheter tip was positioned in the proximal right atrium. Both ports flushed and aspirated easily and were then locked with appropriate volumes of heparin. The venotomy was closed using 3-0 Vicryl suture and Dermabond. 3-0 Vicryl suture and Dermabond will also applied to the catheter exit site. Sterile dressings were applied. The patient tolerated the procedure well. There were no immediate post procedure complications. Conscious sedation was performed under the guidance of radiologic nursing. Continuous cardiopulmonary monitoring was utilized. Impression: Ultrasound and fluoroscopic guided placement of tunneled hemodialy sis catheter via the right internal jugular vein.
[2018-07-18] MEDS ORDERED: NACL 0.9% 100 ML IV PRN (12:21)
[2018-07-18] MEDS ORDERED: NACL 0.9 (PRIMING MACHINE ONLY DIALYSIS) MC ONE (16:16)
[2018-07-18] MEDS: PEPCID PO SCH (17:18)
[2018-07-18] MEDS: BABY ASPIRIN PO SCH (17:19)
[2018-07-18] MEDS: IMDUR PO SCH (17:19)
[2018-07-18] MEDS: LASIX IV SCH (17:19)
[2018-07-18] MEDS: NORVASC PO SCH (17:19)
[2018-07-18] MEDS: COREG PO SCH ×2 (17:19→21:53)
[2018-07-18] MEDS: LANTUS SUB-Q SCH (21:54)
[2018-07-18] MEDS: DILAUDID IV PRN (21:55)
[2018-07-18 22:06] LABS: Hepatitis C Virus Antibody Reactive (NonReactive)
[2018-07-19] MEDS: DILAUDID IV PRN ×4 (01:21→22:26)
[2018-07-19] MEDS: ZOFRAN IV PRN (04:29)
[2018-07-19] MEDS: ROBITUSSIN PO PRN ×2 (04:46→19:09)
[2018-07-19 06:11] LABS: Hematocrit 27.4 % (35.5-45.6); Hemoglobin 9.1 gm/dl (11.8-15.2)
[2018-07-19 06:22] LABS: Calcium 7.7 mg/dL (8.4-10.2)
[2018-07-19] MEDS: HumaLOG SUB-Q SCH ×4 (08:23→22:40)
--- NOTE | 2018-07-19 08:23 | Progress Note ---
Assessment and Plan 1. ESRD: CKD stage 4 has likely progressed to ESRD. Patient had multiple admissions over the past 7 months due to volume overload likely secondary to advanced CKD and Diastolic CHF. Renal prognosis is poor. Patient was started on hemodialysis yesterday due to advanced CKD and associated recurrent admissions with volume overload and respiratory distress. Patient verbalized understanding about the indications, benefits and risks involved in hemodialysis. S/p Tunnel dialysis catheter. HD today. Await outpatient HD chair. 2. FEN: Volume overload, UF with HD. Continue Lasix. Counseled to limit fluid and salt intake. 3. CHF exacerbation, Chest pain with elevated Troponin: Followed by cards. 4. Anemia: Epogen. 5. Bronchitis: 6. DM-2. 7. Proteinuria: Diabetic nephropathy. Losartan. D/w his at the bedside. Subjective Date of service: 07/19/18 Principal diagnosis: Acute on chronic HFpEF, Elevated Tn, CKD, HTN, DM, Anemia Interval history: Patient was seen and examined at the bedside. Doing ok. Objective - Vital Signs Vital signs: Vital Signs - 12hr 07/18/18 07/18/18 07/18/18 20:54 21:53 21:55 Temperature Pulse Rate 84 94 H Pulse Rate [ Apical] Respiratory 16 Rate Respiratory Rate [Chest] Blood Pressure 156/93 O2 Sat by Pulse Oximetry 07/18/18 07/18/18 07/18/18 22:18 22:25 22:30 Temperature Pulse Rate Pulse Rate [ 94 H Apical] Respiratory 16 16 Rate Respiratory 16 Rate [Chest] Blood Pressure O2 Sat by Pulse 95 Oximetry 07/18/18 07/19/18 07/19/18 23:05 01:21 01:51 Temperature 98.5 F Pulse Rate 86 Pulse Rate [ Apical] Respiratory 14 16 18 Rate Respiratory Rate [Chest] Blood Pressure 124/71 O2 Sat by Pulse 97 Oximetry 07/19/18 04:22 Temperature 98.2 F Pulse Rate 79 Pulse Rate [ Apical] Respiratory 16 Rate Respiratory Rate [Chest] Blood Pressure 146/87 O2 Sat by Pulse 96 Oximetry - General Appearance General appearance: well-developed, well-nourished, appears stated age, other (not in distress, right IJ tunnel catheter) EENT: ATNC, PERRL, mucous membranes moist, hearing intact, vision intact Neck: supple Respiratory: Present: Clear to Ascultation Cardiology: regular, S1S2, no murmurs Gastrointestinal: normoactive bowel sounds, no tenderness, no distended Integumentary: no rash, warm and dry Neurologic: no focal deficit, no asterixis, alert and oriented x3 Musculoskeletal: other (tarce LE edema) Psychiatric: mood/affect appropriate, cooperative - Lab 07/19/18 04:52 07/19/18 04:52 Most recent lab results Calcium 7.7 mg/dL (8.4-10.2) L 07/19/18 04:52 Phosphorus 4.00 mg/dL (2.5-4.5) 07/18/18 04:42 Magnesium 2.10 mg/dL (1.7-2.3) 07/18/18 04:42 Urine Creatinine 67.9 mg/dL (0.1-20.0) H 07/16/18 16:40 Urine Sodium 60 mmol/L 07/16/18 16:40 Medications & Allergies - Medications Allergies/Adverse Reactions: Allergies No Known Allergies Allergy (Verified 11/01/13 07:35) Home Medications: Home Medications Medication Instructions Recorded Confirmed Last Taken Type Insulin Glargine [Lantus VIAL] 20 units SUB-Q QHS 30 Days #30 01/30/18 07/13/18 04/30/18 Rx units Aspirin [Aspirin BABY CHEW TAB] 81 mg PO QDAY #30 tab.chew 04/17/18 07/13/18 04/30/18 Rx AtorvaSTATin [Lipitor] 40 mg PO QHS #60 tablet 04/17/18 07/13/18 04/30/18 Rx Famotidine [Pepcid] 20 mg PO BID #60 tablet 04/17/18 07/13/18 04/30/18 Rx Furosemide [Lasix TAB] 40 mg PO BID #60 tablet 04/17/18 07/13/18 04/30/18 Rx ISOSORBIDE MONOnitrate [Imdur ER] 60 mg PO QDAY #30 tablet 04/17/18 07/13/18 04/30/18 Rx Metoprolol [Lopressor TAB] 100 mg PO BID #60 tablet 04/17/18 07/13/18 04/30/18 Rx amLODIPine [Norvasc] 10 mg PO DAILY #30 tablet 04/17/18 07/13/18 04/30/18 Rx hydrALAZINE [Apresoline TAB] 100 mg PO Q8HR #90 tab 04/17/18 07/13/18 04/30/18 Rx ALBUTEROL Inhaler(NF) [VENTOLIN 2 puff IH Q1D PRN #1 inha 05/05/18 07/13/18 Unknown Rx Inhaler(NF)] Lisinopril [Zestril TAB] 10 mg PO QDAY #30 tablet 05/05/18 07/13/18 Unknown Rx Active Medications: Generic Name Dose Route Start Last Admin Trade Name Freq PRN Reason Stop Dose Admin Albuterol 2.5 mg 07/13/18 12:56 Proventil IH QIDRT PRN Shortness Of Breath Amlodipine Besylate 10 mg 07/14/18 10:00 07/18/18 17:19 Norvasc PO 10 mg DAILY [facility] Administration Aspirin 81 mg 07/14/18 10:00 07/18/18 17:19 Baby Aspirin PO 81 mg QDAY [facility] Administration Atorvastatin Calcium 40 mg 07/13/18 22:00 07/18/18 21:54 Lipitor PO 40 mg QHS [facility] Administration Carvedilol 25 mg 07/14/18 10:00 07/18/18 21:53 Coreg PO 25 mg BID [facility] Administration Diphenhydramine HCl 25 mg 07/15/18 01:02 07/17/18 22:01 Benadryl PO 25 mg QHS PRN Administration Sleep Epoetin [place] 10,000 unit 07/18/18 12:21 Procrit SUB-Q [facility] PRN hemodialysis Famotidine 20 mg 07/13/18 22:00 07/18/18 17:18 Pepcid PO 20 mg DAILY [facility] Administration Furosemide 40 mg 07/14/18 10:00 07/18/18 17:19 Lasix IV 40 mg QDAY [facility] Administration Guaifenesin 200 mg 07/13/18 23:31 07/19/18 04:46 Robitussin PO 200 mg Q6H PRN Administration Cough Hydromorphone HCl 1 mg 07/18/18 21:05 07/19/18 01:21 Dilaudid IV 1 mg Q4H PRN Administration Pain , Severe (7-10) Sodium Chloride 100 mls @ 999 mls/hr 07/18/18 12:21 Nacl 0.9% IV [place] PRN Hypotension Insulin Glargine 20 units 07/13/18 22:00 07/18/18 21:54 Lantus SUB-Q 20 units QHS [facility] Administration Insulin Human Lispro 0 unit 07/15/18 12:41 07/18/18 21:54 Humalog SUB-Q 8 unit ACHS [facility] Administration Protocol Isosorbide Mononitrate 60 mg 07/14/18 10:00 07/18/18 17:19 Imdur PO 60 mg QDAY [facility] Administration Ondansetron HCl 4 mg 07/18/18 06:43 07/19/18 04:29 Zofran IV 4 mg Q4H PRN Administration Nausea And Vomiting
[2018-07-19] MEDS ORDERED: NACL 0.9% 100 ML IV PRN (09:12)
[2018-07-19] MEDS ORDERED: COZAAR PO SCH (11:00)
--- NOTE | 2018-07-19 11:00 | Progress Note ---
Assessment and Plan HD has been initiated. Currently stable cardiac status. Will plan for coronary angiography on Monday, 07/23. Indications, potential risks and benefits of LHC reviewed with pt and he is agreeable to proceed on Monday. The patient has been seen in conjunction with Dr. Parks who agrees with the assessment and plan of care. - Patient Problems (1) Acute on chronic heart failure with preserved ejection fraction Current Visit: Yes Status: Acute (2) Elevated troponin Current Visit: No Status: Acute (3) CKD (chronic kidney disease) Current Visit: Yes Status: Acute Qualifiers: Chronic kidney disease stage: stage 4 (severe) Qualified Code(s): N18.4 - Chronic kidney disease, stage 4 (severe) (4) Chest pain Current Visit: Yes Status: Acute (5) HTN (hypertension) Current Visit: No Status: Chronic Qualifiers: Hypertension type: essential hypertension Qualified Code(s): I10 - Essential (primary) hypertension (6) Diabetes mellitus Current Visit: Yes Status: Chronic Subjective Date of service: 07/19/18 Principal diagnosis: Acute on chronic HFpEF, Elevated Tn, CKD, HTN, DM, Anemia Interval history: Pt resting in bed, states he is feeling better today s/p HD. Objective Last Vital Signs Temp 98.2 F 07/19/18 04:22 Pulse 79 07/19/18 04:22 Resp 20 07/19/18 09:46 BP 146/87 07/19/18 04:22 Pulse Ox 96 07/19/18 04:22 - Physical Examination General: No Apparent Distress HEENT: Positive: EOMI, Normocephaly, Mucus Membranes Moist Neck: Positive: neck supple, trachea midline Cardiac: Positive: Reg Rate and Rhythm, S1/S2 Lungs: Positive: Decreased Breath Sounds Neuro: Positive: Grossly Intact Abdomen: Positive: Soft, Active Bowel Sounds. Negative: Tender Skin: Positive: Clear. Negative: Rash Musculoskeletal: Normal Range of Motion, other (status post partial amputation of the right foot.) Extremities: Present: edema (trace pitting bilateral leg edema) - Labs and Meds CBC 07/19/18 Range/Units 04:52 Hgb 9.1 L (11.8-15.2) gm/dl Hct 27.4 L (35.5-45.6) % Plt Count 301 (140-440) K/mm3 Comprehensive Metabolic Panel 07/19/18 Range/Units 04:52 Sodium 140 (137-145) mmol/L Potassium 4.7 (3.6-5.0) mmol/L Chloride 106.2 (98-107) mmol/L Carbon Dioxide 27 (22-30) mmol/L BUN 35 H (9-20) mg/dL Creatinine 3.2 H (0.8-1.5) mg/dL Glucose 58 L (75-100) mg/dL Calcium 7.7 L (8.4-10.2) mg/dL - Imaging and Cardiology EKG: image reviewed - EKG Sinus rhythms and dysrhythmias: sinus rhythm
[2018-07-19] MEDS ORDERED: NACL 0.9 (PRIMING MACHINE ONLY DIALYSIS) MC ONE (11:55)
[2018-07-19] MEDS: PROCRIT SUB-Q PRN (14:04)
[2018-07-19] MEDS: PEPCID PO SCH (15:33)
[2018-07-19] MEDS: NORVASC PO SCH (15:34)
[2018-07-19] MEDS: COREG PO SCH ×2 (15:34→22:28)
[2018-07-19] MEDS: BABY ASPIRIN PO SCH (15:34)
[2018-07-19] MEDS: IMDUR PO SCH (15:34)
[2018-07-19] MEDS: LASIX IV SCH (15:34)
--- NOTE | 2018-07-19 17:41 | Progress Note ---
Assessment and Plan Assessment and plan: 57-year-old patient with multiple medical problems was admitted through emergency room with worsening shortness of breath and chest pain, patient was evaluated by cardiology and pulmonary, Medications optimized, worsening renal function seen by nephrology --Acute on chronic kidney disease stage IV secondary to ATN Started on hemodialysis yesterday 07/18 Nephrology following --Non-ST elevation AR/chest pain; with chronic elevation of troponins The patient has multiple risk factors, cardiology following Plan for cardiac cath on Monday --History of coronary artery disease; continue current cardiac medications --Acute on chronic diastolic congestive heart failure; EF 50-55% Continue anti-failure medications input output monitoring --Acute on chronic hypoxic respiratory failure; secondary to CHF exacerbation as well as pleural effusion, oxygen titrated O2 sats to more than 90%,Pulmonary consult if needed Nebulizers and antibiotics and inhalation steroids and supportive care --Bilateral pleural effusions; patient had thoracentesis in the past Continue supportive care thoracentesis if needed, pulm following --Type 2 diabetes mellitus; Accu-Chek sliding scale coverage and ADA diet insulin as needed --Dyslipidemia; continue statin --Severe malnutrition/hypoalbuminemia; nutrition supplements and nutrition consult --DVT prophylaxis; heparin renal dose Closely monitor patient and adjust management as needed Consults and recommendations noted and appreciated History Interval history: Feels better. No chest pain currently Less shortness of breath Started on hemodialysis yesterday Hospitalist Physical - Physical exam Narrative exam: GEN: Not in acute distress, lying in bed HEENT: Normocephalic, atraumatic, Neck: supple, No JVD Lungs: Clear to auscultation bilat, no crackles, no wheeze Abd:soft, non tender, non distended, normal bowel sounds Ext: Trace bilat edema, no clubbing, no cyanosis Neuro:Awake,alert,oriented X 3, no focal signs Skin:No rash Psych: normal mood - Constitutional Vitals: Temp Pulse Resp BP Pulse Ox 98.0 F 85 20 185/100 96 07/19/18 14:15 07/19/18 14:15 07/19/18 15:34 07/19/18 14:15 07/19/18 04:22 General appearance: Present: no acute distress Results - Labs CBC & Chem 7: 07/19/18 04:52 07/19/18 04:52 Labs: Laboratory Last Values WBC 9.3 K/mm3 (4.5-11.0) 07/17/18 04:18 RBC 3.00 M/mm3 (3.65-5.03) L 07/17/18 04:18 Hgb 9.1 gm/dl (11.8-15.2) L 07/19/18 04:52 Hct 27.4 % (35.5-45.6) L 07/19/18 04:52 MCV 87 fl (84-94) 07/17/18 04:18 MCH 29 pg (28-32) 07/17/18 04:18 MCHC 33 % (32-34) 07/17/18 04:18 RDW 14.1 % (13.2-15.2) 07/17/18 04:18 Plt Count 301 K/mm3 (140-440) 07/19/18 04:52 Lymph % (Auto) 20.5 % (13.4-35.0) 07/17/18 04:18 [place] % (Auto) 8.8 % (0.0-7.3) H 07/17/18 04:18 Eos % (Auto) 1.5 % (0.0-4.3) 07/17/18 04:18 Baso % (Auto) 0.5 % (0.0-1.8) 07/17/18 04:18 Lymph # 1.9 K/mm3 (1.2-5.4) 07/17/18 04:18 [place] # 0.8 K/mm3 (0.0-0.8) 07/17/18 04:18 Eos # 0.1 K/mm3 (0.0-0.4) 07/17/18 04:18 Baso # 0.0 K/mm3 (0.0-0.1) 07/17/18 04:18 Seg Neutrophils % 68.7 % (40.0-70.0) 07/17/18 04:18 Seg Neutrophils # 6.4 K/mm3 (1.8-7.7) 07/17/18 04:18 PT 11.6 Sec. (12.2-14.9) L 07/13/18 22:33 INR 0.80 (0.87-1.13) L 07/13/18 22:33 APTT 24.9 Sec. (24.2-36.6) 07/13/18 22:33 Heparin Anti-Xa Level 0.14 U.I./ml (0.3-0.7) L 07/16/18 11:07 Sodium 140 mmol/L (137-145) 07/19/18 04:52 Potassium 4.7 mmol/L (3.6-5.0) 07/19/18 04:52 Chloride 106.2 mmol/L (98-107) 07/19/18 04:52 Carbon Dioxide 27 mmol/L (22-30) 07/19/18 04:52 Anion Gap 12 mmol/L 07/19/18 04:52 BUN 35 mg/dL (9-20) H 07/19/18 04:52 Creatinine 3.2 mg/dL (0.8-1.5) H 07/19/18 04:52 Estimated GFR 24 ml/min 07/19/18 04:52 BUN/Creatinine Ratio 11 % 07/19/18 04:52 Glucose 58 mg/dL (75-100) L 07/19/18 04:52 POC Glucose 161 (70-105) H 07/19/18 12:39 Calcium 7.7 mg/dL (8.4-10.2) L 07/19/18 04:52 Phosphorus 4.00 mg/dL (2.5-4.5) 07/18/18 04:42 Magnesium 2.10 mg/dL (1.7-2.3) 07/18/18 04:42 Total Bilirubin < 0.20 mg/dL (0.1-1.2) 07/14/18 04:25 AST 24 units/L (5-40) 07/14/18 04:25 ALT 19 units/L (7-56) 07/14/18 04:25 Alkaline Phosphatase 112 units/L (35-129) 07/14/18 04:25 Total Creatine Kinase 539 units/L (55-170) H 07/14/18 00:13 CK-MB (CK-2) 3.6 ng/mL (0.0-4.0) 07/14/18 00:13 CK-MB (CK-2) Rel Index 0.6 (0-4) 07/14/18 00:13 Troponin T 0.135 ng/mL (0.00-0.029) H* 07/14/18 00:13 Total Protein 5.5 g/dL (6.3-8.2) L 07/14/18 04:25 Albumin 1.9 g/dL (3.9-5) L 07/14/18 04:25 Albumin/Globulin Ratio 0.5 % 07/14/18 04:25 Triglycerides 195 mg/dL (2-149) H 07/13/18 08:54 Cholesterol 242 mg/dL (50-199) H 07/13/18 08:54 LDL Cholesterol Direct 171 mg/dL (50-130) H 07/13/18 08:54 HDL Cholesterol 57 mg/dL (40-59) 07/13/18 08:54 Cholesterol/HDL Ratio 4.24 % 07/13/18 08:54 Urine Color Yellow (Yellow) 07/16/18 16:40 Urine Turbidity Clear (Clear) 07/16/18 16:40 Urine pH 7.0 (5.0-7.0) 07/16/18 16:40 Ur Specific [place] 1.014 (1.003-1.030) 07/16/18 16:40 Urine Protein >500 mg/dL (Negative) 07/16/18 16:40 Urine Glucose (UA) 150 mg/dL (Negative) 07/16/18 16:40 Urine Ketones Neg mg/dL (Negative) 07/16/18 16:40 Urine Blood Neg (Negative) 07/16/18 16:40 Urine Nitrite Neg (Negative) 07/16/18 16:40 Urine Bilirubin Neg (Negative) 07/16/18 16:40 Urine Urobilinogen < 2.0 mg/dL (<2.0) 07/16/18 16:40 Ur Leukocyte Esterase Neg (Negative) 07/16/18 16:40 Urine WBC (Auto) 1.0 /HPF (0.0-6.0) 07/16/18 16:40 Urine RBC (Auto) 5.0 /HPF (0.0-6.0) 07/16/18 16:40 U Epithel Cells (Auto) < 1.0 /HPF (0-13.0) 07/16/18 16:40 Urine Bacteria (Auto) 2+ /HPF (Negative) 07/16/18 16:40 Hyaline Casts 6 /LPF 07/16/18 16:40 Urine Mucus Few /HPF 07/16/18 16:40 Urine Creatinine 67.9 mg/dL (0.1-20.0) H 07/16/18 16:40 Urine Sodium 60 mmol/L 07/16/18 16:40 Hepatitis A IgM Ab Non-reactive (NonReactive) 07/18/18 17:16 Hep B Core IgM Ab Non-reactive (NonReactive) 07/18/18 17:16 Hepatitis C Antibody Reactive (NonReactive) A 07/18/18 17:16 Nutrition/Malnutrition Assess - Dietary Evaluation Nutrition/Malnutrition Findings: Nutrition Notes Start: 07/14/18 11:25 Freq: Status: Active Protocol: Document 07/16/18 14:11 RM (Rec: 07/16/18 14:15 RM [id number]) Nutrition Notes Initial or Follow up Brief Note Current Diagnosis Acute Kidney Injury,CKD(stage I-IV),Coronary Artery Disease, Diabetes,Heart Failure, Hyperlipidemia Current Diet Cardiac Labs/Tests Reviewed Pertinent Medications Reviewed Height 6 ft Weight 84.4 kg [place] Body Weight (kg) 80.90 BMI 25.2 Subjective/Other Information Consulted for malnutrition. Pt stated that DISPUTE COORDINATOR his appetite was good and he ate 3 meals daily. Stated that his appetite is good now and that he eats all of his meals. Unsure of UBW. No temporal or orbital wasting . Burn Absent Trauma Absent Nutrition Intervention Change Diet Order: Cardiac/Consistent CHO Revisit per MD consult or patient Sign Off request:
[2018-07-19] MEDS: AMBIEN PO PRN (22:28)
[2018-07-19] MEDS: PROVENTIL IH PRN (22:28)
[2018-07-19] MEDS: LANTUS SUB-Q SCH (22:29)
[2018-07-20] MEDS: PROVENTIL IH PRN ×2 (02:00→12:50)
[2018-07-20] MEDS: DILAUDID IV PRN ×5 (02:35→21:13)
[2018-07-20] MEDS: ZOFRAN IV PRN ×2 (02:35→06:28)
[2018-07-20] MEDS: ROBITUSSIN PO PRN (06:06)
[2018-07-20 06:07] LABS: Calcium 7.8 mg/dL (8.4-10.2)
[2018-07-20] MEDS ORDERED: COZAAR PO SCH (07:56)
--- NOTE | 2018-07-20 07:56 | Progress Note ---
Assessment and Plan 1. ESRD: CKD stage 4 has likely progressed to ESRD. Patient had multiple admissions over the past 7 months due to volume overload likely secondary to advanced CKD and Diastolic CHF. Patient was started on hemodialysis on 07/18/2018 due to advanced CKD and associated recurrent admissions with volume overload and respiratory distress. Last dialzyed yesterday and next HD tomorrow. Await outpatient HD chair. 2. FEN: Volume overload, UF with HD. Continue Lasix. Counseled to limit fluid and salt intake. 3. CHF exacerbation, Chest pain with elevated Troponin: Followed by cards. 4. Anemia: Epogen. 5. Bronchitis: 6. DM-2. 7. Proteinuria: Diabetic nephropathy. On Losartan. Subjective Date of service: 07/20/18 Principal diagnosis: Acute on chronic HFpEF, Elevated Tn, CKD, HTN, DM, Anemia Interval history: Patient was seen and examined at the bedside. Intermittent N & V (chronic symptoms). Objective - Vital Signs Vital signs: Vital Signs - 12hr 07/19/18 07/19/18 07/19/18 20:08 20:09 22:25 Temperature 98.4 F Pulse Rate 87 86 Pulse Rate [ 83 Apical] Pulse Rate [ Bilateral Throughout] Respiratory 16 16 Rate Respiratory Rate [Bilateral Throughout] Respiratory Rate [Chest] Blood Pressure 149/88 O2 Sat by Pulse 95 96 96 Oximetry 07/19/18 07/19/18 07/19/18 22:26 22:28 22:42 Temperature Pulse Rate 65 Pulse Rate [ Apical] Pulse Rate [ Bilateral Throughout] Respiratory 18 Rate Respiratory Rate [Bilateral Throughout] Respiratory 16 Rate [Chest] Blood Pressure 149/88 O2 Sat by Pulse Oximetry 07/19/18 07/19/18 07/20/18 22:44 22:56 00:16 Temperature 98.7 F Pulse Rate 83 Pulse Rate [ Apical] Pulse Rate [ 87 Bilateral Throughout] Respiratory 16 18 Rate Respiratory 18 Rate [Bilateral Throughout] Respiratory Rate [Chest] Blood Pressure 122/63 O2 Sat by Pulse 94 Oximetry 07/20/18 07/20/18 07/20/18 02:07 03:05 04:34 Temperature 98.1 F Pulse Rate 84 Pulse Rate [ Apical] Pulse Rate [ 84 Bilateral Throughout] Respiratory 16 16 Rate Respiratory 18 Rate [Bilateral Throughout] Respiratory Rate [Chest] Blood Pressure 167/92 O2 Sat by Pulse 97 Oximetry 07/20/18 07/20/18 06:28 06:58 Temperature Pulse Rate Pulse Rate [ Apical] Pulse Rate [ Bilateral Throughout] Respiratory 16 16 Rate Respiratory Rate [Bilateral Throughout] Respiratory Rate [Chest] Blood Pressure O2 Sat by Pulse Oximetry - General Appearance General appearance: well-developed, well-nourished, appears stated age, other (not in distress, right IJ tunnel catheter) EENT: ATNC, PERRL, mucous membranes moist, hearing intact, vision intact Neck: supple Respiratory: Present: Clear to Ascultation Cardiology: regular, S1S2, no murmurs Gastrointestinal: normoactive bowel sounds, no tenderness, no distended Integumentary: no rash, warm and dry Neurologic: no focal deficit, no asterixis, alert and oriented x3 Musculoskeletal: other (tarce LE edema) Psychiatric: cooperative - Lab 07/19/18 04:52 07/20/18 04:42 Most recent lab results Calcium 7.8 mg/dL (8.4-10.2) L 07/20/18 04:42 Phosphorus 4.00 mg/dL (2.5-4.5) 07/18/18 04:42 Magnesium 2.10 mg/dL (1.7-2.3) 07/18/18 04:42 Urine Creatinine 67.9 mg/dL (0.1-20.0) H 07/16/18 16:40 Urine Sodium 60 mmol/L 07/16/18 16:40 Medications & Allergies - Medications Allergies/Adverse Reactions: Allergies No Known Allergies Allergy (Verified 11/01/13 07:35) Home Medications: Home Medications Medication Instructions Recorded Confirmed Last Taken Type Insulin Glargine [Lantus VIAL] 20 units SUB-Q QHS 30 Days #30 01/30/18 07/13/18 04/30/18 Rx units Aspirin [Aspirin BABY CHEW TAB] 81 mg PO QDAY #30 tab.chew 04/17/18 07/13/18 04/30/18 Rx AtorvaSTATin [Lipitor] 40 mg PO QHS #60 tablet 04/17/18 07/13/18 04/30/18 Rx Famotidine [Pepcid] 20 mg PO BID #60 tablet 04/17/18 07/13/18 04/30/18 Rx Furosemide [Lasix TAB] 40 mg PO BID #60 tablet 04/17/18 07/13/18 04/30/18 Rx ISOSORBIDE MONOnitrate [Imdur ER] 60 mg PO QDAY #30 tablet 04/17/18 07/13/18 04/30/18 Rx Metoprolol [Lopressor TAB] 100 mg PO BID #60 tablet 04/17/18 07/13/18 04/30/18 Rx amLODIPine [Norvasc] 10 mg PO DAILY #30 tablet 04/17/18 07/13/18 04/30/18 Rx hydrALAZINE [Apresoline TAB] 100 mg PO Q8HR #90 tab 04/17/18 07/13/18 04/30/18 Rx ALBUTEROL Inhaler(NF) [VENTOLIN 2 puff IH Q1D PRN #1 inha 05/05/18 07/13/18 Unknown Rx Inhaler(NF)] Lisinopril [Zestril TAB] 10 mg PO QDAY #30 tablet 05/05/18 07/13/18 Unknown Rx Active Medications: Generic Name Dose Route Start Last Admin Trade Name Freq PRN Reason Stop Dose Admin Albuterol 2.5 mg 07/13/18 12:56 07/20/18 02:00 Proventil IH 2.5 mg QIDRT PRN Administration Shortness Of Breath Amlodipine Besylate 10 mg 07/14/18 10:00 07/19/18 15:34 Norvasc PO 10 mg DAILY RADHA Administration Aspirin 81 mg 07/14/18 10:00 07/19/18 15:34 Baby Aspirin PO 81 mg QDAY RADHA Administration Atorvastatin Calcium 40 mg 07/13/18 22:00 07/19/18 22:29 Lipitor PO 40 mg QHS RADHA Administration Carvedilol 25 mg 07/14/18 10:00 07/19/18 22:28 Coreg PO 25 mg BID RADHA Administration Diphenhydramine HCl 25 mg 07/15/18 01:02 07/17/18 22:01 Benadryl PO 25 mg QHS PRN Administration Sleep Epoetin [place] 10,000 unit 07/18/18 12:21 07/19/18 14:04 Procrit SUB-Q 10,000 unit [place] PRN Administration hemodialysis Famotidine 20 mg 07/13/18 22:00 07/19/18 15:33 Pepcid PO 20 mg DAILY RADHA Administration Furosemide 40 mg 07/14/18 10:00 07/19/18 15:34 Lasix IV 40 mg QDAY RADHA Administration Guaifenesin 200 mg 07/13/18 23:31 07/20/18 06:06 Robitussin PO 200 mg Q6H PRN Administration Cough Hydromorphone HCl 1 mg 07/18/18 21:05 07/20/18 06:28 Dilaudid IV 1 mg Q4H PRN Administration Pain , Severe (7-10) Sodium Chloride 100 mls @ 999 mls/hr 07/19/18 09:12 Nacl 0.9% IV [place] PRN Hypotension Insulin Glargine 20 units 07/13/18 22:00 07/19/18 22:29 Lantus SUB-Q 20 units QHS [facility] Administration Insulin Human Lispro 0 unit 07/15/18 12:41 07/19/18 22:40 Humalog SUB-Q Not Given [facility] Protocol Isosorbide Mononitrate 60 mg 07/14/18 10:00 07/19/18 15:34 Imdur PO 60 mg QDAY RADHA Administration Ondansetron HCl 4 mg 07/18/18 06:43 07/20/18 06:28 Zofran IV 4 mg Q4H PRN Administration Nausea And Vomiting Zolpidem Tartrate 5 mg 07/19/18 21:17 07/19/18 22:28 Ambien PO 5 mg QHS PRN Administration Sleep
[2018-07-20] MEDS: HumaLOG SUB-Q SCH ×4 (08:40→21:17)
[2018-07-20] MEDS ORDERED: APRESOLINE PO SCH (10:00)
[2018-07-20] MEDS: BABY ASPIRIN PO SCH (10:07)
[2018-07-20] MEDS: COREG PO SCH ×2 (10:08→21:13)
[2018-07-20] MEDS: PEPCID PO SCH (10:15)
[2018-07-20] MEDS: LASIX IV SCH (10:15)
[2018-07-20] MEDS: NORVASC PO SCH (10:16)
[2018-07-20] MEDS: IMDUR PO SCH (10:17)
[2018-07-20] MEDS: COZAAR PO SCH (10:28)
--- NOTE | 2018-07-20 10:53 | Progress Note ---
Assessment and Plan Assessment and plan: 57-year-old patient with multiple medical problems was admitted through emergency room with worsening shortness of breath and chest pain, patient was evaluated by cardiology and pulmonary, Medications optimized, worsening renal function seen by nephrology --Acute on chronic kidney disease stage IV secondary to ATN Started on hemodialysis 07/18 Nephrology following --Non-ST elevation PA/chest pain; with chronic elevation of troponins The patient has multiple risk factors, cardiology following Plan for cardiac cath on Monday --History of coronary artery disease; continue current cardiac medications --Acute on chronic diastolic congestive heart failure; EF 50-55% Continue anti-failure medications input output monitoring --Acute on chronic hypoxic respiratory failure; secondary to CHF exacerbation as well as pleural effusion, oxygen titrated O2 sats to more than 90%,Pulmonary consult if needed Nebulizers and antibiotics and inhalation steroids and supportive care --Bilateral pleural effusions; patient had thoracentesis in the past Continue supportive care thoracentesis if needed, pulm following --Type 2 diabetes mellitus; Accu-Chek sliding scale coverage and ADA diet insulin as needed --Dyslipidemia; continue statin --Severe malnutrition/hypoalbuminemia; nutrition supplements and nutrition consult --DVT prophylaxis; heparin renal dose Closely monitor patient and adjust management as needed Consults and recommendations noted and appreciated History Interval history: Feels better. No chest pain currently Less shortness of breath Started on hemodialysis 07/18 Hospitalist Physical - Physical exam Narrative exam: GEN: Not in acute distress, lying in bed HEENT: Normocephalic, atraumatic, Neck: supple, No JVD Lungs: Clear to auscultation bilat, no crackles, no wheeze Abd:soft, non tender, non distended, normal bowel sounds Ext: Trace bilat edema, no clubbing, no cyanosis Neuro:Awake,alert,oriented X 3, no focal signs Skin:No rash Psych: normal mood - Constitutional Vitals: Temp Pulse Resp BP Pulse Ox 98.1 F 86 20 160/90 97 07/20/18 10:15 07/20/18 10:15 07/20/18 10:15 07/20/18 10:15 07/20/18 10:15 General appearance: Present: no acute distress Results - Labs CBC & Chem 7: 07/19/18 04:52 07/20/18 04:42 Labs: Laboratory Last Values WBC 9.3 K/mm3 (4.5-11.0) 07/17/18 04:18 RBC 3.00 M/mm3 (3.65-5.03) L 07/17/18 04:18 Hgb 9.1 gm/dl (11.8-15.2) L 07/19/18 04:52 Hct 27.4 % (35.5-45.6) L 07/19/18 04:52 MCV 87 fl (84-94) 07/17/18 04:18 MCH 29 pg (28-32) 07/17/18 04:18 MCHC 33 % (32-34) 07/17/18 04:18 RDW 14.1 % (13.2-15.2) 07/17/18 04:18 Plt Count 301 K/mm3 (140-440) 07/19/18 04:52 Lymph % (Auto) 20.5 % (13.4-35.0) 07/17/18 04:18 [place] % (Auto) 8.8 % (0.0-7.3) H 07/17/18 04:18 Eos % (Auto) 1.5 % (0.0-4.3) 07/17/18 04:18 Baso % (Auto) 0.5 % (0.0-1.8) 07/17/18 04:18 Lymph # 1.9 K/mm3 (1.2-5.4) 07/17/18 04:18 [place] # 0.8 K/mm3 (0.0-0.8) 07/17/18 04:18 Eos # 0.1 K/mm3 (0.0-0.4) 07/17/18 04:18 Baso # 0.0 K/mm3 (0.0-0.1) 07/17/18 04:18 Seg Neutrophils % 68.7 % (40.0-70.0) 07/17/18 04:18 Seg Neutrophils # 6.4 K/mm3 (1.8-7.7) 07/17/18 04:18 PT 11.6 Sec. (12.2-14.9) L 07/13/18 22:33 INR 0.80 (0.87-1.13) L 07/13/18 22:33 APTT 24.9 Sec. (24.2-36.6) 07/13/18 22:33 Heparin Anti-Xa Level 0.14 U.I./ml (0.3-0.7) L 07/16/18 11:07 Sodium 140 mmol/L (137-145) 07/20/18 04:42 Potassium 4.1 mmol/L (3.6-5.0) 07/20/18 04:42 Chloride 103.8 mmol/L (98-107) 07/20/18 04:42 Carbon Dioxide 28 mmol/L (22-30) 07/20/18 04:42 Anion Gap 12 mmol/L 07/20/18 04:42 BUN 24 mg/dL (9-20) H 07/20/18 04:42 Creatinine 2.9 mg/dL (0.8-1.5) H 07/20/18 04:42 Estimated GFR 27 ml/min 07/20/18 04:42 BUN/Creatinine Ratio 8 % 07/20/18 04:42 Glucose 115 mg/dL (75-100) H 07/20/18 04:42 POC Glucose 76 (70-105) 07/20/18 08:09 Calcium 7.8 mg/dL (8.4-10.2) L 07/20/18 04:42 Phosphorus 4.00 mg/dL (2.5-4.5) 07/18/18 04:42 Magnesium 2.10 mg/dL (1.7-2.3) 07/18/18 04:42 Total Bilirubin < 0.20 mg/dL (0.1-1.2) 07/14/18 04:25 AST 24 units/L (5-40) 07/14/18 04:25 ALT 19 units/L (7-56) 07/14/18 04:25 Alkaline Phosphatase 112 units/L (35-129) 07/14/18 04:25 Total Creatine Kinase 539 units/L (55-170) H 07/14/18 00:13 CK-MB (CK-2) 3.6 ng/mL (0.0-4.0) 07/14/18 00:13 CK-MB (CK-2) Rel Index 0.6 (0-4) 07/14/18 00:13 Troponin T 0.135 ng/mL (0.00-0.029) H* 07/14/18 00:13 Total Protein 5.5 g/dL (6.3-8.2) L 07/14/18 04:25 Albumin 1.9 g/dL (3.9-5) L 07/14/18 04:25 Albumin/Globulin Ratio 0.5 % 07/14/18 04:25 Triglycerides 195 mg/dL (2-149) H 07/13/18 08:54 Cholesterol 242 mg/dL (50-199) H 07/13/18 08:54 LDL Cholesterol Direct 171 mg/dL (50-130) H 07/13/18 08:54 HDL Cholesterol 57 mg/dL (40-59) 07/13/18 08:54 Cholesterol/HDL Ratio 4.24 % 07/13/18 08:54 Urine Color Yellow (Yellow) 07/16/18 16:40 Urine Turbidity Clear (Clear) 07/16/18 16:40 Urine pH 7.0 (5.0-7.0) 07/16/18 16:40 Ur Specific [place] 1.014 (1.003-1.030) 07/16/18 16:40 Urine Protein >500 mg/dL (Negative) 07/16/18 16:40 Urine Glucose (UA) 150 mg/dL (Negative) 07/16/18 16:40 Urine Ketones Neg mg/dL (Negative) 07/16/18 16:40 Urine Blood Neg (Negative) 07/16/18 16:40 Urine Nitrite Neg (Negative) 07/16/18 16:40 Urine Bilirubin Neg (Negative) 07/16/18 16:40 Urine Urobilinogen < 2.0 mg/dL (<2.0) 07/16/18 16:40 Ur Leukocyte Esterase Neg (Negative) 07/16/18 16:40 Urine WBC (Auto) 1.0 /HPF (0.0-6.0) 07/16/18 16:40 Urine RBC (Auto) 5.0 /HPF (0.0-6.0) 07/16/18 16:40 U Epithel Cells (Auto) < 1.0 /HPF (0-13.0) 07/16/18 16:40 Urine Bacteria (Auto) 2+ /HPF (Negative) 07/16/18 16:40 Hyaline Casts 6 /LPF 07/16/18 16:40 Urine Mucus Few /HPF 07/16/18 16:40 Urine Creatinine 67.9 mg/dL (0.1-20.0) H 07/16/18 16:40 Urine Sodium 60 mmol/L 07/16/18 16:40 Hepatitis A IgM Ab Non-reactive (NonReactive) 07/18/18 17:16 Hep B Core IgM Ab Non-reactive (NonReactive) 07/18/18 17:16 Hepatitis C Antibody Reactive (NonReactive) A 07/18/18 17:16 Nutrition/Malnutrition Assess - Dietary Evaluation Nutrition/Malnutrition Findings: Nutrition Notes Start: 07/14/18 11 :25 Freq: Status: Active Protocol: Document 07/16/18 14:11 RM (Rec: 07/16/18 14:15 RM [id number]) Nutrition Notes Initial or Follow up Brief Note Current Diagnosis Acute Kidney Injury,CKD(stage I-IV),Coronary Artery Disease, Diabetes,Heart Failure, Hyperlipidemia Current Diet Cardiac Labs/Tests Reviewed Pertinent Medications Reviewed Height 6 ft Weight 84.4 kg [place] Body Weight (kg) 80.90 BMI 25.2 Subjective/Other Information Consulted for malnutrition. Pt stated that [employer] his appetite was good and he ate 3 meals daily. Stated that his appetite is good now and that he eats all of his meals. Unsure of UBW. No temporal or orbital wasting . Burn Absent Trauma Absent Nutrition Intervention Change Diet Order: Cardiac/Consistent CHO Revisit per MD consult or patient Sign Off request:
--- NOTE | 2018-07-20 11:27 | Progress Note ---
Assessment and Plan Add Hydralazine to optimize her BP regimen. For coronary angiography on Monday - Patient Problems (1) Acute on chronic heart failure with preserved ejection fraction Current Visit: Yes Status: Acute (2) Non-ST elevated myocardial infarction Current Visit: Yes Status: Acute (3) Acute kidney injury superimposed on CKD Current Visit: Yes Status: Acute (4) Chest pain Current Visit: Yes Status: Acute (5) HTN (hypertension) Current Visit: No Status: Chronic Qualifiers: Hypertension type: essential hypertension Qualified Code(s): I10 - Essential (primary) hypertension (6) Diabetes mellitus Current Visit: Yes Status: Chronic Subjective Date of service: 07/20/18 Principal diagnosis: Acute on chronic HFpEF, Elevated Tn, CKD, HTN, DM, Anemia Interval history: No complaint. He feels better. Objective Vital Signs Last Vital Signs Temp 98.1 F 07/20/18 10:15 Pulse 86 07/20/18 10:15 Resp 20 07/20/18 10:15 BP 160/90 07/20/18 10:15 Pulse Ox 97 07/20/18 10:15 - Physical Examination General: No Apparent Distress HEENT: Positive: EOMI, Normocephaly, Mucus Membranes Moist Neck: Positive: neck supple, trachea midline Cardiac: Positive: Reg Rate and Rhythm Lungs: Positive: clear to auscultation Neuro: Positive: Grossly Intact Abdomen: Positive: Soft, Active Bowel Sounds. Negative: Tender Skin: Positive: Clear. Negative: Rash Musculoskeletal: Normal Range of Motion, other (status post partial amputation of the right foot.) Extremities: Present: edema (trace pitting bilateral leg edema) - Labs and Meds Comprehensive Metabolic Panel 07/20/18 Range/Units 04:42 Sodium 140 (137-145) mmol/L Potassium 4.1 (3.6-5.0) mmol/L Chloride 103.8 (98-107) mmol/L Carbon Dioxide 28 (22-30) mmol/L BUN 24 H (9-20) mg/dL Creatinine 2.9 H (0.8-1.5) mg/dL Glucose 115 H (75-100) mg/dL Calcium 7.8 L (8.4-10.2) mg/dL - Imaging and Cardiology EKG: image reviewed - EKG Sinus rhythms and dysrhythmias: sinus rhythm
[2018-07-20] MEDS: APRESOLINE PO SCH ×2 (15:00→21:16)
[2018-07-20] MEDS: AMBIEN PO PRN (21:13)
[2018-07-20] MEDS: LANTUS SUB-Q SCH (21:17)
[2018-07-21 06:18] LABS: Hematocrit 26.7 % (35.5-45.6); Hemoglobin 8.8 gm/dl (11.8-15.2)
[2018-07-21 06:48] LABS: Calcium 7.9 mg/dL (8.4-10.2)
[2018-07-21] MEDS ORDERED: NACL 0.9% 100 ML IV PRN (09:19)
--- NOTE | 2018-07-21 09:20 | Progress Note ---
Assessment and Plan 1. ESRD: CKD stage 4 has likely progressed to ESRD. Patient had multiple admissions over the past 7 months due to volume overload likely secondary to advanced CKD and Diastolic CHF. Patient was started on hemodialysis on 07/18/2018 due to advanced CKD and associated recurrent admissions with volume overload and respiratory distress. Last dialyzed 2 days ago and next HD today. Await outpatient HD chair. 2. FEN: Volume overload, UF with HD. Continue Lasix. Counseled to limit fluid and salt intake. 3. CHF exacerbation, Chest pain with elevated Troponin: Followed by cards. 4. Anemia: Epogen. 5. Bronchitis: 6. DM-2. 7. Proteinuria: Diabetic nephropathy. On Losartan. Subjective Date of service: 07/21/18 Principal diagnosis: Acute on chronic HFpEF, Elevated Tn, CKD, HTN, DM, Anemia Interval history: Patient was seen and examined at the bedside. Feeling better. Objective - Vital Signs Vital signs: Vital Signs - 12hr 07/21/18 07/21/18 07/21/18 00:06 04:21 08:06 Temperature 98.1 F 97.9 F 98.3 F Pulse Rate 84 85 Respiratory 18 18 18 Rate Blood Pressure 140/72 147/79 166/93 O2 Sat by Pulse 98 99 Oximetry - General Appearance General appearance: well-developed, well-nourished, appears stated age, other (not in distress, right IJ tunnel catheter) EENT: ATNC, PERRL, hearing intact, vision intact Neck: supple Respiratory: Present: Clear to Ascultation Cardiology: regular, S1S2, no murmurs Gastrointestinal: normoactive bowel sounds, no tenderness, no distended Integumentary: chronic venous stasis Neurologic: no focal deficit, no asterixis, alert and oriented x3 Musculoskeletal: other (trace LE edema) Psychiatric: cooperative - Lab 07/21/18 04:38 07/21/18 04:38 Most recent lab results Calcium 7.9 mg/dL (8.4-10.2) L 07/21/18 04:38 Phosphorus 4.00 mg/dL (2.5-4.5) 07/18/18 04:42 Magnesium 2.10 mg/dL (1.7-2.3) 07/18/18 04:42 Urine Creatinine 67.9 mg/dL (0.1-20.0) H 07/16/18 16:40 Urine Sodium 60 mmol/L 07/16/18 16:40 Medications & Allergies - Medications Allergies/Adverse Reactions: Allergies No Known Allergies Allergy (Verified 11/01/13 07:35) Home Medications: Home Medications Medication Instructions Recorded Confirmed Last Taken Type Insulin Glargine [Lantus VIAL] 20 units SUB-Q QHS 30 Days #30 01/30/18 07/13/18 04/30/18 Rx units Aspirin [Aspirin BABY CHEW TAB] 81 mg PO QDAY #30 tab.chew 04/17/18 07/13/18 04/30/18 Rx AtorvaSTATin [Lipitor] 40 mg PO QHS #60 tablet 04/17/18 07/13/18 04/30/18 Rx Famotidine [Pepcid] 20 mg PO BID #60 tablet 04/17/18 07/13/18 04/30/18 Rx Furosemide [Lasix TAB] 40 mg PO BID #60 tablet 04/17/18 07/13/18 04/30/18 Rx ISOSORBIDE MONOnitrate [Imdur ER] 60 mg PO QDAY #30 tablet 04/17/18 07/13/18 04/30/18 Rx Metoprolol [Lopressor TAB] 100 mg PO BID #60 tablet 04/17/18 07/13/18 04/30/18 Rx amLODIPine [Norvasc] 10 mg PO DAILY #30 tablet 04/17/18 07/13/18 04/30/18 Rx hydrALAZINE [Apresoline TAB] 100 mg PO Q8HR #90 tab 04/17/18 07/13/18 04/30/18 Rx ALBUTEROL Inhaler(NF) [VENTOLIN 2 puff IH Q1D PRN #1 inha 05/05/18 07/13/18 Unknown Rx Inhaler(NF)] Lisinopril [Zestril TAB] 10 mg PO QDAY #30 tablet 05/05/18 07/13/18 Unknown Rx Active Medications: Generic Name Dose Route Start Last Admin Trade Name Freq PRN Reason Stop Dose Admin Albuterol 2.5 mg 07/13/18 12:56 07/20/18 12:50 Proventil IH 2.5 mg QIDRT PRN Administration Shortness Of Breath Amlodipine Besylate 10 mg 07/14/18 10:00 07/20/18 10:16 Norvasc PO 10 mg DAILY RADHA Administration Aspirin 81 mg 07/14/18 10:00 07/20/18 10:07 Baby Aspirin PO 81 mg QDAY RADHA Administration Atorvastatin Calcium 40 mg 07/13/18 22:00 07/20/18 21:13 Lipitor PO 40 mg QHS RADHA Administration Carvedilol 25 mg 07/14/18 10:00 07/20/18 21:13 Coreg PO 25 mg BID RADHA Administration Epoetin [place] 10,000 unit 07/18/18 12:21 07/19/18 14:04 Procrit SUB-Q 10,000 unit [place] PRN Administration hemodialysis Famotidine 20 mg 07/13/18 22:00 07/20/18 10:15 Pepcid PO 20 mg DAILY RADHA Administration Furosemide 40 mg 07/14/18 10:00 07/20/18 10:15 Lasix IV 40 mg QDAY [facility] Administration Guaifenesin 200 mg 07/13/18 23:31 07/20/18 06:06 Robitussin PO 200 mg Q6H PRN Administration Cough Hydralazine HCl 50 mg 07/20/18 14:00 07/20/18 21:16 Apresoline PO 50 mg TID RADHA Administration Hydromorphone HCl 1 mg 07/18/18 21:05 07/20/18 21:13 Dilaudid IV 1 mg Q4H PRN Administration Pain , Severe (7-10) Insulin Glargine 20 units 07/13/18 22:00 07/20/18 21:17 Lantus SUB-Q 20 units QHS RADHA Administration Insulin Human Lispro 0 unit 07/15/18 12:41 07/20/18 21:17 [facility]og SUB-Q [facility] Protocol Isosorbide Mononitrate 60 mg 07/14/18 10:00 07/20/18 10:17 Imdur PO 60 mg QDAY RADHA Administration Losartan Potassium 50 mg 07/20/18 10:00 07/20/18 10:28 Cozaar PO 50 mg QDAY RADHA Administration Ondansetron HCl 4 mg 07/18/18 06:43 07/20/18 06:28 Zofran IV 4 mg Q4H PRN Administration Nausea And Vomiting Zolpidem Tartrate 5 mg 07/19/18 21:17 07/20/18 21:13 Ambien PO 5 mg QHS PRN Administration Sleep
[2018-07-21] MEDS: PEPCID PO SCH (09:56)
[2018-07-21] MEDS: APRESOLINE PO SCH ×3 (09:56→21:46)
[2018-07-21] MEDS: NORVASC PO SCH (09:57)
[2018-07-21] MEDS: COREG PO SCH ×2 (09:57→21:46)
[2018-07-21] MEDS: BABY ASPIRIN PO SCH (09:57)
[2018-07-21] MEDS: LASIX IV SCH (09:57)
[2018-07-21] MEDS: COZAAR PO SCH (09:58)
[2018-07-21] MEDS: IMDUR PO SCH (09:58)
[2018-07-21] MEDS: HumaLOG SUB-Q SCH ×4 (09:59→21:57)
--- NOTE | 2018-07-21 11:48 | Progress Note ---
Assessment and Plan Assessment and plan: 57-year-old patient with multiple medical problems was admitted through emergency room with worsening shortness of breath and chest pain, patient was evaluated by cardiology and pulmonary, Medications optimized, worsening renal function seen by nephrology Acute on chronic kidney disease stage IV secondary to ATN Started on hemodialysis 07/18 Nephrology following Non-ST elevation CO/chest pain; with chronic elevation of troponins The patient has multiple risk factors, cardiology following Plan for cardiac cath on Monday History of coronary artery disease; continue current cardiac medications Acute on chronic diastolic congestive heart failure; EF 50-55% Continue anti-failure medications input output monitoring Acute on chronic hypoxic respiratory failure; secondary to CHF exacerbation as well as pleural effusion, oxygen titrated O2 sats to more than 90%,Pulmonary consult if needed Nebulizers and antibiotics and inhalation steroids and supportive care Bilateral pleural effusions; patient had thoracentesis in the past Continue supportive care thoracentesis if needed, pulm following Type 2 diabetes mellitus; Accu-Chek sliding scale coverage and ADA diet insulin as needed Dyslipidemia; continue statin Severe malnutrition/hypoalbuminemia; nutrition supplements and nutrition consult DVT prophylaxis; heparin renal dose Closely monitor patient and adjust management as needed Consults and recommendations noted and appreciated For cardiac cath on Monday07/23/18 History Interval history: Feels better. No chest pain currently Less shortness of breath Started on hemodialysis 07/18 Hospitalist Physical - Physical exam Narrative exam: GEN: Not in acute distress, lying in bed HEENT: Normocephalic, atraumatic, Neck: supple, No JVD Heart:S1and s2 reg, no murmurs Lungs: Clear to auscultation bilat, no crackles, no wheeze Abd:soft, non tender, non distended, normal bowel sounds Ext: Trace bilat edema, no clubbing, no cyanosis Neuro:Awake,alert,oriented X 3, no focal signs Skin:No rash Psych: normal mood - Constitutional Vitals: Temp Pulse Resp BP Pulse Ox 98.3 F 85 18 166/93 99 07/21/18 08:06 07/21/18 09:58 07/21/18 08:06 07/21/18 09:58 07/21/18 08:06 General appearance: Present: no acute distress Results - Labs CBC & Chem 7: 07/21/18 04:38 07/21/18 04:38 Labs: Laboratory Last Values WBC 9.3 K/mm3 (4.5-11.0) 07/17/18 04:18 RBC 3.00 M/mm3 (3.65-5.03) L 07/17/18 04:18 Hgb 8.8 gm/dl (11.8-15.2) L 07/21/18 04:38 Hct 26.7 % (35.5-45.6) L 07/21/18 04:38 MCV 87 fl (84-94) 07/17/18 04:18 MCH 29 pg (28-32) 07/17/18 04:18 MCHC 33 % (32-34) 07/17/18 04:18 RDW 14.1 % (13.2-15.2) 07/17/18 04:18 Plt Count 317 K/mm3 (140-440) 07/21/18 04:38 Lymph % (Auto) 20.5 % (13.4-35.0) 07/17/18 04:18 [place] % (Auto) 8.8 % (0.0-7.3) H 07/17/18 04:18 Eos % (Auto) 1.5 % (0.0-4.3) 07/17/18 04:18 Baso % (Auto) 0.5 % (0.0-1.8) 07/17/18 04:18 Lymph # 1.9 K/mm3 (1.2-5.4) 07/17/18 04:18 [place] # 0.8 K/mm3 (0.0-0.8) 07/17/18 04:18 Eos # 0.1 K/mm3 (0.0-0.4) 07/17/18 04:18 Baso # 0.0 K/mm3 (0.0-0.1) 07/17/18 04:18 Seg Neutrophils % 68.7 % (40.0-70.0) 07/17/18 04:18 Seg Neutrophils # 6.4 K/mm3 (1.8-7.7) 07/17/18 04:18 PT 11.6 Sec. (12.2-14.9) L 07/13/18 22:33 INR 0.80 (0.87-1.13) L 07/13/18 22:33 APTT 24.9 Sec. (24.2-36.6) 07/13/18 22:33 Heparin Anti-Xa Level 0.14 U.I./ml (0.3-0.7) L 07/16/18 11:07 Sodium 140 mmol/L (137-145) 07/21/18 04:38 Potassium 4.1 mmol/L (3.6-5.0) 07/21/18 04:38 Chloride 104.1 mmol/L (98-107) 07/21/18 04:38 Carbon Dioxide 28 mmol/L (22-30) 07/21/18 04:38 Anion Gap 12 mmol/L 07/21/18 04:38 BUN 28 mg/dL (9-20) H 07/21/18 04:38 Creatinine 3.7 mg/dL (0.8-1.5) H 07/21/18 04:38 Estimated GFR 21 ml/min 07/21/18 04:38 BUN/Creatinine Ratio 8 % 07/21/18 04:38 Glucose 121 mg/dL (75-100) H 07/21/18 04:38 POC Glucose 104 (70-105) 07/21/18 05:17 Calcium 7.9 mg/dL (8.4-10.2) L 07/21/18 04:38 Phosphorus 4.00 mg/dL (2.5-4.5) 07/18/18 04:42 Magnesium 2.10 mg/dL (1.7-2.3) 07/18/18 04:42 Total Bilirubin < 0.20 mg/dL (0.1-1.2) 07/14/18 04:25 AST 24 units/L (5-40) 07/14/18 04:25 ALT 19 units/L (7-56) 07/14/18 04:25 Alkaline Phosphatase 112 units/L (35-129) 07/14/18 04:25 Total Creatine Kinase 539 units/L (55-170) H 07/14/18 00:13 CK-MB (CK-2) 3.6 ng/mL (0.0-4.0) 07/14/18 00:13 CK-MB (CK-2) Rel Index 0.6 (0-4) 07/14/18 00:13 Troponin T 0.135 ng/mL (0.00-0.029) H* 07/14/18 00:13 Total Protein 5.5 g/dL (6.3-8.2) L 07/14/18 04:25 Albumin 1.9 g/dL (3.9-5) L 07/14/18 04:25 Albumin/Globulin Ratio 0.5 % 07/14/18 04:25 Triglycerides 195 mg/dL (2-149) H 07/13/18 08:54 Cholesterol 242 mg/dL (50-199) H 07/13/18 08:54 LDL Cholesterol Direct 171 mg/dL (50-130) H 07/13/18 08:54 HDL Cholesterol 57 mg/dL (40-59) 07/13/18 08:54 Cholesterol/HDL Ratio 4.24 % 07/13/18 08:54 Urine Color Yellow (Yellow) 07/16/18 16:40 Urine Turbidity Clear (Clear) 07/16/18 16:40 Urine pH 7.0 (5.0-7.0) 07/16/18 16:40 Ur Specific [place] 1.014 (1.003-1.030) 07/16/18 16:40 Urine Protein >500 mg/dL (Negative) 07/16/18 16:40 Urine Glucose (UA) 150 mg/dL (Negative) 07/16/18 16:40 Urine Ketones Neg mg/dL (Negative) 07/16/18 16:40 Urine Blood Neg (Negative) 07/16/18 16:40 Urine Nitrite Neg (Negative) 07/16/18 16:40 Urine Bilirubin Neg (Negative) 07/16/18 16:40 Urine Urobilinogen < 2.0 mg/dL (<2.0) 07/16/18 16:40 Ur Leukocyte Esterase Neg (Negative) 07/16/18 16:40 Urine WBC (Auto) 1.0 /HPF (0.0-6.0) 07/16/18 16:40 Urine RBC (Auto) 5.0 /HPF (0.0-6.0) 07/16/18 16:40 U Epithel Cells (Auto) < 1.0 /HPF (0-13.0) 07/16/18 16:40 Urine Bacteria (Auto) 2+ /HPF (Negative) 07/16/18 16:40 Hyaline Casts 6 /LPF 07/16/18 16:40 Urine Mucus Few /HPF 07/16/18 16:40 Urine Creatinine 67.9 mg/dL (0.1-20.0) H 07/16/18 16:40 Urine Sodium 60 mmol/L 07/16/18 16:40 Hepatitis A IgM Ab Non-reactive (NonReactive) 07/18/18 17:16 Hep B Core IgM Ab Non-reactive (NonReactive) 07/18/18 17:16 Hepatitis C Antibody Reactive (NonReactive) A 07/18/18 17:16 Nutrition/Malnutrition Assess - Dietary Evaluation Nutrition/Malnutrition Findings: Nutrition Notes Start: 07/14/18 11:25 Freq: Status: Active Protocol: Document 07/16/18 14:11 RM (Rec: 07/16/18 14:15 RM [id number]) Nutrition Notes Initial or Follow up Brief Note Current Diagnosis Acute Kidney Injury,CKD(stage I-IV),Coronary Artery Disease, Diabetes,Heart Failure, Hyperlipidemia Current Diet Cardiac Labs/Tests Reviewed Pertinent Medications Reviewed Height 6 ft Weight 84.4 kg [place] Body Weight (kg) 80.90 BMI 25.2 Subjective/Other Information Consulted for malnutrition. 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 Stated that his appetite is good now and that he eats all of his meals. Unsure of UBW. No temporal or orbital wasting . Burn Absent Trauma Absent Nutrition Intervention Change Diet Order: Cardiac/Consistent CHO Revisit per MD consult or patient Sign Off request:
[2018-07-21] MEDS: PROVENTIL IH PRN (11:54)
[2018-07-21] MEDS: DILAUDID IV PRN (13:31)
--- NOTE | 2018-07-21 16:19 | Progress Note ---
Assessment and Plan To continue present management. Awaiting cardiac cath on Monday. - Patient Problems (1) Acute kidney injury superimposed on CKD Current Visit: Yes Status: Acute (2) Acute on chronic heart failure with preserved ejection fraction Current Visit: Yes Status: Acute (3) CKD (chronic kidney disease) Current Visit: Yes Status: Chronic Qualifiers: Chronic kidney disease stage: stage 4 (severe) Qualified Code(s): N18.4 - Chronic kidney disease, stage 4 (severe) (4) Chest pain Current Visit: Yes Status: Resolved (5) Non-ST elevated myocardial infarction Current Visit: Yes Status: Acute (6) Pleural effusion, right Current Visit: Yes Status: Acute (7) Shortness of breath Current Visit: Yes Status: Acute (8) Cardiorenal syndrome with renal failure Current Visit: No Status: Chronic (9) Elevated troponin Current Visit: No Status: Acute (10) NSVT (nonsustained ventricular tachycardia) Current Visit: No Status: Acute (11) Pleural effusion Current Visit: No Status: Acute (12) Cardiomyopathy Current Visit: No Status: Chronic Qualifiers: Cardiomyopathy type: other Qualified Code(s): I42.8 - Other cardiomyopathies (13) HLD (hyperlipidemia) Current Visit: No Status: Chronic Qualifiers: Hyperlipidemia type: mixed hyperlipidemia Qualified Code(s): E78.2 - Mixed hyperlipidemia (14) HTN (hypertension) Current Visit: No Status: Chronic Qualifiers: Hypertension type: essential hypertension Qualified Code(s): I10 - Essential (primary) hypertension (15) IDDM (insulin dependent diabetes mellitus) Current Visit: No Status: Chronic (16) PVD (peripheral vascular disease) Current Visit: No Status: Chronic Subjective Date of service: 07/21/18 Principal diagnosis: Acute on chronic HFpEF, Elevated Tn, CKD, HTN, DM, Anemia Interval history: Seen in hemodialsis. Cr: 3.7, H and H 8.8 and 26.7 respectively.No CP or SOB. Objective Vital Signs Temp Pulse Pulse Resp Resp BP Pulse Ox 07/21/18 13:31 79 130/68 07/21/18 12:08 84 20 07/21/18 11:57 78 18 07/21/18 09:58 85 166/93 07/21/18 09:57 85 166/93 07/21/18 09:56 85 166/93 07/21/18 08:06 98.3 F 85 18 166/93 99 07/21/18 04:21 97.9 F 84 18 147/79 98 07/21/18 00:06 98.1 F 18 140/72 07/20/18 21:16 84 124/57 07/20/18 20:13 87 07/20/18 16:31 98.3 F 84 18 124/57 93 - Physical Examination General: No Apparent Distress HEENT: Positive: EOMI, Normocephaly, Mucus Membranes Moist Neck: Positive: neck supple, trachea midline Cardiac: Positive: Regular Rate, S1/S2 (loud S2) Lungs: Positive: clear to auscultation, Normal Breath Sounds. Negative: Wheezes Neuro: Positive: Grossly Intact Abdomen: Positive: Soft, Active Bowel Sounds. Negative: Tender Skin: Positive: Clear. Negative: Rash Musculoskeletal: Normal Range of Motion, other (status post partial amputation of the right foot.) Extremities: Present: edema (trace pitting bilateral leg edema) - Labs and Meds CBC 07/21/18 Range/Units 04:38 Hgb 8.8 L (11.8-15.2) gm/dl Hct 26.7 L (35.5-45.6) % Plt Count 317 (140-440) K/mm3 Comprehensive Metabolic Panel 07/21/18 Range/Units 04:38 Sodium 140 (137-145) mmol/L Potassium 4.1 (3.6-5.0) mmol/L Chloride 104.1 (98-107) mmol/L Carbon Dioxide 28 (22-30) mmol/L BUN 28 H (9-20) mg/dL Creatinine 3.7 H (0.8-1.5) mg/dL Glucose 121 H (75-100) mg/dL Calcium 7.9 L (8.4-10.2) mg/dL - Imaging and Cardiology EKG: report reviewed, image reviewed Echo: report reviewed - Telemetry EKG Rhythm: Sinus Rhythm - EKG Sinus rhythms and dysrhythmias: sinus rhythm
[2018-07-21] MEDS ORDERED: NACL 0.9 (PRIMING MACHINE ONLY DIALYSIS) MC ONE (17:19)
[2018-07-21] MEDS: LANTUS SUB-Q SCH ×2 (21:47→21:57)
[2018-07-21] MEDS: AMBIEN PO PRN (21:55)
[2018-07-22 07:26] LABS: Calcium 7.8 mg/dL (8.4-10.2)
[2018-07-22] MEDS: PROVENTIL IH PRN ×3 (08:11→20:08)
[2018-07-22] MEDS: COREG PO SCH ×2 (09:20→22:13)
[2018-07-22] MEDS: COZAAR PO SCH (09:20)
[2018-07-22] MEDS: PEPCID PO SCH (09:20)
[2018-07-22] MEDS: APRESOLINE PO SCH ×3 (09:20→22:13)
[2018-07-22] MEDS: BABY ASPIRIN PO SCH (09:20)
[2018-07-22] MEDS: NORVASC PO SCH (09:21)
[2018-07-22] MEDS: LASIX IV SCH (09:21)
[2018-07-22] MEDS: IMDUR PO SCH (09:21)
[2018-07-22] MEDS: HumaLOG SUB-Q SCH ×5 (09:22→22:14)
--- NOTE | 2018-07-22 10:48 | Progress Note ---
Assessment and Plan 1. ESRD: CKD stage 4 has likely progressed to ESRD. Patient had multiple admissions over the past 7 months due to volume overload likely secondary to advanced CKD and Diastolic CHF. Patient was started on hemodialysis on 07/18/2018 due to advanced CKD and associated recurrent admissions with volume overload and respiratory distress. Last dialyzed yesterday and next HD tomorrow. Await outpatient HD chair. 2. FEN: Volume overload, UF with HD. Continue Lasix. Counseled to limit fluid and salt intake. 3. CHF exacerbation, Chest pain with elevated Troponin: Followed by cards. Cardiac cath tomorrow. 4. Anemia: Epogen. 5. Bronchitis: 6. DM-2. 7. Proteinuria: Diabetic nephropathy. On Losartan. Subjective Date of service: 07/22/18 Principal diagnosis: Acute on chronic HFpEF, Elevated Tn, CKD, HTN, DM, Anemia Interval history: Patient was seen and examined at the bedside. Feeling ok. Objective - Vital Signs Vital signs: Vital Signs - 12hr 07/22/18 07/22/18 07/22/18 04:26 09:20 09:21 Temperature 98.1 F Pulse Rate 80 81 81 Respiratory 18 Rate Blood Pressure 147/81 170/89 170/89 Blood Pressure [Left] O2 Sat by Pulse 91 Oximetry 07/22/18 09:27 Temperature 98.4 F Pulse Rate 81 Respiratory 19 Rate Blood Pressure Blood Pressure 170/89 [Left] O2 Sat by Pulse Oximetry - General Appearance General appearance: well-developed, well-nourished, appears stated age, other (not in distress, right IJ tunnel catheter) EENT: ATNC, PERRL, hearing intact, vision intact Neck: supple Respiratory: Present: Clear to Ascultation Cardiology: regular, S1S2, no murmurs Gastrointestinal: normoactive bowel sounds Integumentary: warm and dry, chronic venous stasis Neurologic: no focal deficit, no asterixis, alert and oriented x3 Musculoskeletal: other (trace LE edema) Psychiatric: cooperative - Lab 07/21/18 04:38 07/22/18 06:13 Most recent lab results Calcium 7.8 mg/dL (8.4-10.2) L 07/22/18 06:13 Phosphorus 4.00 mg/dL (2.5-4.5) 07/18/18 04:42 Magnesium 2.10 mg/dL (1.7-2.3) 07/18/18 04:42 Urine Creatinine 67.9 mg/dL (0.1-20.0) H 07/16/18 16:40 Urine Sodium 60 mmol/L 07/16/18 16:40 Medications & Allergies - Medications Allergies/Adverse Reactions: Allergies No Known Allergies Allergy (Verified 11/01/13 07:35) Home Medications: Home Medications Medication Instructions Recorded Confirmed Last Taken Type Insulin Glargine [Lantus VIAL] 20 units SUB-Q QHS 30 Days #30 01/30/18 07/13/18 04/30/18 Rx units Aspirin [Aspirin BABY CHEW TAB] 81 mg PO QDAY #30 tab.chew 04/17/18 07/13/18 04/30/18 Rx AtorvaSTATin [Lipitor] 40 mg PO QHS #60 tablet 04/17/18 07/13/18 04/30/18 Rx Famotidine [Pepcid] 20 mg PO BID #60 tablet 04/17/18 07/13/18 04/30/18 Rx Furosemide [Lasix TAB] 40 mg PO BID #60 tablet 04/17/18 07/13/18 04/30/18 Rx ISOSORBIDE MONOnitrate [Imdur ER] 60 mg PO QDAY #30 tablet 04/17/18 07/13/18 04/30/18 Rx Metoprolol [Lopressor TAB] 100 mg PO BID #60 tablet 04/17/18 07/13/18 04/30/18 Rx amLODIPine [Norvasc] 10 mg PO DAILY #30 tablet 04/17/18 07/13/18 04/30/18 Rx hydrALAZINE [Apresoline TAB] 100 mg PO Q8HR #90 tab 04/17/18 07/13/18 04/30/18 Rx ALBUTEROL Inhaler(NF) [VENTOLIN 2 puff IH Q1D PRN #1 inha 05/05/18 07/13/18 Unknown Rx Inhaler(NF)] Lisinopril [Zestril TAB] 10 mg PO QDAY #30 tablet 05/05/18 07/13/18 Unknown Rx Active Medications: Generic Name Dose Route Start Last Admin Trade Name Freq PRN Reason Stop Dose Admin Albuterol 2.5 mg 07/13/18 12:56 07/22/18 08:11 Proventil IH 2.5 mg QIDRT PRN Administration Shortness Of Breath Amlodipine Besylate 10 mg 07/14/18 10:00 07/22/18 09:21 Norvasc PO 10 mg DAILY RADHA Administration Aspirin 81 mg 07/14/18 10:00 07/22/18 09:20 Baby Aspirin PO 81 mg QDAY RADHA Administration Atorvastatin Calcium 40 mg 07/13/18 22:00 07/21/18 21:47 Lipitor PO 40 mg QHS RADHA Administration Carvedilol 25 mg 07/14/18 10:00 07/22/18 09:20 Coreg PO 25 mg BID RADHA Administration Epoetin [place] 10,000 unit 07/18/18 12:21 07/19/18 14:04 Procrit SUB-Q 10,000 unit [place] PRN Administration hemodialysis Famotidine 20 mg 07/13/18 22:00 07/22/18 09:20 Pepcid PO 20 mg DAILY RADHA Administration Furosemide 40 mg 07/14/18 10:00 07/22/18 09:21 Lasix IV 40 mg QDAY [facility] Administration Guaifenesin 200 mg 07/13/18 23:31 07/20/18 06:06 Robitussin PO 200 mg Q6H PRN Administration Cough Hydralazine HCl 50 mg 07/20/18 14:00 07/22/18 09:20 Apresoline PO 50 mg TID RADHA Administration Hydromorphone HCl 1 mg 07/18/18 21:05 07/21/18 13:31 Dilaudid IV 1 mg Q4H PRN Administration Pain , Severe (7-10) Sodium Chloride 100 mls @ 999 mls/hr 07/21/18 09:19 Nacl 0.9% IV [place] PRN Hypotension Insulin Glargine 20 units 07/13/18 22:00 07/21/18 21:57 Lantus SUB-Q Not Given QHS [facility] Insulin Human Lispro 0 unit 07/15/18 12:41 07/22/18 09:22 Humalog SUB-Q 3 unit ACHS [facility] Administration Protocol Isosorbide Mononitrate 60 mg 07/14/18 10:00 07/22/18 09:21 Imdur PO 60 mg QDAY RADHA Administration Losartan Potassium 50 mg 07/20/18 10:00 07/22/18 09:20 Cozaar PO 50 mg QDAY RADHA Administration Ondansetron HCl 4 mg 07/18/18 06:43 07/20/18 06:28 Zofran IV 4 mg Q4H PRN Administration Nausea And Vomiting Zolpidem Tartrate 5 mg 07/19/18 21:17 07/21/18 21:55 Ambien PO 5 mg QHS PRN Administration Sleep
--- NOTE | 2018-07-22 11:18 | Progress Note ---
Assessment and Plan Assessment and plan: 57-year-old patient with multiple medical problems was admitted through emergency room with worsening shortness of breath and chest pain, patient was evaluated by cardiology and pulmonary, Medications optimized, worsening renal function seen by nephrology. Started on dialysis 07/18 Acute on chronic kidney disease stage IV secondary to ATN Started on hemodialysis 07/18 Nephrology following Non-ST elevation [place]/chest pain; with chronic elevation of troponins The patient has multiple risk factors, cardiology following Plan for cardiac cath on Monday History of coronary artery disease; continue current cardiac medications Acute on chronic diastolic congestive heart failure; EF 50-55% Continue anti-failure medications input output monitoring Acute on chronic hypoxic respiratory failure; secondary to CHF exacerbation as well as pleural effusion, oxygen titrated O2 sats to more than 90%,Pulmonary consult if needed Nebulizers and antibiotics and inhalation steroids and supportive care Bilateral pleural effusions; patient had thoracentesis in the past Continue supportive care thoracentesis if needed, pulm following Type 2 diabetes mellitus; Accu-Chek sliding scale coverage and ADA diet insulin as needed Dyslipidemia; continue statin Severe malnutrition/hypoalbuminemia; nutrition supplements and nutrition consult DVT prophylaxis; heparin renal dose Closely monitor patient and adjust management as needed Consults and recommendations noted and appreciated For cardiac cath on Monday07/23/18 History Interval history: Feels better. No chest pain currently Less shortness of breath Started on hemodialysis 07/18 Hospitalist Physical - Physical exam Narrative exam: GEN: Not in acute distress, lying in bed HEENT: Normocephalic, atraumatic, Neck: supple, No JVD Heart:S1and S2 reg, no murmurs Lungs: Clear to auscultation bilat, no crackles, no wheeze Abd:soft, non tender, non distended, normal bowel sounds Ext: Trace bilat edema, no clubbing, no cyanosis Neuro:Awake,alert,oriented X 3, no focal signs Skin:No rash Psych: normal mood - Constitutional Vitals: Temp Pulse Resp BP Pulse Ox 98.4 F 81 19 170/89 91 07/22/18 09:27 07/22/18 09:27 07/22/18 09:27 07/22/18 09:27 07/22/18 04:26 General appearance: Present: no acute distress Results - Labs CBC & Chem 7: 07/21/18 04:38 07/22/18 06:13 Labs: Laboratory Last Values WBC 9.3 K/mm3 (4.5-11.0) 07/17/18 04:18 RBC 3.00 M/mm3 (3.65-5.03) L 07/17/18 04:18 Hgb 8.8 gm/dl (11.8-15.2) L 07/21/18 04:38 Hct 26.7 % (35.5-45.6) L 07/21/18 04:38 MCV 87 fl (84-94) 07/17/18 04:18 MCH 29 pg (28-32) 07/17/18 04:18 MCHC 33 % (32-34) 07/17/18 04:18 RDW 14.1 % (13.2-15.2) 07/17/18 04:18 Plt Count 317 K/mm3 (140-440) 07/21/18 04:38 Lymph % (Auto) 20.5 % (13.4-35.0) 07/17/18 04:18 [place] % (Auto) 8.8 % (0.0-7.3) H 07/17/18 04:18 Eos % (Auto) 1.5 % (0.0-4.3) 07/17/18 04:18 Baso % (Auto) 0.5 % (0.0-1.8) 07/17/18 04:18 Lymph # 1.9 K/mm3 (1.2-5.4) 07/17/18 04:18 [place] # 0.8 K/mm3 (0.0-0.8) 07/17/18 04:18 Eos # 0.1 K/mm3 (0.0-0.4) 07/17/18 04:18 Baso # 0.0 K/mm3 (0.0-0.1) 07/17/18 04:18 Seg Neutrophils % 68.7 % (40.0-70.0) 07/17/18 04:18 Seg Neutrophils # 6.4 K/mm3 (1.8-7.7) 07/17/18 04:18 PT 11.6 Sec. (12.2-14.9) L 07/13/18 22:33 INR 0.80 (0.87-1.13) L 07/13/18 22:33 APTT 24.9 Sec. (24.2-36.6) 07/13/18 22:33 Heparin Anti-Xa Level 0.14 U.I./ml (0.3-0.7) L 07/16/18 11:07 Sodium 137 mmol/L (137-145) 07/22/18 06:13 Potassium 4.1 mmol/L (3.6-5.0) 07/22/18 06:13 Chloride 102.6 mmol/L (98-107) 07/22/18 06:13 Carbon Dioxide 28 mmol/L (22-30) 07/22/18 06:13 Anion Gap 11 mmol/L 07/22/18 06:13 BUN 21 mg/dL (9-20) H 07/22/18 06:13 Creatinine 3.2 mg/dL (0.8-1.5) H 07/22/18 06:13 Estimated GFR 24 ml/min 07/22/18 06:13 BUN/Creatinine Ratio 7 % 07/22/18 06:13 Glucose 176 mg/dL (75-100) H 07/22/18 06:13 POC Glucose 164 (70-105) H 07/22/18 07:38 Calcium 7.8 mg/dL (8.4-10.2) L 07/22/18 06:13 Phosphorus 4.00 mg/dL (2.5-4.5) 07/18/18 04:42 Magnesium 2.10 mg/dL (1.7-2.3) 07/18/18 04:42 Total Bilirubin < 0.20 mg/dL (0.1-1.2) 07/14/18 04:25 AST 24 units/L (5-40) 07/14/18 04:25 ALT 19 units/L (7-56) 07/14/18 04:25 Alkaline Phosphatase 112 units/L (35-129) 07/14/18 04:25 Total Creatine Kinase 539 units/L (55-170) H 07/14/18 00:13 CK-MB (CK-2) 3.6 ng/mL (0.0-4.0) 07/14/18 00:13 CK-MB (CK-2) Rel Index 0.6 (0-4) 07/14/18 00:13 Troponin T 0.135 ng/mL (0.00-0.029) H* 07/14/18 00:13 Total Protein 5.5 g/dL (6.3-8.2) L 07/14/18 04:25 Albumin 1.9 g/dL (3.9-5) L 07/14/18 04:25 Albumin/Globulin Ratio 0.5 % 07/14/18 04:25 Triglycerides 195 mg/dL (2-149) H 07/13/18 08:54 Cholesterol 242 mg/dL (50-199) H 07/13/18 08:54 LDL Cholesterol Direct 171 mg/dL (50-130) H 07/13/18 08:54 HDL Cholesterol 57 mg/dL (40-59) 07/13/18 08:54 Cholesterol/HDL Ratio 4.24 % 07/13/18 08:54 Urine Color Yellow (Yellow) 07/16/18 16:40 Urine Turbidity Clear (Clear) 07/16/18 16:40 Urine pH 7.0 (5.0-7.0) 07/16/18 16:40 Ur Specific [place] 1.014 (1.003-1.030) 07/16/18 16:40 Urine Protein >500 mg/dL (Negative) 07/16/18 16:40 Urine Glucose (UA) 150 mg/dL (Negative) 07/16/18 16:40 Urine Ketones Neg mg/dL (Negative) 07/16/18 16:40 Urine Blood Neg (Negative) 07/16/18 16:40 Urine Nitrite Neg (Negative) 07/16/18 16:40 Urine Bilirubin Neg (Negative) 07/16/18 16:40 Urine Urobilinogen < 2.0 mg/dL (<2.0) 07/16/18 16:40 Ur Leukocyte Esterase Neg (Negative) 07/16/18 16:40 Urine WBC (Auto) 1.0 /HPF (0.0-6.0) 07/16/18 16:40 Urine RBC (Auto) 5.0 /HPF (0.0-6.0) 07/16/18 16:40 U Epithel Cells (Auto) < 1.0 /HPF (0-13.0) 07/16/18 16:40 Urine Bacteria (Auto) 2+ /HPF (Negative) 07/16/18 16:40 Hyaline Casts 6 /LPF 07/16/18 16:40 Urine Mucus Few /HPF 07/16/18 16:40 Urine Creatinine 67.9 mg/dL (0.1-20.0) H 07/16/18 16:40 Urine Sodium 60 mmol/L 07/16/18 16:40 Hepatitis A IgM Ab Non-reactive (NonReactive) 07/18/18 17:16 Hep B Core IgM Ab Non-reactive (NonReactive) 07/18/18 17:16 Hepatitis C Antibody Reactive (NonReactive) A 07/18/18 17:16 Nutrition/Malnutrition Assess - Dietary Evaluation Nutrition/Malnutrition Findings: Nutrition Notes Start: 07/14/18 11:25 Freq: Status: Active Protocol: Document 07/16/18 14:11 RM (Rec: 07/16/18 14:15 RM [email or web address]) Nutrition Notes Initial or Follow up Brief Note Current Diagnosis Acute Kidney Injury,CKD(stage I-IV),Coronary Artery Disease, Diabetes,Heart Failure, Hyperlipidemia Current Diet Cardiac Labs/Tests Reviewed Pertinent Medications Reviewed Height 6 ft Weight 84.4 kg [place] Body Weight (kg) 80.90 BMI 25.2 Subjective/Other Information Consulted for malnutrition. 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 Stated that his appetite is good now and that he eats all of his meals. Unsure of UBW. No temporal or orbital wasting . Burn Absent Trauma Absent Nutrition Intervention Change Diet Order: Cardiac/Consistent CHO Revisit per MD consult or patient Sign Off request:
[2018-07-22] MEDS: AMBIEN PO PRN (22:13)
[2018-07-22] MEDS: LANTUS SUB-Q SCH (22:18)
[2018-07-23 05:06] LABS: INR 0.85 (0.87-1.13)
[2018-07-23 05:18] LABS: Calcium 7.8 mg/dL (8.4-10.2)
[2018-07-23 05:25] LABS: Hematocrit 25.3 % (35.5-45.6); Hemoglobin 8.5 gm/dl (11.8-15.2); Mean Corpuscular HGB Conc 33 % (32-34); Mean Corpuscular Volume 87 fl (84-94); Platelet Count 350 K/mm3 (140-440); Red Cell Distribution Width 13.9 % (13.2-15.2)
--- NOTE | 2018-07-23 08:06 | Progress Note ---
Assessment and Plan 1. ESRD: CKD stage 4 has likely progressed to ESRD. Patient had multiple admissions over the past 7 months due to volume overload likely secondary to advanced CKD and Diastolic CHF. Patient was started on hemodialysis on 07/18/2018 due to advanced CKD and associated recurrent admissions with volume overload and respiratory distress. Last dialyzed 2 days ago and next HD today. Await outpatient HD chair. 2. FEN: Volume overload, UF with HD. Continue Lasix. Counseled to limit fluid and salt intake. 3. CHF exacerbation, Chest pain with elevated Troponin: Followed by cards. S/p Cardiac cath today. 4. Anemia: Epogen. 5. Bronchitis: 6. DM-2. 7. Proteinuria: Diabetic nephropathy. On Losartan. 8. Hepatitis C. Subjective Date of service: 07/23/18 Principal diagnosis: Acute on chronic HFpEF, Elevated Tn, CKD, HTN, DM, Anemia Interval history: Patient was seen and examined at the bedside. Feeling ok. Objective - Vital Signs Vital signs: Vital Signs - 12hr 07/22/18 07/22/18 07/22/18 20:08 20:15 20:35 Temperature Pulse Rate Pulse Rate [ 82 89 Posterior Bilateral Throughout] Respiratory Rate Respiratory 18 Rate [Abdomen] Respiratory 18 18 Rate [Posterior Bilateral Throughout] Blood Pressure O2 Sat by Pulse Oximetry 07/22/18 07/22/18 07/22/18 20:45 22:13 23:35 Temperature 98.5 F Pulse Rate 82 81 Pulse Rate [ Posterior Bilateral Throughout] Respiratory 20 20 Rate Respiratory Rate [Abdomen] Respiratory Rate [Posterior Bilateral Throughout] Blood Pressure 147/79 125/69 O2 Sat by Pulse 98 96 Oximetry 07/23/18 03:02 Temperature 98.2 F Pulse Rate 80 Pulse Rate [ Posterior Bilateral Throughout] Respiratory 18 Rate Respiratory Rate [Abdomen] Respiratory Rate [Posterior Bilateral Throughout] Blood Pressure 136/75 O2 Sat by Pulse 99 Oximetry - General Appearance General appearance: well-developed, well-nourished, appears stated age, other (not in distress, right IJ tunnel catheter) EENT: ATNC, PERRL, mucous membranes moist, hearing intact, vision intact Neck: supple Respiratory: Present: Clear to Ascultation Cardiology: regular, S1S2, no murmurs Gastrointestinal: normoactive bowel sounds, no tenderness, no distended Integumentary: no rash, warm and dry Neurologic: no focal deficit, no asterixis, alert and oriented x3 Musculoskeletal: other (right TMA, no edema) Psychiatric: cooperative - Lab 07/23/18 04:39 07/23/18 04:39 Most recent lab results Calcium 7.8 mg/dL (8.4-10.2) L 07/23/18 04:39 Phosphorus 4.00 mg/dL (2.5-4.5) 07/18/18 04:42 Magnesium 2.10 mg/dL (1.7-2.3) 07/18/18 04:42 Urine Creatinine 67.9 mg/dL (0.1-20.0) H 07/16/18 16:40 Urine Sodium 60 mmol/L 07/16/18 16:40 Medications & Allergies - Medications Allergies/Adverse Reactions: Allergies No Known Allergies Allergy (Verified 11/01/13 07:35) Home Medications: Home Medications Medication Instructions Recorded Confirmed Last Taken Type Insulin Glargine [Lantus VIAL] 20 units SUB-Q QHS 30 Days #30 01/30/18 07/13/18 04/30/18 Rx units Aspirin [Aspirin BABY CHEW TAB] 81 mg PO QDAY #30 tab.chew 04/17/18 07/13/18 04/30/18 Rx AtorvaSTATin [Lipitor] 40 mg PO QHS #60 tablet 04/17/18 07/13/18 04/30/18 Rx Famotidine [Pepcid] 20 mg PO BID #60 tablet 04/17/18 07/13/18 04/30/18 Rx Furosemide [Lasix TAB] 40 mg PO BID #60 tablet 04/17/18 07/13/18 04/30/18 Rx ISOSORBIDE MONOnitrate [Imdur ER] 60 mg PO QDAY #30 tablet 04/17/18 07/13/18 04/30/18 Rx Metoprolol [Lopressor TAB] 100 mg PO BID #60 tablet 04/17/18 07/13/18 04/30/18 Rx amLODIPine [Norvasc] 10 mg PO DAILY #30 tablet 04/17/18 07/13/18 04/30/18 Rx hydrALAZINE [Apresoline TAB] 100 mg PO Q8HR #90 tab 04/17/18 07/13/18 04/30/18 Rx ALBUTEROL Inhaler(NF) [VENTOLIN 2 puff IH Q1D PRN #1 inha 05/05/18 07/13/18 Unknown Rx Inhaler(NF)] Lisinopril [Zestril TAB] 10 mg PO QDAY #30 tablet 05/05/18 07/13/18 Unknown Rx Active Medications: Generic Name Dose Route Start Last Admin Trade Name Freq PRN Reason Stop Dose Admin Albuterol 2.5 mg 07/13/18 12:56 07/22/18 20:08 Proventil IH 2.5 mg QIDRT PRN Administration Shortness Of Breath Amlodipine Besylate 10 mg 07/14/18 10:00 07/22/18 09:21 Norvasc PO 10 mg DAILY RADHA Administration Aspirin 81 mg 07/14/18 10:00 07/22/18 09:20 Baby Aspirin PO 81 mg QDAY RADHA Administration Atorvastatin Calcium 40 mg 07/13/18 22:00 07/22/18 22:13 Lipitor PO 40 mg QHS RADHA Administration Carvedilol 25 mg 07/14/18 10:00 07/22/18 22:13 Coreg PO 25 mg BID RADHA Administration Epoetin Eagle 10,000 unit 07/18/18 12:21 07/19/18 14:04 Procrit SUB-Q 10,000 unit [place] PRN Administration hemodialysis Famotidine 20 mg 07/13/18 22:00 07/22/18 09:20 Pepcid PO 20 mg DAILY RADHA Administration Furosemide 40 mg 07/14/18 10:00 07/22/18 09:21 Lasix IV 40 mg QDAY RADHA Administration Guaifenesin 200 mg 07/13/18 23:31 07/20/18 06:06 Robitussin PO 200 mg Q6H PRN Administration Cough Heparin Sodium (Porcine) 5,000 unit 07/23/18 16:00 Heparin SUB-Q Q12HR [facility] Hydralazine HCl 50 mg 07/20/18 14:00 07/22/18 22:13 Apresoline PO 50 mg TID RADHA Administration Hydromorphone HCl 1 mg 07/18/18 21:05 07/21/18 13:31 Dilaudid IV 1 mg Q4H PRN Administration Pain , Severe (7-10) Sodium Chloride 100 mls @ 999 mls/hr 07/21/18 09:19 Nacl 0.9% IV [place] PRN Hypotension Insulin Glargine 20 units 07/13/18 22:00 07/22/18 22:18 Lantus SUB-Q Not Given QHS [facility] Insulin Human Lispro 0 unit 07/15/18 12:41 07/22/18 22:14 Humalog SUB-Q 8 unit ACHS RADHA Administration Protocol Isosorbide Mononitrate 60 mg 07/14/18 10:00 07/22/18 09:21 Imdur PO 60 mg QDAY [facility] Administration Losartan Potassium 50 mg 07/20/18 10:00 07/22/18 09:20 Cozaar PO 50 mg QDAY RADHA Administration Ondansetron HCl 4 mg 07/18/18 06:43 07/20/18 06:28 Zofran IV 4 mg Q4H PRN Administration Nausea And Vomiting Zolpidem Tartrate 5 mg 07/19/18 21:17 07/22/18 22:13 Ambien PO 5 mg QHS PRN Administration Sleep
[2018-07-23] MEDS: HumaLOG SUB-Q SCH ×4 (08:17→22:47)
[2018-07-23] MEDS: APRESOLINE PO SCH ×3 (08:18→22:46)
[2018-07-23] MEDS ORDERED: HEPARIN/NS 5000 UNIT/500ML(CATH LAB) 1,000 ML IR ONE (08:35)
[2018-07-23] MEDS ORDERED: HEPARIN 10,000 UNITS/10 ML ONE (08:35)
[2018-07-23] MEDS ORDERED: XYLOCAINE 2% INFILTRATI ONE (08:36)
[2018-07-23] MEDS ORDERED: SUBLIMAZE ONE (08:36)
[2018-07-23] MEDS ORDERED: NITROGLYCERIN SYRINGE 0 ML ONE (08:36)
[2018-07-23] MEDS ORDERED: VERSED ONE (08:36)
[2018-07-23] MEDS: BABY ASPIRIN PO SCH ×2 (08:46→11:03)
[2018-07-23] MEDS ORDERED: BABY ASPIRIN ONE (08:48)
[2018-07-23] MEDS ORDERED: NACL 0.9% 500 ML 500 ML ONE (08:57)
--- NOTE | 2018-07-23 10:57 | Cardiac Catherization Report ---
INDICATION FOR PROCEDURE: The patient is a 57-year-old -[place] gentleman with history of hypertension, diabetes mellitus, who was admitted with congestive heart failure and noted to have chest pain. The patient was diagnosed to have underlying chronic kidney disease, resulting in dialysis recently. Because of his congestive heart failure and chest pain, he is being scheduled for cardiac catheterization for definitive diagnosis and treatment. The patient was noted to have congestive heart failure with preserved left ventricular systolic function. The patient was brought to the catheterization laboratory in a fasting condition. Informed consent was obtained. The patient is aware of the procedure, potential complications and alternatives of therapy available. DESCRIPTION OF PROCEDURE: The patient was prepared in the standard fashion. Right groin was prepared with chlorhexidine solution. Local anesthesia was given in the right groin. Under fluoroscopy and also under the ultrasound guidance, the right common femoral artery puncture was made above the bifurcation of the vessel. A 5-E[place]ian sheath was introduced. A 5-[place]ian multipurpose catheter was used to obtain the angiograms of the left coronary artery in multiple views followed by left ventriculogram done in JONES and FRENCH projection using hand injection and subsequently using the same catheter, right coronary artery angiograms were obtained. At the end of the procedure, catheter and sheath were removed and good hemostasis was achieved with manual pressure. No untoward complications were noted. It is to be noted the patient was initially evaluated for moderate sedation and he was felt to be appropriate candidate for sedation. The patient received 1 mg of Versed and 50 mcg of fentanyl at 9:03 a.m. The patient was continuously monitored with a pulse oximetry, EKG monitoring and hemodynamic monitoring. The patient tolerated the sedation well without any untoward complications. At the end of the procedure, the patient is alert, oriented x 3, breathing normally and hemodynamically stable. Following findings were noted. HEMODYNAMICS: 1. Opening aortic pressure 154/70, left ventricular pressure 154/15. No gradient across the aortic valve. Estimated ejection fraction is 55%. 2. Left ventriculogram done in JONES and FRENCH projection using hand injection which showed a normal-sized left ventricle with normal contractility. Mitral regurgitation could not be evaluated because of limited amount of dye injected. 3. Right coronary artery arises somewhat anteriorly, otherwise codominant vessel. Only minimal irregularities noted. Similarly, left coronary artery arises normally from left coronary cusp. Left main, LAD, which curves around the apex and circumflex artery and its branch are angiographically smooth and normal. Only minimal irregularities were noted. FINAL IMPRESSION: 1. Normal-sized left ventricle with normal contractility. End-diastolic pressure being upper limits of normal. 2. Only minimal coronary irregularities noted angiographically. At this time, the patient does not have any significant coronary disease. Considering this, he will be continued on risk factor modification. It is to be noted the patient is getting hemodialysis on a regular phases. Findings were explained to the patient and he understands. JOB# [id number] AVERY/ROBERTA
[2018-07-23] MEDS: NORVASC PO SCH (10:58)
[2018-07-23] MEDS: LASIX IV SCH (10:59)
[2018-07-23] MEDS: IMDUR PO SCH (10:59)
[2018-07-23] MEDS: COZAAR PO SCH (10:59)
[2018-07-23] MEDS: PEPCID PO SCH (10:59)
[2018-07-23] MEDS: COREG PO SCH ×2 (10:59→22:46)
[2018-07-23] MEDS: DILAUDID IV PRN ×3 (11:06→22:48)
--- NOTE | 2018-07-23 11:21 | Progress Note ---
Assessment and Plan S/p C this AM which showed no significant CAD, normal size LV with normal contractility. Currently stable cardiac status. Pt may discharge from cardiology standpoint following completion of post-cath order set. Recommend follow up in our office with Dr. Lei within 1-2 weeks of hospital discharge ([phone]). The patient has been seen in conjunction with Dr. Miller who agrees with the assessment and plan of care. - Patient Problems (1) Acute kidney injury superimposed on CKD Current Visit: Yes Status: Acute (2) Acute on chronic heart failure with preserved ejection fraction Current Visit: Yes Status: Acute (3) CKD (chronic kidney disease) Current Visit: Yes Status: Chronic Qualifiers: Chronic kidney disease stage: stage 4 (severe) Qualified Code(s): N18.4 - Chronic kidney disease, stage 4 (severe) (4) Chest pain Current Visit: Yes Status: Resolved (5) Non-ST elevated myocardial infarction Current Visit: Yes Status: Acute (6) Pleural effusion, right Current Visit: Yes Status: Acute (7) Shortness of breath Current Visit: Yes Status: Acute (8) Cardiorenal syndrome with renal failure Current Visit: No Status: Chronic (9) Elevated troponin Current Visit: No Status: Acute (10) NSVT (nonsustained ventricular tachycardia) Current Visit: No Status: Acute (11) Pleural effusion Current Visit: No Status: Acute (12) Cardiomyopathy Current Visit: No Status: Chronic Qualifiers: Cardiomyopathy type: other Qualified Code(s): I42.8 - Other cardiomyopathies (13) HLD (hyperlipidemia) Current Visit: No Status: Chronic Qualifiers: Hyperlipidemia type: mixed hyperlipidemia Qualified Code(s): E78.2 - Mixed hyperlipidemia (14) HTN (hypertension) Current Visit: No Status: Chronic Qualifiers: Hypertension type: essential hypertension Qualified Code(s): I10 - Essential (primary) hypertension (15) IDDM (insulin dependent diabetes mellitus) Current Visit: No Status: Chronic (16) PVD (peripheral vascular disease) Current Visit: No Status: Chronic Subjective Date of service: 07/23/18 Principal diagnosis: Acute on chronic HFpEF, Elevated Tn, CKD, HTN, DM, Anemia Interval history: Pt resting in bed, no current cardiac complaints. S/p C this AM. Objective Last Vital Signs Temp 97.8 F 03/18/19 10:15 Pulse 97 H 07/23/18 10:59 Resp 16 07/23/18 11:06 BP 159/90 07/23/18 10:59 Pulse Ox 97 07/23/18 10:15 - Physical Examination General: No Apparent Distress HEENT: Positive: EOMI, Normocephaly, Mucus Membranes Moist Neck: Positive: neck supple, trachea midline Cardiac: Positive: Reg Rate and Rhythm, S1/S2 Lungs: Positive: Decreased Breath Sounds Neuro: Positive: Grossly Intact Abdomen: Positive: Soft, Active Bowel Sounds. Negative: Tender Skin: Positive: Clear. Negative: Rash Musculoskeletal: Normal Range of Motion, other (status post partial amputation of the right foot.) Extremities: Present: edema (trace pitting bilateral leg edema) - Labs and Meds Coagulation 07/23/18 Range/Units 04:39 PT 12.1 L (12.2-14.9) Sec. INR 0.85 L (0.87-1.13) APTT 20.0 L (24.2-36.6) Sec. CBC 07/23/18 Range/Units 04:39 WBC 9.1 (4.5-11.0) K/mm3 RBC 2.90 L (3.65-5.03) M/mm3 Hgb 8.5 L (11.8-15.2) gm/dl Hct 25.3 L (35.5-45.6) % Plt Count 350 (140-440) K/mm3 Comprehensive Metabolic Panel 07/23/18 Range/Units 04:39 Sodium 140 (137-145) mmol/L Potassium 4.2 (3.6-5.0) mmol/L Chloride 103.4 (98-107) mmol/L Carbon Dioxide 29 (22-30) mmol/L BUN 29 H (9-20) mg/dL Creatinine 4.0 H (0.8-1.5) mg/dL Glucose 143 H (75-100) mg/dL Calcium 7.8 L (8.4-10.2) mg/dL - Imaging and Cardiology EKG: report reviewed, image reviewed Echo: report reviewed - EKG Sinus rhythms and dysrhythmias: sinus rhythm
[2018-07-23] MEDS ORDERED: NACL 0.9% 100 ML IV PRN (14:49)
--- NOTE | 2018-07-23 14:59 | Progress Note ---
Assessment and Plan Assessment and plan: Patient is 57-year-old patient with diabetes, chronic respiratory failure on home oxygen, chronic kidney disease, coronary artery disease . He presented with worsening shortness of breath and chest pain. He was admitted, evaluated by cardiology and pulmonary, and Nephrology. He was diagnosed acute non-ST elevated myocardial infarction, placed on Aspirin, Plavix, Imdur. Chest pain resolved. His creatinine continued to worsen and eventually was started on hemodialysis on 07/18/2018. For cardiac cath today. ESRD. Was acute on chronic kidney disease stage IV secondary to ATN, now ESRD Started on hemodialysis 07/18 Nephrology following For outpatient hemodialysis arrangements. Non-ST elevation HI/chest pain; with chronic elevation of troponins Aspirin, coreg, Lipitor,Imdur The patient has multiple risk factors, cardiology following Hypertension On Cozaar, norvasc History of coronary artery disease; continue current cardiac medications Acute on chronic diastolic congestive heart failure; EF 50-55% Continue anti-failure medications input output monitoring Acute on chronic hypoxic respiratory failure; secondary to CHF exacerbation as well as pleural effusion, oxygen titrated O2 sats to more than 90%,Pulmonary consult if needed Nebulizers and antibiotics and inhalation steroids and supportive care Bilateral pleural effusions; patient had thoracentesis in the past Continue supportive care thoracentesis if needed, pulm following Type 2 diabetes mellitus; Accu-Chek sliding scale coverage and ADA diet insulin as needed Dyslipidemia; continue statin Severe malnutrition/hypoalbuminemia; nutrition supplements and nutrition consult DVT prophylaxis; heparin Closely monitor patient and adjust management as needed Consults and recommendations noted and appreciated cardiac cath today History Interval history: No chest pain currently Less shortness of breath Started on hemodialysis 07/18 For cardiac cath today Hospitalist Physical - Physical exam Narrative exam: GEN: Not in acute distress, lying in bed HEENT: Normocephalic, atraumatic, Neck: supple, No JVD Heart:S1and S2 reg, no murmurs, rubs or gallop Lungs: Clear to auscultation bilat, no crackles, no wheeze Abd:soft, non tender, non distended, normal bowel sounds Ext: Trace bilat edema, no clubbing, no cyanosis Neuro:Awake,alert,oriented X 3, no focal signs Skin:No rash Psych: normal mood - Constitutional Vitals: Temp Pulse Resp BP Pulse Ox 98 F 82 17 146/89 99 07/23/18 13:38 07/23/18 13:38 07/23/18 13:38 07/23/18 13:38 07/23/18 13:38 General appearance: Present: no acute distress Results - Labs CBC & Chem 7: 07/23/18 04:39 07/23/18 04:39 Labs: Laboratory Last Values WBC 9.1 K/mm3 (4.5-11.0) 07/23/18 04:39 RBC 2.90 M/mm3 (3.65-5.03) L 07/23/18 04:39 Hgb 8.5 gm/dl (11.8-15.2) L 07/23/18 04:39 Hct 25.3 % (35.5-45.6) L 07/23/18 04:39 MCV 87 fl (84-94) 07/23/18 04:39 MCH 29 pg (28-32) 07/23/18 04:39 MCHC 33 % (32-34) 07/23/18 04:39 RDW 13.9 % (13.2-15.2) 07/23/18 04:39 Plt Count 350 K/mm3 (140-440) 07/23/18 04:39 Lymph % (Auto) 20.5 % (13.4-35.0) 07/17/18 04:18 [place]ps % (Auto) 8.8 % (0.0-7.3) H 07/17/18 04:18 Eos % (Auto) 1.5 % (0.0-4.3) 07/17/18 04:18 Baso % (Auto) 0.5 % (0.0-1.8) 07/17/18 04:18 Lymph # 1.9 K/mm3 (1.2-5.4) 07/17/18 04:18 [place] # 0.8 K/mm3 (0.0-0.8) 07/17/18 04:18 Eos # 0.1 K/mm3 (0.0-0.4) 07/17/18 04:18 Baso # 0.0 K/mm3 (0.0-0.1) 07/17/18 04:18 Seg Neutrophils % 68.7 % (40.0-70.0) 07/17/18 04:18 Seg Neutrophils # 6.4 K/mm3 (1.8-7.7) 07/17/18 04:18 PT 12.1 Sec. (12.2-14.9) L 07/23/18 04:39 INR 0.85 (0.87-1.13) L 07/23/18 04:39 APTT 20.0 Sec. (24.2-36.6) L 07/23/18 04:39 Heparin Anti-Xa Level 0.14 U.I./ml (0.3-0.7) L 07/16/18 11:07 Sodium 140 mmol/L (137-145) 07/23/18 04:39 Potassium 4.2 mmol/L (3.6-5.0) 07/23/18 04:39 Chloride 103.4 mmol/L (98-107) 07/23/18 04:39 Carbon Dioxide 29 mmol/L (22-30) 07/23/18 04:39 Anion Gap 12 mmol/L 07/23/18 04:39 BUN 29 mg/dL (9-20) H 07/23/18 04:39 Creatinine 4.0 mg/dL (0.8-1.5) H 07/23/18 04:39 Estimated GFR 19 ml/min 07/23/18 04:39 BUN/Creatinine Ratio 7 % 07/23/18 04:39 Glucose 143 mg/dL (75-100) H 07/23/18 04:39 POC Glucose 167 (70-105) H 07/23/18 12:50 Calcium 7.8 mg/dL (8.4-10.2) L 07/23/18 04:39 Phosphorus 4.00 mg/dL (2.5-4.5) 07/18/18 04:42 Magnesium 2.10 mg/dL (1.7-2.3) 07/18/18 04:42 Total Bilirubin < 0.20 mg/dL (0.1-1.2) 07/14/18 04:25 AST 24 units/L (5-40) 07/14/18 04:25 ALT 19 units/L (7-56) 07/14/18 04:25 Alkaline Phosphatase 112 units/L (35-129) 07/14/18 04:25 Total Creatine Kinase 539 units/L (55-170) H 07/14/18 00:13 CK-MB (CK-2) 3.6 ng/mL (0.0-4.0) 07/14/18 00:13 CK-MB (CK-2) Rel Index 0.6 (0-4) 07/14/18 00:13 Troponin T 0.135 ng/mL (0.00-0.029) H* 07/14/18 00:13 Total Protein 5.5 g/dL (6.3-8.2) L 07/14/18 04:25 Albumin 1.9 g/dL (3.9-5) L 07/14/18 04:25 Albumin/Globulin Ratio 0.5 % 07/14/18 04:25 Triglycerides 195 mg/dL (2-149) H 07/13/18 08:54 Cholesterol 242 mg/dL (50-199) H 07/13/18 08:54 LDL Cholesterol Direct 171 mg/dL (50-130) H 07/13/18 08:54 HDL Cholesterol 57 mg/dL (40-59) 07/13/18 08:54 Cholesterol/HDL Ratio 4.24 % 07/13/18 08:54 Urine Color Yellow (Yellow) 07/16/18 16:40 Urine Turbidity Clear (Clear) 07/16/18 16:40 Urine pH 7.0 (5.0-7.0) 07/16/18 16:40 Ur Specific [place] 1.014 (1.003-1.030) 07/16/18 16:40 Urine Protein >500 mg/dL (Negative) 07/16/18 16:40 Urine Glucose (UA) 150 mg/dL (Negative) 07/16/18 16:40 Urine Ketones Neg mg/dL (Negative) 07/16/18 16:40 Urine Blood Neg (Negative) 07/16/18 16:40 Urine Nitrite Neg (Negative) 07/16/18 16:40 Urine Bilirubin Neg (Negative) 07/16/18 16:40 Urine Urobilinogen < 2.0 mg/dL (<2.0) 07/16/18 16:40 Ur Leukocyte Esterase Neg (Negative) 07/16/18 16:40 Urine WBC (Auto) 1.0 /HPF (0.0-6.0) 07/16/18 16:40 Urine RBC (Auto) 5.0 /HPF (0.0-6.0) 07/16/18 16:40 U Epithel Cells (Auto) < 1.0 /HPF (0-13.0) 07/16/18 16:40 Urine Bacteria (Auto) 2+ /HPF (Negative) 07/16/18 16:40 Hyaline Casts 6 /LPF 07/16/18 16:40 Urine Mucus Few /HPF 07/16/18 16:40 Urine Creatinine 67.9 mg/dL (0.1-20.0) H 07/16/18 16:40 Urine Sodium 60 mmol/L 07/16/18 16:40 Hepatitis A IgM Ab Non-reactive (NonReactive) 07/18/18 17:16 Hep B Core IgM Ab Non-reactive (NonReactive) 07/18/18 17:16 Hepatitis C Antibody Reactive (NonReactive) A 07/18/18 17:16 Active Medications - Current Medications Current Medications: Generic Name Dose Route Start Last Admin Trade Name Freq PRN Reason Stop Dose Admin Albuterol 2.5 mg 07/13/18 12:56 07/22/18 20:08 Proventil IH 2.5 mg QIDRT PRN Administration Shortness Of Breath Amlodipine Besylate 10 mg 07/14/18 10:00 07/23/18 10:58 Norvasc PO 10 mg DAILY RADHA Administration Aspirin 81 mg 07/14/18 10:00 07/23/18 11:03 Baby Aspirin PO Not Given QDAY [facility] Atorvastatin Calcium 40 mg 07/13/18 22:00 07/22/18 22:13 Lipitor PO 40 mg QHS RADHA Administration Carvedilol 25 mg 07/14/18 10:00 07/23/18 10:59 Coreg PO 25 mg BID RADHA Administration Epoetin [place] 10,000 unit 07/18/18 12:21 07/19/18 14:04 Procrit SUB-Q 10,000 unit [place] PRN Administration hemodialysis Famotidine 20 mg 07/13/18 22:00 07/23/18 10:59 Pepcid PO 20 mg DAILY RADHA Administration Furosemide 40 mg 07/14/18 10:00 07/23/18 10:59 Lasix IV 40 mg QDAY RADHA Administration Guaifenesin 200 mg 07/13/18 23:31 07/20/18 06:06 Robitussin PO 200 mg Q6H PRN Administration Cough Heparin Sodium (Porcine) 5,000 unit 07/23/18 16:00 Heparin SUB-Q Q12HR [facility] Hydralazine HCl 50 mg 07/20/18 14:00 07/23/18 08:18 Apresoline PO Not Given TID [facility] Hydromorphone HCl 1 mg 07/18/18 21:05 07/23/18 11:06 Dilaudid IV 1 mg Q4H PRN Administration Pain , Severe (7-10) Sodium Chloride 100 mls @ 999 mls/hr 07/21/18 09:19 Nacl 0.9% IV [place] PRN Hypotension Insulin Glargine 20 units 07/13/18 22:00 07/22/18 22:18 Lantus SUB-Q Not Given QHS [facility] Insulin Human Lispro 0 unit 07/15/18 12:41 07/23/18 13:25 Humalog SUB-Q Not Given ACHS [facility] Protocol Isosorbide Mononitrate 60 mg 07/14/18 10:00 07/23/18 10:59 Imdur PO 60 mg QDAY [facility] Administration Losartan Potassium 50 mg 07/20/18 10:00 07/23/18 10:59 Cozaar PO 50 mg QDAY [facility] Administration Ondansetron HCl 4 mg 07/18/18 06:43 07/20/18 06:28 Zofran IV 4 mg Q4H PRN Administration Nausea And Vomiting Zolpidem Tartrate 5 mg 07/19/18 21:17 07/22/18 22:13 Ambien PO 5 mg QHS PRN Administration Sleep Nutrition/Malnutrition Assess - Dietary Evaluation Nutrition/Malnutrition Findings: Nutrition Notes Start: 07/14/18 11:25 Freq: Status: Active Protocol: Document 07/16/18 14:11 RM (Rec: 07/16/18 14:15 [email or web address]) Nutrition Notes Initial or Follow up Brief Note Current Diagnosis Acute Kidney Injury,CKD(stage I-IV),Coronary Artery Disease, Diabetes,Heart Failure, Hyperlipidemia Current Diet Cardiac Labs/Tests Reviewed Pertinent Medications Reviewed Height 6 ft Weight 84.4 kg [place] Body Weight (kg) 80.90 BMI 25.2 Subjective/Other Information Consulted for malnutrition. Pt stated that [employer] his appetite was good and he ate 3 meals daily. Stated that his appetite is good now and that he eats all of his meals. Unsure of UBW. No temporal or orbital wasting . Burn Absent Trauma Absent Nutrition Intervention Change Diet Order: Cardiac/Consistent CHO Revisit per MD consult or patient Sign Off request:
[2018-07-23] MEDS: PROVENTIL IH PRN (15:12)
[2018-07-23] MEDS: HEPARIN SUB-Q SCH ×2 (16:13→22:47)
[2018-07-23] MEDS: PROCRIT SUB-Q PRN (21:40)
[2018-07-23] MEDS: AMBIEN PO PRN (22:46)
[2018-07-23] MEDS: ZOFRAN IV PRN (22:46)
[2018-07-23] MEDS: LANTUS SUB-Q SCH (22:48)
[2018-07-24 06:29] LABS: Hematocrit 27.4 % (35.5-45.6); Hemoglobin 9.1 gm/dl (11.8-15.2); Mean Corpuscular HGB Conc 33 % (32-34); Mean Corpuscular Volume 88 fl (84-94); Platelet Count 349 K/mm3 (140-440); Red Blood Count 3.13 M/mm3 (3.65-5.03)
--- NOTE | 2018-07-24 08:39 | Progress Note ---
Assessment and Plan 1. ESRD: CKD stage 4 has likely progressed to ESRD. Patient had multiple admissions over the past 7 months due to volume overload likely secondary to advanced CKD and Diastolic CHF. Patient was started on hemodialysis on 07/18/2018 due to advanced CKD and associated recurrent admissions with volume overload and respiratory distress. Last dialyzed yesterday and next HD tomorrow. Outpatient HD chair pending Hep B Ag results. 2. FEN: Volume overload, UF with HD. Continue Lasix. Counseled to limit fluid and salt intake. 3. CHF exacerbation, Chest pain with elevated Troponin: Followed by cards. S/p Cardiac cath yesterday. 4. Anemia: Epogen. 5. Bronchitis: 6. DM-2. 7. Proteinuria: Diabetic nephropathy. On Losartan. 8. Hepatitis C. Subjective Date of service: 07/24/18 Principal diagnosis: Acute on chronic HFpEF, Elevated Tn, CKD, HTN, DM, Anemia Interval history: Patient was seen and examined at the bedside. Feeling ok. Objective - Vital Signs Vital signs: Vital Signs - 12hr 07/23/18 07/23/18 07/23/18 20:45 20:55 21:00 Temperature Pulse Rate 100 H 84 80 Respiratory Rate Respiratory Rate [Abdomen] Blood Pressure 161/90 137/70 Blood Pressure [Right] O2 Sat by Pulse Oximetry 07/23/18 07/23/18 07/23/18 21:15 21:30 22:15 Temperature 98.5 F Pulse Rate 82 68 Respiratory 16 20 Rate Respiratory Rate [Abdomen] Blood Pressure 157/81 142/83 Blood Pressure [Right] O2 Sat by Pulse 98 Oximetry 07/23/18 07/23/18 07/23/18 22:46 22:48 22:50 Temperature Pulse Rate 68 Respiratory 18 Rate Respiratory 18 Rate [Abdomen] Blood Pressure 142/83 Blood Pressure [Right] O2 Sat by Pulse Oximetry 07/23/18 07/23/18 07/24/18 23:18 23:52 05:29 Temperature 98 F 98.2 F Pulse Rate 84 79 Respiratory 18 18 20 Rate Respiratory Rate [Abdomen] Blood Pressure 122/66 Blood Pressure 137/76 [Right] O2 Sat by Pulse 0 L 96 Oximetry 07/24/18 08:28 Temperature 98.6 F Pulse Rate 82 Respiratory 18 Rate Respiratory Rate [Abdomen] Blood Pressure 141/77 Blood Pressure [Right] O2 Sat by Pulse 95 Oximetry - General Appearance General appearance: well-developed, well-nourished, appears stated age, other (not in distress, right IJ tunnel catheter) EENT: ATNC, PERRL, hearing intact, vision intact Neck: supple Respiratory: Present: Clear to Ascultation Cardiology: regular, S1S2, no murmurs Gastrointestinal: normoactive bowel sounds, no tenderness, no distended Integumentary: chronic venous stasis Neurologic: no focal deficit, no asterixis, alert and oriented x3 Musculoskeletal: other (no edema) - Lab 07/24/18 04:40 07/24/18 04:40 Most recent lab results Calcium 8.0 mg/dL (8.4-10.2) L 07/24/18 04:40 Phosphorus 4.00 mg/dL (2.5-4.5) 07/18/18 04:42 Magnesium 2.10 mg/dL (1.7-2.3) 07/18/18 04:42 Urine Creatinine 67.9 mg/dL (0.1-20.0) H 07/16/18 16:40 Urine Sodium 60 mmol/L 07/16/18 16:40 Medications & Allergies - Medications Allergies/Adverse Reactions: Allergies No Known Allergies Allergy (Verified 11/01/13 07:35) Home Medications: Home Medications Medication Instructions Recorded Confirmed Last Taken Type Insulin Glargine [Lantus VIAL] 20 units SUB-Q QHS 30 Days #30 01/30/18 07/13/18 04/30/18 Rx units Aspirin [Aspirin BABY CHEW TAB] 81 mg PO QDAY #30 tab.chew 04/17/18 07/13/18 04/30/18 Rx AtorvaSTATin [Lipitor] 40 mg PO QHS #60 tablet 04/17/18 07/13/18 04/30/18 Rx Famotidine [Pepcid] 20 mg PO BID #60 tablet 04/17/18 07/13/18 04/30/18 Rx Furosemide [Lasix TAB] 40 mg PO BID #60 tablet 04/17/18 07/13/18 04/30/18 Rx ISOSORBIDE MONOnitrate [Imdur ER] 60 mg PO QDAY #30 tablet 04/17/18 07/13/18 04/30/18 Rx Metoprolol [Lopressor TAB] 100 mg PO BID #60 tablet 04/17/18 07/13/18 04/30/18 Rx amLODIPine [Norvasc] 10 mg PO DAILY #30 tablet 04/17/18 07/13/18 04/30/18 Rx hydrALAZINE [Apresoline TAB] 100 mg PO Q8HR #90 tab 04/17/18 07/13/18 04/30/18 Rx ALBUTEROL Inhaler(NF) [VENTOLIN 2 puff IH Q1D PRN #1 inha 05/05/18 07/13/18 Unknown Rx Inhaler(NF)] Lisinopril [Zestril TAB] 10 mg PO QDAY #30 tablet 05/05/18 07/13/18 Unknown Rx Active Medications: Generic Name Dose Route Start Last Admin Trade Name Freq PRN Reason Stop Dose Admin Albuterol 2.5 mg 07/13/18 12:56 07/23/18 15:12 Proventil IH 2.5 mg QIDRT PRN Administration Shortness Of Breath Amlodipine Besylate 10 mg 07/14/18 10:00 07/23/18 10:58 Norvasc PO 10 mg DAILY RADHA Administration Aspirin 81 mg 07/14/18 10:00 07/23/18 11:03 Baby Aspirin PO Not Given QDAY RADHA Atorvastatin Calcium 40 mg 07/13/18 22:00 07/23/18 22:46 Lipitor PO 40 mg QHS RADHA Administration Carvedilol 25 mg 07/14/18 10:00 07/23/18 22:46 Coreg PO 25 mg BID RADHA Administration Epoetin Eagle 10,000 unit 07/18/18 12:21 07/23/18 21:40 Procrit SUB-Q 10,000 unit [place] PRN Administration hemodialysis Famotidine 20 mg 07/13/18 22:00 07/23/18 10:59 Pepcid PO 20 mg DAILY RADHA Administration Furosemide 40 mg 07/14/18 10:00 07/23/18 10:59 Lasix IV 40 mg QDAY RADHA Administration Guaifenesin 200 mg 07/13/18 23:31 07/20/18 06:06 Robitussin PO 200 mg Q6H PRN Administration Cough Heparin Sodium (Porcine) 5,000 unit 07/23/18 16:00 07/23/18 22:47 Heparin SUB-Q 5,000 unit Q12HR RADHA Administration Hydralazine HCl 50 mg 07/20/18 14:00 07/23/18 22:46 Apresoline PO 50 mg TID RADHA Administration Hydromorphone HCl 1 mg 07/18/18 21:05 07/23/18 22:48 Dilaudid IV 1 mg Q4H PRN Administration Pain , Severe (7-10) Sodium Chloride 100 mls @ 999 mls/hr 07/21/18 09:19 Nacl 0.9% IV [place] PRN Hypotension Insulin Glargine 20 units 07/13/18 22:00 07/23/18 22:48 Lantus SUB-Q 20 units QHS RADHA Administration Insulin Human Lispro 0 unit 07/15/18 12:41 07/23/18 22:47 Humalog SUB-Q 4 unit ACHS RADHA Administration Protocol Isosorbide Mononitrate 60 mg 07/14/18 10:00 07/23/18 10:59 Imdur PO 60 mg QDAY RADHA Administration Losartan Potassium 50 mg 07/20/18 10:00 07/23/18 10:59 Cozaar PO 50 mg QDAY RADHA Administration Ondansetron HCl 4 mg 07/18/18 06:43 07/23/18 22:46 Zofran IV 4 mg Q4H PRN Administration Nausea And Vomiting Zolpidem Tartrate 10 mg 07/23/18 21:30 07/23/18 22:46 Ambien PO 10 mg QHS PRN Administration Sleep
[2018-07-24] MEDS: HumaLOG SUB-Q SCH ×4 (09:01→23:52)
[2018-07-24] MEDS: COZAAR PO SCH (09:25)
[2018-07-24] MEDS: IMDUR PO SCH (09:25)
[2018-07-24] MEDS: PROVENTIL IH PRN ×2 (09:25→19:57)
[2018-07-24] MEDS: APRESOLINE PO SCH ×3 (09:25→23:35)
[2018-07-24] MEDS: BABY ASPIRIN PO SCH (09:26)
[2018-07-24] MEDS: NORVASC PO SCH (09:26)
[2018-07-24] MEDS: PEPCID PO SCH (09:26)
[2018-07-24] MEDS: LASIX IV SCH (09:26)
[2018-07-24] MEDS: HEPARIN SUB-Q SCH ×2 (09:27→23:37)
[2018-07-24] MEDS: COREG PO SCH ×2 (09:33→23:32)
--- NOTE | 2018-07-24 12:13 | Progress Note ---
Assessment and Plan ESRD. Was acute on chronic kidney disease stage IV secondary to ATN, now ESRD Started on hemodialysis 07/18 Nephrology following For outpatient hemodialysis arrangements. Non-ST elevation [place]/chest pain; with chronic elevation of troponins Aspirin, coreg, Lipitor,Imdur The patient has multiple risk factors, cardiology following Hypertension On Cozaar, norvasc History of coronary artery disease; continue current cardiac medications Acute on chronic diastolic congestive heart failure; EF 50-55% Continue anti-failure medications input output monitoring Acute on chronic hypoxic respiratory failure; secondary to CHF exacerbation as well as pleural effusion, oxygen titrated O2 sats to more than 90%,Pulmonary consult if needed Nebulizers and antibiotics and inhalation steroids and supportive care Bilateral pleural effusions; patient had thoracentesis in the past Continue supportive care thoracentesis if needed, pulm following Type 2 diabetes mellitus; Accu-Chek sliding scale coverage and ADA diet insulin as needed Dyslipidemia; continue statin Severe malnutrition/hypoalbuminemia; nutrition supplements and nutrition consult DVT prophylaxis; heparin May discharge tomorrow if Hep BS Ag comes back --its a send out Has a chair for Dialysis Subjective Date of service: 07/24/18 Principal diagnosis: Acute on chronic HFpEF, Elevated Tn, CKD, HTN, DM, Anemia Interval history: Patient is 57-year-old patient with diabetes, chronic respiratory failure on home oxygen, chronic kidney disease, coronary artery disease . He presented with worsening shortness of breath and chest pain. He was admitted, evaluated by cardiology and pulmonary, and Nephrology. He was diagnosed acute non-ST elevated myocardial infarction, placed on Aspirin, Plavix, Imdur. Chest pain resolved. His creatinine continued to worsen and eventually was started on hemodialysis on 07/18/2018. For cardiac cath today. Objective - Constitutional Vitals: Vital Signs - 12hr 07/24/18 07/24/18 07/24/18 05:29 08:28 09:25 Temperature 98.2 F 98.6 F Pulse Rate 79 82 95 H Pulse Rate [ Anterior Bilateral Throughout] Pulse Rate [ Posterior Bilateral Throughout] Respiratory 20 18 Rate Respiratory Rate [Anterior Bilateral Throughout] Respiratory Rate [Posterior Bilateral Throughout] Blood Pressure 122/66 141/77 141/77 O2 Sat by Pulse 96 95 Oximetry 07/24/18 07/24/18 09:26 09:27 Temperature Pulse Rate 95 H Pulse Rate [ 80 Anterior Bilateral Throughout] Pulse Rate [ 86 Posterior Bilateral Throughout] Respiratory Rate Respiratory 18 Rate [Anterior Bilateral Throughout] Respiratory 18 Rate [Posterior Bilateral Throughout] Blood Pressure 141/77 O2 Sat by Pulse Oximetry General appearance: Present: no acute distress, well-nourished - EENT Eyes: PERRL, EOM intact ENT: hearing intact, clear oral mucosa Ears: bilateral: normal - Neck Neck: supple, normal ROM - Respiratory Respiratory effort: normal Respiratory: bilateral: CTA - Breasts Breasts: normal - Cardiovascular Rhythm: regular Heart Sounds: Present: S1 & S2. Absent: gallop, rub Extremities: pulses intact, No edema, normal color, Full ROM - Gastrointestinal General gastrointestinal: Present: soft, non-tender, non-distended, normal bowel sounds - Genitourinary Male genitourinary: normal - Integumentary Integumentary: clear, warm, dry - Musculoskeletal Musculoskeletal: 1, strength equal bilaterally - Neurologic Neurologic: moves all extremities - Psychiatric Psychiatric: memory intact, appropriate mood/affect, intact judgment & insight - Labs CBC & Chem 7: 07/24/18 04:40 07/24/18 04:40 Labs: Abnormal lab results 07/23/18 07/23/18 07/23/18 Range/Units 12:50 17:07 22:39 RBC (3.65-5.03) M/mm3 Hgb (11.8-15.2) gm/dl Hct (35.5-45.6) % Creatinine (0.8-1.5) mg/dL Glucose (75-100) mg/dL POC Glucose 167 H 129 H 200 H (70-105) Calcium (8.4-10.2) mg/dL 07/24/18 07/24/18 07/24/18 Range/Units 04:40 04:40 08:34 RBC 3.13 L (3.65-5.03) M/mm3 Hgb 9.1 L (11.8-15.2) gm/dl Hct 27.4 L (35.5-45.6) % Creatinine 2.7 H (0.8-1.5) mg/dL Glucose 102 H (75-100) mg/dL POC Glucose 135 H (70-105) Calcium 8.0 L (8.4-10.2) mg/dL
[2018-07-24] MEDS: AMBIEN PO PRN (23:43)
[2018-07-24] MEDS: LANTUS SUB-Q SCH (23:51)
[2018-07-25 00:10] LABS: Albumin 1.7 g/dL (3.8-4.8); Gamma Globulin 1.3 g/dL (0.8-1.7)
[2018-07-25 05:31] LABS: Basophils # (Auto) 0.1 K/mm3 (0.0-0.1); Eosinophils # (Auto) 0.2 K/mm3 (0.0-0.4); Eosinophils % (Auto) 2.2 % (0.0-4.3); Hematocrit 25.4 % (35.5-45.6); Hemoglobin 8.5 gm/dl (11.8-15.2); Lymphocytes # (Auto) 2.3 K/mm3 (1.2-5.4); Mean Corpuscular HGB Conc 34 % (32-34); Mean Corpuscular Volume 86 fl (84-94); Monocytes % (Auto) 10.1 % (0.0-7.3); Platelet Count 338 K/mm3 (140-440); Red Blood Count 2.94 M/mm3 (3.65-5.03); Red Cell Distribution Width 14.4 % (13.2-15.2)
[2018-07-25 05:56] LABS: Alanine Aminotransferase 15 units/L (7-56); Albumin 1.9 g/dL (3.9-5); BUN/Creatinine Ratio 7; Blood Urea Nitrogen 27 mg/dL (9-20); Calcium 7.9 mg/dL (8.4-10.2); Hemolysis Index 17
--- NOTE | 2018-07-25 07:59 | Progress Note ---
<EMMANUEL CARNES S - Last Filed: 07/25/18 17:16> Assessment and Plan Patient is 57-year-old patient with diabetes, chronic respiratory failure on home oxygen, chronic kidney disease, coronary artery disease . He presented with worsening shortness of breath and chest pain. He was admitted, evaluated by cardiology and pulmonary, and Nephrology. He was diagnosed acute non-ST elevated myocardial infarction, placed on Aspirin, Plavix, Imdur. Chest pain resolved. His creatinine continued to worsen and eventually was started on hemodialysis on 07/18/2018. For cardiac cath today. ESRD. Was acute on chronic kidney disease stage IV secondary to ATN, now ESRD Started on hemodialysis 07/18 Nephrology following For outpatient hemodialysis arrangements. Non-ST elevation [place]/chest pain; with chronic elevation of troponins Aspirin, coreg, Lipitor,Imdur The patient has multiple risk factors, cardiology following Hypertension On Cozaar, norvasc History of coronary artery disease; continue current cardiac medications Acute on chronic diastolic congestive heart failure; EF 50-55% Continue anti-failure medications input output monitoring Acute on chronic hypoxic respiratory failure; secondary to CHF exacerbation as well as pleural effusion, oxygen titrated O2 sats to more than 90%,Pulmonary consult if needed Nebulizers and antibiotics and inhalation steroids and supportive care Bilateral pleural effusions; patient had thoracentesis in the past Continue supportive care thoracentesis if needed, pulm following Type 2 diabetes mellitus; Accu-Chek sliding scale coverage and ADA diet insulin as needed Dyslipidemia; continue statin Severe malnutrition/hypoalbuminemia; nutrition supplements and nutrition consult DVT prophylaxis; heparin Closely monitor patient and adjust management as needed Consults and recommendations noted and appreciated cardiac cath --Normal Subjective Interval history: Doing well Objective - Vital Signs Vital signs: Vital Signs - 12hr 07/25/18 07/25/18 07/25/18 05:25 11:28 13:00 Temperature 98.1 F 98.5 F 98.5 F Pulse Rate 78 93 H 82 Respiratory 18 22 22 Rate Blood Pressure 154/77 160/89 Blood Pressure 120/60 [Right] O2 Sat by Pulse 96 92 Oximetry 07/25/18 07/25/18 07/25/18 13:15 13:30 13:45 Temperature Pulse Rate 81 82 81 Respiratory Rate Blood Pressure 163/95 163/95 176/92 Blood Pressure [Right] O2 Sat by Pulse Oximetry 07/25/18 07/25/18 07/25/18 14:00 14:15 14:30 Temperature Pulse Rate 78 78 77 Respiratory Rate Blood Pressure 144/82 147/71 136/75 Blood Pressure [Right] O2 Sat by Pulse Oximetry 07/25/18 07/25/18 07/25/18 14:45 15:00 15:15 Temperature Pulse Rate 75 78 77 Respiratory Rate Blood Pressure 136/81 150/88 162/81 Blood Pressure [Right] O2 Sat by Pulse Oximetry 07/25/18 07/25/18 07/25/18 15:30 15:45 16:10 Temperature Pulse Rate 81 77 79 Respiratory Rate Blood Pressure 180/100 173/99 185/103 Blood Pressure [Right] O2 Sat by Pulse Oximetry 07/25/18 07/25/18 16:20 17:12 Temperature Pulse Rate 82 82 Respiratory Rate Blood Pressure 187/107 181/90 Blood Pressure [Right] O2 Sat by Pulse Oximetry - General Appearance General appearance: well-developed, well-nourished, appears stated age EENT: PERRL, mucous membranes moist Neck: no JVD, no thyromegaly, no carotid bruit, supple Respiratory: Present: Clear to Ascultation Cardiology: regular, normal heart rate, S1S2, no murmurs Gastrointestinal: Integumentary: no rash, warm and dry Neurologic: no focal deficit, alert and oriented x3, reflexes 2+ and symmetric, gait normal, strength 5/5 Musculoskeletal: no deformities, no erythema, no cyanosis, no clubbing Psychiatric: mood/affect appropriate, cooperative - Lab 07/25/18 05:13 07/25/18 05:13 Most recent lab results Calcium 7.9 mg/dL (8.4-10.2) L 07/25/18 05:13 Phosphorus 4.00 mg/dL (2.5-4.5) 07/18/18 04:42 Magnesium 2.10 mg/dL (1.7-2.3) 07/18/18 04:42 Urine Creatinine 67.9 mg/dL (0.1-20.0) H 07/16/18 16:40 Urine Sodium 60 mmol/L 07/16/18 16:40 Medications & Allergies - Medications Allergies/Adverse Reactions: Allergies No Known Allergies Allergy (Verified 11/01/13 07:35) Home Medications: Home Medications Medication Instructions Recorded Confirmed Last Taken Type ALBUTEROL Inhaler(NF) [VENTOLIN 2 puff IH Q1D PRN #1 inha 07/25/18 Unknown Rx Inhaler(NF)] Aspirin [Aspirin BABY CHEW TAB] 81 mg PO QDAY #30 tab.chew 07/25/18 Unknown Rx AtorvaSTATin [Lipitor] 40 mg PO QHS #30 tablet 07/25/18 Unknown Rx Carvedilol [Coreg] 25 mg PO BID #60 tablet 07/25/18 Unknown Rx Famotidine [Pepcid] 20 mg PO DAILY #30 tablet 07/25/18 Unknown Rx Furosemide [Lasix TAB] 40 mg PO QDAY #30 tablet 07/25/18 Unknown Rx ISOSORBIDE MONOnitrate [Imdur ER] 60 mg PO QDAY #30 tablet 07/25/18 Unknown Rx Insulin Glargine [Lantus VIAL] 20 units SUB-Q QHS 30 Days #5 pen 07/25/18 Unknown Rx Lisinopril [Zestril TAB] 10 mg PO QDAY #30 tablet 07/25/18 Unknown Rx Losartan [Cozaar] 50 mg PO QDAY #30 tablet 07/25/18 Unknown Rx Metoprolol [Lopressor TAB] 100 mg PO BID #60 tablet 07/25/18 Unknown Rx Zolpidem [Ambien] 10 mg PO QHS PRN #10 tablet 07/25/18 Unknown Rx amLODIPine [Norvasc] 10 mg PO DAILY #30 tablet 07/25/18 Unknown Rx hydrALAZINE [Apresoline TAB] 100 mg PO Q8HR 90 Days #90 tab 07/25/18 Unknown Rx Active Medications: Generic Name Dose Route Start Last Admin Trade Name Freq PRN Reason Stop Dose Admin Albuterol 2.5 mg 07/13/18 12:56 07/24/18 19:57 Proventil IH 2.5 mg QIDRT PRN Administration Shortness Of Breath Amlodipine Besylate 10 mg 07/14/18 10:00 07/25/18 17:12 Norvasc PO 10 mg DAILY RADHA Administration Aspirin 81 mg 07/14/18 10:00 07/25/18 10:29 Baby Aspirin PO 81 mg QDAY RADHA Administration Atorvastatin Calcium 40 mg 07/13/18 22:00 07/24/18 23:32 Lipitor PO 40 mg QHS RADHA Administration Carvedilol 25 mg 07/14/18 10:00 07/25/18 17:13 Coreg PO 25 mg BID RADHA Administration Epoetin [place] 20,000 unit 07/25/18 08:00 07/25/18 15:11 Procrit SUB-Q 20,000 unit [place] PRN Administration hemodialysis Famotidine 20 mg 07/13/18 22:00 07/25/18 10:28 Pepcid PO 20 mg DAILY RADHA Administration Furosemide 40 mg 07/14/18 10:00 07/25/18 17:13 Lasix IV 40 mg QDAY [facility] Administration Guaifenesin 200 mg 07/13/18 23:31 07/20/18 06:06 Robitussin PO 200 mg Q6H PRN Administration Cough Heparin Sodium (Porcine) 5,000 unit 07/23/18 16:00 07/25/18 10:29 Heparin SUB-Q 5,000 unit Q12HR RADHA Administration Hydralazine HCl 50 mg 07/20/18 14:00 07/25/18 17:13 Apresoline PO 50 mg TID RADHA Administration Hydromorphone HCl 1 mg 07/18/18 21:05 07/25/18 10:57 Dilaudid IV 1 mg Q4H PRN Administration Pain , Severe (7-10) Sodium Chloride 100 mls @ 999 mls/hr 07/25/18 09:30 Nacl 0.9% IV [place] PRN Hypotension Insulin Glargine 20 units 07/13/18 22:00 07/24/18 23:51 Lantus SUB-Q 20 units QHS RADHA Administration Insulin Human Lispro 0 unit 07/15/18 12:41 07/25/18 17:14 Humalog SUB-Q 3 unit ACHS [facility] Administration Protocol Isosorbide Mononitrate 60 mg 07/14/18 10:00 07/25/18 17:12 Imdur PO 60 mg QDAY RADHA Administration Losartan Potassium 50 mg 07/20/18 10:00 07/25/18 17:13 Cozaar PO 50 mg QDAY RADHA Administration Ondansetron HCl 4 mg 07/18/18 06:43 07/23/18 22:46 Zofran IV 4 mg Q4H PRN Administration Nausea And Vomiting Zolpidem Tartrate 10 mg 07/23/18 21:30 07/24/18 23:43 Ambien PO 10 mg QHS PRN Administration Sleep <MARGE HENAO - Last Filed: 07/25/18 18:29> Subjective Date of service: 07/25/18 Principal diagnosis: Acute on chronic HFpEF, Elevated Tn, CKD, HTN, DM, Anemia Interval history: Please see my other note. Objective - Vital Signs Vital signs: Vital Signs - 12hr 07/24/18 07/24/18 07/24/18 20:06 23:25 23:32 Temperature Pulse Rate 90 90 Pulse Rate [ 87 Posterior Bilateral Throughout] Respiratory Rate Respiratory 18 Rate [Posterior Bilateral Throughout] Blood Pressure 155/83 Blood Pressure 155/83 [Right] O2 Sat by Pulse Oximetry 07/24/18 07/25/18 23:35 05:25 Temperature 98.1 F Pulse Rate 90 78 Pulse Rate [ Posterior Bilateral Throughout] Respiratory 18 Rate Respiratory Rate [Posterior Bilateral Throughout] Blood Pressure 155/83 Blood Pressure 120/60 [Right] O2 Sat by Pulse 96 Oximetry - Lab 07/25/18 05:13 07/25/18 05:13 Most recent lab results Calcium 7.9 mg/dL (8.4-10.2) L 07/25/18 05:13 Phosphorus 4.00 mg/dL (2.5-4.5) 07/18/18 04:42 Magnesium 2.10 mg/dL (1.7-2.3) 07/18/18 04:42 Urine Creatinine 67.9 mg/dL (0.1-20.0) H 07/16/18 16:40 Urine Sodium 60 mmol/L 07/16/18 16:40 Medications & Allergies - Medications Active Medications: Generic Name Dose Route Start Last Admin Trade Name Freq PRN Reason Stop Dose Admin Albuterol 2.5 mg 07/13/18 12:56 07/24/18 19:57 Proventil IH 2.5 mg QIDRT PRN Administration Shortness Of Breath Amlodipine Besylate 10 mg 07/14/18 10:00 07/24/18 09:26 Norvasc PO 10 mg DAILY RADHA Administration Aspirin 81 mg 07/14/18 10:00 07/24/18 09:26 Baby Aspirin PO 81 mg QDAY RADHA Administration Atorvastatin Calcium 40 mg 07/13/18 22:00 07/24/18 23:32 Lipitor PO 40 mg QHS RADHA Administration Carvedilol 25 mg 07/14/18 10:00 07/24/18 23:32 Coreg PO 25 mg BID RADHA Administration Epoetin [place] 10,000 unit 07/18/18 12:21 07/23/18 21:40 Procrit SUB-Q 10,000 unit [place] PRN Administration hemodialysis Famotidine 20 mg 07/13/18 22:00 07/24/18 09:26 Pepcid PO 20 mg DAILY RADHA Administration Furosemide 40 mg 07/14/18 10:00 07/24/18 09:26 Lasix IV 40 mg QDAY [facility] Administration Guaifenesin 200 mg 07/13/18 23:31 07/20/18 06:06 Robitussin PO 200 mg Q6H PRN Administration Cough Heparin Sodium (Porcine) 5,000 unit 07/23/18 16:00 07/24/18 23:37 Heparin SUB-Q 5,000 unit Q12HR RADHA Administration Hydralazine HCl 50 mg 07/20/18 14:00 07/24/18 23:35 Apresoline PO 50 mg TID RADHA Administration Hydromorphone HCl 1 mg 07/18/18 21:05 07/23/18 22:48 Dilaudid IV 1 mg Q4H PRN Administration Pain , Severe (7-10) Sodium Chloride 100 mls @ 999 mls/hr 07/21/18 09:19 Nacl 0.9% IV [place] PRN Hypotension Insulin Glargine 20 units 07/13/18 22:00 07/24/18 23:51 Lantus SUB-Q 20 units QHS RADHA Administration Insulin Human Lispro 0 unit 07/15/18 12:41 07/24/18 23:52 Humalog SUB-Q 6 unit ACHS [facility] Administration Protocol Isosorbide Mononitrate 60 mg 07/14/18 10:00 07/24/18 09:25 Imdur PO 60 mg QDAY RADHA Administration Losartan Potassium 50 mg 07/20/18 10:00 07/24/18 09:25 Cozaar PO 50 mg QDAY [facility] Administration Ondansetron HCl 4 mg 07/18/18 06:43 07/23/18 22:46 Zofran IV 4 mg Q4H PRN Administration Nausea And Vomiting Zolpidem Tartrate 10 mg 07/23/18 21:30 07/24/18 23:43 Ambien PO 10 mg QHS PRN Administration Sleep
[2018-07-25] MEDS ORDERED: PROCRIT SUB-Q PRN (08:00)
[2018-07-25] MEDS: HumaLOG SUB-Q SCH ×3 (08:35→17:14)
[2018-07-25] MEDS ORDERED: NACL 0.9% 100 ML IV PRN (09:30)
[2018-07-25 09:42] LABS: Hepatitis B Surface Antigen Nonreactive (Negative)
[2018-07-25] MEDS: APRESOLINE PO SCH ×2 (10:01→17:13)
[2018-07-25] MEDS: PEPCID PO SCH (10:28)
[2018-07-25] MEDS: BABY ASPIRIN PO SCH (10:29)
[2018-07-25] MEDS: HEPARIN SUB-Q SCH (10:29)
[2018-07-25] MEDS: DILAUDID IV PRN ×2 (10:57→17:28)
[2018-07-25] MEDS: NORVASC PO SCH (17:12)
[2018-07-25] MEDS: IMDUR PO SCH (17:12)
[2018-07-25] MEDS: COREG PO SCH (17:13)
[2018-07-25] MEDS: LASIX IV SCH (17:13)
[2018-07-25] MEDS: COZAAR PO SCH (17:13)
--- NOTE | 2018-07-25 17:23 | Discharge Summary ---
Providers - Providers Date of Admission: 07/13/18 10:46 Date of discharge: 07/25/18 Attending physician: EMMANUEL CARNES 07/14/18 19:07 Consult to Dietitian/Nutrition [CONS] Routine Physician Instructions: Reason For Exam: Reason for Consult: Malnutrition 07/15/18 18:07 Consult to Physician [CONS] Routine Comment: Consulting Provider: MARGE HENAO Physician Instructions: Reason For Exam: acute on chronic kidney disease IV 07/18/18 07:47 Consult to Interventional Radiology [CONS] Routine Consulting Provider: STEVEN MELENDEZ Reason For Exam: Hemodialysis catheter placement. Place consult to:: Dr. Melendez Notified:: Brandy LONGO Comment:: Dr. Melendez is aware [facility] Condition: Fair Procedures: Cardiac cath--Phyllis--S/p [facility] 07/24/18 which showed no significant CAD, normal size LV with normal contractilityl Hospital course: Patient is 57-year-old patient with diabetes, chronic respiratory failure on home oxygen, chronic kidney disease, coronary artery disease . He presented with worsening shortness of breath and chest pain. He was admitted, evaluated by cardiology and pulmonary, and Nephrology. He was diagnosed acute non-ST elevated myocardial infarction, placed on Aspirin, Plavix, Imdur. Chest pain resolved. His creatinine continued to worsen and eventually was started on hemodialysis on 07/18/2018. Cardiac cath-- -normal ESRD. Was acute on chronic kidney disease stage IV secondary to ATN, now ESRD Started on hemodialysis 07/18 Nephrology following Outpatient hemodialysis arrangements made Non-ST elevation UT/chest pain; with chronic elevation of troponins Aspirin, coreg, Lipitor,Imdur The patient has multiple risk factors Hypertension On Cozaar, norvasc History of coronary artery disease; continue current cardiac medications Acute on chronic diastolic congestive heart failure; EF 50-55% Continue anti-failure medications input output monitoring Acute on chronic hypoxic respiratory failure; secondary to CHF exacerbation as well as pleural effusion, oxygen titrated O2 sats to more than 90%,Pulmonary consult if needed Nebulizers and antibiotics and inhalation steroids and supportive care Bilateral pleural effusions; patient had thoracentesis in the past Continue supportive care thoracentesis if needed, pulm following Type 2 diabetes mellitus; Accu-Chek sliding scale coverage and ADA diet insulin as needed Dyslipidemia; continue statin Severe malnutrition/hypoalbuminemia; nutrition supplements and nutrition consult Closely monitor patient and adjust management as needed Consults and recommendations noted and appreciated cardiac cath ---normal Disposition: DC-[id number] TO HOME OR SELFCARE Core Measure Documentation - Palliative Care Palliative Care/ Comfort Measures: Not Applicable - Core Measures Any of the following diagnoses?: none Exam - Constitutional Vitals: Temp Pulse Resp BP Pulse Ox 98.5 F 82 22 181/90 92 07/25/18 13:00 07/25/18 17:12 07/25/18 13:00 07/25/18 17:12 07/25/18 11:28 General appearance: Present: no acute distress, well-nourished - EENT Eyes: Present: PERRL ENT: hearing intact, clear oral mucosa - Neck Neck: Present: supple, normal ROM - Respiratory Respiratory effort: normal Respiratory: bilateral: CTA - Cardiovascular Heart Sounds: Present: S1 & S2. Absent: rub, click - Extremities Extremities: pulses symmetrical, No edema Peripheral Pulses: within normal limits - Abdominal General gastrointestinal: Present: soft, non-tender, non-distended, normal bowel sounds Male genitourinary: Present: normal - Integumentary Integumentary: Present: clear, warm, dry - Musculoskeletal Musculoskeletal: gait normal, strength equal bilaterally - Psychiatric Psychiatric: appropriate mood/affect, intact judgment & insight - Neurologic Neurologic: CNII-XII intact, moves all extremities Plan Diet: low fat, low cholesterol, low salt Follow up with: TAYLOR SAM MD [Primary Care Provider] - 3-5 Days MARGE HENAO MD [Staff Physician] - 7 Days
--- NOTE | 2018-07-25 18:04 | Progress Note ---
Assessment and Plan 1. ESRD: CKD stage 4 has likely progressed to ESRD. Patient had multiple admissions over the past 7 months due to volume overload likely secondary to advanced CKD and Diastolic CHF. Patient was started on hemodialysis on 07/18/2018 due to advanced CKD and associated recurrent admissions with volume overload and respiratory distress. Last dialyzed 2 days ago and next HD today. Outpatient HD chair arranged at [facility]. 2. FEN: Volume overload, UF with HD. Continue Lasix. Counseled to limit fluid and salt intake. 3. CHF exacerbation, Chest pain with elevated Troponin: Followed by cards. S/p Cardiac cath. 4. Anemia: Epogen. 5. Bronchitis: 6. DM-2. 7. Proteinuria: Diabetic nephropathy. On Losartan. 8. Hepatitis C. Subjective Date of service: 07/25/18 Principal diagnosis: Acute on chronic HFpEF, Elevated Tn, CKD, HTN, DM, Anemia Interval history: Patient was seen and examined at the bedside. Feeling ok. Objective - Vital Signs Vital signs: Vital Signs - 12hr 07/25/18 07/25/18 07/25/18 11:28 13:00 13:15 Temperature 98.5 F 98.5 F Pulse Rate 93 H 82 81 Respiratory 22 22 Rate Blood Pressure 154/77 160/89 163/95 O2 Sat by Pulse 92 Oximetry 07/25/18 07/25/18 07/25/18 13:30 13:45 14:00 Temperature Pulse Rate 82 81 78 Respiratory Rate Blood Pressure 163/95 176/92 144/82 O2 Sat by Pulse Oximetry 07/25/18 07/25/18 07/25/18 14:15 14:30 14:45 Temperature Pulse Rate 78 77 75 Respiratory Rate Blood Pressure 147/71 136/75 136/81 O2 Sat by Pulse Oximetry 07/25/18 07/25/18 07/25/18 15:00 15:15 15:30 Temperature Pulse Rate 78 77 81 Respiratory Rate Blood Pressure 150/88 162/81 180/100 O2 Sat by Pulse Oximetry 07/25/18 07/25/18 07/25/18 15:45 16:10 16:20 Temperature Pulse Rate 77 79 82 Respiratory Rate Blood Pressure 173/99 185/103 187/107 O2 Sat by Pulse Oximetry 07/25/18 07/25/18 17:06 17:12 Temperature 98.3 F Pulse Rate 82 82 Respiratory 22 Rate Blood Pressure 181/90 181/90 O2 Sat by Pulse 97 Oximetry - General Appearance General appearance: well-developed, well-nourished, appears stated age, other (not in distress, right IJ tunnel catheter) EENT: ATNC, PERRL, hearing intact, vision intact Neck: supple Respiratory: Present: Clear to Ascultation Cardiology: regular, S1S2, no murmurs Gastrointestinal: normoactive bowel sounds, no tenderness, no distended Integumentary: warm and dry, chronic venous stasis Neurologic: no focal deficit, no asterixis, alert and oriented x3 Musculoskeletal: other (no edema) Psychiatric: cooperative - Lab 07/25/18 05:13 07/25/18 05:13 Most recent lab results Calcium 7.9 mg/dL (8.4-10.2) L 07/25/18 05:13 Phosphorus 4.00 mg/dL (2.5-4.5) 07/18/18 04:42 Magnesium 2.10 mg/dL (1.7-2.3) 07/18/18 04:42 Urine Creatinine 67.9 mg/dL (0.1-20.0) H 07/16/18 16:40 Urine Sodium 60 mmol/L 07/16/18 16:40 Medications & Allergies - Medications Allergies/Adverse Reactions: Allergies No Known Allergies Allergy (Verified 11/01/13 07:35) Home Medications: Home Medications Medication Instructions Recorded Confirmed Last Taken Type ALBUTEROL Inhaler(NF) [VENTOLIN 2 puff IH Q1D PRN #1 inha 07/25/18 Unknown Rx Inhaler(NF)] Aspirin [Aspirin BABY CHEW TAB] 81 mg PO QDAY #30 tab.chew 07/25/18 Unknown Rx AtorvaSTATin [Lipitor] 40 mg PO QHS #30 tablet 07/25/18 Unknown Rx Carvedilol [Coreg] 25 mg PO BID #60 tablet 07/25/18 Unknown Rx Famotidine [Pepcid] 20 mg PO DAILY #30 tablet 07/25/18 Unknown Rx Furosemide [Lasix TAB] 40 mg PO QDAY #30 tablet 07/25/18 Unknown Rx ISOSORBIDE MONOnitrate [Imdur ER] 60 mg PO QDAY #30 tablet 07/25/18 Unknown Rx Insulin Glargine [Lantus VIAL] 20 units SUB-Q QHS 30 Days #5 pen 03/20/19 Unknown Rx Lisinopril [Zestril TAB] 10 mg PO QDAY #30 tablet 07/25/18 Unknown Rx Losartan [Cozaar] 50 mg PO QDAY #30 tablet 07/25/18 Unknown Rx Metoprolol [Lopressor TAB] 100 mg PO BID #60 tablet 07/25/18 Unknown Rx Zolpidem [Ambien] 10 mg PO QHS PRN #10 tablet 07/25/18 Unknown Rx amLODIPine [Norvasc] 10 mg PO DAILY #30 tablet 07/25/18 Unknown Rx hydrALAZINE [Apresoline TAB] 100 mg PO Q8HR 90 Days #90 tab 07/25/18 Unknown Rx Active Medications: Generic Name Dose Route Start Last Admin Trade Name Freq PRN Reason Stop Dose Admin Albuterol 2.5 mg 07/13/18 12:56 07/24/18 19:57 Proventil IH 2.5 mg QIDRT PRN Administration Shortness Of Breath Amlodipine Besylate 10 mg 07/14/18 10:00 07/25/18 17:12 Norvasc PO 10 mg DAILY RADHA Administration Aspirin 81 mg 07/14/18 10:00 07/25/18 10:29 Baby Aspirin PO 81 mg QDAY RADHA Administration Atorvastatin Calcium 40 mg 07/13/18 22:00 07/24/18 23:32 Lipitor PO 40 mg QHS RADHA Administration Carvedilol 25 mg 07/14/18 10:00 07/25/18 17:13 Coreg PO 25 mg BID RADHA Administration Epoetin Eagle 20,000 unit 07/25/18 08:00 07/25/18 15:11 Procrit SUB-Q 20,000 unit NOLA PRN Administration hemodialysis Famotidine 20 mg 07/13/18 22:00 07/25/18 10:28 Pepcid PO 20 mg DAILY RADHA Administration Furosemide 40 mg 07/14/18 10:00 07/25/18 17:13 Lasix IV 40 mg QDAY RADHA Administration Guaifenesin 200 mg 07/13/18 23:31 07/20/18 06:06 Robitussin PO 200 mg Q6H PRN Administration Cough Heparin Sodium (Porcine) 5,000 unit 07/23/18 16:00 07/25/18 10:29 Heparin SUB-Q 5,000 unit Q12HR RADHA Administration Hydralazine HCl 50 mg 07/20/18 14:00 07/25/18 17:13 Apresoline PO 50 mg TID RADHA Administration Hydromorphone HCl 1 mg 07/18/18 21:05 07/25/18 17:28 Dilaudid IV 1 mg Q4H PRN Administration Pain , Severe (7-10) Sodium Chloride 100 mls @ 999 mls/hr 07/25/18 09:30 Nacl 0.9% IV [place]OL[place] PRN Hypotension Insulin Glargine 20 units 07/13/18 22:00 07/24/18 23:51 Lantus SUB-Q 20 units QHS RADHA Administration Insulin Human Lispro 0 unit 07/15/18 12:41 07/25/18 17:14 Humalog SUB-Q 3 unit ACHS RADHA Administration Protocol Isosorbide Mononitrate 60 mg 07/14/18 10:00 07/25/18 17:12 Imdur PO 60 mg QDAY RADHA Administration Losartan Potassium 50 mg 07/20/18 10:00 07/25/18 17:13 Cozaar PO 50 mg QDAY RADHA Administration Ondansetron HCl 4 mg 07/18/18 06:43 07/23/18 22:46 Zofran IV 4 mg Q4H PRN Administration Nausea And Vomiting Zolpidem Tartrate 10 mg 07/23/18 21:30 07/24/18 23:43 Ambien PO 10 mg QHS PRN Administration Sleep
[2018-07-25 18:52] VITALS: BP 117/65
== END 2018-07-25 19:10 | disposition home or self-care (01) | DRG 280 ==
LOC: ED 07:56 → 4A 10:46 → 3A 07-24 14:27
PROVIDERS: ADMIT Internal Medicine; ATTEND Internal Medicine
PROC: 0JH63XZ Insertion of Tunneled Vascular Access Device into Chest Subcutaneous Tissue and Fascia, Percutaneous Approach (ICD-10-PCS; principal; 2018-07-18)
PROC: 02H633Z Insertion of Infusion Device into Right Atrium, Percutaneous Approach (ICD-10-PCS; 2018-07-18)
PROC: B244ZZZ Ultrasonography of Right Heart (ICD-10-PCS; 2018-07-18)
PROC: B2141ZZ Fluoroscopy of Right Heart using Low Osmolar Contrast (ICD-10-PCS; 2018-07-18)
PROC: 4A023N7 Measurement of Cardiac Sampling and Pressure, Left Heart, Percutaneous Approach (ICD-10-PCS; 2018-07-24)
PROC: B2111ZZ Fluoroscopy of Multiple Coronary Arteries using Low Osmolar Contrast (ICD-10-PCS; 2018-07-24)
PROC: B2151ZZ Fluoroscopy of Left Heart using Low Osmolar Contrast (ICD-10-PCS; 2018-07-24)
DX: I21.4 Non-ST elevation (NSTEMI) myocardial infarction (principal); N17.0 Acute kidney failure with tubular necrosis; J96.21 Acute and chronic respiratory failure with hypoxia; I50.31 Acute diastolic (congestive) heart failure; E43 Unspecified severe protein-calorie malnutrition; N18.6 End stage renal disease; I47.2 Ventricular tachycardia; I13.2 Hypertensive heart and chronic kidney disease with heart failure and with stage 5 chronic kidney disease, or end stage renal disease; J40 Bronchitis, not specified as acute or chronic; B19.20 Unspecified viral hepatitis C without hepatic coma; E11.22 Type 2 diabetes mellitus with diabetic chronic kidney disease; E11.21 Type 2 diabetes mellitus with diabetic nephropathy; Z82.49 Family history of ischemic heart disease and other diseases of the circulatory system; Z79.4 Long term (current) use of insulin; Z79.899 Other long term (current) drug therapy; Z79.51 Long term (current) use of inhaled steroids; Z89.421 Acquired absence of other right toe(s); Z87.891 Personal history of nicotine dependence; Z68.24 Body mass index [BMI] 24.0-24.9, adult; Z99.81 Dependence on supplemental oxygen
CPT/HCPCS: 36415; 36558; 71046; 74176; 76937; 77001; 80048; 80053; 80061; 80074; 81001; 82550; 82553; 82570; 82962; 83735; 84100; 84165; 84300; 84484; 85014; 85018; 85025; 85027; 85049; 85520; 85610; 85730; 87116; 93005; 93010; 93458; 94640; 96374; G0378; A9270-GY; C1750; J0690; J0885; J1170; J1644; J1815; J1940; J2250; J2270; J2405; J3010; J7030; J7040; Q9967

== ENCOUNTER 2018-08-01 17:14 | Emergency (ER) | payer SELFPAY ==
[2018-08-01] MEDS ORDERED: ZOFRAN IV ONE (19:25)
[2018-08-01] MEDS ORDERED: SUBLIMAZE IV ONE (19:25)
--- NOTE | 2018-08-01 19:32 | Emergency Department Report ---
HPI - General Chief Complaint: Abdominal Pain Time Seen by Provider: 08/01/18 18:59 - HPI HPI: Room 9 Patient is a 57-year-old male presenting with a chief complaint of abdominal pain nausea and vomiting. The patient states for the past 4 days he's had intermittent cramping abdominal pain associated with nausea vomiting and diarrhea. The patient states he continues to have abdominal pain nausea vomiting while at hemodialysis today and was subsequent sent to the ED for evaluation. Patient denies fever or sick contacts. Patient denies chest pain but states he had pain at his Vas-Cath site during dialysis but has since resolved. Location: Abdomen Duration: 4 days Quality: Cramping Severity: Currently 0/10 Modifying factors: [see above] Context: [see above] Mode of transportation: [not driving] ED Past Medical Hx - Past Medical History Hx Hypertension: Yes Hx Heart Attack/AMI: Yes Hx Congestive Heart Failure: Yes Hx Diabetes: Yes Hx Renal Disease: Yes (ESRD, HD Q MWF) - Surgical History Additional Surgical History: 5 Right toes removed surgically in March 2017 - Family History Family history: no significant - Social History Smoking Status: Former Smoker (none 2 years) Substance Use Type: None (denies illicit drug use) - Medications Home Medications: Home Medications Medication Instructions Recorded Confirmed Last Taken Type ALBUTEROL Inhaler(NF) [VENTOLIN 2 puff IH Q1D PRN #1 inha 07/25/18 Unknown Rx Inhaler(NF)] Aspirin [Aspirin BABY CHEW TAB] 81 mg PO QDAY #30 tab.chew 07/25/18 Unknown Rx AtorvaSTATin [Lipitor] 40 mg PO QHS #30 tablet 07/25/18 Unknown Rx Carvedilol [Coreg] 25 mg PO BID #60 tablet 07/25/18 Unknown Rx Famotidine [Pepcid] 20 mg PO DAILY #30 tablet 07/25/18 Unknown Rx Furosemide [Lasix TAB] 40 mg PO QDAY #30 tablet 07/25/18 Unknown Rx ISOSORBIDE MONOnitrate [Imdur ER] 60 mg PO QDAY #30 tablet 07/25/18 Unknown Rx Insulin Glargine [Lantus VIAL] 20 units SUB-Q QHS 30 Days #5 pen 07/25/18 Unknown Rx Lisinopril [Zestril TAB] 10 mg PO QDAY #30 tablet 07/25/18 Unknown Rx Losartan [Cozaar] 50 mg PO QDAY #30 tablet 07/25/18 Unknown Rx Metoprolol [Lopressor TAB] 100 mg PO BID #60 tablet 07/25/18 Unknown Rx Zolpidem [Ambien] 10 mg PO QHS PRN #10 tablet 07/25/18 Unknown Rx amLODIPine [Norvasc] 10 mg PO DAILY #30 tablet 07/25/18 Unknown Rx hydrALAZINE [Apresoline TAB] 100 mg PO Q8HR 90 Days #90 tab 07/25/18 Unknown Rx Diphenoxylate/Atropine [Lomotil] 1 - 2 tab PO QID PRN #20 tablet 08/01/18 Unknown Rx Promethazine [Phenergan TAB] 25 mg PO Q6HR PRN #20 tab 08/01/18 Unknown Rx Promethazine [Phenergan] 25 mg OK Q6HR PRN #5 supp.rect 08/01/18 Unknown Rx traMADol [Ultram] 50 mg PO Q6HR PRN #10 tablet 08/01/18 Unknown Rx ED Review of Systems ROS: Stated complaint: ABD PAIN/HYPERGLYCEMIA Other details as noted in HPI Constitutional: no symptoms reported Eyes: denies: eye pain ENT: denies: ear pain Respiratory: no symptoms reported Cardiovascular: denies: chest pain Endocrine: no symptoms reported Gastrointestinal: abdominal pain, nausea, vomiting, diarrhea Genitourinary: denies: testicular pain Musculoskeletal: denies: back pain Neurological: denies: headache Physical Exam - Physical Exam Vital Signs: Vital Signs 08/01/18 08/01/18 08/01/18 17:30 17:33 18:57 Temperature 97.9 F Pulse Rate 67 83 Respiratory 16 16 Rate Blood Pressure 90/48 140/81 [Left] O2 Sat by Pulse 99 99 Oximetry Physical Exam: GENERAL: The patient is well-developed well-nourished male lying on stretcher not appearing to be in acute distress. [] HEENT: Normocephalic. Atraumatic. Extraocular motions are intact. Patient has moist mucous membranes. NECK: Supple. Trachea midline CHEST/LUNGS: Clear to auscultation. There is no respiratory distress noted. HEART/CARDIOVASCULAR: Regular. There is no tachycardia. There is no gallop rub or murmur. ABDOMEN: Abdomen is soft, with tenderness to palpation in the left upper quadrant, left lower quadrant and right lower quadrant there is no rebound or guarding. Patient has normal bowel sounds. There is no abdominal distention. SKIN: There is no rash. There is no diaphoresis. NEURO: The patient is awake, alert, and oriented. The patient is cooperative. The patient has normal speech MUSCULOSKELETAL: There is no evidence of acute injury. ED Course Vital Signs 08/01/18 08/01/18 08/01/18 17:30 17:33 18:57 Temperature 97.9 F Pulse Rate 67 83 Respiratory 16 16 Rate Blood Pressure 90/48 140/81 [Left] O2 Sat by Pulse 99 99 Oximetry - Reevaluation(s) Reevaluation #1: 08/01/18 22:10 Patient tolerating po ED Medical Decision Making - Lab Data Result diagrams: 08/01/18 19:32 08/01/18 19:32 Laboratory Tests 08/01/18 08/01/18 08/01/18 18:41 19:32 19:32 WBC 8.4 RBC 3.27 L Hgb 9.5 L Hct 28.7 L MCV 88 MCH 29 MCHC 33 RDW 16.0 H Plt Count 250 Lymph % (Auto) 16.0 Mellette % (Auto) 9.7 H Eos % (Auto) 2.0 Baso % (Auto) 0.7 Lymph # 1.3 Mellette # 0.8 Eos # 0.2 Baso # 0.1 Seg Neutrophils % 71.6 H Seg Neutrophils # 6.0 VBG pH Sodium 138 Potassium 4.2 Chloride 105.1 Carbon Dioxide 25 Anion Gap 12 BUN 19 Creatinine 2.9 H Estimated GFR 27 BUN/Creatinine Ratio 7 Glucose 271 H POC Glucose 289 H Ketones Quantitative Calcium 8.1 L Total Bilirubin 0.20 AST 22 ALT 19 Alkaline Phosphatase 88 Total Protein 5.8 L Albumin 2.1 L Albumin/Globulin Ratio 0.6 Lipase 13 08/01/18 08/01/18 19:32 20:04 WBC RBC Hgb Hct MCV MCH MCHC RDW Plt Count Lymph % (Auto) Mellette % (Auto) Eos % (Auto) Baso % (Auto) Lymph # Mellette # Eos # Baso # Seg Neutrophils % Seg Neutrophils # VBG pH 7.351 Sodium Potassium Chloride Carbon Dioxide Anion Gap BUN Creatinine Estimated GFR BUN/Creatinine Ratio Glucose POC Glucose Ketones Quantitative Negative Calcium Total Bilirubin AST ALT Alkaline Phosphatase Total Protein Albumin Albumin/Globulin Ratio Lipase - Radiology Data Radiology results: report reviewed (CT abdomen and pelvis), image reviewed (CT abdomen and pelvis) [facility] [address] [place] [address] Cat Scan Report Signed Patient: HARVEY VARGAS MR#: [id number] : 1960 Acct:[id number] Age/Sex: 57 / M ADM Date: 08/01/18 Loc: ED Attending Dr: Ordering Physician: BRIAN THAKKAR MD Date of Service: 08/01/18 Procedure(s): CT abdomen pelvis wo con Accession Number(s): [id number] cc: BRIAN THAKKAR MD PROCEDURE: CT ABDOMEN PELVIS WO CON TECHNIQUE: Computerized axial tomography of the abdomen and pelvis was performed without intravenous contrast. This study is performed without intravascular contrast mat erial and its sensitivity for abdominal and pelvic pathology, including neoplasms, inflammation, abscess, free fluid, thrombosis, arterial dissection and infarction, is reduced compared with a contrast enhanced study. CT DOSE LENGTH PRODUCT: 641.9 mGycm HISTORY: periumbilical abdominal pain, nvd COMPARISONS: 07/16/2018 . FINDINGS: Large right-sided and minimal left-sided pleural effusions are noted. Liver, spleen, pancreas and adrenal glands are within normal limits. Bilateral kidneys demonstrate normal density without calculi or hydronephrosis. Urinary bladder is normally distended with normal outlines. Aorta is of normal caliber. There is no free air. Mild degree of free fluid is noted in the pelvic cavity. Gallbladder is partially distended. Small bowel loops are within normal limits. Moderate degree of residual stool is noted. Appendix is partially visualized and appears unremarkable. Vertebral height is normal. Moderate degree of degenerative changes are noted at L5-S1. IMPRESSION: Mild degree fluid in the pelvic cavity and bilateral pleural effusions are not significantly changed since the prior study. Moderate degree of residual stool Otherwise no acute intra-abdominal or pelvic pathology noted on this noncontrast study This document is electronically signed by Wiliam Godfrey MD., August 01 2018 09:29:56 PM ET Transcribed By: [facility] Dictated By: WILIAM GODFREY Electronically Authenticated By: WILIAM GODFREY Signed Date/Time: 08/01/182130 DD/ 06 TD/TT: 08/01/182106 - Differential Diagnosis gastroenteritis, partial small bowel obstruction, pancreatitis Critical care attestation.: If time is entered above; I have spent that time in minutes in the direct care of this critically ill patient, excluding procedure time. ED Disposition Clinical Impression: Acute gastroenteritis Disposition: - TO HOME OR SELFCARE Is pt being admited?: No Does the pt Need Aspirin: No Condition: Stable Instructions: Gastroenteritis (ED), Acute Nausea and Vomiting (ED) Additional Instructions: Return to the emergency department immediately should you develop worsening symptoms, fever, inability to tolerate food or liquid or any other concerns. Prescriptions: Diphenoxylate/Atropine [Lomotil] 1 - 2 tab PO QID PRN #20 tablet PRN Reason: Diarrhea Promethazine [Phenergan] 25 mg OK Q6HR PRN #5 supp.rect PRN Reason: Vomiting Promethazine [Phenergan TAB] 25 mg PO Q6HR PRN #20 tab PRN Reason: Nausea traMADol [Ultram] 50 mg PO Q6HR PRN #10 tablet PRN Reason: Pain Referrals: TAYLOR SAM MD [Primary Care Provider] - 3-5 Days FLORECITA LAUREANO MD [Staff Physician] - 3-5 Days (Dr. Laureano is a research and development engineer. Please follow-up with him for further evaluation) Time of Disposition: 22:10
[2018-08-01 20:10] LABS: Basophils # (Auto) 0.1 K/mm3 (0.0-0.1); Basophils % (Auto) 0.7 % (0.0-1.8); Eosinophils # (Auto) 0.2 K/mm3 (0.0-0.4); Hematocrit 28.7 % (35.5-45.6); Hemoglobin 9.5 gm/dl (11.8-15.2); Lymphocytes # (Auto) 1.3 K/mm3 (1.2-5.4); Mean Corpuscular HGB Conc 33 % (32-34); Mean Corpuscular Hemoglobin 29 pg (28-32); Mean Corpuscular Volume 88 fl (84-94); Monocytes # (Auto) 0.8 K/mm3 (0.0-0.8); Monocytes % (Auto) 9.7 % (0.0-7.3); Platelet Count 250 K/mm3 (140-440); Red Blood Count 3.27 M/mm3 (3.65-5.03)
[2018-08-01 20:40] LABS: Albumin 2.1 g/dL (3.9-5); Calcium 8.1 mg/dL (8.4-10.2)
--- NOTE | 2018-08-01 21:31 | Cat Scan Report ---
PROCEDURE: CT ABDOMEN PELVIS WO CON TECHNIQUE: Computerized axial tomography of the abdomen and pelvis was performed without intravenous contrast. This study is performed without intravascular contrast material and its sensitivity for ab dominal and pelvic pathology, including neoplasms, inflammation, abscess, free fluid, thrombosis, art erial dissection and infarction, is reduced compared with a contrast enhanced study. CT DOSE LENGTH PRODUCT: 641.9 mGycm HISTORY: periumbilical abdominal pain, nvd COMPARISONS: 07/16/2018 . FINDINGS: Large right-sided and minimal left-sided pleural effusions are noted. Liver, spleen, pancreas and adr enal glands are within normal limits. Bilateral kidneys demonstrate normal density without calculi or hydronephrosis. Urinary bladder is normally distended with normal outlines. Aorta is of normal calib er. There is no free air. Mild degree of free fluid is noted in the pelvic cavity. Gallbladder is par tially distended. Small bowel loops are within normal limits. Moderate degree of residual stool is no alia. Appendix is partially visualized and appears unremarkable. Vertebral height is normal. Moderate degree of degenerative changes are noted at L5-S1. IMPRESSION: Mild degree fluid in the pelvic cavity and bilateral pleural effusions are not significantly changed since the prior study. Moderate degree of residual stool Otherwise no acute intra-abdominal or pelvic pathology noted on this noncontrast study This document is electronically signed by Kenrick Godfrey MD., August 01 2018 09:29:56 PM ET
[2018-08-01 22:32] VITALS: BP 147/87
== END 2018-08-01 22:32 | disposition home or self-care (01) ==
LOC: ED 17:14
DX: K52.9 Noninfective gastroenteritis and colitis, unspecified (principal); I11.0 Hypertensive heart disease with heart failure; I50.9 Heart failure, unspecified; E11.22 Type 2 diabetes mellitus with diabetic chronic kidney disease; I12.0 Hypertensive chronic kidney disease with stage 5 chronic kidney disease or end stage renal disease; N18.6 End stage renal disease; Z99.2 Dependence on renal dialysis; Z79.4 Long term (current) use of insulin; Z87.891 Personal history of nicotine dependence; Z79.899 Other long term (current) drug therapy
CPT/HCPCS: 36415; 74176; 80053; 82010; 82805; 82962; 83690; 85025; 96374; 96375; 99284; J2405; J3010

== ENCOUNTER 2018-12-22 06:58 | Emergency (ER) | payer OTHER ==
[2018-12-22] MEDS ORDERED: ZOFRAN IV ONE ×2 (07:46→12:20)
[2018-12-22] MEDS ORDERED: MORPHINE IV ONE ×2 (07:46→12:20)
[2018-12-22] MEDS ORDERED: PEPCID IV ONE (07:46)
[2018-12-22] MEDS ORDERED: NORMODYNE IV ONE (07:48)
--- NOTE | 2018-12-22 08:03 | XRay Report ---
CHEST 1 VIEW 7:39 AM INDICATION / CLINICAL INFORMATION: Chest Pain. Elevated blood pressure. COMPARISON: 07/13/2018. FINDINGS: SUPPORT DEVICES: There is a new right jugular CVL with the tip overlying the mid to distal SVC. HEART / MEDIASTINUM: The heart size and pulmonary vasculature are normal. The aorta is normal in khai chela. LUNGS / PLEURA: A small right pleural effusion has decreased in size. A tiny left pleural effusion alford s resolved. No pneumothorax. ADDITIONAL FINDINGS: No significant additional findings. IMPRESSION: Bilateral pleural effusions have improved. There is a minimal residual right pleural effu blayne. Signer Name: Dharmesh Schuler MD Signed: 12/22/2018 7:59 AM Workstation Name: [id number]
--- NOTE | 2018-12-22 08:03 | Emergency Department Report ---
ED Abdominal Pain HPI - General Chief Complaint: Chest Pain Stated Complaint: CHEST PAIN Time Seen by Provider: 12/22/18 07:45 Source: EMS Mode of arrival: Stretcher Limitations: No Limitations - History of Present Illness Initial Comments: Mr. Gregorio is a 58 yo male with hx of ESRD (T/R/Sa), systolic heart failure, diabetes mellitus, PVD, who presents from dialysis center with abdominal pain and chest pain. He was unable to obtain dialysis today due to severely elevated blood pressure. He missed dialysis on due to illness. Last HD session on Monday. Severe central abdominal pain. Sticking pin sensation. severe pain. Gradual onset, Cionstant since Monday. Radiates to chest. 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 Maribel CARUSO Complaint: abdominal pain -: Gradual, days(s) (3) Location: diffuse Radiation: chest Severity: severe Severity scale (0 -10): 9 Quality: other ("sticking" sensation) Consistency: constant Improves With: nothing Worsens With: nothing Associated Symptoms: nausea, vomiting - Related Data Previous Rx's Medication Instructions Recorded Last Taken Type ALBUTEROL Inhaler(NF) [VENTOLIN 2 puff IH Q1D PRN #1 inha 07/25/18 Unknown Rx Inhaler(NF)] Aspirin [Aspirin BABY CHEW TAB] 81 mg PO QDAY #30 tab.chew 07/25/18 Unknown Rx AtorvaSTATin [Lipitor] 40 mg PO QHS #30 tablet 07/25/18 Unknown Rx Carvedilol [Coreg] 25 mg PO BID #60 tablet 07/25/18 Unknown Rx Famotidine [Pepcid] 20 mg PO DAILY #30 tablet 07/25/18 Unknown Rx Furosemide [Lasix TAB] 40 mg PO QDAY #30 tablet 07/25/18 Unknown Rx ISOSORBIDE MONOnitrate [Imdur ER] 60 mg PO QDAY #30 tablet 07/25/18 Unknown Rx Insulin Glargine [Lantus VIAL] 20 units SUB-Q QHS 30 Days #5 pen 07/25/18 Unknown Rx Lisinopril [Zestril TAB] 10 mg PO QDAY #30 tablet 07/25/18 Unknown Rx Losartan [Cozaar] 50 mg PO QDAY #30 tablet 07/25/18 Unknown Rx Metoprolol [Lopressor TAB] 100 mg PO BID #60 tablet 07/25/18 Unknown Rx Zolpidem [Ambien] 10 mg PO QHS PRN #10 tablet 07/25/18 Unknown Rx amLODIPine [Norvasc] 10 mg PO DAILY #30 tablet 07/25/18 Unknown Rx hydrALAZINE [Apresoline TAB] 100 mg PO Q8HR 90 Days #90 tab 07/25/18 Unknown Rx Diphenoxylate/Atropine [Lomotil] 1 - 2 tab PO QID PRN #20 tablet 08/01/18 Unknown Rx Promethazine [Phenergan TAB] 25 mg PO Q6HR PRN #20 tab 08/01/18 Unknown Rx Promethazine [Phenergan] 25 mg [place] Q6HR PRN #5 supp.rect 08/01/18 Unknown Rx traMADol [Ultram] 50 mg PO Q6HR PRN #10 tablet 08/01/18 Unknown Rx Losartan [Cozaar] 100 mg PO QDAY 90 Days #90 tablet 12/22/18 Unknown Rx Metoclopramide [Reglan] 10 mg PO QID 30 Days #120 tablet 12/22/18 Unknown Rx amLODIPine [Norvasc] 10 mg PO DAILY 90 Days #90 tab 12/22/18 Unknown Rx Allergies Allergy/AdvReac Type Severity Reaction Status Date / Time No Known Allergies Allergy Verified 08/01/18 17:16 ED Review of Systems ROS: Stated complaint: CHEST PAIN Other details as noted in HPI Comment: All other systems reviewed and negative Constitutional: denies: fever, malaise ED Past Medical Hx - Past Medical History Previous Medical History?: Yes Hx Hypertension: Yes Hx Heart Attack/AMI: Yes Hx Congestive Heart Failure: Yes Hx Diabetes: Yes Hx Deep Vein Thrombosis: No Hx Pulmonary Embolism: No Hx Liver Disease: No Hx Renal Disease: Yes (ESRD, HD //) Hx Arthritis: No Hx Seizures: No Hx Asthma: No Hx COPD: No Hx Tuberculosis: No Hx HIV: No - Surgical History Past Surgical History?: Yes Hx Open Heart Surgery: No Hx Pacemaker: No Hx Internal Defibrillator: No Hx Cholecystectomy: No Hx Breast Surgery: No Additional Surgical History: 5 Right toes removed surgically in March 2017 - Social History Smoking Status: Never Smoker Substance Use Type: None - Medications Home Medications: Home Medications Medication Instructions Recorded Confirmed Last Taken Type ALBUTEROL Inhaler(NF) [VENTOLIN 2 puff IH Q1D PRN #1 inha 07/25/18 Unknown Rx Inhaler(NF)] Aspirin [Aspirin BABY CHEW TAB] 81 mg PO QDAY #30 tab.chew 07/25/18 Unknown Rx AtorvaSTATin [Lipitor] 40 mg PO QHS #30 tablet 07/25/18 Unknown Rx Carvedilol [Coreg] 25 mg PO BID #60 tablet 07/25/18 Unknown Rx Famotidine [Pepcid] 20 mg PO DAILY #30 tablet 07/25/18 Unknown Rx Furosemide [Lasix TAB] 40 mg PO QDAY #30 tablet 07/25/18 Unknown Rx ISOSORBIDE MONOnitrate [Imdur ER] 60 mg PO QDAY #30 tablet 07/25/18 Unknown Rx Insulin Glargine [Lantus VIAL] 20 units SUB-Q QHS 30 Days #5 pen 07/25/18 Unknown Rx Lisinopril [Zestril TAB] 10 mg PO QDAY #30 tablet 07/25/18 Unknown Rx Losartan [Cozaar] 50 mg PO QDAY #30 tablet 07/25/18 Unknown Rx Metoprolol [Lopressor TAB] 100 mg PO BID #60 tablet 07/25/18 Unknown Rx Zolpidem [Ambien] 10 mg PO QHS PRN #10 tablet 07/25/18 Unknown Rx amLODIPine [Norvasc] 10 mg PO DAILY #30 tablet 07/25/18 Unknown Rx hydrALAZINE [Apresoline TAB] 100 mg PO Q8HR 90 Days #90 tab 07/25/18 Unknown Rx Diphenoxylate/Atropine [Lomotil] 1 - 2 tab PO QID PRN #20 tablet 08/01/18 Unknown Rx Promethazine [Phenergan TAB] 25 mg PO Q6HR PRN #20 tab 08/01/18 Unknown Rx Promethazine [Phenergan] 25 mg [place] Q6HR PRN #5 supp.rect 08/01/18 Unknown Rx traMADol [Ultram] 50 mg PO Q6HR PRN #10 tablet 08/01/18 Unknown Rx Losartan [Cozaar] 100 mg PO QDAY 90 Days #90 tablet 12/22/18 Unknown Rx Metoclopramide [Reglan] 10 mg PO QID 30 Days #120 tablet 12/22/18 Unknown Rx amLODIPine [Norvasc] 10 mg PO DAILY 90 Days #90 tab 12/22/18 Unknown Rx ED Physical Exam - General Limitations: No Limitations General appearance: alert, in no apparent distress, other (appears in pain) - Head Head exam: Present: atraumatic, normocephalic - Eye Eye exam: Present: normal appearance - ENT ENT exam: Present: mucous membranes dry - Neck Neck exam: Present: normal inspection - Respiratory Respiratory exam: Present: normal lung sounds bilaterally. Absent: respiratory distress, wheezes, rales, stridor - Cardiovascular Cardiovascular Exam: Present: regular rate, normal rhythm, normal heart sounds. Absent: systolic murmur, diastolic murmur, rubs, gallop - GI/Abdominal GI/Abdominal exam: Present: soft, normal bowel sounds. Absent: distended, tenderness, guarding, rebound - Rectal Rectal exam: Present: deferred - Extremities Exam Extremities exam: Present: normal inspection - Back Exam Back exam: Present: normal inspection - Neurological Exam Neurological exam: Present: alert, oriented X3 - Psychiatric Psychiatric exam: Present: normal affect, normal mood - Skin Skin exam: Present: warm, dry, intact, normal color. Absent: rash ED Course Vital Signs 12/22/18 12/22/18 12/22/18 07:19 07:28 07:30 Temperature 98.2 F Pulse Rate 100 H 103 H Respiratory 18 18 15 Rate Blood Pressure 219/125 237/185 Blood Pressure 219/125 [Right] O2 Sat by Pulse 97 97 94 Oximetry 12/22/18 12/22/18 12/22/18 08:00 08:22 08:30 Temperature Pulse Rate 100 H 89 Respiratory 23 14 Rate Blood Pressure 261/153 261/153 210/117 Blood Pressure [Right] O2 Sat by Pulse 98 100 Oximetry 12/22/18 12/22/18 12/22/18 09:00 09:20 09:22 Temperature Pulse Rate 88 91 H 91 H Respiratory 13 15 12 Rate Blood Pressure 219/115 219/115 219/115 Blood Pressure [Right] O2 Sat by Pulse 100 99 97 Oximetry 12/22/18 12/22/18 12/22/18 09:24 09:26 09:28 Temperature Pulse Rate 93 H 99 H 96 H Respiratory 18 21 16 Rate Blood Pressure 219/115 219/115 219/115 Blood Pressure [Right] O2 Sat by Pulse 99 96 98 Oximetry 12/22/18 12/22/18 12/22/18 09:30 09:31 09:32 Temperature Pulse Rate 95 H 95 H 93 H Respiratory 18 17 17 Rate Blood Pressure 262/151 262/151 262/151 Blood Pressure [Right] O2 Sat by Pulse 96 98 Oximetry 12/22/18 12/22/18 12/22/18 09:34 09:36 09:38 Temperature Pulse Rate 91 H 88 88 Respiratory 17 15 15 Rate Blood Pressure 262/151 262/151 195/101 Blood Pressure [Right] O2 Sat by Pulse 99 100 99 Oximetry 12/22/18 12/22/18 12/22/18 10:00 11:01 11:30 Temperature Pulse Rate 88 91 H 86 Respiratory 12 17 Rate Blood Pressure 198/104 195/101 181/85 Blood Pressure [Right] O2 Sat by Pulse 99 98 100 Oximetry ED Medical Decision Making - Lab Data Result diagrams: 12/22/18 07:52 12/22/18 07:52 - EKG Data 12/22/18 08:02 EKG obtained 0736 sinus tachycardia nl axis prolonged QT intervals peaked T waves nl ST +LVH nonspecific T wave flattening - Radiology Data Radiology results: report reviewed CT abdomen and pelvis without acute process. AP portable chest one view: Improvement from previous examination with minimal residual right pleural effusion according to radiology interpretation - Medical Decision Making Mr. Gregorio presents with hypertensive urgency, abdominal pain chest pain. He is unable to receive dialysis due to severely elevated blood pressure. I highly appreciate the assistance of consulting payloader operator Dr. López who evaluated patient bedside. He agreed that Mr. Gregorio did not need emergent dialysis at this time. In regard to hypertension, patient did admit to medication noncompliance. He states that the blood pressure medications cause him to have headache. Mr. Gregorio has had similar abdominal pain on previous occasion. Differential diagnosis includes PUD, gastritis, pancreatitis, gastroparesis. On My exam no evidence of peritonitis. CT abdomen and pelvis without acute process. Down trending troponin values essentially rules out acute myocardial infarction, in July 2018, left heart catheterization showed no significant CAD, normal LV with normal contractility. I have prescribed reglan for nausea/vomiting. I have also prescribed cozaar and Norvasc. These medications were listed on most recent discharge summary. Critical care attestation.: If time is entered above; I have spent that time in minutes in the direct care of this critically ill patient, excluding procedure time. ED Disposition Clinical Impression: Hypertensive urgency, ESRD (end stage renal disease), Abdominal pain, Chest pain, Hyperglycemia due to type 2 diabetes mellitus Disposition: TO HOME OR SELFCARE Is pt being admited?: No Does the pt Need Aspirin: No Condition: Stable Instructions: Hypertension (ED), Acute Abdominal Pain (ED) Prescriptions: Losartan [Cozaar] 100 mg PO QDAY 90 Days #90 tablet amLODIPine [Norvasc] 10 mg PO DAILY 90 Days #90 tab Metoclopramide [Reglan] 10 mg PO QID 30 Days #120 tablet Referrals: TAYLOR SAM MD [Primary Care Provider] - 3-5 Days
[2018-12-22 08:32] LABS: Basophils # (Auto) 0.1 K/mm3 (0.0-0.1); Basophils % (Auto) 0.6 % (0.0-1.8); Eosinophils # (Auto) 0.2 K/mm3 (0.0-0.4); Eosinophils % (Auto) 1.4 % (0.0-4.3); Hematocrit 43.4 % (35.5-45.6); Hemoglobin 14.1 gm/dl (11.8-15.2); Lymphocytes # (Auto) 1.1 K/mm3 (1.2-5.4); Lymphocytes % (Auto) 9.9 % (13.4-35.0); Mean Corpuscular HGB Conc 33 % (32-34); Mean Corpuscular Volume 87 fl (84-94); Monocytes # (Auto) 0.6 K/mm3 (0.0-0.8); Monocytes % (Auto) 5.4 % (0.0-7.3); Platelet Count 231 K/mm3 (140-440); Red Blood Count 5.01 M/mm3 (3.65-5.03); Red Cell Distribution Width 15.2 % (13.2-15.2)
[2018-12-22 08:58] LABS: Albumin 3.2 g/dL (3.9-5); Calcium 9.2 mg/dL (8.4-10.2)
[2018-12-22 11:05] LABS: Chol/HDL Ratio 3.54 %
--- NOTE | 2018-12-22 11:35 | Cat Scan Report ---
CT abdomen pelvis wo con INDICATION: MAIN: mid abd pain N/V 2weeks. TECHNIQUE: All CT scans at this location are performed using CT dose reduction for ALARA by means of automated e xposure control. COMPARISON: 08/01/2018 FINDINGS: Right pleural effusion is slightly smaller. No acute pulmonary disease. Liver, gallbladder, spleen, p ancreas, kidneys and adrenals are grossly negative on this noncontrast exam. Abdominal aorta is ather osclerotic but normal in size. No significant adenopathy. Pelvis Urinary bladder and distal ureters are negative. No obvious bowel abnormalities. Appendix is thought to be identified and unremarkable. Free fluid in the pelvis on the previous exam has cleared. IMPRESSION: 1. Somewhat limited exam due to lack of contrast and patient motion, but no definite acute abnormalit ies identified. Signer Name: Fab Garcia MD Signed: 12/22/2018 11:30 AM Workstation Name: [id number]
[2018-12-22 12:35] VITALS: BP 197/107
== END 2018-12-22 12:35 | disposition home or self-care (01) ==
LOC: ED 06:58
DX: E11.22 Type 2 diabetes mellitus with diabetic chronic kidney disease (principal); I12.0 Hypertensive chronic kidney disease with stage 5 chronic kidney disease or end stage renal disease; N18.6 End stage renal disease; I50.9 Heart failure, unspecified; Z99.2 Dependence on renal dialysis; Z79.4 Long term (current) use of insulin; I25.2 Old myocardial infarction; Z98.890 Other specified postprocedural states; Z79.899 Other long term (current) drug therapy
CPT/HCPCS: 36415; 71045; 74176; 80053; 80061; 83690; 84484; 85025; 93005; 93010; 96374; 96375; 96376; 99285; J2270; J2405

== ENCOUNTER 2019-01-01 08:16 | Emergency (ER) | payer SELFPAY ==
--- NOTE | 2019-01-01 08:49 | Emergency Department Report ---
HPI - General Chief Complaint: Medical Clearance Time Seen by Provider: 01/01/19 08:37 - HPI HPI: 58-year-old -[place] male presents to the emergency department from his dialysis clinic with the complaint of a malfunctioning right chest dialysis ca theter. He gets dialysis on Monday, and Monday and did last complete his dialysis on Monday. Stamp Pad Maker is Dr. Henao. He denies any chest pain, shortness of breath, edema. ED Past Medical Hx - Past Medical History Previous Medical History?: Yes Hx Hypertension: Yes Hx Heart Attack/AMI: Yes Hx Congestive Heart Failure: Yes Hx Diabetes: Yes Hx Deep Vein Thrombosis: No Hx Pulmonary Embolism: No Hx Liver Disease: No Hx Renal Disease: Yes (ESRD, HD //) Hx Arthritis: No Hx Seizures: No Hx Asthma: No Hx COPD: No Hx Tuberculosis: No Hx HIV: No - Surgical History Past Surgical History?: Yes Hx Open Heart Surgery: No Hx Pacemaker: No Hx Internal Defibrillator: No Hx Cholecystectomy: No Hx Breast Surgery: No Additional Surgical History: 5 Right toes removed surgically in March 2017 - Social History Smoking Status: Former Smoker Substance Use Type: None - Medications Home Medications: Home Medications Medication Instructions Recorded Confirmed Last Taken Type ALBUTEROL Inhaler(NF) [VENTOLIN 2 puff IH Q1D PRN #1 inha 07/25/18 Unknown Rx Inhaler(NF)] Aspirin [Aspirin BABY CHEW TAB] 81 mg PO QDAY #30 tab.chew 07/25/18 Unknown Rx AtorvaSTATin [Lipitor] 40 mg PO QHS #30 tablet 07/25/18 Unknown Rx Carvedilol [Coreg] 25 mg PO BID #60 tablet 07/25/18 Unknown Rx Famotidine [Pepcid] 20 mg PO DAILY #30 tablet 07/25/18 Unknown Rx Furosemide [Lasix TAB] 40 mg PO QDAY #30 tablet 07/25/18 Unknown Rx ISOSORBIDE MONOnitrate [Imdur ER] 60 mg PO QDAY #30 tablet 07/25/18 Unknown Rx Insulin Glargine [Lantus VIAL] 20 units SUB-Q QHS 30 Days #5 pen 07/25/18 Unknown Rx Lisinopril [Zestril TAB] 10 mg PO QDAY #30 tablet 07/25/18 Unknown Rx Losartan [Cozaar] 50 mg PO QDAY #30 tablet 07/25/18 Unknown Rx Metoprolol [Lopressor TAB] 100 mg PO BID #60 tablet 07/25/18 Unknown Rx Zolpidem [Ambien] 10 mg PO QHS PRN #10 tablet 07/25/18 Unknown Rx amLODIPine [Norvasc] 10 mg PO DAILY #30 tablet 07/25/18 Unknown Rx hydrALAZINE [Apresoline TAB] 100 mg PO Q8HR 90 Days #90 tab 07/25/18 Unknown Rx Diphenoxylate/Atropine [Lomotil] 1 - 2 tab PO QID PRN #20 tablet 08/01/18 Unknown Rx Promethazine [Phenergan TAB] 25 mg PO Q6HR PRN #20 tab 08/01/18 Unknown Rx Promethazine [Phenergan] 25 mg [place] Q6HR PRN #5 supp.rect 08/01/18 Unknown Rx traMADol [Ultram] 50 mg PO Q6HR PRN #10 tablet 08/01/18 Unknown Rx Losartan [Cozaar] 100 mg PO QDAY 90 Days #90 tablet 12/22/18 Unknown Rx Metoclopramide [Reglan] 10 mg PO QID 30 Days #120 tablet 12/22/18 Unknown Rx amLODIPine [Norvasc] 10 mg PO DAILY 90 Days #90 tab 12/22/18 Unknown Rx ED Review of Systems ROS: Stated complaint: CATHETER NEED REPAIR/NOT WORKING Other details as noted in HPI Comment: All other systems reviewed and negative Constitutional: denies: chills, fever Eyes: denies: eye pain, vision change ENT: denies: ear pain, throat pain Respiratory: denies: cough, shortness of breath Cardiovascular: denies: chest pain, edema Gastrointestinal: denies: abdominal pain, vomiting Genitourinary: denies: dysuria, frequency Musculoskeletal: denies: back pain, arthralgia Skin: denies: rash, lesions Neurological: denies: headache, weakness Physical Exam - Physical Exam Vital Signs: Vital Signs 01/01/19 01/01/19 08:20 08:41 Temperature 98.6 F Pulse Rate 105 H 99 H Respiratory 18 16 Rate Blood Pressure 141/94 Blood Pressure 180/102 [Right] O2 Sat by Pulse 96 99 Oximetry Physical Exam: GENERAL: The patient is well-developed well-nourished. HENT: Normocephalic. Atraumatic. Patient has moist mucous membranes. EYES: Extraocular motions are intact. NECK: Supple. Trachea is midline. CHEST/LUNGS: Clear to auscultation. There is no respiratory distress noted. There is a dialysis catheter in the right chest wall. HEART/CARDIOVASCULAR: Regular. There is no tachycardia. There is no murmur. ABDOMEN: Abdomen is soft, nontender. Patient has normal bowel sounds. There is no abdominal distention. SKIN: Skin is warm and dry. NEURO: The patient is awake, alert, and oriented. The patient is cooperative. The patient has no focal neurologic deficits. Normal speech. MUSCULOSKELETAL: There is no tenderness or deformity. There is no evidence of acute injury. ED Course Vital Signs 01/01/19 01/01/19 08:20 08:41 Temperature 98.6 F Pulse Rate 105 H 99 H Respiratory 18 16 Rate Blood Pressure 141/94 Blood Pressure 180/102 [Right] O2 Sat by Pulse 96 99 Oximetry - Consultations Consultation #1: Originally I had spoken with the vascular doctor on-call, Dr. Bentley, regarding the possible need of a replacement of the tunneled catheter and he agreed to see the patient has a consult if admitted. Around the same time, I suspect with the patient's medical administrative technician, Dr. Henao, who says that the patient might be able to avoid admission if we try breaking up a possible clot with 4 mg of alteplase. He says that this will be given by the dialysis nurse and he will contact her. 01/01/19 13:51 ED Medical Decision Making - Lab Data Result diagrams: 01/01/19 08:56 01/01/19 08:56 - Medical Decision Making This patient originally presented to the emergency department after he was unable to get dialysis today secondary to a malfunctioning of his right dialysis chest catheter. Patient's labs have been mostly unremarkable except for the renal insufficiency that is expected with end-stage renal disease on hemodialysis. There was no potassium or electrolyte abnormalities. The medical administrative technician recommended having the dialysis nurse flush the catheter with 4 mg of alteplase. After the dialysis nurse did this, the catheter appeared to be functioning appropriately. The patient did have some hypertension but was given a dose of blood pressure medication and he did not take his home blood pressure medication this morning as well. They came down to a more reasonable level. The patient has no complaints of any chest pain, shortness of breath, edema. He appears safe for discharge home. He has been given instructions to follow up with his medical administrative technician and call the dialysis center to figure out and arrange for his next dialysis session. - Differential Diagnosis hyperkalemia, CHF, hypertensive urgency Critical Care Time: No Critical care attestation.: If time is entered above; I have spent that time in minutes in the direct care of this critically ill patient, excluding procedure time. ED Disposition Clinical Impression: Dialysis catheter clot or failure, Hyperglycemia Hypertension Qualifiers: Hypertension type: essential hypertension Qualified Code(s): I10 - Essential (primary) hypertension Disposition: - TO HOME OR SELFCARE Is pt being admited?: No Condition: Stable Instructions: Hypertension (ED), Diabetic Hyperglycemia (ED) Additional Instructions: Please follow-up with your medical administrative technician in the next 1-2 days, and continue with her normal dialysis regiment. Please return to the emergency Department with a ny worsening of your symptoms or any acute distress. Please try and stay away from foods that are high in sugar, carbohydrates and starches. Take your normal diabetes medications. Keep a blood sugar log. Please try and stay away from foods that are high in salt and caffeinated products to help with your blood pressure. Keep a blood pressure log. Take your blood pressure medications. Referrals: PRIMARY CARE, [Primary Care Provider] - 2-3 Days MARGE HENAO MD [Staff Physician] - [facility] Time of Disposition: 12:19
[2019-01-01 09:20] LABS: Basophils # (Auto) 0.1 K/mm3 (0.0-0.1); Basophils % (Auto) 0.5 % (0.0-1.8); Eosinophils # (Auto) 0.1 K/mm3 (0.0-0.4); Hemoglobin 12.4 gm/dl (11.8-15.2); Lymphocytes # (Auto) 1.1 K/mm3 (1.2-5.4); Mean Corpuscular HGB Conc 33 % (32-34); Mean Corpuscular Volume 87 fl (84-94); Monocytes # (Auto) 0.5 K/mm3 (0.0-0.8); Monocytes % (Auto) 4.6 % (0.0-7.3); Platelet Count 185 K/mm3 (140-440); Red Blood Count 4.37 M/mm3 (3.65-5.03)
[2019-01-01 09:45] LABS: Calcium 8.5 mg/dL (8.4-10.2)
[2019-01-01] MEDS ORDERED: APRESOLINE IV ONE (10:04)
[2019-01-01 10:09] LABS: INR 0.9 (0.87-1.13)
[2019-01-01 10:10] LABS: Partial Thromboplastin Time 25.7 Sec. (24.2-36.6)
[2019-01-01] MEDS ORDERED: HumuLIN R IV ONE (10:13)
[2019-01-01] MEDS ORDERED: CATHFLO IV ONE (10:25)
[2019-01-01 11:36] VITALS: BP 163/90
== END 2019-01-01 12:30 | disposition home or self-care (01) ==
LOC: ED 08:16
DX: T82.868A Thrombosis due to vascular prosthetic devices, implants and grafts, initial encounter (principal); I13.2 Hypertensive heart and chronic kidney disease with heart failure and with stage 5 chronic kidney disease, or end stage renal disease; E11.22 Type 2 diabetes mellitus with diabetic chronic kidney disease; N18.6 End stage renal disease; I50.9 Heart failure, unspecified; I25.2 Old myocardial infarction; Z99.2 Dependence on renal dialysis; Z79.4 Long term (current) use of insulin; Z79.82 Long term (current) use of aspirin; Z98.890 Other specified postprocedural states; Z87.891 Personal history of nicotine dependence; Z79.899 Other long term (current) drug therapy; Y82.9 Unspecified medical devices associated with adverse incidents; Y92.89 Other specified places as the place of occurrence of the external cause
CPT/HCPCS: 36415; 80048; 82962; 85025; 85610; 85730; 96374; 96375; 99283; J0360; J2997; J1815

== ENCOUNTER 2019-01-15 07:25 | Observation (INO) | payer MEDICARE ==
[2019-01-15 08:16] LABS: Basophils # (Auto) 0.1 K/mm3 (0.0-0.1); Basophils % (Auto) 0.6 % (0.0-1.8); Eosinophils % (Auto) 0.4 % (0.0-4.3); Hematocrit 36.5 % (35.5-45.6); Hemoglobin 11.7 gm/dl (11.8-15.2); Lymphocytes % (Auto) 9.8 % (13.4-35.0); Mean Corpuscular HGB Conc 32 % (32-34); Mean Corpuscular Volume 87 fl (84-94); Monocytes # (Auto) 0.5 K/mm3 (0.0-0.8); Monocytes % (Auto) 4.4 % (0.0-7.3); Platelet Count 218 K/mm3 (140-440); Red Cell Distribution Width 15.5 % (13.2-15.2)
[2019-01-15] MEDS ORDERED: ZOFRAN IM ONE (08:33)
[2019-01-15] MEDS ORDERED: MORPHINE IV ONE (08:33)
[2019-01-15] MEDS ORDERED: NACL 0.9% 250ML 250 ML IV ONE (08:34)
[2019-01-15 08:40] LABS: Albumin 2.9 g/dL (3.9-5); Calcium 8.6 mg/dL (8.4-10.2)
[2019-01-15] MEDS ORDERED: ZOFRAN IV ONE (08:43)
[2019-01-15] MEDS ORDERED: APRESOLINE IV ONE (09:14)
--- NOTE | 2019-01-15 09:14 | Emergency Department Report ---
ED General Adult HPI - General Chief complaint: Abdominal Pain Stated complaint: ABD PAIN Time Seen by Provider: 01/15/19 08:19 Source: patient, EMS Mode of arrival: Stretcher Limitations: No Limitations - History of Present Illness Initial comments: The patient presents to the emergency department with a chief complaint of abdominal pain along with nausea and vomiting. Patient was at dialysis today when the symptoms began. Patient denies any shortness of breath, chest pain, headache. -: Sudden Location: abdomen Radiation: non-radiation Severity scale (0 -10): 4 Quality: aching Consistency: constant Improves with: none Worsens with: none Associated Symptoms: denies other symptoms Treatments Prior to Arrival: none - Related Data Previous Rx's Medication Instructions Recorded Last Taken Type RX: ALBUTEROL Inhaler(NF) 2 puff IH Q1D PRN #1 inha 07/25/18 Unknown Rx [VENTOLIN Inhaler(NF)] RX: Aspirin [Aspirin BABY CHEW TAB] 81 mg PO QDAY #30 tab.chew 07/25/18 Unknown Rx RX: AtorvaSTATin [Lipitor] 40 mg PO QHS #30 tablet 07/25/18 Unknown Rx RX: Carvedilol [Coreg] 25 mg PO BID #60 tablet 07/25/18 Unknown Rx RX: Famotidine [Pepcid] 20 mg PO DAILY #30 tablet 07/25/18 Unknown Rx RX: Furosemide [Lasix TAB] 40 mg PO QDAY #30 tablet 07/25/18 Unknown Rx RX: ISOSORBIDE MONOnitrate [Imdur 60 mg PO QDAY #30 tablet 07/25/18 Unknown Rx ER] RX: Insulin Glargine [Lantus VIAL] 20 units SUB-Q QHS 30 Days #5 pen 07/25/18 Unknown Rx RX: Lisinopril [Zestril TAB] 10 mg PO QDAY #30 tablet 07/25/18 Unknown Rx RX: Losartan [Cozaar] 50 mg PO QDAY #30 tablet 07/25/18 Unknown Rx RX: Metoprolol [Lopressor TAB] 100 mg PO BID #60 tablet 07/25/18 Unknown Rx RX: Zolpidem [Ambien] 10 mg PO QHS PRN #10 tablet 07/25/18 Unknown Rx RX: amLODIPine [Norvasc] 10 mg PO DAILY #30 tablet 07/25/18 Unknown Rx RX: hydrALAZINE [Apresoline TAB] 100 mg PO Q8HR 90 Days #90 tab 07/25/18 Unknown Rx Diphenoxylate/Atropine [Lomotil] 1 - 2 tab PO QID PRN #20 tablet 08/01/18 Unknown Rx Promethazine [Phenergan TAB] 25 mg PO Q6HR PRN #20 tab 08/01/18 Unknown Rx Promethazine [Phenergan] 25 mg FL Q6HR PRN #5 supp.rect 08/01/18 Unknown Rx traMADol [Ultram] 50 mg PO Q6HR PRN #10 tablet 08/01/18 Unknown Rx Losartan [Cozaar] 100 mg PO QDAY 90 Days #90 tablet 12/22/18 Unknown Rx Metoclopramide [Reglan] 10 mg PO QID 30 Days #120 tablet 12/22/18 Unknown Rx amLODIPine [Norvasc] 10 mg PO DAILY 90 Days #90 tab 12/22/18 Unknown Rx Allergies Allergy/AdvReac Type Severity Reaction Status Date / Time No Known Allergies Allergy Verified 08/01/18 17:16 ED Review of Systems ROS: Stated complaint: ABD PAIN Other details as noted in HPI Comment: All other systems reviewed and negative Constitutional: denies: chills, fever Eyes: denies: eye pain, eye discharge, vision change ENT: denies: ear pain, throat pain Respiratory: denies: cough, shortness of breath, wheezing Cardiovascular: denies: chest pain, palpitations Endocrine: no symptoms reported Gastrointestinal: abdominal pain, nausea, vomiting. denies: diarrhea Genitourinary: denies: urgency, dysuria Musculoskeletal: denies: back pain, joint swelling, arthralgia Skin: denies: rash, lesions Neurological: denies: headache, weakness, paresthesias Psychiatric: denies: anxiety, depression Hematological/Lymphatic: denies: easy bleeding, easy bruising ED Past Medical Hx - Past Medical History Hx Hypertension: Yes Hx Heart Attack/AMI: Yes Hx Congestive Heart Failure: Yes Hx Diabetes: Yes Hx Deep Vein Thrombosis: No Hx Pulmonary Embolism: No Hx Liver Disease: No Hx Renal Disease: Yes (ESRD, HD //) Hx Arthritis: No Hx Seizures: No Hx Asthma: No Hx COPD: No Hx Tuberculosis: No Hx HIV: No - Surgical History Hx Open Heart Surgery: No Hx Pacemaker: No Hx Internal Defibrillator: No Hx Cholecystectomy: No Hx Breast Surgery: No Additional Surgical History: 5 Right toes removed surgically in March 2017 - Social History Smoking Status: Former Smoker Substance Use Type: None - Medications Home Medications: Home Medications Medication Instructions Recorded Confirmed Last Taken Type RX: ALBUTEROL Inhaler(NF) 2 puff IH Q1D PRN #1 inha 07/25/18 Unknown Rx [VENTOLIN Inhaler(NF)] RX: Aspirin [Aspirin BABY CHEW TAB] 81 mg PO QDAY #30 tab.chew 07/25/18 Unknown Rx RX: AtorvaSTATin [Lipitor] 40 mg PO QHS #30 tablet 07/25/18 Unknown Rx RX: Carvedilol [Coreg] 25 mg PO BID #60 tablet 07/25/18 Unknown Rx RX: Famotidine [Pepcid] 20 mg PO DAILY #30 tablet 07/25/18 Unknown Rx RX: Furosemide [Lasix TAB] 40 mg PO QDAY #30 tablet 07/25/18 Unknown Rx RX: ISOSORBIDE MONOnitrate [Imdur 60 mg PO QDAY #30 tablet 07/25/18 Unknown Rx ER] RX: Insulin Glargine [Lantus VIAL] 20 units SUB-Q QHS 30 Days #5 pen 07/25/18 Unknown Rx RX: Lisinopril [Zestril TAB] 10 mg PO QDAY #30 tablet 07/25/18 Unknown Rx RX: Losartan [Cozaar] 50 mg PO QDAY #30 tablet 07/25/18 Unknown Rx RX: Metoprolol [Lopressor TAB] 100 mg PO BID #60 tablet 07/25/18 Unknown Rx RX: Zolpidem [Ambien] 10 mg PO QHS PRN #10 tablet 07/25/18 Unknown Rx RX: amLODIPine [Norvasc] 10 mg PO DAILY #30 tablet 07/25/18 Unknown Rx RX: hydrALAZINE [Apresoline TAB] 100 mg PO Q8HR 90 Days #90 tab 07/25/18 Unknown Rx Diphenoxylate/Atropine [Lomotil] 1 - 2 tab PO QID PRN #20 tablet 08/01/18 Unknown Rx Promethazine [Phenergan TAB] 25 mg PO Q6HR PRN #20 tab 08/01/18 Unknown Rx Promethazine [Phenergan] 25 mg FL Q6HR PRN #5 supp.rect 03/27/19 Unknown Rx traMADol [Ultram] 50 mg PO Q6HR PRN #10 tablet 08/01/18 Unknown Rx Losartan [Cozaar] 100 mg PO QDAY 90 Days #90 tablet 12/22/18 Unknown Rx Metoclopramide [Reglan] 10 mg PO QID 30 Days #120 tablet 12/22/18 Unknown Rx amLODIPine [Norvasc] 10 mg PO DAILY 90 Days #90 tab 12/22/18 Unknown Rx ED Physical Exam - General Limitations: No Limitations General appearance: alert, in no apparent distress - Head Head exam: Present: atraumatic, normocephalic - Eye Eye exam: Present: normal appearance - ENT ENT exam: Present: mucous membranes moist - Neck Neck exam: Present: normal inspection - Respiratory Respiratory exam: Present: normal lung sounds bilaterally. Absent: respiratory distress - Cardiovascular Cardiovascular Exam: Present: normal rhythm, tachycardia. Absent: systolic mu rmur, diastolic murmur, rubs, gallop - GI/Abdominal GI/Abdominal exam: Present: soft, tenderness (epigastric region), normal bowel sounds. Absent: distended - Rectal Rectal exam: Present: deferred - Extremities Exam Extremities exam: Present: normal inspection - Back Exam Back exam: Present: normal inspection - Neurological Exam Neurological exam: Present: alert, oriented X3, CN II-XII intact. Absent: motor sensory deficit - Psychiatric Psychiatric exam: Present: normal affect, normal mood - Skin Skin exam: Present: warm, dry, intact, normal color. Absent: rash ED Course Vital Signs 01/15/19 01/15/19 01/15/19 07:44 07:50 07:53 Temperature 98.3 F Pulse Rate 114 H Respiratory 20 20 Rate Blood Pressure 242/145 O2 Sat by Pulse 97 97 Oximetry 01/15/19 01/15/19 01/15/19 08:01 08:30 09:11 Temperature Pulse Rate 111 H 103 H 100 H Respiratory 18 16 13 Rate Blood Pressure 182/118 180/111 180/111 O2 Sat by Pulse 96 95 96 Oximetry 01/15/19 01/15/19 01/15/19 09:30 10:00 10:30 Temperature Pulse Rate 100 H 100 H 99 H Respiratory 16 13 13 Rate Blood Pressure 170/102 149/93 160/98 O2 Sat by Pulse 97 96 96 Oximetry 01/15/19 01/15/19 01/15/19 11:00 11:30 12:00 Temperature Pulse Rate 102 H 101 H 99 H Respiratory 13 13 11 L Rate Blood Pressure 160/98 147/84 152/89 O2 Sat by Pulse 96 90 93 Oximetry ED Medical Decision Making - Lab Data Result diagrams: 01/15/19 08:00 01/15/19 08:00 Lab Results 01/15/19 01/15/19 Range/Units 08:00 08:00 WBC 10.5 (4.5-11.0) K/mm3 RBC 4.20 (3.65-5.03) M/mm3 Hgb 11.7 L (11.8-15.2) gm/dl Hct 36.5 (35.5-45.6) % MCV 87 (84-94) fl MCH 28 (28-32) pg MCHC 32 (32-34) % RDW 15.5 H (13.2-15.2) % Plt Count 218 (140-440) K/mm3 Lymph % (Auto) 9.8 L (13.4-35.0) % Garvin % (Auto) 4.4 (0.0-7.3) % Eos % (Auto) 0.4 (0.0-4.3) % Baso % (Auto) 0.6 (0.0-1.8) % Lymph # 1.0 L (1.2-5.4) K/mm3 Garvin # 0.5 (0.0-0.8) K/mm3 Eos # 0.0 (0.0-0.4) K/mm3 Baso # 0.1 (0.0-0.1) K/mm3 Seg Neutrophils % 84.8 H (40.0-70.0) % Seg Neutrophils # 8.9 H (1.8-7.7) K/mm3 Sodium 138 (137-145) mmol/L Potassium 4.1 (3.6-5.0) mmol/L Chloride 98.6 (98-107) mmol/L Carbon Dioxide 28 (22-30) mmol/L Anion Gap 16 mmol/L BUN 35 H (9-20) mg/dL Creatinine 5.7 H (0.8-1.5) mg/dL Estimated GFR 13 ml/min BUN/Creatinine Ratio 6 % Glucose 408 H (75-100) mg/dL Calcium 8.6 (8.4-10.2) mg/dL Total Bilirubin 0.40 (0.1-1.2) mg/dL AST 18 (5-40) units/L ALT 12 (7-56) units/L Alkaline Phosphatase 106 (35-129) units/L Total Protein 6.6 (6.3-8.2) g/dL Albumin 2.9 L (3.9-5) g/dL Albumin/Globulin Ratio 0.8 % Lipase 27 (13-60) units/L - Radiology Data Radiology results: report reviewed - Medical Decision Making Discussed results with patient will be dialyzed and discharged home Critical care attestation.: If time is entered above; I have spent that time in minutes in the direct care of this critically ill patient, excluding procedure time. ED Disposition Clinical Impression: ESRD (end stage renal disease) on dialysis Disposition: OP ADMIT IP TO THIS HOSP Is pt being admited?: Yes Does the pt Need Aspirin: No Condition: Stable
--- NOTE | 2019-01-15 09:51 | Cat Scan Report ---
CT ABDOMEN AND PELVIS WITHOUT CONTRAST HISTORY: abdominal pain COMPARISON: None. TECHNIQUE: Axial CT images were obtained through the abdomen and pelvis without IV contrast. Sagittal and coronal reformatted images. All CT scans at this location are performed using CT dose reduction for ALARA by means of automated exposure control. FINDINGS: CT ABDOMEN: Lung Bases: There is a moderate layering right pleural effusion measuring up to 5.5 cm in thickness. There is compressive atelectasis at the right lung base. Otherwise the lungs are clear. Heart size is at the upper limits of normal. Liver: No significant abnormality. Biliary: No significant abnormality. Spleen: No significant abnormality. Unenlarged. Pancreas: No significant abnormality. Adrenals: No significant abnormality. Kidneys: No significant abnormality. Lymphatics: No lymphadenopathy. Vasculature: No significant abnormality. Bowel/Peritoneum: There is moderate stool throughout the length of the colon. No evidence for bowel o bstruction or focal inflammation. No free air or free fluid I believe I see the appendix medial to th e cecum which is unremarkable. CT PELVIS: : No significant abnormality. Osseous Structures: Moderate to severe degenerative disc disease at L5-S1. No fracture or suspicious bony lesion. Additional Findings: None IMPRESSION: Moderate layering right pleural effusion. Borderline heart size. Mild fecal retention. No acute inflammatory process is identified. Signer Name: Marco A Lackey Jr, MD Signed: 01/15/2019 9:46 AM Workstation Name: [id number]
[2019-01-15] MEDS ORDERED: HEPARIN 10,000 UNITS/10 ML IV PRN (14:29)
[2019-01-15] MEDS ORDERED: NACL 0.9% 100 ML IV PRN (14:50)
--- NOTE | 2019-01-15 15:06 | Event Note ---
Date: 01/15/19 See history and physical in the reports Volume overload ESRD on hemodialysis Patient to be discharged after hemodialysis
[2019-01-15] MEDS ORDERED: PHENERGAN PO PRN (15:25)
[2019-01-15] MEDS ORDERED: LOMOTIL PO PRN (15:25)
[2019-01-15] MEDS ORDERED: PROAIR IH PRN (15:25)
[2019-01-15] MEDS ORDERED: DILAUDID IV PRN (15:30)
[2019-01-15] MEDS ORDERED: NON-FORMULARY (Losartan [Cozaar] 100 MG) PO SCH (15:30)
[2019-01-15] MEDS ORDERED: SODIUM CHLORIDE FLUSH SYRINGE 10 ML IV PRN (15:30)
[2019-01-15] MEDS ORDERED: ZOFRAN IV PRN (15:30)
[2019-01-15] MEDS ORDERED: TYLENOL PO PRN (15:30)
[2019-01-15] MEDS ORDERED: PERCOCET 5/325 PO PRN (15:30)
--- NOTE | 2019-01-15 15:38 | Discharge Summary ---
Providers - Providers Date of Admission: 01/15/19 14:05 Date of discharge: 01/15/19 Attending physician: EMMANUEL CARNES 01/15/19 15:30 Consult to Physician [CONS] Routine Reason For Exam: ESRD Consulting Provider: MARGE HENAO Physician Instructions: Comment: Primary care physician: [employer] [facility] Hospitalization Condition: Stable Hospital course: See Discharge summary in reports Disposition: DC-01 TO HOME OR SELFCARE Core Measure Documentation - Palliative Care Palliative Care/ Comfort Measures: Not Applicable - Core Measures Any of the following diagnoses?: none Exam - Constitutional Vitals: Temp Pulse Resp BP Pulse Ox 98.3 F 99 H 11 L 152/89 93 01/15/19 07:50 01/15/19 12:00 01/15/19 12:00 01/15/19 12:00 01/15/19 12:00 General appearance: Present: no acute distress, well-nourished - EENT Eyes: Present: PERRL ENT: hearing intact, clear oral mucosa - Neck Neck: Present: supple, normal ROM - Respiratory Respiratory effort: normal Respiratory: bilateral: CTA - Cardiovascular Heart rate: 78 Heart Sounds: Present: S1 & S2. Absent: rub, click - Extremities Extremities: no ischemia, pulses intact, pulses symmetrical, No edema Peripheral Pulses: within normal limits - Abdominal General gastrointestinal: Present: soft, non-tender, non-distended, normal bowel sounds Male genitourinary: Present: normal - Integumentary Integumentary: Present: clear, warm, dry - Musculoskeletal Musculoskeletal: gait normal, strength equal bilaterally - Psychiatric Psychiatric: appropriate mood/affect, intact judgment & insight - Neurologic Neurologic: CNII-XII intact, moves all extremities Plan Activity: no restrictions Diet: renal Follow up with: PRIMARY CARE, [Primary Care Provider] - 3-5 Days
--- NOTE | 2019-01-15 15:47 | History and Physical Report ---
CHIEF COMPLAINT: 1. Abdominal pain with nausea and vomiting. 2. Shortness of breath. HISTORY OF PRESENT ILLNESS: A 58-year-old male with history of end-stage renal disease, asthma, hypertension, gastroesophageal reflux disease, insulin-dependent diabetes, and hyperlipidemia, comes in for nausea and vomiting x 2 while at dialysis. The dialysis center sent him here. In the Emergency Room, the patient received IV Zofran and was symptomatically better. The patient also has some shortness of breath. No orthopnea. Shortness of breath on minimal exertion, but no class 3 or class 4 NYHA symptoms. No chest pain. PAST MEDICAL HISTORY: As mentioned: 1. Asthma. 2. Hyperlipidemia. 3. Hypertension. 4. Coronary artery disease. 5. Insulin-dependent diabetes. 6. Chronic pain. CURRENT MEDICATIONS: On the chart. PAST SURGICAL HISTORY: Right toes removed surgically in 2017. Also, AV fistula. SOCIAL HISTORY: He does not smoke. No alcohol, no recreational drugs. FAMILY HISTORY: Hypertension. REVIEW OF SYSTEMS: Significant for nausea, vomiting, and abdominal pain, which has resolved while in the Emergency Room. Shortness of breath on minimal exertion present. No chest pain. Otherwise, review of systems negative. The patient is alert and oriented x 4. PHYSICAL EXAMINATION: GENERAL: Middle-aged male, cooperative during examination. VITAL SIGNS: Blood pressure is 160/98 and repeat one was 147/84, pulse is 99, respiratory rate is 13, sats are 96%. HEENT: Unremarkable. Pupils equal and reactive. NECK: Supple, no lymphadenopathy, no thyromegaly. LUNGS: Clear to auscultation and percussion. Good air entry. CARDIOVASCULAR: S1, S2 heard. No gallop, no murmur, no rub. Apical impulse in left fifth intercostal space and midclavicular line. ABDOMEN: Soft and benign. No hepatosplenomegaly. No guarding, no rigidity. Hernial orifices are normal. EXTREMITIES: Good pedal pulses. No pedal edema. CENTRAL NERVOUS SYSTEM: Alert and oriented x 4, nonfocal exam. LABORATORY DATA: Significant for a white count of 10,500, H and H are 11.7 and 36.5, platelet count is 218,000. BUN and creatinine are 35 and 5.7, glucose is 408, albumin is 2.9. Abdominal CAT scan shows moderate layering on the right pleural effusion, borderline heart size, mild fecal retention. No acute inflammatory process is identified. ASSESSMENT AND PLAN: 1. Volume overload. The patient to get emergent hemodialysis and we will discharge after the dialysis. The patient to be seen by Nephrology, Dr. López. 2. Congestive heart failure. Continue Lasix. 3. Hypertension. Continue Coreg and losartan. 4. Asthma. Continue albuterol. 5. Chronic pain. Continue tramadol. 6. Insulin-dependent diabetes. Continue insulin coverage. 7. Deep venous thrombosis prophylaxis, heparin 5000 q. 12. DISPOSITION: Discharge after the hemodialysis. JOB# [id number] AARON/ROBERTA
[2019-01-15] MEDS ORDERED: IMDUR PO SCH (16:00)
[2019-01-15] MEDS ORDERED: SODIUM CHLORIDE FLUSH SYRINGE 10 ML IV SCH (16:00)
[2019-01-15] MEDS ORDERED: LASIX PO SCH (16:00)
[2019-01-15] MEDS ORDERED: ZESTRIL PO SCH (16:00)
[2019-01-15] MEDS ORDERED: PEPCID PO SCH (16:00)
[2019-01-15] MEDS ORDERED: ULTRAM PO PRN (16:02)
[2019-01-15] MEDS ORDERED: PROVENTIL IH PRN (16:02)
--- NOTE | 2019-01-15 16:05 | Consultation ---
History of Present Illness - Reason for Consult Consult date: 01/15/19 end stage renal disease - History of Present Illness The patient is a 58 YO male who is well known to our service with history significant for DM-2, HTN, HLD, HFpEF, PAD s/p right TMA, Hepatitis C, Anemia and ESRD on hemodialysis (TTS) who presented to [facility] ER with abdominal pain, N and V for the past 1-2 days. The location of the pain is at epigastric area, constant, sharp and not radiating. He had multiple episodes of non-bloody emesis. He was last dialyzed on 01/12. Patient denies any diarrhea, dysuria, hematuria, dizziness, cough, hemoptysis, fever, chills, jaundice, weakness or syncope. Nephrology was consulted to manage ESRD. Past History Past Medical History: anemia, diabetes, dialysis, ESRD, heart failure, hypertension Medications and Allergies Allergies Allergy/AdvReac Type Severity Reaction Status Date / Time No Known Allergies Allergy Verified 08/01/18 17:16 Home Medications Medication Instructions Recorded Confirmed Last Taken Type ALBUTEROL Inhaler(NF) [VENTOLIN 2 puff IH Q1D PRN #1 inha 07/25/18 Unknown Rx Inhaler(NF)] Aspirin [Aspirin BABY CHEW TAB] 81 mg PO QDAY #30 tab.chew 07/25/18 Unknown Rx AtorvaSTATin [Lipitor] 40 mg PO QHS #30 tablet 07/25/18 Unknown Rx Carvedilol [Coreg] 25 mg PO BID #60 tablet 07/25/18 Unknown Rx Famotidine [Pepcid] 20 mg PO DAILY #30 tablet 07/25/18 Unknown Rx Furosemide [Lasix TAB] 40 mg PO QDAY #30 tablet 07/25/18 Unknown Rx ISOSORBIDE MONOnitrate [Imdur ER] 60 mg PO QDAY #30 tablet 07/25/18 Unknown Rx Insulin Glargine [Lantus VIAL] 20 units SUB-Q QHS 30 Days #5 pen 07/25/18 Unknown Rx Lisinopril [Zestril TAB] 10 mg PO QDAY #30 tablet 07/25/18 Unknown Rx Losartan [Cozaar] 50 mg PO QDAY #30 tablet 07/25/18 Unknown Rx Metoprolol [Lopressor TAB] 100 mg PO BID #60 tablet 07/25/18 Unknown Rx Zolpidem [Ambien] 10 mg PO QHS PRN #10 tablet 07/25/18 Unknown Rx amLODIPine [Norvasc] 10 mg PO DAILY #30 tablet 07/25/18 Unknown Rx hydrALAZINE [Apresoline TAB] 100 mg PO Q8HR 90 Days #90 tab 07/25/18 Unknown Rx Diphenoxylate/Atropine [Lomotil] 1 - 2 tab PO QID PRN #20 tablet 08/01/18 Unknown Rx Promethazine [Phenergan TAB] 25 mg PO Q6HR PRN #20 tab 08/01/18 Unknown Rx Promethazine [Phenergan] 25 mg PA Q6HR PRN #5 supp.rect 08/01/18 Unknown Rx traMADol [Ultram] 50 mg PO Q6HR PRN #10 tablet 08/01/18 Unknown Rx Losartan [Cozaar] 100 mg PO QDAY 90 Days #90 tablet 12/22/18 Unknown Rx Metoclopramide [Reglan] 10 mg PO QID 30 Days #120 tablet 12/22/18 Unknown Rx amLODIPine [Norvasc] 10 mg PO DAILY 90 Days #90 tab 12/22/18 Unknown Rx Active Meds: Active Medications Acetaminophen (Tylenol) 650 mg PO Q4H PRN PRN Reason: Pain MILD(1-3)/Fever >100.5/GARCIA Albuterol (Proventil) 2.5 mg IH Q4HRT PRN PRN Reason: Shortness Of Breath Amlodipine Besylate (Norvasc) 10 mg PO DAILY RADHA Aspirin (Baby Aspirin) 81 mg PO QDAY RADHA Atorvastatin Calcium (Lipitor) 40 mg PO QHS RADHA Diphenoxylate HCl/Atropine (Lomotil) 1 tab PO QID PRN PRN Reason: Diarrhea Famotidine (Pepcid) 20 mg PO DAILY RADHA Furosemide (Lasix) 40 mg PO QDAY RADHA Heparin Sodium (Porcine) (Heparin 10,000 Units/10 Ml) 3,000 unit IV NOLA PRN PRN Reason: hemodialysis Hydralazine HCl (Apresoline) 100 mg PO Q8HR RADHA Hydromorphone HCl (Dilaudid) 0.5 mg IV Q3H PRN PRN Reason: Pain , Severe (7-10) Sodium Chloride (Nacl 0.9%) 100 mls @ 999 mls/hr IV NOLA PRN PRN Reason: Hypotension Insulin Glargine (Lantus) 20 units SUB-Q QHS [facility] Isosorbide Mononitrate (Imdur) 60 mg PO QDAY [facility] Lisinopril (Zestril) 10 mg PO QDAY [facility] Losartan Potassium (Cozaar) 100 mg PO QDAY [facility] Metoclopramide HCl (Reglan) 5 mg PO QID [facility] Metoprolol Tartrate (Lopressor) 100 mg PO BID [facility] Ondansetron HCl (Zofran) 4 mg IV Q8H PRN PRN Reason: Nausea And Vomiting Oxycodone/Acetaminophen (Percocet 5/325) 1 tab PO Q6H PRN PRN Reason: Pain, Moderate (4-6) Promethazine HCl (Phenergan) 25 mg PO Q6HR PRN PRN Reason: Nausea Sodium Chloride (Sodium Chloride Flush Syringe 10 Ml) 10 ml IV BID RADHA Sodium Chloride (Sodium Chloride Flush Syringe 10 Ml) 10 ml IV PRN PRN PRN Reason: LINE FLUSH Review of Systems Constitutional: no weight loss, no weight gain, no fever, no chills, no anorexia, no fatigue, no weakness Cardiovascular: high blood pressure, no chest pain, no orthopnea, no edema, no syncope, no lightheadedness, no shortness of breath Respiratory: no cough, no hemoptysis, no shortness of breath, no dyspnea on exertion Gastrointestinal: abdominal pain, nausea, vomiting, no diarrhea, no melena, no hematochezia Genitourinary Male: no dysuria, no hematuria Rectal: no bleeding Integumentary: no rash, no sores, no wounds, no jaundice Neurological: no weakness, no seizures, no syncope, no convulsions, no aphasia, no change in speech, no change in mentation, no confusion, no memory loss Exam - Vital Signs Vital signs: Vital Signs Pulse Ox 97 01/15/19 07:44 - General Appearance General appearance: well-developed, well-nourished, appears stated age, other (no distress, R IJ tunnel catheter) EENT: ATNC, PERRL, mucous membranes dry, hearing intact, vision intact Neck: Present: neck supple, trachea midline Respiratory: Clear to Ascultation Heart: regular, S1S2, no murmurs Gastrointestinal: Present: normoactive bowel sounds. Absent: tenderness, distended Integumentary: no rash, warm and dry Neurologic: no focal deficit, no asterixis, alert and oriented x3 Musculoskeletal: Present: other (no edema) Results - Lab Results 01/15/19 08:00 01/15/19 08:00 Most recent lab results Calcium 8.6 mg/dL (8.4-10.2) 01/15/19 08:00 Assessment and Plan 1. ESRD: Patient is on maintenance hemodialysis three times a week, TTS schedule. Hd today. 2. FEN: Appears to be volume depleted. No UF with HD today. Monitor lytes. 3. Abdominal pain. 4. Anemia: Epogen. 5. HFpEF. 6. DM-2. 7. Hepatitis C.
[2019-01-15 16:46] LABS: Hepatitis B Surface Antigen Non-Reactive (Negative); Hepatitis C Virus Antibody Reactive (NonReactive)
[2019-01-15] MEDS ORDERED: APRESOLINE PO SCH (17:00)
[2019-01-15] MEDS ORDERED: COZAAR PO SCH (17:00)
[2019-01-15] MEDS ORDERED: BABY ASPIRIN PO SCH (17:00)
[2019-01-15] MEDS ORDERED: NORVASC PO SCH (17:00)
[2019-01-15] MEDS ORDERED: COREG PO SCH (17:00)
[2019-01-15] MEDS ORDERED: REGLAN PO SCH ×2 (18:00)
[2019-01-15] MEDS ORDERED: LOPRESSOR PO SCH (18:30)
[2019-01-15] MEDS: APRESOLINE IV ONE ×2 (19:05)
[2019-01-15] MEDS ORDERED: DILAUDID ONE (19:06)
[2019-01-15] MEDS ORDERED: APRESOLINE ONE (19:06)
[2019-01-15 19:28] VITALS: BP 190/91
[2019-01-15] MEDS ORDERED: LANTUS SUB-Q SCH (22:00)
--- NOTE | 2019-01-16 01:11 | Discharge Summary ---
HOSPITAL COURSE: The patient was admitted for abdominal pain, nausea, and vomiting, which was treated symptomatically and subsided. The patient also had volume overload and history of hypertension and end-stage renal disease. The patient was admitted for nausea, vomiting. Nausea, vomiting subsided. The patient was taken to hemodialysis and the patient had hemodialysis. The patient was symptomatically better and then patient being discharged on the home medications. The patient to follow with Dr. López. DISCHARGE DIAGNOSES: Volume overload, hypertension, hyperlipidemia, gastroesophageal reflux disease, insulin-dependent diabetes, and chronic pain. The patient to follow up with Dr. López in one week. JOB# [id number] AARON/ROBERTA
[2019-01-16] MEDS ORDERED: PEPCID PO SCH (10:00)
== END 2019-01-15 18:40 | disposition home or self-care (01) ==
LOC: ED 07:25 → 3A 14:05
PROVIDERS: ADMIT Internal Medicine; ATTEND Internal Medicine
DX: E87.70 Fluid overload, unspecified (principal); I13.2 Hypertensive heart and chronic kidney disease with heart failure and with stage 5 chronic kidney disease, or end stage renal disease; I50.9 Heart failure, unspecified; N18.6 End stage renal disease; E11.22 Type 2 diabetes mellitus with diabetic chronic kidney disease; J45.909 Unspecified asthma, uncomplicated; G89.29 Other chronic pain; E78.5 Hyperlipidemia, unspecified; I25.10 Atherosclerotic heart disease of native coronary artery without angina pectoris; K21.9 Gastro-esophageal reflux disease without esophagitis; D64.9 Anemia, unspecified; Z79.82 Long term (current) use of aspirin; Z79.4 Long term (current) use of insulin; Z87.891 Personal history of nicotine dependence; Z86.19 Personal history of other infectious and parasitic diseases
CPT/HCPCS: 36415; 74176; 80053; 80074; 83036; 83690; 85025; 96374; 96375; 96376; 99284; G0257; G0378; J0360; J1170; J1644; J2270; J2405; J7050; J1815

== ENCOUNTER 2019-04-16 06:58 | Emergency (ER) | payer MEDICARE ==
[2019-04-16] MEDS ORDERED: FAMOTIDINE 20 MG/2 ML INJ IV ONE (07:23)
[2019-04-16] MEDS ORDERED: ONDANSETRON 4 MG/2 ML INJ IV ONE (07:23)
[2019-04-16] MEDS ORDERED: HYDROmorphone 1 MG/1 ML INJ IV ONE ×2 (07:23→07:24)
[2019-04-16 07:59] LABS: Basophils # (Auto) 0.1 K/mm3 (0.0-0.1); Basophils % (Auto) 0.9 % (0.0-1.8); Eosinophils # (Auto) 0.1 K/mm3 (0.0-0.4); Eosinophils % (Auto) 1.2 % (0.0-4.3); Hematocrit 43.7 % (35.5-45.6); Lymphocytes # (Auto) 1.2 K/mm3 (1.2-5.4); Lymphocytes % (Auto) 10.4 % (13.4-35.0); Mean Corpuscular HGB Conc 32 % (32-34); Mean Corpuscular Volume 90 fl (84-94); Monocytes # (Auto) 0.7 K/mm3 (0.0-0.8); Monocytes % (Auto) 5.9 % (0.0-7.3); Platelet Count 302 K/mm3 (140-440); Red Blood Count 4.85 M/mm3 (3.65-5.03); Red Cell Distribution Width 15.5 % (13.2-15.2)
[2019-04-16 08:01] LABS: INR 0.81 (0.87-1.13)
[2019-04-16 08:03] LABS: Partial Thromboplastin Time 26.9 Sec. (24.2-36.6)
--- NOTE | 2019-04-16 08:03 | XRay Report ---
CHEST 1 VIEW 04/16/2019 7:31 AM INDICATION / CLINICAL INFORMATION: Shortness of breath. Nausea with vomiting. Hypertension. History of ESRD. COMPARISON: One view of the chest from 12/22/2018. FINDINGS: SUPPORT DEVICES: Stable right internal jugular vein PermCath. HEART / MEDIASTINUM: No significant abnormality. LUNGS / PLEURA: There is a similar small right pleural effusion with associated atelectasis. The lung s are otherwise clear. No pneumothorax. ADDITIONAL FINDINGS: No significant additional findings. IMPRESSION: Similar small right pleural effusion with associated atelectasis. Signer Name: Rush Holt MD Signed: 04/16/2019 7:59 AM Workstation Name: [id number]
[2019-04-16 08:08] LABS: Albumin 3.5 g/dL (3.9-5)
[2019-04-16] MEDS ORDERED: INSULIN REGULAR, HUMAN 100 UNITS/1 ML IV ONE (08:21)
--- NOTE | 2019-04-16 08:26 | Cat Scan Report ---
CT ABDOMEN AND PELVIS WITHOUT CONTRAST HISTORY: Nausea, vomiting, diarrhea. Hypertension on dialysis. Diabetes. COMPARISON: 01/15/2019 TECHNIQUE: Axial CT images were obtained through the abdomen and pelvis without IV contrast. Sagittal and coronal reformatted images. All CT scans at this location are performed using CT dose reduction for ALARA by means of automated exposure control. FINDINGS: CT ABDOMEN: Lung Bases: Stable borderline heart size. A layering right pleural effusion has decreased from 5.3 cm to 3.4 cm in thickness. The visualized lung bases are well-aerated otherwise. Liver: No significant abnormality. Biliary: No significant abnormality. Spleen: No significant abnormality. Unenlarged. Pancreas: No significant abnormality. Adrenals: No significant abnormality. Kidneys: No significant abnormality. Lymphatics: No lymphadenopathy. Vasculature: No significant abnormality. Bowel/Peritoneum: No significant abnormality. No free air. No free fluid. Appendix is not confidently visualized on today's exam. No inflammatory changes in the right lower quadrant. CT PELVIS: : No significant abnormality. Osseous Structures: Intact. Advanced degenerative disc disease at L5-S1. Additional Findings: None IMPRESSION: No acute process is identified in the abdomen or pelvis. No overwhelming change since 01/15/2019. Decreased right pleural effusion by approximately 50%. Signer Name: Marco A Lackey Jr, MD Signed: 04/16/2019 8:22 AM Workstation Name: [id number]
--- NOTE | 2019-04-16 08:38 | Emergency Department Report ---
ED Abdominal Pain HPI - General Chief Complaint: Abdominal Pain Stated Complaint: N/V,HTN/HYPERGLYCEMIA Time Seen by Provider: 04/16/19 07:17 Source: patient, EMS Mode of arrival: Stretcher Limitations: No Limitations - History of Present Illness Initial Comments: 58-year-old male with a past medical history of end-stage renal disease on dialysis, insulin dependent diabetes, hypertension prsents to the hospital complains of nausea, vomiting, and diarrhea that started at 4 AM. Patient went to dialysis but only was able to complete one hour of his dialysis session secondary to vomiting. Patient complains of severe generalized abdominal cramps. Denies fever, melena, hematochezia, hematemesis. Initial glucose in the 300s. Shelter Advocate: Dr. López Severity scale (0 -10): 10 - Related Data Home Medications Medication Instructions Recorded Confirmed Last Taken Losartan [Cozaar] 150 mg PO QDAY 01/23/19 01/23/19 01/27/19 12:00 Previous Rx's Medication Instructions Recorded Last Taken Type ALBUTEROL Inhaler(NF) [VENTOLIN 2 puff IH Q1D PRN #1 inha 07/25/18 Unknown Rx Inhaler(NF)] Aspirin [Aspirin BABY CHEW TAB] 81 mg PO QDAY #30 tab.chew 07/25/18 01/11/19 10:00 Rx AtorvaSTATin [Lipitor] 40 mg PO QHS #30 tablet 07/25/18 01/27/19 12:00 Rx Famotidine [Pepcid] 20 mg PO DAILY #30 tablet 07/25/18 01/27/19 12:00 Rx Furosemide [Lasix TAB] 40 mg PO QDAY #30 tablet 07/25/18 Unknown Rx ISOSORBIDE MONOnitrate [Imdur ER] 60 mg PO QDAY #30 tablet 07/25/18 01/27/19 12:00 Rx Insulin Glargine [Lantus VIAL] 20 units SUB-Q QHS 30 Days #5 pen 07/25/18 01/27/19 12:00 Rx Lisinopril [Zestril TAB] 10 mg PO QDAY #30 tablet 07/25/18 01/27/19 12:00 Rx Metoprolol [Lopressor TAB] 100 mg PO BID #60 tablet 07/25/18 01/27/19 12:00 Rx Zolpidem [Ambien] 10 mg PO QHS PRN #10 tablet 07/25/18 01/27/19 12:00 Rx carvediloL [Coreg] 25 mg PO BID #60 tablet 07/25/18 01/27/19 12:00 Rx hydrALAZINE [Apresoline TAB] 100 mg PO Q8HR 90 Days #90 tab 07/25/18 01/27/19 12:00 Rx Diphenoxylate/Atropine [Lomotil] 1 - 2 tab PO QID PRN #20 tablet 08/01/18 Unknown Rx Promethazine [Phenergan SUPPOS] 25 mg [place] Q6HR PRN #5 supp.rect 08/01/18 01/27/19 12:00 Rx Metoclopramide [Reglan TAB] 10 mg PO QID 30 Days #120 tablet 12/22/18 01/27/19 12:00 Rx amLODIPine 10 mg PO DAILY 90 Days #90 tab 12/22/18 01/27/19 12:00 Rx oxyCODONE /ACETAMINOPHEN [Percocet 1 tab PO Q4HR #20 tab 01/28/19 Unknown Rx 5/325] Famotidine [Pepcid] 20 mg PO BID #30 tablet 04/16/19 Unknown Rx HYDROcodone/APAP 5-325 [[place] 1 each PO Q6HR PRN #14 tablet 04/16/19 Unknown Rx 5/325] Ondansetron [Zofran Odt] 4 mg PO Q8HR PRN #20 tab.rapdis 04/16/19 Unknown Rx Allergies Allergy/AdvReac Type Severity Reaction Status Date / Time No Known Allergies Allergy Verified 01/23/19 17:06 ED Review of Systems ROS: Stated complaint: N/V,HTN/HYPERGLYCEMIA Other details as noted in HPI Comment: All other systems reviewed and negative ED Past Medical Hx - Past Medical History Hx Hypertension: Yes Hx Heart Attack/AMI: Yes Hx Congestive Heart Failure: Yes Hx Diabetes: Yes Hx GERD: Yes Hx Renal Disease: Yes - Surgical History Additional Surgical History: 5 Right toes removed surgically in March 2017 - Social History Smoking Status: Never Smoker - Medications Home Medications: Home Medications Medication Instructions Recorded Confirmed Last Taken Type ALBUTEROL Inhaler(NF) [VENTOLIN 2 puff IH Q1D PRN #1 inha 07/25/18 01/23/19 Unknown Rx Inhaler(NF)] Aspirin [Aspirin BABY CHEW TAB] 81 mg PO QDAY #30 tab.chew 07/25/18 01/23/19 01/11/19 10:00 Rx AtorvaSTATin [Lipitor] 40 mg PO QHS #30 tablet 07/25/18 01/23/19 01/27/19 12:00 Rx Famotidine [Pepcid] 20 mg PO DAILY #30 tablet 07/25/18 01/23/19 01/27/19 12:00 Rx Furosemide [Lasix TAB] 40 mg PO QDAY #30 tablet 07/25/18 01/23/19 Unknown Rx ISOSORBIDE MONOnitrate [Imdur ER] 60 mg PO QDAY #30 tablet 07/25/18 01/23/19 01/27/19 12:00 Rx Insulin Glargine [Lantus VIAL] 20 units SUB-Q QHS 30 Days #5 pen 07/25/18 01/23/19 01/27/19 12:00 Rx Lisinopril [Zestril TAB] 10 mg PO QDAY #30 tablet 07/25/18 01/23/19 01/27/19 12:00 Rx Metoprolol [Lopressor TAB] 100 mg PO BID #60 tablet 07/25/18 01/23/19 01/27/19 12:00 Rx Zolpidem [Ambien] 10 mg PO QHS PRN #10 tablet 07/25/18 01/23/19 01/27/19 12:00 Rx carvediloL [Coreg] 25 mg PO BID #60 tablet 07/25/18 01/23/19 01/27/19 12:00 Rx hydrALAZINE [Apresoline TAB] 100 mg PO Q8HR 90 Days #90 tab 07/25/18 01/23/19 01/27/19 12:00 Rx Diphenoxylate/Atropine [Lomotil] 1 - 2 tab PO QID PRN #20 tablet 08/01/18 01/23/19 Unknown Rx Promethazine [Phenergan SUPPOS] 25 mg [place] Q6HR PRN #5 supp.rect 08/01/18 01/23/19 01/27/19 12:00 Rx Metoclopramide [Reglan TAB] 10 mg PO QID 30 Days #120 tablet 12/22/18 01/23/19 01/27/19 12:00 Rx amLODIPine 10 mg PO DAILY 90 Days #90 tab 12/22/18 01/23/19 01/27/19 12:00 Rx Losartan [Cozaar] 150 mg PO QDAY 01/23/19 01/23/19 01/27/19 12:00 History oxyCODONE /ACETAMINOPHEN [Percocet 1 tab PO Q4HR #20 tab 01/28/19 Unknown Rx 5/325] Famotidine [Pepcid] 20 mg PO BID #30 tablet 04/16/19 Unknown Rx HYDROcodone/APAP 5-325 [[place] 1 each PO Q6HR PRN #14 tablet 04/16/19 Unknown Rx 5/325] Ondansetron [Zofran Odt] 4 mg PO Q8HR PRN #20 tab.rapdis 04/16/19 Unknown Rx ED Physical Exam - General Limitations: No Limitations - Other Other exam information: General: No acute distress Head: Atraumatic Eyes: normal appearance ENT: Moist mucous membranes Neck: Normal appearance, no midline tenderness Chest: Clear to auscultation bilaterally CV: Cardiac regular rhythm Abdomen: Soft, normal bowel sounds, has abdominal tenderness on palpation, nondistended, no rebound or guarding Back: Normal inspection Extremity: full range of motion. Left toes amputated Neuro: Alert O x 3, no facial asymmetry, speech clear, no gross motor sensory deficit Psych: Appropriate behavior Skin: Diaphoretic ED Course Vital Signs 04/16/19 04/16/19 04/16/19 07:16 07:44 07:45 Temperature Pulse Rate 109 H 109 H Respiratory 16 19 Rate Blood Pressure 210/105 Blood Pressure [Right] O2 Sat by Pulse 97 99 98 Oximetry 04/16/19 04/16/19 04/16/19 07:46 07:48 08:01 Temperature 98.1 F Pulse Rate 108 H Respiratory 19 12 Rate Blood Pressure 214/113 Blood Pressure [Right] O2 Sat by Pulse 98 59 L Oximetry 04/16/19 04/16/19 04/16/19 08:23 09:19 10:03 Temperature Pulse Rate 101 H 106 H 94 H Respiratory 17 13 13 Rate Blood Pressure Blood Pressure 171/96 182/104 165/97 [Right] O2 Sat by Pulse 100 99 96 Oximetry - Consultations Consultation #1: 04/16/19 09:13 case d/w Dr López, if pt feels better may go home and come to dialysis at next scheduled visit. ED Medical Decision Making - Lab Data Result diagrams: 04/16/19 07:30 04/16/19 07:30 Lab Results 04/16/19 04/16/19 04/16/19 Range/Units 07:30 07:30 07:30 WBC 12.0 H (4.5-11.0) K/mm3 RBC 4.85 (3.65-5.03) M/mm3 Hgb 14.0 (11.8-15.2) gm/dl Hct 43.7 (35.5-45.6) % MCV 90 (84-94) fl MCH 29 (28-32) pg MCHC 32 (32-34) % RDW 15.5 H (13.2-15.2) % Plt Count 302 (140-440) K/mm3 Lymph % (Auto) 10.4 L (13.4-35.0) % [place] % (Auto) 5.9 (0.0-7.3) % Eos % (Auto) 1.2 (0.0-4.3) % Baso % (Auto) 0.9 (0.0-1.8) % Lymph # 1.2 (1.2-5.4) K/mm3 [place] # 0.7 (0.0-0.8) K/mm3 Eos # 0.1 (0.0-0.4) K/mm3 Baso # 0.1 (0.0-0.1) K/mm3 Seg Neutrophils % 81.6 H (40.0-70.0) % Seg Neutrophils # 9.8 H (1.8-7.7) K/mm3 PT 11.1 L (12.2-14.9) Sec. INR 0.81 L (0.87-1.13) APTT 26.9 (24.2-36.6) Sec. VBG pH (7.320-7.420) Sodium 140 (137-145) mmol/L Potassium 4.4 (3.6-5.0) mmol/L Chloride 98.6 (98-107) mmol/L Carbon Dioxide 23 (22-30) mmol/L Anion Gap 23 mmol/L BUN 33 H (9-20) mg/dL Creatinine 5.5 H (0.8-1.5) mg/dL Estimated GFR 13 ml/min BUN/Creatinine Ratio 6 % Glucose 364 H (75-100) mg/dL POC Glucose (70-105) Ketones Quantitative (Negative) Calcium 9.0 (8.4-10.2) mg/dL Total Bilirubin 0.30 (0.1-1.2) mg/dL AST 24 (5-40) units/L ALT 15 (7-56) units/L Alkaline Phosphatase 139 H (35-129) units/L Total Protein 7.9 (6.3-8.2) g/dL Albumin 3.5 L (3.9-5) g/dL Albumin/Globulin Ratio 0.8 % Lipase 62 H (13-60) units/L 04/16/19 04/16/19 04/16/19 Range/Units 07:30 07:30 09:09 WBC (4.5-11.0) K/mm3 RBC (3.65-5.03) M/mm3 Hgb (11.8-15.2) gm/dl Hct (35.5-45.6) % MCV (84-94) fl MCH (28-32) pg MCHC (32-34) % RDW (13.2-15.2) % Plt Count (140-440) K/mm3 Lymph % (Auto) (13.4-35.0) % [place] % (Auto) (0.0-7.3) % Eos % (Auto) (0.0-4.3) % Baso % (Auto) (0.0-1.8) % Lymph # (1.2-5.4) K/mm3 [place] # (0.0-0.8) K/mm3 Eos # (0.0-0.4) K/mm3 Baso # (0.0-0.1) K/mm3 Seg Neutrophils % (40.0-70.0) % Seg Neutrophils # (1.8-7.7) K/mm3 PT (12.2-14.9) Sec. INR (0.87-1.13) APTT (24.2-36.6) Sec. VBG pH 7.369 (7.320-7.420) Sodium (137-145) mmol/L Potassium (3.6-5.0) mmol/L Chloride (98-107) mmol/L Carbon Dioxide (22-30) mmol/L Anion Gap mmol/L BUN (9-20) mg/dL Creatinine (0.8-1.5) mg/dL Estimated GFR ml/min BUN/Creatinine Ratio % Glucose (75-100) mg/dL POC Glucose 358 H (70-105) Ketones Quantitative Negative (Negative) Calcium (8.4-10.2) mg/dL Total Bilirubin (0.1-1.2) mg/dL AST (5-40) units/L ALT (7-56) units/L Alkaline Phosphatase (35-129) units/L Total Protein (6.3-8.2) g/dL Albumin (3.9-5) g/dL Albumin/Globulin Ratio % Lipase (13-60) units/L - EKG Data -: EKG Interpreted by De EKG shows normal: sinus rhythm, ST-T waves (no stemi) Rate: tachycardia (107) - Radiology Data Radiology results: report reviewed CT ABDOMEN AND PELVIS WITHOUT CONTRAST HISTORY: Nausea, vomiting, diarrhea. Hypertension on dialysis. Diabetes. COMPARISON: 01/15/2019 TECHNIQUE: Axial CT images were obtained through the abdomen and pelvis without IV contrast. Sagittal and coronal reformatted images. All CT scans at this location are performed using CT dose reduction for ALARA by means of automated exposure control. FINDINGS: CT ABDOMEN: Lung Bases: Stable borderline heart size. A layering right pleural effusion has decreased from 5.3 cm to 3.4 cm in thickness. The visualized lung bases are well-aerated otherwise. Liver: No significant abnormality. Biliary: No significant abnormality. Spleen: No significant abnormality. Unenlarged. Pancreas: No significant abnormality. Adrenals: No significant abnormality. Kidneys: No significant abnormality. Lymphatics: No lymphadenopathy. Vasculature: No significant abnormality. Bowel/Peritoneum: No significant abnormality. No free air. No free fluid. Appendix is not confidently visualized on today's exam. No inflammatory changes in the right lower quadrant. CT PELVIS: : No significant abnormality. Osseous Structures: Intact. Advanced degenerative disc disease at L5-S1. Additional Findings: None IMPRESSION: No acute process is identified in the abdomen or pelvis. No overwhelming change since 01/15/2019. Decreased right pleural effusion by approximately 50%. CHEST 1 VIEW 04/16/2019 7:31 AM INDICATION / CLINICAL INFORMATION: Shortness of breath. Nausea with vomiting. Hypertension. History of ESRD. COMPARISON: One view of the chest from 12/22/2018. FINDINGS: SUPPORT DEVICES: Stable right internal jugular vein PermCath. HEART / MEDIASTINUM: No significant abnormality. LUNGS / PLEURA: There is a similar small right pleural effusion with associated atelectasis. The lungs are otherwise clear. No pneumothorax. ADDITIONAL FINDINGS: No significant additional findings. IMPRESSION: Similar small right p leural effusion with associated atelectasis. - Medical Decision Making BP improved after pain reduction with Dilaudid. Nausea improved after Zofran. Patient felt like his sugar was decreasing after insulin but upon recheck it was still in the 300s. Ketones are negative with normal venous pH therefore low suspicion for DKA. Further blood pressure reduction after labetalol 10 mg. Patient feeling better. Will be discharged. Has a doctor appointment at 11 AM. - Differential Diagnosis gastritis, viral syndrome, intra-abdominal infection, Critical Care Time: No Critical care attestation.: If time is entered above; I have spent that time in minutes in the direct care of this critically ill patient, excluding procedure time. ED Disposition Clinical Impression: Gastroenteritis, ESRD (end stage renal disease) on dialysis, IDDM (insulin dependent diabetes mellitus), HTN (hypertension) Disposition: - TO HOME OR SELFCARE Is pt being admited?: No Does the pt Need Aspirin: No Condition: Stable Instructions: Diabetes Mellitus Type 2 in Adults (ED), Hypertension (ED), Gastroenteritis (ED) Additional Instructions: Take the medication as prescribed. Follow-up with your doctor or doctor/clinic provided. Return if symptoms worsen as indicated by your discharge instructions. Go to your next dialysis session as scheduled. Prescriptions: HYDROcodone/APAP 5-325 [[place] 5/325] 1 each PO Q6HR PRN #14 tablet PRN Reason: Pain Famotidine [Pepcid] 20 mg PO BID #30 tablet Ondansetron [Zofran Odt] 4 mg PO Q8HR PRN #20 tab.rapdis PRN Reason: Nausea And Vomiting Referrals: PRIMARY CARE, [Primary Care Provider] - 3-5 Days Time of Disposition: 10:21
[2019-04-16 10:04] VITALS: BP 165/97
== END 2019-04-16 10:45 | disposition home or self-care (01) ==
LOC: ED 06:58
DX: K21.9 Gastro-esophageal reflux disease without esophagitis (principal); I11.0 Hypertensive heart disease with heart failure; I50.9 Heart failure, unspecified; I25.2 Old myocardial infarction; E11.9 Type 2 diabetes mellitus without complications; Z79.899 Other long term (current) drug therapy; Z79.4 Long term (current) use of insulin
CPT/HCPCS: 36415; 71045; 74176; 80053; 82010; 82805; 82962; 83690; 85025; 85610; 85730; 93005; 93010; 96374; 96375; 99285; J1170; J2405; J1815

== ENCOUNTER 2019-06-05 09:57 | Emergency (ER) | payer SELFPAY ==
[2019-06-05 10:12] VITALS: BP 146/84
--- NOTE | 2019-06-05 12:33 | Emergency Department Report ---
Chief Complaint: Skin/Abscess/Foreign Body Stated Complaint: CHEST PAIN Time Seen by Provider: 06/05/19 12:06 - HPI History of Present Illness: This is a 58-year-old male nontoxic, well nourished in appearance, no acute signs of distress presents to the ED with c/o of itching to right sided dialysis catheter intermittent x6 months. Patient denies any pus or drainage. Patient denies and redness. Denies any pain. Patient denies any fever, chills, nausea, vomiting, chest pain, shortness of breath, headache or stiff neck. Patient denies any allergies. - Exam Vital Signs: Vital Signs 06/05/19 10:11 Temperature 98.2 F Pulse Rate 103 H Respiratory 16 Rate Blood Pressure 146/84 [Right] O2 Sat by Pulse 99 Oximetry Physical Exam: No redness. No rash. No cellulitis. No swelling. Normal exam. MSE screening note: Focused history and physical exam performed. Due to findings the following was ordered: ED Medical Decision Making - Medical Decision Making Patient was given referrals to follow-up with a primary care doctor for this condition. Patient does not present with a medical emergency currently the ER. At time of discharge, the patient does not seem toxic or ill in appearance. No acute signs of distress noted. Patient agrees to discharge treatment plan of care. No further questions noted by the patient. ED Disposition for MSE Clinical Impression: Itching Disposition: Z-07 MED SCREENING EXAM-LEFT Is pt being admited?: No Does the pt Need Aspirin: No Condition: Stable Additional Instructions: Follow-up with a primary care doctor in 3-5 days or if symptoms worsen and continue return to emergency room as soon as possible. Referrals: TAYLOR SAM MD [Primary Care Provider] - 3-5 Days PRIMARY MD NINA [Referring] - 3-5 Days LU JIMÉNEZ MD [Staff Physician] - 3-5 Days [facility] [Outside] - 3-5 Days
== END 2019-06-05 13:42 | disposition left against medical advice (07) ==
LOC: ED 09:57
DX: L29.9 Pruritus, unspecified (principal)
CPT/HCPCS: 99281